=== PATIENT | female | born 1945 | race Caucasian/White ===

== ENCOUNTER 2023-11-02 15:01 | Inpatient (IN) ==
--- NOTE | 2023-11-02 15:38 | Emergency Department Note ---
ED Provider Note History of Present Illness Chief Complaint: Abdominal Pain Stated Complaint: ABD PAIN Time Seen by Provider: 11/02/23 15:36 This is a 78-year-old female accompanied by her who was referred to the emergency department by her primary care provider. Patient describes bilateral hand cramping and feet pain, lack of appetite, vomiting after eating, general fatigue, weight loss, and weakness. She also fell yesterday and hit the right side of her head. Patient states that symptoms have been ongoing for the past couple months but worsened recently to the point where she is now having a hard time even drinking fluids. She states that her time she ingests something she feels nauseous and sometimes will vomit. She is still making bowel movements and urinating about 5 times per day. She does not feel anxious. She denies any chest pain or shortness of breath. She states she recently lost 12 pounds unintentionally. She was admitted in [facility] several weeks ago and states that her potassium and magnesium was very low. She was subsequently discharged. She has an EGD and colonoscopy scheduled for November 30 with Deshawn rodriguez. She denies any fevers or leg swelling. History of hysterectomy as well as cholecystectomy. Home Medications Medication Instructions Recorded Confirmed Type acetaminophen 650 mg 650 mg PO Q8H PRN Pain 11/02/23 11/02/23 History tablet,extended release albuterol sulfate 90 mcg/actuation 2 puff inhalation Q6H PRN 11/02/23 11/02/23 History aerosol inhaler Shortness Of Breath Or Wheezing atorvastatin 80 mg tablet 80 mg PO QPM 11/02/23 11/02/23 History denosumab 60 mg/mL subcutaneous 60 mg subcut .[id number] 11/02/23 11/02/23 History syringe (Prolia) famotidine 40 mg tablet 40 mg PO QPM 11/02/23 11/02/23 History flaxseed oil 1,000 mg capsule 1,000 mg PO QPM 11/02/23 11/02/23 History montelukast 10 mg tablet 10 mg PO DAILY 11/02/23 11/02/23 History pantoprazole 20 mg tablet,delayed 20 mg PO QDD 11/02/23 11/02/23 History release ranolazine 500 mg tablet,extended 500 mg PO BID 11/02/23 11/02/23 History release,12 hr sertraline 100 mg tablet 100 mg PO QAM 11/02/23 11/02/23 History trazodone 100 mg tablet 100 mg PO HS 11/02/23 11/02/23 History Allergies Allergy/AdvReac Type Severity Reaction Status Date / Time alendronate sodium Allergy Intermediate Itching Verified 11/02/23 17:21 [From Fosamax] Past Med/Surg History Problem List Hypocalcemia Hypophosphatemia Hypertriglyceridemia Orthostatic hypotension Anxiety and depression Cramp of muscle of both upper extremities (Acute) Nausea & vomiting (Acute) Hypomagnesemia (Acute) Acute hypokalemia (Acute) Surgical History History of cholecystectomy History of hysterectomy Family History Other Colorectal cancer Heart disease Social History Smoking Status: Never smoker Second Hand Exposure: No; Tobacco Cessation Education Requested by Patient: No Hx Alcohol Use: No Hx Substance Use: No Preferred Language: Kosovan Communication Ability: Effective Processes Chemical Design Engineer Required: No Beliefs That Will Affect Care: None Current Living Situation: Spouse Feels Safe at Home: Yes Safety Concerns: Feels Safe At This Time Assistive Devices: Denture - Upper and Glasses Physical Exam Vital Signs Vital Signs - 24 hr 11/02/23 15:12 11/02/23 15:26 11/02/23 16:03 Temperature 36.8 C 36.4 C L Temperature Source Temporal Artery Scan Oral Pulse Rate 101 H 81 Pulse Rate [Right Finger] 77 Pulse Rate from SpO2 Sensor Respiratory Rate 18 23 26 H Respiratory Effort / Characteristics Non-Labored Respiratory Depth Normal Blood Pressure 116/68 Blood Pressure [Right Arm] 113/67 Blood Pressure Mean 84 Blood Pressure Mean [Right Arm] 82 Blood Pressure Position [Right Arm] Lying Pulse Oximetry 98 Oxygen Delivery Method Room Air Sepsis Recent Fever Within 48 Hours No Sepsis New/Unexplained Change in Mental Status No Sepsis Action Taken by Nursing No Action Required 11/02/23 16:26 11/02/23 16:36 11/02/23 16:55 Temperature Temperature Source Pulse Rate 78 84 Pulse Rate [Right Finger] Pulse Rate from SpO2 Sensor 65 Respiratory Rate 24 Respiratory Effort / Characteristics Respiratory Depth Blood Pressure 124/72 Blood Pressure [Right Arm] Blood Pressure Mean 95 Blood Pressure Mean [Right Arm] Blood Pressure Position [Right Arm] Pulse Oximetry 94 Oxygen Delivery Method Sepsis Recent Fever Within 48 Hours Sepsis New/Unexplained Change in Mental Status Sepsis Action Taken by Nursing 11/02/23 16:57 11/02/23 17:03 11/02/23 18:06 Temperature Temperature Source Pulse Rate 76 78 94 H Pulse Rate [Right Finger] Pulse Rate from SpO2 Sensor 110 H Respiratory Rate 21 28 H 25 H Respiratory Effort / Characteristics Respiratory Depth Blood Pressure Blood Pressure [Right Arm] Blood Pressure Mean Blood Pressure Mean [Right Arm] Blood Pressure Position [Right Arm] Pulse Oximetry 79 L 93 Oxygen Delivery Method Room Air Sepsis Recent Fever Within 48 Hours Sepsis New/Unexplained Change in Mental Status Sepsis Action Taken by Nursing CONSTITUTIONAL: Well developed, well nourished, anxious appearing, tearful at times. HEAD: Normocephalic, atraumatic. EYES: conjunctivae normal, extraocular muscles intact. No scleral icterus. ENMT: External ears normal. Nose with normal external appearance, no congestion. Oral mucous membranes dry otherwise. Oropharynx normal. NECK: Full active range of motion. No midline tenderness. LYMPHATIC: No cervical adenopathy RESPIRATORY: Minimally tachypneic. Lungs clear to auscultation bilaterally. CARDIOVASCULAR: Regular rate and rhythm. No murmurs, rubs, or gallops. PT pulses 2+ bilaterally. ABDOMEN: Normal bowel sounds. Abdomen is soft. There is significant tenderness in the epigastric region as well as mild tenderness in the left upper quadrant and diffuse lower abdomen. MUSCULOSKELETAL: Moves all extremities at all joints without pain or difficulty. No edema in bilateral lower extremities. SKIN: [place], warm, dry. NEUROLOGIC: Awake, alert, oriented. Gaze is conjugate. Face symmetric, speech normal. Moves head and all four extremities spontaneously. Sensation and strength grossly intact. PSYCHIATRIC: Anxious and tearful. Otherwise appropriate. Course Administered Medications Atorvastatin Calcium (Atorvastatin 40 Mg Tab) 80 mg PO QPM [facility] Stop: 12/02/23 21:07 Last Admin: 11/02/23 21:53 Dose: 80 mg Documented By: TIGRE Famotidine (Famotidine 40 Mg Tablet) 40 mg PO QPM [facility] Stop: 12/02/23 21:07 Last Admin: 11/02/23 21:55 Dose: 40 mg Documented By: TIGRE Heparin Sodium (Porcine) (Heparin Sod 5,000 Unit/0.5 Ml Vial) 5,000 units SQ Q12 KRISTINA Stop: 12/02/23 21:07 Last Admin: 11/02/23 21:56 Dose: 5,000 units Documented By: TIGRE Potassium Chloride/Sodium Chloride (Normal Saline W/20 Meq Kcl) 20 meq in 1,000 mls @ 100 mls/hr IV .Q10H [facility]; Protocol Stop: 11/03/23 17:07 Last Admin: 11/03/23 02:06 Dose: 100 mls/hr Documented By: TIGRE Potassium Chloride (K Joao / Wtr) 10 meq in 100 mls @ 100 mls/hr IV Q1H [facility] Stop: 11/03/23 05:44 Last Admin: 11/03/23 04:08 Dose: 100 mls/hr Documented By: Infusion: 11/03/23 04:08 Dose: Infused Documented By: Admin: 11/03/23 03:14 Dose: 100 mls/hr Documented By: Infusion: 11/03/23 03:06 Dose: Infused Documented By: Admin: 11/03/23 02:06 Dose: 100 mls/hr Documented By: TIGRE Ranolazine (Ranolazine 500 Mg Er Tab) 500 mg PO BID [facility] Stop: 12/02/23 21:07 Last Admin: 11/02/23 22:00 Dose: 500 mg Documented By: TIGRE Trazodone HCl (Trazodone Hcl 100 Mg Tab) 100 mg PO HS [facility] Stop: 12/02/23 21:07 Last Admin: 11/02/23 22:00 Dose: 100 mg Documented By: TIGRE Discontinued Medications Hydromorphone HCl (Hydromorphone Inj 0.5 Mg/0.5 Ml Syr) 0.25 mg IV NOW [facility] Stop: 11/02/23 19:16 Last Admin: 11/02/23 20:28 Dose: 0.25 mg Documented By: Magnesium Sulfate/Dextrose (Magnesium Sulfate / D5w) 1 gm in 100 mls @ 200 mls/hr IV Q30M KRISTINA Stop: 11/02/23 18:20 Last Infusion: 11/02/23 19:21 Dose: Infused Documented By: Admin: 11/02/23 18:47 Dose: 200 mls/hr Documented By: Infusion: 11/02/23 18:37 Dose: Infused Documented By: Admin: 11/02/23 18:07 Dose: 200 mls/hr Documented By: ANNA Potassium Chloride (K Joao / Wtr) 10 meq in 100 mls @ 100 mls/hr IV Q1H STA Stop: 11/02/23 18:18 Last Infusion: 11/02/23 19:14 Dose: Infused Documented By: Admin: 11/02/23 17:55 Dose: 100 mls/hr Documented By: ANNA Magnesium Sulfate/Dextrose (Magnesium Sulfate / D5w) 1 gm in 100 mls @ 200 mls/hr IV Q30M KRISTINA Stop: 11/02/23 18:22 Last Admin: 11/02/23 19:04 Dose: Not Given Documented By: Admin: 11/02/23 19:04 Dose: Not Given Documented By: ANNA Acetaminophen (Ofirmev) 1,000 mg in 100 mls @ 400 mls/hr IV NOW STA Stop: 11/02/23 18:21 Last Infusion: 11/02/23 19:13 Dose: Infused Documented By: Admin: 11/02/23 18:20 Dose: 400 mls/hr Documented By: ANNA Sodium Chloride (Nss) 500 mls @ 999 mls/hr IV .Q31M ONE Stop: 11/02/23 18:37 Last Infusion: 11/02/23 19:21 Dose: Infused Documented By: Admin: 11/02/23 18:18 Dose: 999 mls/hr Documented By: ANNA Potassium Chloride (K Joao / Wtr) 10 meq in 100 mls @ 100 mls/hr IV Q1H KRISTINA Stop: 11/02/23 22:44 Last Infusion: 11/03/23 00:48 Dose: Infused Documented By: Admin: 11/02/23 23:30 Dose: 100 mls/hr Documented By: Infusion: 11/02/23 23:21 Dose: Infused Documented By: Admin: 11/02/23 22:21 Dose: 100 mls/hr Documented By: Infusion: 11/02/23 22:19 Dose: Infused Documented By: Admin: 11/02/23 21:19 Dose: 100 mls/hr Documented By: TIGRE Magnesium Sulfate/Dextrose (Magnesium Sulfate / D5w) 1 gm in 100 mls @ 100 mls/hr IV Q1H KRISTINA Stop: 11/02/23 21:40 Last Infusion: 11/02/23 23:30 Dose: Infused Documented By: Admin: 11/02/23 22:21 Dose: 100 mls/hr Documented By: Infusion: 11/02/23 22:14 Dose: Infused Documented By: Admin: 11/02/23 21:14 Dose: 100 mls/hr Documented By: TIGRE Potassium Phosphate 15 mmol/ (Sodium Chloride) 255 mls @ 88 mls/hr IV ONE ONE Stop: 11/02/23 22:53 Last Admin: 11/02/23 23:32 Dose: Not Given Documented By: TIGRE Pantoprazole Sodium 40 mg/ (Syringe) 10 mls @ 5 mls/min IV NOW ONE Stop: 11/02/23 20:31 Last Admin: 11/02/23 20:29 Dose: 5 mls/min Documented By: Potassium Phosphate 30 mmol/ (Sodium Chloride) 510 mls @ 102 mls/hr IV ONE ONE Stop: 11/03/23 01:59 Last Infusion: 11/03/23 02:15 Dose: Infused Documented By: Admin: 11/02/23 21:09 Dose: 102 mls/hr Documented By: TIGRE Ioversol (Optiray 320 100ml) 93 ml IV ONCE ONE Stop: 11/02/23 17:45 Last Admin: 11/02/23 17:45 Dose: 93 ml Documented By: PIPO Ondansetron HCl (Ondansetron Inj 2 Mg/Ml 2 Ml Vial) 4 mg IV NOW STA Stop: 11/02/23 16:14 Last Admin: 11/02/23 16:23 Dose: 4 mg Documented By: OSIEL Potassium Chloride (Potassium Chloride Crtab 20 Meq Tabcr) 20 meq PO NOW STA Stop: 11/02/23 19:53 Last Admin: 11/02/23 20:34 Dose: 20 meq Documented By: Potassium Chloride (Potassium Chloride Pwd 20 Meq Pack) 40 meq PO NOW STA Stop: 11/03/23 01:38 Last Admin: 11/03/23 02:12 Dose: 40 meq Documented By: TIGRE Potassium Chloride (Potassium Chloride Pwd 20 Meq Pack) 40 meq PO ONE ONE Stop: 11/03/23 03:01 Last Admin: 11/03/23 04:05 Dose: 40 meq Documented By: TIGRE Medical Decision Making Differential Diagnosis Peptic ulcer disease, hiatal hernia, electrolyte imbalance, dehydration, ACS, constipation, appendicitis, hyperventilation, GATO, malignancy, anxiety, among other pathology Medical Records Attestation: I reviewed the patient's medical records. (Reviewed [facility] discharge summary from last month, hypokalemic and hypomagnesemic, felt to possibly be secondary to viral gastroenteritis) Laboratory Data 11/02/23 15:35 11/02/23 22:49 Lab Results 11/02/23 11/02/23 11/02/23 Range/Units 15:35 16:53 18:18 WBC 8.97 (4.8-10.8) K/ul RBC 4.00 L (4.20-5.40) M/uL Hgb 12.2 (12.0-16.0) g/dl Hct 33.8 L (37.0-47.0) % MCV 84.5 (80.0-100.0) fL MCH 30.5 (25.0-34.0) pg MCHC 36.1 H (32.0-36.0) g/dL RDW Std Deviation 44.1 (36.4-46.3) fL RDW Coeff of Silvia 14.4 (11.5-14.5) % Plt Count 262 (130-400) K/uL MPV 10.0 (9.4-12.4) fL Immature Gran % (Auto) 0.3 % Neut % (Auto) 41.1 % Lymph % (Auto) 42.4 % Toole % (Auto) 14.3 % Eos % (Auto) 1.3 % Baso % (Auto) 0.6 % Neut # (Auto) 3.69 (1.40-6.50) K/uL Lymph # (Auto) 3.80 H (1.20-3.40) K/uL Toole # (Auto) 1.28 H (0.11-0.59) K/uL Eos # (Auto) 0.12 (0.00-0.50) K/uL Baso # (Auto) 0.05 (0.00-0.20) K/uL Immature Gran # (Auto) 0.03 (0.01-0.20) K/uL Sodium 140 (136-145) mmol/L Potassium 2.3 L* (3.5-5.1) mmol/L Chloride 100 (98-107) mmol/L Carbon Dioxide 25 (21-32) mmol/L Anion Gap 15 H (3-11) BUN 15 (6-23) mg/dl Creatinine 1.11 (0.6-1.2) mg/dl Est Cr Clr Drug Dosing 32.5 ml/min Est GFR ( Amer) 55.9 ml/min Est GFR (Non-Af Amer) 48.2 ml/min BUN/Creatinine Ratio 13.5 (10-20) Glucose 97 (70-99(Fasting)) mg/dl Lactate 2.0 (0.4-2.0) mmol/L Calcium 7.4 L (8.6-10.3) mg/dl Phosphorus < 1.0 L* (2.5-4.9) mg/dl Magnesium 0.6 L* (1.7-2.4) mg/dl Total Bilirubin 1.0 (0.2-1.0) mg/dl AST 53 H (13-39) U/L ALT 31 (7-52) U/L Alkaline Phosphatase 47 (34-104) U/L Troponin I High Sens 14.8 H 14.8 H (0-14) pg/ml Total Protein 6.6 (6.0-8.3) gm/dl Albumin 3.9 (3.4-5.0) gm/dl Globulin 2.7 (2.5-4.0) gm/dl Albumin/Globulin Ratio 1.4 (0.9-2) Lipase 73 (11-82) U/L Vitamin B12 274 (180-914) pg/ml Folate 12.68 (>5.38) ng/ml Urine Color Dark Yellow Urine Appearance Cloudy A (Clear) Urine pH 6.0 (4.5-7.5) Ur Specific [place] 1.024 (1.000-1.030) Urine Protein 1+ H (Negative) Urine Glucose (UA) Negative (Negative) Urine Ketones 1+ H (Negative) Urine Blood Negative (Negative) Urine Nitrite Negative (Negative) Urine Bilirubin 1+ H (Negative) Urine Urobilinogen Negative (Negative) Ur Leukocyte Esterase 1+ H (Negative) Urine WBC (Auto) 0-5 (0-5) /hpf Urine RBC (Auto) 6-10 H (0-2) /hpf U Hyaline Cast (Auto) 6-10 H (0-2) /lpf U Epithel Cells (Auto) 0-2 (0-2) /hpf Urine Bacteria (Auto) None Seen (None Seen) Hyaline Casts Present A (None Presnt) /lpf Urine Mucus Present A (None Prsent) Adenovirus (PCR) (NotDetected) B. pertussis DNA (PCR) (NotDetected) B.parapertussis DNA PCR (NotDetected) C. pneumoniae DNA (PCR) (NotDetected) Coronavirus OC43 (PCR) (NotDetected) Coronavirus HKU1 (PCR) (NotDetected) Coronavirus 229E (PCR) (NotDetected) SARS-CoV-2 (PCR) (NotDetected) Coronavirus NL63 (PCR) (NotDetected) Human Metapneumovir PCR (NotDetected) Influenza Type A (PCR) (NotDetected) Influenza Type B (PCR) (NotDetected) M. pneumoniae (PCR) (NotDetected) Parainfluenza 1 (PCR) (NotDetected) Parainfluenza 2 (PCR) (NotDetected) Parainfluenza 3 (PCR) (NotDetected) Parainfluenza 4 (PCR) (NotDetected) RSV (PCR) (NotDetected) Entero/Rhino (PCR) (NotDetected) 11/02/23 Range/Units 18:56 WBC (4.8-10.8) K/ul RBC (4.20-5.40) M/uL Hgb (12.0-16.0) g/dl Hct (37.0-47.0) % MCV (80.0-100.0) fL MCH (25.0-34.0) pg MCHC (32.0-36.0) g/dL RDW Std Deviation (36.4-46.3) fL RDW Coeff of Silvia (11.5-14.5) % Plt Count (130-400) K/uL MPV (9.4-12.4) fL Immature Gran % (Auto) % Neut % (Auto) % Lymph % (Auto) % [place] % (Auto) % Eos % (Auto) % Baso % (Auto) % Neut # (Auto) (1.40-6.50) K/uL Lymph # (Auto) (1.20-3.40) K/uL [place] # (Auto) (0.11-0.59) K/uL Eos # (Auto) (0.00-0.50) K/uL Baso # (Auto) (0.00-0.20) K/uL Immature Gran # (Auto) (0.01-0.20) K/uL Sodium (136-145) mmol/L Potassium (3.5-5.1) mmol/L Chloride (98-107) mmol/L Carbon Dioxide (21-32) mmol/L Anion Gap (3-11) BUN (6-23) mg/dl Creatinine (0.6-1.2) mg/dl Est Cr Clr Drug Dosing ml/min Est GFR ( Amer) ml/min Est GFR (Non-Af Amer) ml/min BUN/Creatinine Ratio (10-20) Glucose (70-99(Fasting)) mg/dl Lactate (0.4-2.0) mmol/L Calcium (8.6-10.3) mg/dl Phosphorus (2.5-4.9) mg/dl Magnesium (1.7-2.4) mg/dl Total Bilirubin (0.2-1.0) mg/dl AST (13-39) U/L ALT (7-52) U/L Alkaline Phosphatase (34-104) U/L Troponin I High Sens (0-14) pg/ml Total Protein (6.0-8.3) gm/dl Albumin (3.4-5.0) gm/dl Globulin (2.5-4.0) gm/dl Albumin/Globulin Ratio (0.9-2) Lipase (11-82) U/L Vitamin B12 (180-914) pg/ml Folate (>5.38) ng/ml Urine Color Urine Appearance (Clear) Urine pH (4.5-7.5) Ur Specific [place] (1.000-1.030) Urine Protein (Negative) Urine Glucose (UA) (Negative) Urine Ketones (Negative) Urine Blood (Negative) Urine Nitrite (Negative) Urine Bilirubin (Negative) Urine Urobilinogen (Negative) Ur Leukocyte Esterase (Negative) Urine WBC (Auto) (0-5) /hpf Urine RBC (Auto) (0-2) /hpf U Hyaline Cast (Auto) (0-2) /lpf U Epithel Cells (Auto) (0-2) /hpf Urine Bacteria (Auto) (None Seen) Hyaline Casts (None Presnt) /lpf Urine Mucus (None Prsent) Adenovirus (PCR) Not Detected (NotDetected) B. pertussis DNA (PCR) Not Detected (NotDetected) B.parapertussis DNA PCR Not Detected (NotDetected) C. pneumoniae DNA (PCR) Not Detected (NotDetected) Coronavirus OC43 (PCR) Not Detected (NotDetected) Coronavirus HKU1 (PCR) Not Detected (NotDetected) Coronavirus 229E (PCR) Not Detected (NotDetected) SARS-CoV-2 (PCR) Not Detected (NotDetected) Coronavirus NL63 (PCR) Not Detected (NotDetected) Human Metapneumovir PCR Not Detected (NotDetected) Influenza Type A (PCR) Not Detected (NotDetected) Influenza Type B (PCR) Not Detected (NotDetected) M. pneumoniae (PCR) Not Detected (NotDetected) Parainfluenza 1 (PCR) Not Detected (NotDetected) Parainfluenza 2 (PCR) Not Detected (NotDetected) Parainfluenza 3 (PCR) Not Detected (NotDetected) Parainfluenza 4 (PCR) Not Detected (NotDetected) RSV (PCR) Not Detected (NotDetected) Entero/Rhino (PCR) Not Detected (NotDetected) Imaging Data Radiologist's Impression: Chest X-Ray 11/02/23 16:00 XR chest 1V portable CLINICAL HISTORY: postprandial fullness/vomiting COMPARISON STUDY: No previous studies for comparison. FINDINGS: There is moderate elevation of the right hemidiaphragm. Lungs are clear. There is no pneumothorax or pleural effusion. Cardiac size is normal. Mediastinal contours are normal. There is no evidence for pulmonary edema. Multiple old right-sided rib fractures are incidentally noted. IMPRESSION: No acute cardiopulmonary findings. ACT 112: Negative or not required by law. Electronically signed by: Howie Campo M.D. 11/02/2023 5:[address] 11/02/23 16:03 CT OF THE HEAD WITHOUT CONTRAST CLINICAL HISTORY: fall yesterday, right head injury COMPARISON STUDY: No previous studies for comparison. CT DOSE: 1441.5 mGy.cm TECHNIQUE: Helical axial images of the head were obtained without IV contrast. Automated exposure control was utilized for the study. A dose lowering technique was utilized adhering to the principles of ALARA. FINDINGS: No acute intracranial hemorrhage, midline shift or mass effect is present. The ventricular system is unremarkable. The basal cisterns are patent. No extra-axial collections are present. There are no findings to suggest acute dural sinus thrombosis or acute territorial infarct. No significant calvarial abnormalities are present. Visualized portions of the sinuses and mastoid air cells are clear. IMPRESSION: 1. No acute intracranial findings. 2. No calvarial fractures. ACT 112: Negative or not required by law. Electronically signed by: Howie Campo M.D. 11/02/2023 6:08 PM Abdomen/Pelvis CT 11/02/23 17:16 CT OF THE ABDOMEN AND PELVIS WITH CONTRAST CLINICAL HISTORY: Epigastric pain, vomiting after eating. COMPARISON STUDY: None. TECHNIQUE: Following IV administration of 93 mL of Optiray, axial images of the abdomen and pelvis were obtained from the lung bases to the proximal femurs. Images were reviewed in the axial, sagittal, and coronal planes. IV contrast was administered without complication. Automated exposure control was utilized for the study. A dose lowering technique was utilized adhering to the principles of ALARA. FINDINGS: There are several healing left lower rib fractures. No pneumatosis, free air or portal venous gas is present. The liver, spleen, adrenal glands, right kidney and pancreas are unremarkable. There is no biliary ductal dilatation status post cholecystectomy 2.2 cm water attenuation lobulated left lower pole renal lesion represents a cyst. There is no hydronephrosis. There are no urinary calculi. The caliber and wall thickness of small and large bowel are normal. The appendix is not visualized. There is no lymphadenopathy. Major vasculature is patent. No acute fractures within the lumbar spine, pelvis or hips are identified. IMPRESSION: 1. No acute process within the abdomen or pelvis. 2. No bowel obstruction. No bowel wall thickening. ACT 112: Negative or not required by law. Electronically signed by: Howie Campo M.D. 11/02/2023 6:15 PM MDM Narrative This is a 78-year-old female who was referred to the emergency department by her primary care provider. She has had worsening difficulty with p.o. intake, vomiting after trying to eat or drink. Was recently admitted at [facility] several weeks ago for hypokalemia and hypomagnesemia. Has EGD and colonoscopy scheduled with Deshawn rodriguez in 2 months. Patient does appear to be anxious and is intermittently tearful. Her mucous membranes are dry. She has epigastric tenderness and some mild left upper and diffuse lower abdominal tenderness. Her hands are clenched and she is slightly tachypneic. Remainder of vitals unremarkable. IV was inserted and labs were obtained. EKG: Sinus rhythm with a rate of 70. Borderline prolonged QTc at 509. Otherwise intervals within normal limits, normal axis. No acute ST elevation or evidence of ischemia. Labs: No leukocytosis. No significant anemia. No thrombocytopenia. Marked hypokalemia at 2.3 and hypomagnesemia at 0.6. Phosphorus also significantly low at less than 1.0. Mild hypocalcemia at 7.4. Lactate 2.0. Creatinine 1.11. Nonspecific elevation of AST at 53. Initial and repeat 2-hour troponin stable at 14.8. B12 and folate normal. Lipase also normal. Urinalysis with 1+ ketones and leukocyte esterase, small amount of RBCs, no evidence of infection. Upper respiratory bio fire is negative. CT of the head due to recent fall as well as CT abdomen pelvis obtained and are both negative for acute process Patient was given gentle IV fluids. Case reviewed with ED attending Dr. Miranda. We repleted her magnesium, total of 4 g ordered over 2 hours as well as 40 mEq potassium IV over 4 hours. Case discussed with [facility] hospitalist group and patient will be admitted under Dr. Yancey for electrolyte repletion as well as GI consult. Impression Acute hypokalemia, Hypomagnesemia, Nausea & vomiting, Cramp of muscle of both upper extremities Discharge Plan Visit Data Chief Complaint: Abdominal Pain Stated Complaint: ABD PAIN ED Provider: Max Miranda ED Midlevel Provider: Suraj Frod Discharge Problem: Acute hypokalemia, Hypomagnesemia, Nausea & vomiting, Cramp of muscle of both upper extremities Patient Disposition: Admitted As Inpatient Condition: Fair Discharge Instructions Interventions: ED Discharge Assessment Last Done: 11/02/23 20:50 Addendum November 03, 2023 04:49 HPI: The patient is a 78-year-old woman who presents to the emergency department, referred by her outpatient provider for evaluation of ongoing and cramping/feet pain, poor appetite with recent chronic history of nausea and vomiting with eating. The patient has been admitted to [facility] several weeks ago for similar symptoms and had low potassium and magnesium. She has an EGD and colonoscopy scheduled for November with Deshawn gastro. A/P: WBC, hemoglobin and platelets within normal limits. Chemistry without metabolic acidosis. Electrolytes are severely low with potassium 2.3, magnesium 0.6. Phosphorus also did result undetectable less than 1.0. AST mildly elevated 53, nonspecific and LFTs otherwise normal. High-sensitivity troponin 14.8, marginally above upper limit of normal and unchanged on repeat, nonspecific. Lipase is not elevated. UA with 1+ ketones consistent with dehydration. Respiratory viral panel/BioFire was negative. Chest x-ray negative for acute cardiopulmonary process. CT of the head negative for acute abnormalities. CT of the abdomen pelvis was performed and demonstrates no acute abnormalities. IV fluid hydration and electrolyte patient initiated. Patient is referred to hospital service for admission for further management. Further management per admitting team. I was consulted by the Advanced Practice Provider and was substantively involved in the patient's visit.This includes aspects of the HPI, MDM, diagnostic interpretations, and disposition/plan. I discussed the case with the VIN[facility] and agree with the findings and plan as documented in VINH Liliana''s note. Discharge Problem: Nausea & vomiting Qualifiers: Vomiting type: unspecified Qualified Code(s): R11.2 - Nausea with vomiting, unspecified
[2023-11-02] MEDS: ONDANSETRON INJ 2 MG/ML 2 ML VIAL IV STA (16:23)
[2023-11-02 16:25] LABS: Basophils # (auto) 0.05 K/uL (0.00-0.20); Basophils % (auto) 0.6 %; Eosinophils # (auto) 0.12 K/uL (0.00-0.50); Eosinophils % (auto) 1.3 %; Hematocrit (blood only) 33.8 % (37.0-47.0); Hemoglobin 12.2 g/dl (12.0-16.0); Immature Granulocytes # (auto) 0.03 K/uL (0.01-0.20); Immature Granulocytes % (auto) 0.3 %; Lymphocytes % (auto) 42.4 %; Mean Corpuscular Hemoglobin 30.5 pg (25.0-34.0); Mean Corpuscular Hgb Conc 36.1 g/dL (32.0-36.0); Mean Corpuscular Volume 84.5 fL (80.0-100.0); Monocytes # (auto) 1.28 K/uL (0.11-0.59); Monocytes % (auto) 14.3 %; Neutrophils # (auto) 3.69 K/uL (1.40-6.50); Neutrophils % (auto) 41.1 %; Platelet Count 262 K/uL (130-400); RDW Coefficient of Variation 14.4 % (11.5-14.5); RDW Standard Deviation 44.1 fL (36.4-46.3); White Blood Count 8.97 K/ul (4.8-10.8)
[2023-11-02 16:52] LABS: Troponin I High Sensitivity 14.8 pg/ml (0-14)
[2023-11-02 16:53] LABS: Albumin Globulin Ratio 1.4 (0.9-2); Albumin Level 3.9 gm/dl (3.4-5.0); BUN Creatinine Ratio 13.5 (10-20); Calcium 7.4 mg/dl (8.6-10.3); Creatinine Clr Calc Pharmacy 32.5 ml/min; Est GFR (African American) 55.9 ml/min; Est GFR (Non-African American) 48.2 ml/min; Globulin 2.7 gm/dl (2.5-4.0); Magnesium 0.6 mg/dl (1.7-2.4); Potassium 2.3 mmol/L (3.5-5.1); Total Protein 6.6 gm/dl (6.0-8.3)
[2023-11-02 17:06] LABS: Folate (Folic Acid),Ser orPlas 12.68 ng/ml (>5.38)
--- NOTE | 2023-11-02 17:29 | XRay Report ---
XR chest 1V portable CLINICAL HISTORY: postprandial fullness/vomiting COMPARISON STUDY: No previous studies for comparison. FINDINGS: There is moderate elevation of the right hemidiaphragm. Lungs are clear. There is no pneumo thorax or pleural effusion. Cardiac size is normal. Mediastinal contours are normal. There is no evid ence for pulmonary edema. Multiple old right-sided rib fractures are incidentally noted. IMPRESSION: No acute cardiopulmonary findings. ACT 112: Negative or not required by law. Electronically signed by: Howie Campo M.D. 11/02/2023 5:28 PM
[2023-11-02 17:38] LABS: Appearance Urine Cloudy (Clear); Bacteria Urine Automated None Seen (None Seen); Bilirubin Urine 1+ (Negative); Blood Urine Negative (Negative); Color Urine Dark Yellow; Epithelial Cell Urine Auto 0-2 /hpf (0-2); Glucose Urine UA Negative (Negative); Hyaline Casts Urine Present /lpf (None Presnt); Ketones Urine 1+ (Negative); Leukocyte Esterase Urine 1+ (Negative); Mucus Urine Present (None Prsent); Nitrite Urine Negative (Negative); Protein Urine 1+ (Negative); Specific Gravity Urine 1.024 (1.000-1.030); Urobilinogen Urine Negative (Negative); WBC Urine Automated 0-5 /hpf (0-5)
[2023-11-02] MEDS: OPTIRAY 320 100ml IV ONE (17:45)
[2023-11-02] MEDS: POTASSIUM CHLORIDE / WTR 10 MEQ/100 ML PLCT IV STA (17:55)
[2023-11-02] MEDS: MAGNESIUM SULFATE / D5W 1 GM/100 ML BAG IV SCH ×3 (18:07→21:14)
--- NOTE | 2023-11-02 18:10 | CT Scan Report ---
CT OF THE HEAD WITHOUT CONTRAST CLINICAL HISTORY: fall yesterday, right head injury COMPARISON STUDY: No previous studies for comparison. CT DOSE: 1441.5 mGy.cm TECHNIQUE: Helical axial images of the head were obtained without IV contrast. Automated exposure con trol was utilized for the study. A dose lowering technique was utilized adhering to the principles o f ALARA. FINDINGS: No acute intracranial hemorrhage, midline shift or mass effect is present. The ventricular system is unremarkable. The basal cisterns are patent. No extra-axial collections are present. There are no findings to suggest acute dural sinus thrombosis or acute territorial infarct. No significant calvarial abnormalities are present. Visualized portions of the sinuses and mastoid air cells are baltazar ar. IMPRESSION: 1. No acute intracranial findings. 2. No calvarial fractures. ACT 112: Negative or not required by law. Electronically signed by: Howie Campo M.D. 11/02/2023 6:08 PM
--- NOTE | 2023-11-02 18:17 | CT Scan Report ---
CT OF THE ABDOMEN AND PELVIS WITH CONTRAST CLINICAL HISTORY: Epigastric pain, vomiting after eating. COMPARISON STUDY: None. TECHNIQUE: Following IV administration of 93 mL of Optiray, axial images of the abdomen and pelvis we re obtained from the lung bases to the proximal femurs. Images were reviewed in the axial, sagittal, and coronal planes. IV contrast was administered without complication. Automated exposure control wa s utilized for the study. A dose lowering technique was utilized adhering to the principles of ALARA . FINDINGS: There are several healing left lower rib fractures. No pneumatosis, free air or portal veno us gas is present. The liver, spleen, adrenal glands, right kidney and pancreas are unremarkable. The re is no biliary ductal dilatation status post cholecystectomy 2.2 cm water attenuation lobulated lef t lower pole renal lesion represents a cyst. There is no hydronephrosis. There are no urinary calculi . The caliber and wall thickness of small and large bowel are normal. The appendix is not visualized. There is no lymphadenopathy. Major vasculature is patent. No acute fractures within the lumbar spine , pelvis or hips are identified. IMPRESSION: 1. No acute process within the abdomen or pelvis. 2. No bowel obstruction. No bowel wall thickening. ACT 112: Negative or not required by law. Electronically signed by: Howie Campo M.D. 11/02/2023 6:15 PM
[2023-11-02] MEDS: SODIUM CHLORIDE 0.9% 500 ML IV ONE (18:18)
[2023-11-02] MEDS: ACETAMINOPHEN 1,000 MG/100 ML VIAL IV STA (18:20)
--- NOTE | 2023-11-02 18:39 | History & Physical Report ---
Date of Service November 02, 2023 Assessment & Plan (1) Acute hypokalemia: (2) Hypomagnesemia: (3) Hypophosphatemia: (4) Hypocalcemia: (5) Cramp of muscle of both upper extremities: (6) Nausea & vomiting: Plan: Patient is 78-year-old female with PMH osteoporosis, GERD, hypertriglyceridemia, depression, anxiety presented to ER with complaint of extremity cramping today with intermittent, nausea, vomiting. Reports ongoing nausea, vomiting, decreased appetite, intermittent loose bowels and weight loss Vitals stable in ER. No leukocytosis, K: 2.3, Ca: 7.4, magnesium: 0.6, phosphorus <1.0 troponin: 14.8 with repeat of 14.8, lipase and LFTs WNL CT A/P: No bowel obstruction, no acute process noted in abdomen or pelvis In ER given Zofran, IV Tylenol, 500 mL NSS, 2 g magnesium sulfate, 1K rider Electrolyte abnormalities may be secondary to GI losses, decreased oral intake. Suspect muscle cramps and aches secondary to electrolyte abnormality Obtain records assistant on telemetry Continue KCl, magnesium, phosphorus replacement with repeat labs tonight CBC, CMP, magnesium, phosphorus labs in a.m. Clear liquid diet as tolerated Dose IV Protonix now Plan to continue home Pepcid and PPI GI consult (7) Orthostatic hypotension: Plan: History orthostatic hypotension Likely exacerbated by GI losses/poor oral intake Fall precautions Orthostatic vitals (8) Anxiety and depression: Plan: Continue home meds (9) Hypertriglyceridemia: Plan: Continue atorvastatin DVT Prophylaxis Heparin SQ Admit to PCU Full Code as per discussion with pt Follows with Dr Jang for routine care Pt was seen and care coordinated with Dr Yancey. See addendum I spent a total of 78 minutes reviewing notes, outpatient records, labs, medication, coordinating, documenting and providing care for this patient excluding time spent in the performance of separately billed services. History of Present Illness Chief Complaint: extremity cramping Primary Care Provider: Herminia Jang DO Patient is 78-year-old female with PMH osteoporosis, GERD, hypertriglyceridemia, depression, anxiety presented to ER with complaint of extremity cramping today with intermittent, nausea, vomiting. Reports ongoing nausea, vomiting, decreased appetite, intermittent loose bowels. States last episode of loose bowel movement was a week ago. She states has no appetite and nausea. Reports two episodes of vomiting yesterday, one after taking her medications. Reports weight loss over past several months. She also reports some intermittent diffuse abdominal pain. History hospitalization at [facility] 09/29/2023-10/01/2023 for muscle cramping and found to have hypokalemia, hypomagnesemia and per discharge summary potassium and magnesium was repleted with improvement of patient cramping symptoms and was discharged home. Patient states continues with intermittent N/V/D since hospital discharge. She reports is to have "scope" by [facility] in 12/2023. Past reports prior colonoscopies they weren't able to pass the scope fully. She denies history of colon cancer. Patient states today with cramping of bilateral arms and legs and hands were cramping and clenched. She seen at PCP's office and referred to ER. Currently patient denies abdominal pain. No vomiting or diarrhea in ER. She states nauseated. Patient reports for past year has noted dyspnea on exertion and chest pressure with climbing a hill or climbing stairs. Follows with [facility]. Also reports ongoing dizziness with standing for the past several months. She reports she will stand up and have dizziness and often will fall. Patient reports has been falling several times a week with standing. It was recommended that patient have updated echo and stress test. Patient is unsure if she had these things completed. States yesterday fell twice with standing. Denies syncope or LOC. Doesn't think she injured herself. Per chart review 06/24 stress test study WNL and 10/2019 Holter WNL reported in [facility] notes. Per outpatient notes she was referred to asthma/allergy for elevated tryptase level. Denies current SOB or CP. Denies fever/chills, diaphoresis, hematemesis, melena, hematochezia, THAKUR, vision changes, neck pain, orthopnea, palpitations, cough, sore throat, choking, otalgia, rhinorrhea, extremity edema, rashes, urinary symptoms. Allergies Allergy/AdvReac Type Severity Reaction Status Date / Time alendronate sodium Allergy Intermediate Itching Verified 11/02/23 17:21 [From Fosamax] Home Medications Medication Instructions Recorded Confirmed Type acetaminophen 650 mg 650 mg PO Q8H PRN Pain 11/02/23 11/02/23 History tablet,extended release albuterol sulfate 90 mcg/actuation 2 puff inhalation Q6H PRN 11/02/23 11/02/23 History aerosol inhaler Shortness Of Breath Or Wheezing atorvastatin 80 mg tablet 80 mg PO QPM 11/02/23 11/02/23 History denosumab 60 mg/mL subcutaneous 60 mg subcut .[id number] 11/02/23 11/02/23 History syringe (Prolia) famotidine 40 mg tablet 40 mg PO QPM 11/02/23 11/02/23 History flaxseed oil 1,000 mg capsule 1,000 mg PO QPM 11/02/23 11/02/23 History montelukast 10 mg tablet 10 mg PO DAILY 11/02/23 11/02/23 History pantoprazole 20 mg tablet,delayed 20 mg PO QDD 11/02/23 11/02/23 History release ranolazine 500 mg tablet,extended 500 mg PO BID 11/02/23 11/02/23 History release,12 hr sertraline 100 mg tablet 100 mg PO QAM 11/02/23 11/02/23 History trazodone 100 mg tablet 100 mg PO HS 11/02/23 11/02/23 History Past Med/Surg History Problem List (Updated 11/02/23 @ 20:27 by Ellie Kim PA-C) Hypocalcemia Hypophosphatemia Hypertriglyceridemia Orthostatic hypotension Anxiety and depression Cramp of muscle of both upper extremities (Acute) Nausea & vomiting (Acute) Hypomagnesemia (Acute) Acute hypokalemia (Acute) Surgical History (Updated 11/02/23 @ 20:19 by Ellie Kim PA-C) History of cholecystectomy History of hysterectomy Family History (Updated 11/02/23 @ 20:18 by Ellie Kim PA-C) Other Colorectal cancer Heart disease Social History (Updated 11/02/23 @ 20:19 by Ellie Kim PA-C) Smoking Status: Never smoker Hx Alcohol Use: No Hx Substance Use: No Preferred Language: Polish Feels Safe at Home: Yes Review of Systems Review of Systems: All systems reviewed & are unremarkable except as noted in HPI & below Physical Exam Physical Exam: General: + distress secondary to bilateral upper and lower extremity pain and cramping, WDWN Head: normocephalic, atraumatic Eyes: conjunctiva non-injected, anicteric ENT: normal inspection external ears, nose, mucous membranes moist Neck: supple, trachea midline Lungs: clear, no respiratory distress, no wheezing/rhonchi/rales CV: RRR, no murmur, no pretibial edema Abd: normal BS, soft, +diffuse tenderness to palpation without rebound or guar ding Ext: no cyanosis, no erythema, +diffuse tenderness to palpation entire upper and lower extremities. No retractions of fingers or toes Neuro: A&O x 3, no focal deficits noted, normal affect Skin: warm, dry Results & Data Results & Data Vital Signs (Past 12 Hours) Vital Signs Temp Pulse Pulse Resp BP BP Pulse Ox 11/02/23 18:06 94 H 25 H 93 11/02/23 17:03 78 28 H 79 L 11/02/23 16:57 76 21 11/02/23 16:55 124/72 11/02/23 16:36 84 24 94 11/02/23 16:26 78 11/02/23 16:03 81 26 H 11/02/23 15:26 36.4 C L 77 23 113/67 11/02/23 15:12 36.8 C 101 H 18 116/68 98 O2 Del Method 11/02/23 18:06 Room Air 11/02/23 17:03 11/02/23 16:57 11/02/23 16:55 11/02/23 16:36 11/02/23 16:26 11/02/23 16:03 11/02/23 15:26 11/02/23 15:12 Room Air Laboratory Results Short CBC 11/02/23 Range/Units 15:35 WBC 8.97 (4.8-10.8) K/ul Hgb 12.2 (12.0-16.0) g/dl Hct 33.8 L (37.0-47.0) % Plt Count 262 (130-400) K/uL BMP 11/02/23 15:35 Sodium 140 Potassium 2.3 L* Chloride 100 Carbon Dioxide 25 BUN 15 Creatinine 1.11 Glucose 97 Calcium 7.4 L Liver Function 11/02/23 Range/Units 15:35 Total Bilirubin 1.0 (0.2-1.0) mg/dl AST 53 H (13-39) U/L ALT 31 (7-52) U/L Alkaline Phosphatase 47 (34-104) U/L Albumin 3.9 (3.4-5.0) gm/dl Urine 11/02/23 Range/Units 16:53 Urine Color Dark Yellow Urine Appearance Cloudy A (Clear) Urine pH 6.0 (4.5-7.5) Ur Specific [place] 1.024 (1.000-1.030) Urine Protein 1+ H (Negative) Urine Glucose (UA) Negative (Negative) Diagnostic Findings Chest X-Ray 11/02/23 16:00 XR chest 1V portable CLINICAL HISTORY: postprandial fullness/vomiting COMPARISON STUDY: No previous studies for comparison. FINDINGS: There is moderate elevation of the right hemidiaphragm. Lungs are clear. There is no pneumothorax or pleural effusion. Cardiac size is normal. Mediastinal contours are normal. There is no evidence for pulmonary edema. Multiple old right-sided rib fractures are incidentally noted. IMPRESSION: No acute cardiopulmonary findings. ACT 112: Negative or not required by law. Electronically signed by: Howie Campo M.D. 11/02/2023 5:[address] 11/02/23 16:03 CT OF THE HEAD WITHOUT CONTRAST CLINICAL HISTORY: fall yesterday, right head injury COMPARISON STUDY: No previous studies for comparison. CT DOSE: 1441.5 mGy.cm TECHNIQUE: Helical axial images of the head were obtained without IV contrast. Automated exposure control was utilized for the study. A dose lowering technique was utilized adhering to the principles of ALARA. FINDINGS: No acute intracranial hemorrhage, midline shift or mass effect is present. The ventricular system is unremarkable. The basal cisterns are patent. No extra-axial collections are present. There are no findings to suggest acute dural sinus thrombosis or acute territorial infarct. No significant calvarial abnormalities are present. Visualized portions of the sinuses and mastoid air cells are clear. IMPRESSION: 1. No acute intracranial findings. 2. No calvarial fractures. ACT 112: Negative or not required by law. Electronically signed by: Howie Campo M.D. 11/02/2023 6:08 PM Abdomen/Pelvis CT 11/02/23 17:16 CT OF THE ABDOMEN AND PELVIS WITH CONTRAST CLINICAL HISTORY: Epigastric pain, vomiting after eating. COMPARISON STUDY: None. TECHNIQUE: Following IV administration of 93 mL of Optiray, axial images of the abdomen and pelvis were obtained from the lung bases to the proximal femurs. Images were reviewed in the axial, sagittal, and coronal planes. IV contrast was administered without complication. Automated exposure control was utilized for the study. A dose lowering technique was utilized adhering to the principles of ALARA. FINDINGS: There are several healing left lower rib fractures. No pneumatosis, free air or portal venous gas is present. The liver, spleen, adrenal glands, right kidney and pancreas are unremarkable. There is no biliary ductal dilatation status post cholecystectomy 2.2 cm water attenuation lobulated left lower pole renal lesion represents a cyst. There is no hydronephrosis. There are no urinary calculi. The caliber and wall thickness of small and large bowel are normal. The appendix is not visualized. There is no lymphadenopathy. Major vasculature is patent. No acute fractures within the lumbar spine, pelvis or hips are identified. IMPRESSION: 1. No acute process within the abdomen or pelvis. 2. No bowel obstruction. No bowel wall thickening. ACT 112: Negative or not required by law. Electronically signed by: Howie Campo M.D. 11/02/2023 6:15 PM Supervising Physician Co-Signing Physician Notes Attending addendum: The patient was seen and examined in emergency room She has been complaining of ongoing diarrhea, nausea lack of appetite weakness and pains in the legs and hands for some time She has a history of CVA of the colon and is scheduled to have EGD and colonoscopy on 30 November at [facility] for above symptoms She was noted to have very hypokalemic and hypomagnesemic On examination Complains cramp-like pain in the legs and also in the hands Remains hemodynamically stable but very anxious Chest-clear to auscultate bilaterally Heart-S1-S2, regular Abdomen-benign Extremities-negative for any edema [employer]ER-alert, awake and oriented x 3. No focal sensory or motor deficit appreciated Her labs and imaging studies reviewed Noted to have significant electrolytes abnormality with low phosphorus, low magnesium and low potassium likely secondary to ongoing diarrhea and inability eat or drink Will be supplemented and rechecked GI evaluation while in the hospital Agree with assessment and plan and take the full responsibility of it as documented above by DARI Flores Dr (6) Nausea & vomiting Vomiting type: unspecified Qualified Code(s): R11.2 - Nausea with vomiting, unspecified
[2023-11-02 18:54] LABS: Troponin I High Sensitivity 14.8 pg/ml (0-14)
[2023-11-02 19:23] LABS: Lipase 73 U/L (11-82); Phosphorus < 1.0 mg/dl (2.5-4.9)
[2023-11-02] MEDS ORDERED: POTASSIUM PHOS 3 MMOL/1 ML INFUSION IV STA (19:43)
[2023-11-02 20:10] LABS: Adenovirus PCR Not Detected (NotDetected); Bordetella parapertussis PCR Not Detected (NotDetected); Bordetella pertussis PCR Not Detected (NotDetected); Chlamydia pneumoniae PCR Not Detected (NotDetected); Coronavirus 229E PCR Not Detected (NotDetected); Coronavirus CoV-2 (COVID19)PCR Not Detected (NotDetected); Coronavirus HKU1 PCR Not Detected (NotDetected); Coronavirus NL63 PCR Not Detected (NotDetected); Coronavirus OC43PCR Not Detected (NotDetected); Human Metapneumovirus PCR Not Detected (NotDetected); Influenza A PCR Not Detected (NotDetected); Influenza B PCR Not Detected (NotDetected); Mycoplasma pneumoniae PCR Not Detected (NotDetected); Parainfluenza Virus 1 PCR Not Detected (NotDetected); Parainfluenza Virus 2 PCR Not Detected (NotDetected); Parainfluenza Virus 3 PCR Not Detected (NotDetected); Parainfluenza Virus 4 PCR Not Detected (NotDetected); Respiratory Syncytial VirusPCR Not Detected (NotDetected); Rhinovirus/Enterovirus PCR Not Detected (NotDetected)
[2023-11-02] MEDS: HYDROmorphone INJ 0.5 MG/0.5 ML SYR IV STA (20:28)
[2023-11-02] MEDS: PANTOprazole 40 MG in SYRINGE 0 ML IV ONE (20:29)
[2023-11-02] MEDS: POTASSIUM CHLORIDE CRTAB 20 MEQ TABCR PO STA (20:34)
[2023-11-02] MEDS ORDERED: POLYETHYLENE (MIRALAX) 17 GM PACK PO PRN (21:08)
[2023-11-02] MEDS ORDERED: HYDROmorphone INJ 0.5 MG/0.5 ML SYR IV PRN (21:08)
[2023-11-02] MEDS ORDERED: ONDANSETRON INJ 2 MG/ML 2 ML VIAL IV PRN (21:08)
[2023-11-02] MEDS ORDERED: ALBUTEROL HFA 8 GM INHALER INH PRN (21:08)
[2023-11-02] MEDS: POTASSIUM PHOSPHATE 30 MMOL in SODIUM CHLORIDE 0.9% 500 ML IV ONE (21:09)
[2023-11-02] MEDS: POTASSIUM CHLORIDE / WTR 10 MEQ/100 ML PLCT IV SCH (21:19)
[2023-11-02] MEDS: ATORVASTATIN 40 MG TAB PO SCH (21:53)
[2023-11-02] MEDS: FAMOTIDINE 40 MG TABLET PO SCH (21:55)
[2023-11-02] MEDS: HEPARIN SOD 5,000 UNIT/0.5 ML VIAL SQ SCH (21:56)
[2023-11-02] MEDS: RANOLAZINE 500 MG ER TAB PO SCH (22:00)
[2023-11-02] MEDS: traZODone HCL 100 MG TAB PO SCH (22:00)
[2023-11-02] MEDS: POTASSIUM PHOSPHATE 15 MMOL in SODIUM CHLORIDE 0.9% 250 ML IV ONE (23:32)
[2023-11-02 23:38] LABS: BUN Creatinine Ratio 13.7 (10-20); Calcium 6.7 mg/dl (8.6-10.3); Est GFR (African American) 67.4 ml/min; Est GFR (Non-African American) 58.2 ml/min; Magnesium 2.3 mg/dl (1.7-2.4); Phosphorus 3.6 mg/dl (2.5-4.9); Potassium 2.3 mmol/L (3.5-5.1)
[2023-11-03] MEDS: NSS + 20MEQ KCL 20 MEQ/1,000 ML BAG IV SCH (02:06)
[2023-11-03] MEDS: POTASSIUM CHLORIDE / WTR 10 MEQ/100 ML PLCT IV SCH (02:06)
[2023-11-03] MEDS: POTASSIUM CHLORIDE PWD 20 MEQ PACK PO STA (02:12)
[2023-11-03] MEDS: POTASSIUM CHLORIDE PWD 20 MEQ PACK PO ONE (04:05)
[2023-11-03 06:24] LABS: Hematocrit (blood only) 29.1 % (37.0-47.0); Hemoglobin 10.2 g/dl (12.0-16.0); Mean Corpuscular Hemoglobin 30.4 pg (25.0-34.0); Mean Corpuscular Hgb Conc 35.1 g/dL (32.0-36.0); Mean Corpuscular Volume 86.9 fL (80.0-100.0); Platelet Count 195 K/uL (130-400); RDW Coefficient of Variation 14.4 % (11.5-14.5); RDW Standard Deviation 45.5 fL (36.4-46.3); Red Blood Count 3.35 M/uL (4.20-5.40); White Blood Count 6.97 K/ul (4.8-10.8)
[2023-11-03 06:55] LABS: Albumin Globulin Ratio 1.5 (0.9-2); Albumin Level 2.8 gm/dl (3.4-5.0); BUN Creatinine Ratio 13.2 (10-20); Bilirubin,Total 0.6 mg/dl (0.2-1.0); Creatinine Clr Calc Pharmacy 47.5 ml/min; Est GFR (African American) 88.3 ml/min; Est GFR (Non-African American) 76.2 ml/min; Globulin 1.9 gm/dl (2.5-4.0); Phosphorus 4.9 mg/dl (2.5-4.9); Potassium 3.7 mmol/L (3.5-5.1); Total Protein 4.7 gm/dl (6.0-8.3)
--- NOTE | 2023-11-03 08:10 | Hospitalist Progress Note ---
Date of Service November 03, 2023 Assessment & Plan (1) Acute hypokalemia: (2) Hypomagnesemia: (3) Hypophosphatemia: (4) Hypocalcemia: (5) Cramp of muscle of both upper extremities: (6) Nausea & vomiting: Plan: Patient is 78 yo F with osteoporosis, GERD, hypertriglyceridemia, depression, anxiety presented to ER with complaint of extremity cramping with intermittent, nausea, vomiting. Reports ongoing nausea, vomiting, decreased appetite, intermittent loose bowels and weight loss Vitals stable in ER. No leukocytosis, K: 2.3, Ca: 7.4, magnesium: 0.6, phosphorus <1.0 troponin: 14.8 with repeat of 14.8, lipase and LFTs WNL CT A/P: No bowel obstruction, no acute process noted in abdomen or pelvis In ER given Zofran, IV Tylenol, 500 mL NSS, 2 g magnesium sulfate, 1K rider Electrolyte abnormalities may be secondary to GI losses, decreased oral intake. Suspect muscle cramps and aches secondary to electrolyte abnormality EKG obtained Monitor on telemetry Replete and monitor electrolytes CBC, CMP, magnesium, phosphorus labs repeat this PM and tomorrow AM Continue Protonix Plan to continue home Pepcid and PPI GI and nephrology consulted Per GI - plan fro EGD tomorrow Per nephrology - obtain pre-albumin, vit D level, repeat labs (7) Orthostatic hypotension: Plan: History orthostatic hypotension Likely exacerbated by GI losses/poor oral intake Fall precautions Orthostatic vitals (8) Anxiety and depression: Plan: Continue home meds (9) Hypertriglyceridemia: Plan: Continue atorvastatin DVT Prophylaxis Heparin SQ Admitted to PCU Full Code as per discussion with pt Follows with Dr Jang for routine care Admission and Anticipated Discharge Date Admission Date: November 02, 2023 Subjective Pt seen in follow up of electrolyte abnormalities , ongoing n/v, abd. discomfort Recently admitted in [place] for the same - is supposed to have egd/ colonoscopy done in november Currently laying in bed in [facility] Feels much better - yesterday says she had so much cramping in her arms and legs she could not even move Denies any fever, chills, chest pain, shortness of breath Review of Systems Review of Systems: All systems reviewed & are unremarkable except as noted in Subjective Physical Exam Physical Exam: General: WD/WN elderly F in NAD Head: normocephalic, atraumatic Eyes: conjunctiva non-injected, anicteric ENT: normal inspection external ears, nose Neck: supple Lungs: clear, no respiratory distress, no wheezing/rhonchi/rales CV: RRR, no murmur, no pretibial edema Abd: normal BS, soft, + minimal diffuse tenderness to palpation without rebound or guarding Ext: no LE edema, no erythema, moves extremities Neuro: A&O x 3, speech fluent, answers appropriately, no facial asymmetry, moves extremities Skin: warm, dry Results & Data Results & Data Vital Signs (Past 12 Hours) Vital Signs Temp Pulse Resp BP Pulse Ox O2 Del Method 11/03/23 07:40 36.5 C 78 16 92/48 L 97 Room Air 11/03/23 02:07 36.3 C L 74 18 130/69 95 Room Air 11/02/23 21:00 36.7 C 73 18 121/55 L 92 Room Air 11/02/23 20:50 Room Air Laboratory Results 11/03/23 11/02/23 11/02/23 Range/Units 05:34 22:49 18:56 WBC 6.97 (4.8-10.8) K/ul RBC 3.35 L (4.20-5.40) M/uL Hgb 10.2 L (12.0-16.0) g/dl Hct 29.1 L (37.0-47.0) % MCV 86.9 (80.0-100.0) fL MCH 30.4 (25.0-34.0) pg MCHC 35.1 (32.0-36.0) g/dL RDW Std Deviation 45.5 (36.4-46.3) fL RDW Coeff of Silvia 14.4 (11.5-14.5) % Plt Count 195 (130-400) K/uL MPV 10.0 (9.4-12.4) fL Immature Gran % (Auto) % Neut % (Auto) % Lymph % (Auto) % [place] % (Auto) % Eos % (Auto) % Baso % (Auto) % Neut # (Auto) (1.40-6.50) K/uL Lymph # (Auto) (1.20-3.40) K/uL [place] # (Auto) (0.11-0.59) K/uL Eos # (Auto) (0.00-0.50) K/uL Baso # (Auto) (0.00-0.20) K/uL Immature Gran # (Auto) (0.01-0.20) K/uL Sodium 142 138 (136-145) mmol/L Potassium 3.7 D 2.3 L* (3.5-5.1) mmol/L Chloride 112 H 104 (98-107) mmol/L Carbon Dioxide 23 24 (21-32) mmol/L Anion Gap 7 10 (3-11) BUN 10 13 (6-23) mg/dl Creatinine 0.76 0.95 (0.6-1.2) mg/dl Est Cr Clr Drug Dosing 47.5 38.0 ml/min Est GFR ( Amer) 88.3 67.4 ml/min Est GFR (Non-Af Amer) 76.2 58.2 ml/min BUN/Creatinine Ratio 13.2 13.7 (10-20) Glucose 94 111 H (70-99(Fasting)) mg/dl Lactate (0.4-2.0) mmol/L Calcium 6.0 L 6.7 L (8.6-10.3) mg/dl Phosphorus 4.9 D 3.6 D (2.5-4.9) mg/dl Magnesium 2.0 2.3 (1.7-2.4) mg/dl Total Bilirubin 0.6 (0.2-1.0) mg/dl AST 54 H (13-39) U/L ALT 25 (7-52) U/L Alkaline Phosphatase 42 (34-104) U/L Troponin I High Sens (0-14) pg/ml Total Protein 4.7 L D (6.0-8.3) gm/dl Albumin 2.8 L (3.4-5.0) gm/dl Globulin 1.9 L (2.5-4.0) gm/dl Albumin/Globulin Ratio 1.5 (0.9-2) Lipase (11-82) U/L Vitamin B12 (180-914) pg/ml Folate (>5.38) ng/ml PTH Intact 165.4 H (12.0-88.0) pg/ml Urine Color Urine Appearance (Clear) Urine pH (4.5-7.5) Ur Specific Summit (1.000-1.030) Urine Protein (Negative) Urine Glucose (UA) (Negative) Urine Ketones (Negative) Urine Blood (Negative) Urine Nitrite (Negative) Urine Bilirubin (Negative) Urine Urobilinogen (Negative) Ur Leukocyte Esterase (Negative) Urine WBC (Auto) (0-5) /hpf Urine RBC (Auto) (0-2) /hpf U Hyaline Cast (Auto) (0-2) /lpf U Epithel Cells (Auto) (0-2) /hpf Urine Bacteria (Auto) (None Seen) Hyaline Casts (None Presnt) /lpf Urine Mucus (None Prsent) Adenovirus (PCR) Not Detected (NotDetected) B. pertussis DNA (PCR) Not Detected (NotDetected) B.parapertussis DNA PCR Not Detected (NotDetected) C. pneumoniae DNA (PCR) Not Detected (NotDetected) Coronavirus OC43 (PCR) Not Detected (NotDetected) Coronavirus HKU1 (PCR) Not Detected (NotDetected) Coronavirus 229E (PCR) Not Detected (NotDetected) SARS-CoV-2 (PCR) Not Detected (NotDetected) Coronavirus NL63 (PCR) Not Detected (NotDetected) Human Metapneumovir PCR Not Detected (NotDetected) Influenza Type A (PCR) Not Detected (NotDetected) Influenza Type B (PCR) Not Detected (NotDetected) M. pneumoniae (PCR) Not Detected (NotDetected) Parainfluenza 1 (PCR) Not Detected (NotDetected) Parainfluenza 2 (PCR) Not Detected (NotDetected) Parainfluenza 3 (PCR) Not Detected (NotDetected) Parainfluenza 4 (PCR) Not Detected (NotDetected) RSV (PCR) Not Detected (NotDetected) Entero/Rhino (PCR) Not Detected (NotDetected) 11/02/23 11/02/23 11/02/23 Range/Units 18:18 16:53 15:35 WBC 8.97 (4.8-10.8) K/ul RBC 4.00 L (4.20-5.40) M/uL Hgb 12.2 (12.0-16.0) g/dl Hct 33.8 L (37.0-47.0) % MCV 84.5 (80.0-100.0) fL MCH 30.5 (25.0-34.0) pg MCHC 36.1 H (32.0-36.0) g/dL RDW Std Deviation 44.1 (36.4-46.3) fL RDW Coeff of Silvia 14.4 (11.5-14.5) % Plt Count 262 (130-400) K/uL MPV 10.0 (9.4-12.4) fL Immature Gran % (Auto) 0.3 % Neut % (Auto) 41.1 % Lymph % (Auto) 42.4 % Prairie % (Auto) 14.3 % Eos % (Auto) 1.3 % Baso % (Auto) 0.6 % Neut # (Auto) 3.69 (1.40-6.50) K/uL Lymph # (Auto) 3.80 H (1.20-3.40) K/uL [place] # (Auto) 1.28 H (0.11-0.59) K/uL Eos # (Auto) 0.12 (0.00-0.50) K/uL Baso # (Auto) 0.05 (0.00-0.20) K/uL Immature Gran # (Auto) 0.03 (0.01-0.20) K/uL Sodium 140 (136-145) mmol/L Potassium 2.3 L* (3.5-5.1) mmol/L Chloride 100 (98-107) mmol/L Carbon Dioxide 25 (21-32) mmol/L Anion Gap 15 H (3-11) BUN 15 (6-23) mg/dl Creatinine 1.11 (0.6-1.2) mg/dl Est Cr Clr Drug Dosing 32.5 ml/min Est GFR ( Amer) 55.9 ml/min Est GFR (Non-Af Amer) 48.2 ml/min BUN/Creatinine Ratio 13.5 (10-20) Glucose 97 (70-99(Fasting)) mg/dl Lactate 2.0 (0.4-2.0) mmol/L Calcium 7.4 L (8.6-10.3) mg/dl Phosphorus < 1.0 L* (2.5-4.9) mg/dl Magnesium 0.6 L* (1.7-2.4) mg/dl Total Bilirubin 1.0 (0.2-1.0) mg/dl AST 53 H (13-39) U/L ALT 31 (7-52) U/L Alkaline Phosphatase 47 (34-104) U/L Troponin I High Sens 14.8 H 14.8 H (0-14) pg/ml Total Protein 6.6 (6.0-8.3) gm/dl Albumin 3.9 (3.4-5.0) gm/dl Globulin 2.7 (2.5-4.0) gm/dl Albumin/Globulin Ratio 1.4 (0.9-2) Lipase 73 (11-82) U/L Vitamin B12 274 (180-914) pg/ml Folate 12.68 (>5.38) ng/ml PTH Intact (12.0-88.0) pg/ml Urine Color Dark Yellow Urine Appearance Cloudy A (Clear) Urine pH 6.0 (4.5-7.5) Ur Specific [place] 1.024 (1.000-1.030) Urine Protein 1+ H (Negative) Urine Glucose (UA) Negative (Negative) Urine Ketones 1+ H (Negative) Urine Blood Negative (Negative) Urine Nitrite Negative (Negative) Urine Bilirubin 1+ H (Negative) Urine Urobilinogen Negative (Negative) Ur Leukocyte Esterase 1+ H (Negative) Urine WBC (Auto) 0-5 (0-5) /hpf Urine RBC (Auto) 6-10 H (0-2) /hpf U Hyaline Cast (Auto) 6-10 H (0-2) /lpf U Epithel Cells (Auto) 0-2 (0-2) /hpf Urine Bacteria (Auto) None Seen (None Seen) Hyaline Casts Present A (None Presnt) /lpf Urine Mucus Present A (None Prsent) Adenovirus (PCR) (NotDetected) B. pertussis DNA (PCR) (NotDetected) B.parapertussis DNA PCR (NotDetected) C. pneumoniae DNA (PCR) (NotDetected) Coronavirus OC43 (PCR) (NotDetected) Coronavirus HKU1 (PCR) (NotDetected) Coronavirus 229E (PCR) (NotDetected) SARS-CoV-2 (PCR) (NotDetected) Coronavirus NL63 (PCR) (NotDetected) Human Metapneumovir PCR (NotDetected) Influenza Type A (PCR) (NotDetected) Influenza Type B (PCR) (NotDetected) M. pneumoniae (PCR) (NotDetected) Parainfluenza 1 (PCR) (NotDetected) Parainfluenza 2 (PCR) (NotDetected) Parainfluenza 3 (PCR) (NotDetected) Parainfluenza 4 (PCR) (NotDetected) RSV (PCR) (NotDetected) Entero/Rhino (PCR) (NotDetected) Medications Administered Current Inpatient Medications Acetaminophen (Acetaminophen 325 Mg Tab) 650 mg PO Q4H PRN PRN Reason: Pain or Fever Stop: 12/02/23 21:07 Albuterol (Albuterol Hfa 8 Gm Inhaler) 2 puffs INH Q6H PRN PRN Reason: Shortness Of Breath Or Wheezin Stop: 12/02/23 21:07 Atorvastatin Calcium (Atorvastatin 40 Mg Tab) 80 mg PO QPM KRISTINA Stop: 12/02/23 21:07 Last Admin: 11/02/23 21:53 Dose: 80 mg Famotidine (Famotidine 40 Mg Tablet) 40 mg PO QPM KRISTINA Stop: 12/02/23 21:07 Last Admin: 11/02/23 21:55 Dose: 40 mg Heparin Sodium (Porcine) (Heparin Sod 5,000 Unit/0.5 Ml Vial) 5,000 units SQ Q12 KRISTINA Stop: 12/02/23 21:07 Last Admin: 11/02/23 21:56 Dose: 5,000 units Hydromorphone HCl (Hydromorphone Inj 0.5 Mg/0.5 Ml Syr) 0.25 mg IV Q6H PRN PRN Reason: Severe Pain (Scale 7, 8, 9,10) Stop: 11/03/23 21:07 Potassium Chloride/Sodium Chloride (Normal Saline W/20 Meq Kcl) 20 meq in 1,000 mls @ 100 mls/hr IV .Q10H KRISTINA; Protocol Stop: 11/03/23 17:07 Last Admin: 11/03/23 02:06 Dose: 100 mls/hr Montelukast Sodium (Montelukast Sodium 10 Mg Tablet) 10 mg PO DAILY [facility] Stop: 12/03/23 08:59 Ondansetron HCl (Ondansetron Inj 2 Mg/Ml 2 Ml Vial) 4 mg IV Q6H PRN PRN Reason: Nausea Stop: 12/02/23 21:07 Pantoprazole Sodium (Pantoprazole 40 Mg Tab) 40 mg PO DAILY KRISTINA Stop: 12/03/23 08:59 Polyethylene Glycol (Polyethylene (Miralax) 17 Gm Pack) 17 gm PO DAILY PRN PRN Reason: Constipation Stop: 12/02/23 21:07 Ranolazine (Ranolazine 500 Mg Er Tab) 500 mg PO BID KRISTINA Stop: 12/02/23 21:07 Last Admin: 11/02/23 22:00 Dose: 500 mg Sertraline HCl (Sertraline Hcl 100 Mg Tablet) 100 mg PO QAM KRISTINA Stop: 12/03/23 08:59 Trazodone HCl (Trazodone Hcl 100 Mg Tab) 100 mg PO HS KRISTINA Stop: 12/02/23 21:07 Last Admin: 11/02/23 22:00 Dose: 100 mg (6) Nausea & vomiting Vomiting type: unspecified Qualified Code(s): R11.2 - Nausea with vomiting, unspecified
[2023-11-03] MEDS: CALCIUM GLUCONATE 1,000 MG/60 ML BAG IV ONE (08:44)
[2023-11-03] MEDS: SERTRALINE HCL 100 MG TABLET PO SCH (08:44)
[2023-11-03] MEDS: PANTOprazole 40 MG TAB PO SCH (08:44)
[2023-11-03] MEDS: MONTELUKAST SODIUM 10 MG TABLET PO SCH (08:44)
--- NOTE | 2023-11-03 09:11 | Nephrology Consultation ---
Date of Consultation November 03, 2023 Assessment & Plan (1) Electrolyte disorder: presented w/ critical low phos, low mag and severely low K as well as hypocalcemia. after aggressive repletion, lytes improved except for Ca not repleted until this am when it's dropping somewhat. ketonuria on presentation. healing rib fractures noted as is drop in albumin/total protein overnight. received yesterday/overnight: -K 10 mEq + 30 mEq + 40 mEq + 3*40 mEq = 200 mEq -IV mag 2 gm + 2 gm = 4 gm -Kphos 15 mmol + 30 mmol -1/2 L NS received this AM: -calcium gluconate 1 gm DDX: inadequate intake and refeeding syndrome or complications of PPI use or prolia or less likely diuretic/laxative abuse; D stores OK -urine electrolytes of limited utility after repletions but could consider -bmp, mag, phos, IONIZED ca q6-8 hrs >> noon labs ordered and reviewed >> pls order these same labs q 6h through tomorrow AM and have covering doc replete -strict count of bm, emesis, I/O -check D level w/ next labs (order in) > adequate at [address] Adam regarding need for f/u lab orders, lyte repletion, need for serial neuro exams > we are in agreement. (2) Malnutrition: With just under 20% weight loss of total body weight in the past 3 months per her report. With ketonuria on presentation -Ordered prealbumin -Suspect that this is due to poor p.o. intake, large GI losses of electrolytes, question malabsorption GI tract - as per primary service Follow up EGD results and stool studies (3) Frequent falls: Given her intention tremor and somewhat odd body movements (nurse reports ataxic movement of right lower extremity while getting back into bed), recommend Serial neurologic exam Careful physical therapy evaluation Check/monitor orthostatic vital signs Fall precautions - her MM cramps and generalized weakness no doubt worsen her fall risk History of Present Illness Reason for Consultation: hypocalcemia, electrolyte abnormalities Requesting Physician: Dr Adam Attending Physician: Andrey Adam MD History of Present Illness 78 y/o F whom I'm asked to see for hypocalcemia and other electrolyte abnormalities was admitted yesterday evening with significant electrolyte abnormalities (K 2.3, mag 0.6, phos <1, Ca 7.4) after presenting with LE cramping, n/v, weight loss, intermittent loose BM and diffuse abdominal pain. PMH GERD, hypertriglyceridemia, depression/anxiety. Admitted [facility] 09/29/2023-10/01/2023 for similar issues w/ potassium and magnesium repletion>improved sx; however ongoing intermittent n/v/d ever since. currently scheduled for OP GI endoscopy next month (?upper or lower). has been having frequent falls past few months, including 2 falls day prior to admission w/o injury. She tells me she was walking across the room at [place] on October 30 and abruptly fell backwards. Denies hitting her head or other injury. Her rib fractures occurred from another backwards fall out of a truck in 2019 per her report. Her last dose of Prolia was approximately 4 to 5 months ago. She specifically denies any history of thyroid or parathyroid surgery, diagnoses of intestinal malabsorption, or workup of diarrhea. Tells me she had an unremarkable colonoscopy 4 or 5 years back. ROS remarkable for wt loss 30 lb since july (about 20% of her total body wt). she has had an exceptionally poor appetite in this timeframe, often preparing food and sitting down to eat above findings she cannot tolerate the thought of food. Ongoing diarrhea in this timeframe no frequent vomiting. Since arrival to the floor this morning she has had 4 bowel movements: These are yellow and liquid. Tells me she feels markedly improved compared to yesterday because of relief from severe bilateral lower extremity cramping. Still noticing some left upper extremity discomfort and cramping base of the neck. Endorses muscle twitches and fasciculations. Tells me that her says she has been forgetting things more recently. No f/c; has had chronic exertional chest pain and dyspnea over past several mos w/ ? w/u though was referred for TTE/stress test and follows [facility] cardiology. no ernst, vision changes, palpitations, orthopnea, cough, sinus drainage, LE swelling, new or worrisome voiding c/o; no rash. She does endorse orthostatic symptoms and lightheadedness just sitting in bed. GI evaluated the patient and upper endoscopy is planned with colonoscopy deferred until electrolyte abnormalities stabilized. Allergies Allergy/AdvReac Type Severity Reaction Status Date / Time alendronate sodium Allergy Intermediate Itching Verified 11/02/23 17:21 [From Fosamax] Home Medications Medication Instructions Recorded Confirmed Type acetaminophen 650 mg 650 mg PO Q8H PRN Pain 11/02/23 11/02/23 History tablet,extended release albuterol sulfate 90 mcg/actuation 2 puff inhalation Q6H PRN 11/02/23 11/02/23 History aerosol inhaler Shortness Of Breath Or Wheezing atorvastatin 80 mg tablet 80 mg PO QPM 11/02/23 11/02/23 History denosumab 60 mg/mL subcutaneous 60 mg subcut .[id number] 11/02/23 11/02/23 History syringe (Prolia) famotidine 40 mg tablet 40 mg PO QPM 11/02/23 11/02/23 History flaxseed oil 1,000 mg capsule 1,000 mg PO QPM 11/02/23 11/02/23 History montelukast 10 mg tablet 10 mg PO DAILY 11/02/23 11/02/23 History pantoprazole 20 mg tablet,delayed 20 mg PO QDD 11/02/23 11/02/23 History release ranolazine 500 mg tablet,extended 500 mg PO BID 11/02/23 11/02/23 History release,12 hr sertraline 100 mg tablet 100 mg PO QAM 11/02/23 11/02/23 History trazodone 100 mg tablet 100 mg PO HS 11/02/23 11/02/23 History Patient History Medical History Osteoporosis Hypertriglyceridemia Anxiety and depression Surgical History History of cholecystectomy History of hysterectomy Family History Other Colorectal cancer Heart disease Social History Smoking Status: Never smoker Second Hand Exposure: No; Tobacco Cessation Education Requested by Patient: No Hx Alcohol Use: No Hx Substance Use: No Preferred Language: Russian Communication Ability: Effective Supervisor [employer] Required: No Beliefs That Will Affect Care: None Current Living Situation: Spouse Feels Safe at Home: Yes Safety Concerns: Feels Safe At This Time Assistive Devices: Denture - Upper and Glasses Review of Systems 2 Review of Systems: All systems reviewed & are unremarkable except as noted in HPI & below Physical Exam 2 Constitutional: well developed, well nourished, average body habitus, + frail appearing and cooperative; no acute distress Eyes: EOM intact bilaterally ENMT: Ears: no external ear abnormality Nose: no external nose abnormality Mouth: + dry oral mucous membranes Neck: no nuchal rigidity Respiratory: normal respiratory effort Auscultation: + diminished lung sounds Cardiovascular: RRR, no murmur, no edema Gastrointestinal (Abdomen): Inspection/Auscultation: normal bowel sounds P ercussion/Palpation: abdomen soft; abdomen nontender Musculoskeletal: Extremities: strength 5/5 throughout Skin: no rashes, warm and dry Neurologic: grissom, fluent speech; question mild intention tremor bilateral upper extremities; ? mild myoclonic jerks/involuntary mvts Psychiatric: Orientation: alert and oriented x 3 Speech: normal rate/rhythm/volume of speech Results & Data Vital Signs (Past 12 Hours) Vital Signs Temp Pulse Resp BP Pulse Ox O2 Del Method 11/03/23 07:40 36.5 C 78 16 92/48 L 97 Room Air 11/03/23 02:07 36.3 C L 74 18 130/69 95 Room Air 11/02/23 21:00 36.7 C 73 18 121/55 L 92 Room Air Laboratory Results 11/03/23 05:34 11/03/23 05:34 Ca 6.0 (corrects to 7) alb 2.8 Phos 4.9 PTH 165 UA > ketonuria, sg 1024, + bilirubin Diagnostic Findings CT w/ IV con a/p FINDINGS: There are several healing left lower rib fractures. No pneumatosis, free air or portal venous gas is present. The liver, spleen, adrenal glands, right kidney and pancreas are unremarkable. There is no biliary ductal dilatation status post cholecystectomy 2.2 cm water attenuation lobulated left lower pole renal lesion represents a cyst. There is no hydronephrosis. There are no urinary calculi. The caliber and wall thickness of small and large bowel are normal. The appendix is not visualized. There is no lymphadenopathy. Major vasculature is patent. No acute fractures within the lumbar spine, pelvis or hips are identified. IMPRESSION: 1. No acute process within the abdomen or pelvis. 2. No bowel obstruction. No bowel wall thickening.
--- NOTE | 2023-11-03 11:49 | Gastrointestinal Consultation ---
Date of Consultation November 03, 2023 Assessment & Plan (1) Nausea & vomiting: Patient with a 2-month history of nausea vomiting as well as weight loss as well as diarrhea along with some crampy abdominal discomfort she has been followed by an outpatient specialist physician and is scheduled to undergo endoscopy however her symptoms worsened and she came to the ER and she was evaluated over here on evaluation she was found to have marked electrolyte abnormalities including hypokalemia calcium and magnesium she has been seen by nephrology and she is being evaluated at the current time I would 1. Place on a PPI daily 2. Check stool studies for C. difficile ova and parasites and culture and sensitivity 3. Scheduled for an EGD in the a.m. 4. In light of her electrolyte abnormalities and the fact that she is having extreme diarrhea and her potassium was very low I would not like to prep her currently we will start with an EGD first and then decide upon colonoscopy once electrolyte abnormalities have resulted 5. Advance diet to full liquid as tolerated Thank you for allowing us to take part in the care of your patient we will continue to follow her with you further recommendations after upper endoscopy History of Present Illness Reason for Consultation: Nausea vomiting and diarrhea Requesting Physician: Preston Chris Attending Physician: Andrey Adam MD History of Present Illness A very pleasant female with a past medical history significant for osteoporosis GERD hypertriglyceridemia depression anxiety who presented to the emergency room with complaints of abdominal cramping as well as having nausea and vomiting she states that ever since Day she has not been feeling well she states that her appetite is decreased and she does not feel like eating she also complains of nausea and vomiting she also states that she has been having some diarrhea she was evaluated by the GI as an outpatient and she was scheduled to undergo a endoscopy and colonoscopy however her symptoms worsened and she came to the ER currently she also states that she has an aversion to eating and he has nausea and vomiting she states that she has lost a significant amount of weight in the last 2 months approximately her bed between 20 and 30 pounds she complains of some intermittent crampy abdominal discomfort she also complains of multiple bowel movements a day and states that at times she goes multiple times a day denies any hematic emesis melena or hematochezia she states that she has had an endoscopy in the past but she is not fully sure of when and what the results were of that endoscopy Allergies Allergy/AdvReac Type Severity Reaction Status Date / Time alendronate sodium Allergy Intermediate Itching Verified 11/02/23 17:21 [From Fosamax] Home Medications Medication Instructions Recorded Confirmed Type acetaminophen 650 mg 650 mg PO Q8H PRN Pain 11/02/23 11/02/23 History tablet,extended release albuterol sulfate 90 mcg/actuation 2 puff inhalation Q6H PRN 11/02/23 11/02/23 History aerosol inhaler Shortness Of Breath Or Wheezing atorvastatin 80 mg tablet 80 mg PO QPM 11/02/23 11/02/23 History denosumab 60 mg/mL subcutaneous 60 mg subcut .[id number] 11/02/23 11/02/23 History syringe (Prolia) famotidine 40 mg tablet 40 mg PO QPM 11/02/23 11/02/23 History flaxseed oil 1,000 mg capsule 1,000 mg PO QPM 11/02/23 11/02/23 History montelukast 10 mg tablet 10 mg PO DAILY 11/02/23 11/02/23 History pantoprazole 20 mg tablet,delayed 20 mg PO QDD 11/02/23 11/02/23 History release ranolazine 500 mg tablet,extended 500 mg PO BID 11/02/23 11/02/23 History release,12 hr sertraline 100 mg tablet 100 mg PO QAM 11/02/23 11/02/23 History trazodone 100 mg tablet 100 mg PO HS 11/02/23 11/02/23 History Patient History Medical History Osteoporosis Hypertriglyceridemia Anxiety and depression Surgical History History of cholecystectomy History of hysterectomy Family History Other Colorectal cancer Heart disease Social History Smoking Status: Never smoker Second Hand Exposure: No; Tobacco Cessation Education Requested by Patient: No Hx Alcohol Use: No Hx Substance Use: No Preferred Language: Faroese Communication Ability: Effective Information Coder Required: No Beliefs That Will Affect Care: None Current Living Situation: Spouse Feels Safe at Home: Yes Safety Concerns: Feels Safe At This Time Assistive Devices: Denture - Upper and Glasses Review of Systems Review of Systems: A 10 point review of systems was reviewed and negative. Physical Exam Physical Exam: Constitutional: WD/WN, vitals as above. Respiratory: normal respiratory effort, lungs clear to auscultation. Cardiovascular: RRR, no murmur, no edema. Gastrointestinal (Abdomen): normal bowel sounds, soft, nontender, no hepatosplenomegaly Results & Data Vital Signs (Past 12 Hours) Vital Signs Temp Pulse Pulse Resp BP Pulse Ox O2 Del Method 11/03/23 11:17 36.8 C 79 18 120/65 95 Room Air 11/03/23 10:00 70 11/03/23 10:00 Room Air 11/03/23 07:40 36.5 C 78 16 92/48 L 97 Room Air 11/03/23 02:07 36.3 C L 74 18 130/69 95 Room Air Laboratory Results Reviewed Diagnostic Findings CT abdomen did not show any abnormality PG Care Time/CCT Total # of Minutes Spent Total Time Spent with Patient: Total time spent is greater than 50% in coordination of care (as documented) at patient's floor/unit and/or counseling patient: [place] [address] IN/OBS CONSULT LVL 4,60M Patient Type New History Detailed Exam Expanded Problem Focused Medical Decision Making Moderate Complexity Diagnoses Nausea & vomiting R11.2 Vomiting type: unspecified (1) Nausea & vomiting Vomiting type: unspecified Qualified Code(s): R11.2 - Nausea with vomiting, unspecified
--- NOTE | 2023-11-03 12:30 | Electrocardiogram Report ---
Test Reason : Blood Pressure : / mmHG Vent. Rate : 078 BPM Atrial Rate : 078 BPM P-R Int : 146 ms QRS Dur : 068 ms QT Int : 494 ms P-R-T Axes : 050 017 022 degrees QTc Int : 563 ms Poor data quality, interpretation may be adversely affected Normal sinus rhythm Low voltage QRS Nonspecific T wave abnormality Abnormal ECG When compared with ECG of 02-NOV-2023 15:38, (unconfirmed) Nonspecific T wave abnormality, improved in Lateral leads Confirmed by David Tamayo ([id number]) on 11/03/2023 12:29:38 PM Referred By: REFERRED SELF Confirmed By:David Tamayo
--- NOTE | 2023-11-03 12:31 | Electrocardiogram Report ---
Test Reason : Blood Pressure : / mmHG Vent. Rate : 076 BPM Atrial Rate : 076 BPM P-R Int : 150 ms QRS Dur : 072 ms QT Int : 462 ms P-R-T Axes : 051 009 016 degrees QTc Int : 519 ms Normal sinus rhythm Nonspecific T wave abnormality Prolonged QT Abnormal ECG When compared with ECG of 03-NOV-2023 06:06, (unconfirmed) No significant change was found Confirmed by David Tamayo ([id number]) on 11/03/2023 12:31:46 PM Referred By: REFERRED SELF Confirmed By:David Tamayo
--- OUTSIDE RECORDS SUMMARY | 2023-11-03 12:43 | External Medical Summary | Summary of Care ---
Author Name Unknown Organization [facility] Address [address] [place] [address] Phone [phone] Care Team Providers Care Product Development Carpenter Name Role Phone Herminia Jang DO Primary Care Provider [phone] Reason for Visit * Reason Onset Date Comments Advice 11/02/2023 Encounter Details Date Type Department Care Team (Late st Contact Info) Description 11/02/2023 Telephone Family Practice [address], [place] [address] [place] [address] Herminia Jang DO [address] [place] [address] Advice Allergies Active Allergy Reactions Criticality Noted Date Comments Alendronate Itching 05/07/2022 documented as of this encounter (statuses as of 11/02/2023) Medications Medication Sig Dispensed Refills Start Date End Date Status Flax Seed Oil 1000 MG Oral Capsule Take 1 Capsule by mouth every evening. 04/28/2022 Active Prolia 60 MG/ML Subcutaneous Solution Prefilled Syringe (Denosumab) Inject 60 mg under the skin every 6 months. 1 mL 1 11/08/2022 Active EPINEPHrine (Anaphylaxis) 1 MG/ML Injection Solution Inject 0.3 mL into a large muscle as needed for Anaphylaxis (severe allergic reaction). 2 mL 11 11/08/2022 Active Additional Information Patient not taking.Reported on 04/22/2023 Famotidine 40 MG Oral Tablet (Pepcid) TAKE ONE TABLET BY MOUTH EVERY EVENING 100 Tablet 3 06/13/2023 06/12/2024 Active Pantoprazole Sodium 40 MG Oral Tablet Delayed Release (Protonix) TAKE ONE TABLET BY MOUTH EVERY EVENING 100 Tablet 3 06/16/2023 06/15/2024 Active Montelukast Sodium 10 MG Oral Tablet (Singulair) TAKE ONE TABLET BY MOUTH EVERY DAY 100 Tablet 3 06/16/2023 06/15/2024 Active Atorvastatin Calcium 80 MG Oral Tablet (Lipitor) TAKE ONE TABLET BY MOUTH EVERY EVENING 100 Tablet 3 06/16/2023 06/15/2024 Active Acetaminophen ER 650 MG Oral Tablet Extended Release (Tylenol 8 Hour) Take 1 Tablet by mouth every 8 hours as needed. Active Sertraline HCl 100 MG Oral Tablet (Zoloft)Indications :Suicidal ideation,Severe depression (HCC) Take 1 Tablet by mouth in the morning. 100 Tablet 3 07/22/2023 Active Ranolazine ER 500 MG Oral Tablet Extended Release 12 Hour (Ranexa) Take 1 tablet by mouth 2 times a day 180 Tablet 3 08/19/2023 Active traZODone HCl 50 MG Oral Tablet (Desyrel)Indication s:Other insomnia Take 2 Tablets by mouth at bedtime. 08/22/2023 Active traZODone HCl 100 MG Oral Tablet (Desyrel)Indication s:Insomnia, unspecified type Take 1 Tablet by mouth at bedtime. 100 Tablet 3 09/27/2023 Active Albuterol Sulfate HFA 108 (90 Base) MCG/ACT Inhalation Aerosol Solution Inhale 2 Puffs by mouth every 6 hours as needed. 09/22/2023 Active documented as of this encounter (statuses as of 11/02/2023) Active Problems Problem Noted Date Diagnosed Date Severe depression 10/06/2023 ARACELY (generalized anxiety disorder) 10/06/2023 Orthostatic hypotension 11/12/2022 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 11/12/2022 Hypertriglyceridemia 05/07/2022 documented as of this encounter (statuses as of 11/02/2023) Resolved Problems Problem Noted Date Diagnosed Date Resolved Date Localized osteoporosis witho ut current pathological fracture 11/12/2022 11/12/2022 documented as of this encounter (statuses as of 11/02/2023) Immunizations Name Administration Dates Next Due COVID-19, mRNA, LNP-s, PF, B ooster, 100mcg/0.5mg (Moderna) 03/19/2021 Covid-19 Ad26, Single Dose (Luc/J&J) 021 Pneumococcal Conjugate Vacc, 13 Valent (Prevnar) 01/18/2017 Pneumococcal Polysaccharide PPV23 (Pneumovax) RSV Vac., Bivalent, Perfusion F, Pf,0.5 Ml (Abry svo) 07/22/2023 TDAP (age 10 and older)(Boostrix) 07/17/2021, Varicella Zoster Vaccine (Adult) 02/18/2012 Zoster Vaccine Recombinant (Shingrix) 07/16/2022 ,05/07/2022 documented as of this encounter Social History Tobacco Use Types Packs/Day Years Used Date Smoking Tobacco: Never Passive Smoke Exposure: Past Smokeless Tobacco: Never Alcohol Use Standard Drinks/Week Comments Not Currently 0 (1 standard drink = 0.6 oz pur e alcohol) PHQ-2 Answer Date Recorded PHQ Adult Total Score 1 04/22/2023 Hunger Vital Sign Answer Date Recorded Within the past 12 months, y ou worried that your food would run out before you got the money to buy more. Never true 04/22/20 23 Within the past 12 months, t he food you bought just didn't last and you didn't have money to get more. Never true 04/22/2023 Sex and Gender Information Value Date Recorded Sex Assigned at Not on file Gender Identity Not on file Sexual Orientation Not on file Job Start Date Occupation Industry Not on file Not on file Not on file documented as of this encounter Miscellaneous Notes * Telephone Encounter - Kristal Cristina RN - 11/02/2023 12:58 PM EDT Pt had called in and spoke with front office java developer-states is having a spell and is holding her down-then got disconnected. Call to pt-no answer-left message on machine to call back at [phone]. Will continue to try to call. Attempted to call pt again-no answer-LMOM Call to -no answer-message left to call back at [phone] Pt and showed up/walk in at [address] to be seen. documented in this encounter Plan of Treatment Upcoming Encounters Date Type Department Care Team (Late st Contact Info) Description 11/14/2023 3:30 PM EDT Imaging Radiology [facility], [place] [address] [place] [address] 11/22/2023 4:20 PM EDT Office Visit Family Practice [address] [facility], [place] [address] [place] [id number] Herminia Jang DO [address] [place] [address] 11/28/2023 10:00 AM EDT Office Visit Rheumatology [address] [place] [address] Jordana Oneill CRNP [address] [place] [address] 12/14/2023 11:00 AM EDT Office Visit [facility] [address] [place] [address] David Soriano, [facility] [address] [place], [place] [id number] 12/23/2023 1:00 PM EDT Nurse Only Ancillary [address] [facility], [place] [address] [facility], [place] [address] College, Nurse Annual Wellness Visit 65 [facility] [address] [place] [address] Health Maintenance Due Date Last Done Comments Pneumococcal Vaccine: 65+ Years (3 of 3 - PPSV23 or PCV20) 01/18/2022 01/18/2017, 02/18/2012 COVID-19 Vaccine (3 - 2022-24 season) 2022 03/19/2021, 09/02/2020 Influenza Vaccine (FLU shot) (#1) 2024 Depression Monitoring 04/22/2024 04/22/2023 DXA Scan 06/08/2025 06/08/2023, 10/2023, 09/29/2018, Additional history exists DTaP,Tdap,and Td Vaccines (3 - Td or Tdap) 07/18/2031 07/17/2021, 07/18/2008 Cologuard Discontinued 09/16/2020 Colonoscopy Discontinued 12/01/2021 Colorectal Cancer Screening Discontinued Zoster Vaccines Completed 07/16/2022, 09/2022, 02/18/2012 VITAMIN D LEVEL ONCE IN A LIFETIME-USE SMARTSET# [id number] Completed 05/12/2023, 11/12/2022 Fecal Occult Blood Test Discontinued HPV (Gardasil) Vaccine Aged Out No lo nger eligible based on patient's age to complete this topic Hepatitis B Vaccine Aged Out No longe r eligible based on patient's age to complete this topic MENINGOCOCCAL (MENACTRA/MENVEO) Aged Out No longer eligible based on patient's age to complete this topic Sigmoidoscopy Discontinued documented as of this encounter Medical Devices Not on filedocumented as of this encounter Care Teams Product Development Carpenter Relationship Specialty Start Date End Date Herminia Jang DO [address] [place] [address] PCP - General Family Medicine 11/02/23 documented as of this encounter
--- OUTSIDE RECORDS SUMMARY | 2023-11-03 12:44 | External Medical Summary | Summary of Care ---
Author Name Unknown Organization [facility] Address [address] [place] [address] Phone [phone] Care Team Providers Care Primary Montessori Teacher Name Role Phone Herminia Jang DO Primary Care Provider Reason for Visit * Reason Onset Date Comments Information 07/20/202307/19 Encounter Details Date Type Department Care Team (Late st Contact Info) Description 07/20/2023 Telephone Family Practice [address], [place] [address] [place] [address] Herminia Jang DO [address] [place] [address] Information (07/19) Allergies Active Allergy Reactions Criticality Noted Date Comments Alendronate Itching 05/07/2022 documented as of this encounter (statuses as of 07/21/2023) Medications Medication Sig Dispensed Refills Start Date End Date Status Flax Seed Oil 1000 MG Oral Capsule Take 1 Capsule by mouth every evening. 0 04/28/2022 Active Prolia 60 MG/ML Subcutaneous Solution Prefilled Syringe (Denosumab) Inject 60 mg under the skin every 6 months. 1 mL 1 11/08/2022 Active EPINEPHrine (Anaphylaxis) 1 MG/ML Injection Solution Inject 0.3 mL into a large muscle as needed for Anaphylaxis (severe allergic reaction). 2 mL 11 11/08/2022 Active Additional Information Patient not taking.Reported on 04/22/2023 Sertraline HCl 100 MG Oral Tablet (Zoloft)Indications :Suicidal ideation,Severe depression (HCC) Take 1 Tablet by mouth in the morning. 100 Tablet 1 03/16/2023 Active Famotidine 40 MG Oral Tablet (Pepcid) TAKE ONE TABLET BY MOUTH EVERY EVENING 100 Tablet 3 06/13/2023 06/12/2024 Active Amitriptyline HCl 25 MG Oral Tablet (Elavil) TAKE ONE TABLET BY MOUTH EVERY EVENING 100 Tablet 3 06/16/2023 06/15/2024 Active Pantoprazole Sodium 40 MG Oral Tablet Delayed Release (Protonix) TAKE ONE TABLET BY MOUTH EVERY EVENING 100 Tablet 3 06/16/2023 06/15/2024 Active Montelukast Sodium 10 MG Oral Tablet (Singulair) TAKE ONE TABLET BY MOUTH EVERY DAY 100 Tablet 3 06/16/2023 06/15/2024 Active Atorvastatin Calcium 80 MG Oral Tablet (Lipitor) TAKE ONE TABLET BY MOUTH EVERY EVENING 100 Tablet 3 06/16/2023 06/15/2024 Active documented as of this encounter (statuses as of 07/21/2023) Active Problems Problem Noted Date Diagnosed Date Orthostatic hypotension 11/12/2022 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 11/12/2022 Hypertriglyceridemia 05/07/2022 documented as of this encounter (statuses as of 07/21/2023) Resolved Problems Problem Noted Date Diagnosed Date Resolved Date Localized osteoporosis witho ut current pathological fracture 11/12/2022 11/12/2022 documented as of this encounter (statuses as of 07/21/2023) Immunizations Name Administration Dates Next Due COVID-19, mRNA, LNP-s, PF, B ooster, 100mcg/0.5mg (Moderna) 03/19/2021 Covid-19 Ad26, Single Dose (Luc/J&J) 021 Pneumococcal Conjugate Vacc, 13 Valent (Prevnar) 01/18/2017 Pneumococcal Polysaccharide PPV23 (Pneumovax) TDAP (age 10 and older)(Boostrix) 07/17/2021, Varicella [...] encounter Miscellaneous Notes * Telephone Encounter - Herminia Jang DO - 07/21/2023 10:46 AM EDT Noted. * Telephone Encounter - Jenna Arauz LPN - 07/20/2023 1:22 PM EDT Call placed to patient. She reports she fell last while walking her dog. States she does not know how she fell. States initially her R hand and R wrist hurt. States on Tuesday she had some pain her her Right breast. Denied chest pain. States R hand and R wrist are no longer painful. States she able to walk without difficulty. Offered appt - pt states she is scheduled to see Dr. Jang this 07/22/23. States she feels that appt time is appropriate - does not feel she needs to be seen sooner. Instructed to contact office if symptoms worsen, she has any questions or concerns. * Telephone Encounter - Jenna Arauz LPN - 07/20/2023 1:20 PM EDT Progress Notes Herminia Jang DO (Physician) Family Medicine Please call pt to see what is going on and offer appt. Progress Notes Shira Brooks, Community Health Classification Control Clerk (Community Health Classification Control Clerk) Telemedicine visit: No Community Health Classification Control Clerk (SARAH) documentation: CHW in to see patient's . Observed patient to have facial grimacing, unsteady gait, forward leaning posture, and increased resp rate with movement. "Whimpering" sounds heard. Questioned patient if she is feeling okay. Patient reports she is having 8/10 pain on inspiration and with any movement. States she fell last week walking the dog. Pain has been worsening since. Reports she fell to the ground, landing on her right side. Reports pain in the area of the right breast.No bruising noted. Asked patient if okay to reach out to PCP to make aware. Patient gave permission for CHW to do so. Dr. Jang, please advise on above. Thank you, Shira Brooks, CHW documented in this encounter Plan of Treatment Upcoming Encounters Date Type Department Care Team (Late st Contact Info) Description 07/22/2023 11:20 AM EDT Office Visit Family Practice 65 [facility] [address] [place] [address] Herminia Jang DO [address] [place] [address] 09/02/2023 3:30 PM EDT Telemedicine Orthopaedics [facility] [address] [place] [address] Fernie Richards MD [address] [place] [address] 10/21/2023 11:00 AM EDT Nurse Only Ancillary 65 [facility] [address] [place] [address] [place], Nurse Annual Wellness Visit [address] [facility] [address] 11/28/2023 10:00 AM EDT Office Visit Rheumatology [facility] [address] [facility] [place] [address] Jordana Oneill CRNP [address] [place] [address] Health Maintenance Due Date Last Done Comments Pneumococcal Vaccine: 65+ Years (3 of 3 - PPSV23 or PCV20) 01/18/2022 01/18/2017, 02/18/2012 COVID-19 Vaccine (3 - 2022- season) 2022 03/19/2021, 09/02/2020 Influenza Vaccine (FLU shot) (#1) 2022 Depression Screening 04/22/2024 04/22/2023 DXA Scan 06/08/2025 06/08/2023, 09/01, 09/29/2018, Additional history exists DTaP,Tdap,and Td Vaccines (3 - Td or Tdap) 07/18/2031 07/17/2021, 07/18/2008 Cologuard Discontinued 09/16/2020 Colonoscopy Discontinued 12/01/2021 Colorectal Cancer Screening Discontinued Zoster Vaccines Completed 07/16/2022, 09/2022, 02/18/2012 VITAMIN D LEVEL ONCE IN A LIFETIME-USE SMARTSET# [id number] Completed 05/12/2023, 11/12/2022 Fecal Occult Blood Test Discontinued GARDASIL-HPV IMMUNIZATION SERIES Aged Out No longer eligible based on patient's age to complete this topic Hepatitis B Aged Out No longer eligi ble based on patient's age to complete this topic MENINGOCOCCAL (MENACTRA/MENVEO) Aged Out No longer eligible based on patient's age to complete this topic Sigmoidoscopy Discontinued documented as of this encounter Medical Devices Not on filedocumented as of this encounter Care Teams Primary Montessori Teacher Relationship Specialty Start Date End Date [facility] [address] [facility] [address] PCP - General Family Medicine 04/28/22 documented as of this encounter
--- OUTSIDE RECORDS SUMMARY | 2023-11-03 12:44 | External Medical Summary | Summary of Care ---
Author Name Unknown Organization [facility] Address [address] [place] [address] Phone [phone] Care Team Providers Care Supervisor Cigar Making Hand Name Role Phone Herminia Jang DO Primary Care Provider [phone] Reason for Visit * Reason Comments Hospital Follow-Up Encounter Details Date Type Department Care Team (Late st Contact Info) Description 10/06/2023 9:30 AM EDT Nurse Only Family Practice 65 [facility] [address] [place] [address] College, Nurse [facility] Prac [address] [address] Hospital Follow-Up Allergies Active Allergy Reactions Criticality Noted Date Comments Alendronate Itching 05/07/2022 documented as of this encounter (statuses as of 10/06/2023) Medications Medication Sig Dispensed Refills Start Date [...] as of this encounter (statuses as of 10/06/2023) Active Problems Problem Noted Date Diagnosed Date Severe depression 10/06/2023 ARACELY (generalized anxiety disorder) 10/06/2023 Orthostatic hypotension 11/12/2022 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 11/12/2022 Hypertriglyceridemia 05/07/2022 documented as of this encounter (statuses as of 10/06/2023) Resolved Problems Problem Noted Date Diagnosed Date Resolved Date Localized osteoporosis witho ut current pathological fracture 11/12/2022 11/12/2022 documented as of this encounter (statuses as of 10/06/2023) Immunizations Name Administration Dates Next Due COVID-19, [...] on file documented as of this encounter Nursing Notes * Jenna Arauz LPN - 10/06/2023 9:59 AM EDT Medication reconciliation completed - see other TE. documented in this encounter Plan of Treatment Upcoming Encounters Date Type Department Care Team (Late st Contact Info) Description 10/27/2023 9:20 AM EDT Office Visit Family Practice 65 [facility] [address] [place] [address] Herminia Jang DO 293 [place] [address] 11/14/2023 3:30 PM EDT Imaging Radiology [address] [place] [address] 11/28/2023 10:00 AM EDT Office Visit Rheumatology [place] [id number] [facility] [place], [place] [address] Jord[facility]ill [facility] [address] [facility] [address] 12/14/2023 11:00 AM EDT Office Visit [facility] [address] [place] [address] David Soriano, T [address] [place] [address] 12/23/2023 1:00 PM EDT Nurse Only Ancillary 65 [facility] [address] [facility] [place] [address] College, Nurse Annual Wellness Visit [address] [place] [address] Health Maintenance Due Date Last Done Comments Pneumococcal Vaccine: 65+ Years (3 of 3 - PPSV23 or PCV20) 01/18/2022 01/18/2017, 02/18/2012 COVID-19 Vaccine (3 - 2022-24 season) 2023 03/19/2021, 09/02/2020 Postponed from 12/31/2022 (Patient Declined After Education) Influenza Vaccine (FLU shot) (Season Ended) 2024 Depression Screening 04/22/2024 04/22/2023 DXA Scan 06/08/2025 06/08/2023, 09/01, 09/29/2018, Additional history exists DTaP,Tdap,and Td Vaccines (3 - Td or Tdap) 07/18/2031 07/17/2021, 07/18/2008 Cologuard Discontinued 09/16/2020 Colonoscopy Discontinued 12/01/2021 Colorectal Cancer Screening Discontinued Zoster Vaccines Completed 07/16/2022, 09/2022, 02/18/2012 VITAMIN D LEVEL ONCE IN A LIFETIME-USE SMARTSET# [id number] Completed 05/12/2023, 11/12/2022 Fecal Occult Blood Test [...] filedocumented as of this encounter Care Teams Supervisor Cigar Making Hand Relationship Specialty Start Date End Date Herminia Jang DO [address] [place], [place] [address] [address] PCP - General Family Medicine 04/28/22 documented as of this encounter
--- OUTSIDE RECORDS SUMMARY | 2023-11-03 12:44 | External Medical Summary ---
Author Name Unknown Address Unknown Organization K01:[facility] [place] [address] [place] [address] Laboratory Report Ordering Provider Test Date Status JESUS OSORIO 10/06/2023 10:32:43 Final Observation Date Value Abnormality Reference (Units ) Status BUN 10/06/2023 10:32:43 11 6-20 (mg/dL) Final Creatinine 10/06/2023 10:32:43 1.0 0.5-1.0 (mg/dL) Final Glomerular filtration rate/1.73 sq M.predicted [Volume Rate/Area] in Serum, Plasma or Blood by Creatinine-based formula (CKD-EPI) 10/06/2023 10:32:43 59 Below low normal >=60 (mL/min) Final eGFR is calculated based on the CKD-EPI 2020 equation Sodium 10/06/2023 10:32:43 142 135-146 (m mol/L) Final Potassium 10/06/2023 10:32:43 4.4 3.5-5.1 (m mol/L) Final Cl 10/06/2023 10:32:43 106 98-107 (mm ol/L) Final CO2 10/06/2023 10:32:43 25 22-32 (mmo l/L) Final Anion gap 10/06/2023 10:32:43 11 7-15 (mmol /L) Final Glucose 10/06/2023 10:32:43 93 70-120 (mg /dL) Final Calcium 10/06/2023 10:32:43 8.8 8.4-10.2 ( mg/dL) Final Performing Location [facility] [place] [address] [place] [address]
--- OUTSIDE RECORDS SUMMARY | 2023-11-03 12:44 | External Medical Summary | Summary of Care ---
Author Name Unknown Organization [facility] Address [address] [place] [address] Phone [phone] Care Team Providers Care Brewery Cellar Worker Name Role Phone Herminia Jang DO Primary Care Provider Reason for Visit * Reason Onset Date Comments Advice 08/22/2023 Sleep med Encounter Details Date Type Department Care Team (Late st Contact Info) Description 08/22/2023 Telephone Family Practice [address] [place] [address] [place] [address] Herminia Jang DO [address] [place] [address] Advice (Sleep med) Allergies Active Allergy Reactions Criticality Noted Date Comments Alendronate Itching 05/07/2022 documented as of this encounter (statuses as of 08/22/2023) Medications Medication Sig Dispensed Refills Start Date End Date Status Flax Seed Oil 1000 MG Oral Capsule Take 1 Capsule by mouth every evening. 0 2 Active Prolia 60 MG/ML Subcutaneous Solution Prefilled Syringe (Denosumab) Inject 60 mg under the skin every 6 months. 1 mL 1 3 Active EPINEPHrine (Anaphylaxis) 1 MG/ML Injection Solution Inject 0.3 mL into a large muscle as needed for Anaphylaxis (severe allergic reaction). 2 mL 11 3 Active Additional Information Patient not taking.Reported on 04/22/2023 Famotidine 40 MG Oral Tablet (Pepcid) TAKE ONE TABLET BY MOUTH EVERY EVENING 100 Tablet 3 4 06/12/19 25 Active Pantoprazole Sodium 40 MG Oral Tablet Delayed Release (Protonix) TAKE ONE TABLET BY MOUTH EVERY EVENING 100 Tablet 3 4 06/15/19 25 Active Montelukast Sodium 10 MG Oral Tablet (Singulair) TAKE ONE TABLET BY MOUTH EVERY DAY 100 Tablet 3 4 06/15/19 25 Active Atorvastatin Calcium 80 MG Oral Tablet (Lipitor) TAKE ONE TABLET BY MOUTH EVERY EVENING 100 Tablet 3 4 06/15/19 25 Active Acetaminophen ER 650 MG Oral Tablet Extended Release (Tylenol 8 Hour) Take 1 Tablet by mouth every 8 hours as needed. 0 Active Sertraline HCl 100 MG Oral Tablet (Zoloft)Indicatio ns:Suicidal ideation,Severe depression (HCC) Take 1 Tablet by mouth in the morning. 100 Tablet 3 4 Active Ranolazine ER 500 MG Oral Tablet Extended Release 12 Hour (Ranexa) Take 1 tablet by mouth 2 times a day 180 Tablet 3 4 Active traZODone HCl 50 MG Oral Tablet (Desyrel)Indicati ons:Other insomnia Take 2 Tablets by mouth at bedtime. 0 4 Active traZODone HCl 50 MG Oral Tablet (Desyrel)Indicati ons:Other insomnia Take 1 Tablet by mouth at bedtime. 100 Tablet 1 4 08/22/19 24 Discontinued Abrysvo 120 MCG/0.5ML Intramuscular Solution Reconstituted (RSV Pre-Fusion F A&B Vac Rc)Indications: Need for RSV vaccination Inject 0.5 mL into a large muscle once for 1 dose. 1 Each 0 4 08/22/19 24 Discontinued(Wi dication List Clean Up) documented as of this encounter (statuses as of 08/22/2023) Active Problems Problem Noted Date Diagnosed Date Orthostatic hypotension 11/12/2022 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 11/12/2022 Hypertriglyceridemia 05/07/2022 documented as of this encounter (statuses as of 08/22/2023) Resolved Problems Problem Noted Date Diagnosed Date Resolved Date Localized osteoporosis witho ut current pathological fracture 11/12/2022 11/12/2022 documented as of this encounter (statuses as of 08/22/2023) Immunizations Name Administration Dates Next Due COVID-19, [...] Miscellaneous Notes * Telephone Encounter - Kristal Posey LPN - 08/22/2023 12:05 PM EDT Patient is aware and will comply. Thank you * Telephone Encounter - Herminia Jang DO - 08/22/2023 11:59 AM EDT She should try to take two of the trazodone about 20-30 minutes before lying down for bed. * Telephone Encounter - Hedy Mann OSA - 08/22/2023 9:51 AM EDT Pt calling to request a new med for sleep. Pt states what she was prescribed is not working. She is asking something for a few days be sent [facility] and the rest be sent to the [facility]pharm[facility] She can be reached at [phone] documented in this encounter Plan of Treatment Upcoming Encounters Date Type Department Care Team (Late st Contact Info) Description 09/02/2023 3:30 PM EDT Telemedicine Orthopaedics [facility] [address] [address] Fernie Richards MD [address] [place] [address] 10/21/2023 11:00 AM EDT Nurse Only Ancillary 65 [facility] 293 [place] [address] [place], Nurse Annual Wellness Visit [address] [place] [address] 10/27/2023 9:20 AM EDT Office Visit Family Practice 65 [facility] 293 [facility], [place] [id number] Herminia Jang DO 293 [place] [address] 11/28/2023 10:00 AM EDT Office Visit Rheumatology [facility] [address] [facility] [place] [address] Jordana Oneill CRNP [address] [facility] [place] [address] Health Maintenance Due Date Last Done Comments Pneumococcal Vaccine: 65+ Years (3 of 3 - PPSV23 or PCV20) 01/18/2022 01/18/2017, 02/18/2012 COVID-19 Vaccine (3 - 2022-24 season) 2022 03/19/2021, 09/02/2020 Influenza Vaccine (FLU shot) (Season Ended) 2024 Depression Screening 04/22/2024 04/22/2023 DXA Scan 06/08/2025 06/08/2023, 09/01, 09/29/2018, Additional history exists DTaP,Tdap,and Td Vaccines (3 - Td or Tdap) 07/18/2031 07/17/2021, 07/18/2008 Cologuard Discontinued 09/16/2020 Colonoscopy Discontinued 12/01/2021 Colorectal Cancer Screening Discontinued Zoster Vaccines Completed 07/16/2022, 09/2022, 02/18/2012 VITAMIN D LEVEL ONCE IN A LIFETIME-USE SMARTSET# [id number] Completed 05/12/2023, 11/12/2022 Fecal Occult Blood Test [...] Not on filedocumented as of this encounter Visit Diagnoses Diagnosis Other insomnia documented in this encounter Care Teams Brewery Cellar Worker Relationship Specialty Start Date End Date Herminia Jang DO [address] [place] [address] PCP - General Family Medicine 04/28/22 documented as of this encounter
--- OUTSIDE RECORDS SUMMARY | 2023-11-03 12:44 | External Medical Summary | Summary of Care ---
Author Name Unknown Organization [facility] Address [address] [place] [address] Phone [phone] Care Team Providers Care Chassis Inspector Name Role Phone Herminia Jang DO Primary Care Provider [phone] Reason for Visit * Reason Onset Date Comments Advice 09/29/2023 Encounter Details Date Type Department Care Team (Late st Contact Info) Description 09/29/2023 Telephone Family Practice [address] [place] [address] [place] [address] Herminia Jang DO [address] [place] [address] Advice Allergies Active Allergy Reactions Criticality Noted Date Comments Alendronate Itching 05/07/2022 documented as of this encounter (statuses as of 09/29/2023) Medications Medication Sig Dispensed Refills Start Date [...] at bedtime. 100 Tablet 3 09/27/2023 Active documented as of this encounter (statuses as of 09/29/2023) Active Problems Problem Noted Date Diagnosed Date Orthostatic hypotension 11/12/2022 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 11/12/2022 Hypertriglyceridemia 05/07/2022 documented as of this encounter (statuses as of 09/29/2023) Resolved Problems Problem Noted Date Diagnosed Date Resolved Date Localized osteoporosis witho ut current pathological fracture 11/12/2022 11/12/2022 documented as of this encounter (statuses as of 09/29/2023) Immunizations Name Administration Dates Next Due COVID-19, [...] Telephone Encounter - Kristal Posey LPN - 09/29/2023 2:45 PM EDT Patient is aware and will comply. * Telephone Encounter - Keyon Santos DO - 09/29/2023 2:06 PM EDT Needs ED evaluation for possible CVA. * Telephone Encounter - Kristal Posey LPN - 09/29/2023 1:55 PM EDT Daughter calling states that her mother is having numbness. Numbness from shoulders down. Feels like her "knees aren't there". not able to smile. Is able to stand but is very wobbly, speech is "funny". [facility]os[facility] ER is [facility] or [facility]. Offered to call EMS daughter states she will do so. Thank you documented in this encounter Plan of Treatment Upcoming Encounters Date Type Department Care Team (Late st Contact Info) Description 10/27/2023 9:20 AM EDT Office Visit Family Practice [address] [place] [address] [address] [place] [address] Herminia Jang DO [address] [place] [address] 11/28/2023 10:00 AM EDT Office Visit Rheumatology [place] [address] [employer] [place] [address] Jordana Oneill CRNP [address] [place] [address] 12/14/2023 11:00 AM EDT Office Visit [facility] [address] [place] [address] David Soriano DPT [address] [place] [address] Health Maintenance Due Date Last Done Comments [...] D LEVEL ONCE IN A LIFETIME-USE SMARTSET# [id number] Completed 05/12/2023, 11/12/2022 Fecal Occult Blood Test [...] filedocumented as of this encounter Care Teams Chassis Inspector Relationship Specialty Start Date End Date Herminia Jang DO 293 [place] [address] PCP - General Family Medicine 04/28/22 documented as of this encounter
--- OUTSIDE RECORDS SUMMARY | 2023-11-03 12:44 | External Medical Summary | Summary of Care ---
Author Name Unknown Organization [facility] Address [address] [place] [facility] [place] [address] Phone [phone] Care Team Providers Care Operating Room Rn Name Role Phone Herminia Jang DO Primary Care Provider [phone] Reason for Visit * Reason Onset Date Comments Hospital Follow-Up Hospital Follow-Up 10/06/2023 Encounter Details Date Type Department Care Team (Late st Contact Info) Description 10/06/2023 10:00 AM EDT Office Visit Family Practice [address] [place] [address] [place] [phone] Herminia Jang DO [address] [place] [address] Hospital discharge follow-up*; Viral gastroenteritis; Hypokalemia; Hypomagnesemia; Severe depression (HCC); ARACELY (generalized anxiety disorder) Allergies Active Allergy Reactions Criticality Noted Date [...] Passive Smoke Exposure: Past Smokeless Tobacco: Never Tobacco Cessation:Counseling Given: Yes Alcohol Use Standard Drinks/Week Comments Not Currently [...] on file documented as of this encounter Last Filed Vital Signs Vital Sign Reading Time Taken Comments Blood Pressure 126/68 10/06/2023 9:50 AM EDT Pulse 78 10/06/2023 9:50 AM EDT Temperature 36.4 C (97.6 F) 10/06/2023 9:50 AM ED T Respiratory Rate 12 10/06/2023 9:50 AM EDT Oxygen Saturation 96% 10/06/2023 9:50 AM EDT Inhaled Oxygen Concentration - - Weight 59.6 kg (131 lb 4.8 oz) 10/06/2023 9:50 A M EDT Height 156.8 cm (5' 1.73") 10/06/2023 9:50 AM ED T Body Mass Index 24.23 10/06/2023 9:50 AM EDT documented in this encounter Progress Notes * Herimnia Jang, DO - 10/06/2023 9:53 AM EDT SUBJECTIVE: Chief Complaint Patient presents with Hospital Follow-Up HPI: Daija Griggs is a 78 year old female who presents today for hospital follow-up. Pt was [facility] on [facility]. She apparently had diarrhea. Was found to have low potassium and magnesium. These were replaced. Diarrhea noted to have resolved. She was discharged to home on 09/30. Pt states that she had been to Dr. Castillo's office for blood work and they had called her and when she got home, she could not pick things up as she was cramping so she went to the ED. She had not eaten that day because she was fasting for lab work. She had the lab work at 8AM. She notes she was really not hungry the day before. She had diarrhea for a couple of days prior to this. Diarrhea has since resolved. She does feel that her appetite is back to normal. She is drinking ok. PHM: Patient Active Problem List Diagnosis Hypertriglyceridemia Orthostatic hypotension Age-related osteoporosis without current pathological fracture Current Outpatient Medications Medication Sig Dispense Refill Flax Seed Oil 1000 MG Oral Capsule Take 1 Capsule by mouth every evening. Famotidine 40 MG Oral Tablet (Pepcid) TAKE ONE TABLET BY MOUTH EVERY EVENING 100 Tablet 3 Pantoprazole Sodium 40 MG Oral Tablet Delayed Release (Protonix) TAKE ONE TABLET BY MOUTH EVERY EVENING 100 Tablet 3 Montelukast Sodium 10 MG Oral Tablet (Singulair) TAKE ONE TABLET BY MOUTH EVERY DAY 100 Tablet 3 Atorvastatin Calcium 80 MG Oral Tablet (Lipitor) TAKE ONE TABLET BY MOUTH EVERY EVENING 100 Tablet 3 Acetaminophen ER 650 MG Oral Tablet Extended Release (Tylenol 8 Hour) Take 1 Tablet by mouth every 8 hours as needed. Sertraline HCl 100 MG Oral Tablet (Zoloft) Take 1 Tablet by mouth in the morning. 100 Tablet 3 Ranolazine ER 500 MG Oral Tablet Extended Release 12 Hour (Ranexa) Take 1 tablet by mouth 2 times aday 180 Tablet 3 traZODone HCl 100 MG Oral Tablet (Desyrel) Take 1 Tablet by mouth at bedtime. 100 Tablet 3 Albuterol Sulfate HFA 108 (90 Base) MCG/ACT Inhalation Aerosol Solution Inhale 2 Puffs by mouth every 6 hours as needed. Prolia 60 MG/ML Subcutaneous Solution Prefilled Syringe (Denosumab) Inject 60 mg under the skin every 6 months. 1 mL 1 EPINEPHrine (Anaphylaxis) 1 MG/ML Injection Solution Inject 0.3 mL into a large muscle as needed for Anaphylaxis (severe allergic reaction). (Patient not taking: Reported on 04/22/2023) 2 mL 11 traZODone HCl 50 MG Oral Tablet (Desyrel) Take 2 Tablets by mouth at bedtime. No current facility-administered medications for this visit. Past Medical History: Diagnosis Date History of kidney stones Hypertriglyceridemia Osteoporosis Past Surgical History: Procedure Laterality Date FOOT/TOE SURGERY NEC Left 08/2021 fibroma INFORMATION for nephrolithiasis INFORMATION complete hysterectomy OR CHOLECYSTECTOMY TOTAL ABD HYSTERECTOMY W/WO REMOVAL OF TUBE(S) Bilateral 1984 Review of patient's allergies indicates: Allergen Reactions Fosamax [Alendronate] Itching Family History Problem Relation Name Age of Onset Colon cancer Mother Diabetes Mother Other (lilled in motorcycle accident) Father Other (Other) Father Other (Other) Brother kidney issue Heart Disorder Brother HI Heart Disorder Brother HI Breast Cancer No significant family history Family Status Relation Status Mo Fa Bro Bro No history (Not Specified) Social History Tobacco Use Smoking status: Never Passive exposure: Past Smokeless tobacco: Never Substance Use Topics Alcohol use: Not Currently Vaping/E-Cigarette Use Vaping/E-Cigarette Use Never User Vaping/E-Cigarette Substances Vaping/E-Cigarette Devices REVIEW OF SYSTEMS: Review of Systems Constitutional: Negative for chills, fatigue, fever and unexpected weight change. Respiratory: Negative for cough, chest tightness, shortness of breath and wheezing. Cardiovascular: Negative for chest pain, palpitations and leg swelling. Gastrointestinal: Negative for abdominal pain, constipation, diarrhea, nausea and vomiting. Musculoskeletal: Negative for arthralgias, gait problem and joint swelling. Skin: Negative for color change, pallor and rash. OBJECTIVE: BP 126/68 (BP Site: Left Arm, BP Position: Sitting, BP Cuff Size: Regular) | Pulse 78 | Temp 36.4 C (97.6 F) (Tympanic) | Resp 12 | Ht 1.568 m (5' 1.73") | Wt 59.6 kg (131 lb 4.8 oz) | SpO2 96% |BMI 24.23 kg/m | BSA 1.61 m PHYSICAL EXAM: Physical Exam Constitutional: General: She is not in acute distress. Appearance: She is well-developed. Cardiovascular: Rate and Rhythm: Normal rate and regular rhythm. Heart sounds: Normal heart sounds. No murmur heard. No friction rub. No gallop. Pulmonary: Effort: Pulmonary effort is normal. No respiratory distress. Breath sounds: Normal breath sounds. No wheezing or rales. Abdominal: General: Bowel sounds are normal. There is no distension. Palpations: Abdomen is soft. Tenderness: There is no abdominal tenderness. There is no guarding. Musculoskeletal: General: No tenderness or deformity. Normal range of motion. Skin: General: Skin is warm and dry. Coloration: Skin is not pale. Findings: No erythema or rash. Neurological: Mental Status: She is alert and oriented to person, place, and time. ASSESSMENT/PLAN: (Z09) Hospital discharge follow-up (primary encounter diagnosis) (A08.4) Viral gastroenteritis E87.6) Hypokalemia (E83.42) Hypomagnesemia Plan: BASIC METABOLIC PANEL, MAGNESIUM, DISCH MED RECON CUR MED LIS Per records available, pt with low potassium and magnesium secondary to viral gastroenteritis. Recheck today. She notes she is overall feeling better. No diarrhea. No further cramping. Has had weightloss. Encouraged to eat regularly. Had previous scans of chest and abdomen with no cause for weightloss. (F32.2) Severe depression (HCC) (F41.1) ARACELY (generalized anxiety disorder) Plan: Suspect this continues to play a significant role. She is on sertraline. Has declined counseling or additional intervention in the past. Follow-up: 6 weeks Total time today including reviewing chart before the visit, pertinent labs, imaging reports, face to face time, and documentation time was 34 minutes. Herminia Jang DO documented in this encounter Nursing Notes * Jenna Arauz LPN - 10/06/2023 9:45 AM EDT Patient here for Hospital d/c follow up. Pt went to ED for feeling that couldn't use her hands/legs. States potassium was and magnesium was low. Was ordered Potassium by Dr. Castillo but was told by theED not to pick it up and take it. Pt states she is not taking Potassium. Pt reports she went to [facility] on and discharged on Tuesday. documented in this encounter Plan of Treatment Upcoming Encounters Date Type Department Care Team (Late st Contact Info) Description 11/14/2023 3:30 PM EDT Imaging Radiology [facility] 1st [facility] [address] [place] [address] 11/22/2023 4:20 PM EDT Office Visit Family Practice 65 [facility] [address] [place] [address] Herminia Jang DO [address] [place] [address] 11/28/2023 10:00 AM EDT Office Visit Rheumatology [place] [id number] [facility] [place] [address] Jordana Oneill CRNP [facility] [place], [place] [address] 12/14/2023 11:00 AM EDT Office Visit [facility] [address] [place] [address] David Soriano, T [address] [place] [address] 12/23/2023 1:00 PM EDT Nurse Only Ancillary [address] [place] 293 [place] [address] College, Nurse Annual Wellness Visit [address] [facility] [address] [place] [address] Pending Results Name Type Priority Associated Diagnoses Date /Time BASIC METABOLIC PANEL Lab Routine Hypokalemia Hypomagnesemia 10/06/2023 10:32 AM EDT MAGNESIUM Lab Routine Hypokalemia Hypomagnesemia 10/06/2023 10:32 AM EDT Scheduled Orders Name Type Priority Associated Diagnoses Orde r Schedule BASIC METABOLIC PANEL Lab Routine Hypokalemia Hypomagnesemia Expected: 10/06/2023 (Approximate), Expires: 10/05/2024 MAGNESIUM Lab Routine Hypokalemia Hypomagnesemia Expected: 10/06/2023 (Approximate), Expires: 10/05/2024 Health Maintenance Due Date Last Done Comments Pneumococcal Vaccine: 65+ Years (3 of 3 - PPSV23 or PCV20) 01/18/2022 01/18/2017, 02/18/2012 COVID-19 Vaccine (3 - 2022- season) 2023 03/19/2021, 09/02/2020 Postponed from 12/31/2022 (Patient Declined After Education) Influenza Vaccine (FLU shot) (Season Ended) 2024 DXA Scan 06/08/2025 06/08/2023, 09/01, 09/29/2018, Additional history exists DTaP,Tdap,and Td Vaccines (3 - Td or Tdap) 07/18/2031 07/17/2021, 07/18/2008 Cologuard Discontinued 09/16/2020 Colonoscopy Discontinued 12/01/2021 Colorectal Cancer Screening Discontinued Zoster Vaccines Completed 07/16/2022, 09/2022, 02/18/2012 VITAMIN D LEVEL ONCE IN A LIFETIME-USE SMARTSET# [id number] Completed 05/12/2023, 11/12/2022 Fecal Occult Blood Test [...] as of this encounter Visit Diagnoses Diagnosis Hospital discharge follow-up- Primary Other follow-up examination Viral gastroenteritis Intestinal infection due to other organism, not elsewhere classified Hypokalemia Hypopotassemia Hypomagnesemia Disorders of magnesium metabolism Severe depression (HCC) Depressive disorder, not elsewhere classified AARCELY (generalized anxiety disorder) Generalized anxiety disorder Screening mammogram for breast cancer documented in this encounter Care Teams Operating Room Rn Relationship Specialty Start Date End Date Herminia Jang DO [address] [place] [address] PCP - General Family Medicine 04/28/22 documented as of this encounter
--- OUTSIDE RECORDS SUMMARY | 2023-11-03 12:44 | External Medical Summary | Summary of Care ---
Author Name Unknown Organization [facility] Address [address] [place] [address] Phone [phone] Care Team Providers Care Translational Specialist Name Role Phone Herminia Jang DO Primary Care Provider Reason for Visit * Reason Onset Date Comments Appointment 08/18/2023 October 23 Encounter Details Date Type Department Care Team (Late st Contact Info) Description 08/18/2023 Telephone Family Practice [address], [place] [address] [place] [address] Herminia Jang DO [address] [place], [place] [phone] Appointment (October 23) Allergies Active Allergy Reactions Criticality Noted Date Comments Alendronate Itching 05/07/2022 documented as of this encounter (statuses as of 08/18/2023) Medications Medication Sig Dispensed Refills Start Date [...] the morning. 100 Tablet 3 07/22/2023 Active traZODone HCl 50 MG Oral Tablet (Desyrel)Indication s:Other insomnia Take 1 Tablet by mouth at bedtime. 100 Tablet 1 07/22/2023 Active documented as of this encounter (statuses as of 08/18/2023) Active Problems Problem Noted Date Diagnosed Date Orthostatic hypotension 11/12/2022 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 11/12/2022 Hypertriglyceridemia 05/07/2022 documented as of this encounter (statuses as of 08/18/2023) Resolved Problems Problem Noted Date Diagnosed Date Resolved Date Localized osteoporosis witho ut current pathological fracture 11/12/2022 11/12/2022 documented as of this encounter (statuses as of 08/18/2023) Immunizations Name Administration Dates Next Due COVID-19, [...] encounter Miscellaneous Notes * Telephone Encounter - Hedy Glaser OSA - 08/18/2023 9:06 AM EDT Left message on machine to reschedule 10/23 documented in this encounter Plan of Treatment Upcoming Encounters Date Type Department Care Team (Late st Contact Info) Description 09/02/2023 3:30 PM EDT Telemedicine Orthopaedics [facility] [address] [place] [address] Fernie Richards MD [address] [place] [address] 10/21/2023 11:00 AM EDT Nurse Only Ancillary [address] [place] [address] [address] [place] [address] College, Nurse Annual Wellness Visit 65 [facility] 293 [place] [address] 10/24/2023 8:20 AM EDT Office Visit Family Practice 65 [facility] [address] [place] [address] Herminia Jang, DO 293 [place] [address] 11/28/2023 10:00 AM EDT Office Visit Rheumatology [facility] [address] [place], [place] [address] Jordana Oneill CRNP [address] [facility], [place] [address] Health Maintenance Due Date Last Done Comments [...] D LEVEL ONCE IN A LIFETIME-USE SMARTSET# [id number] Completed 05/12/2023, 11/12/2022 Fecal Occult Blood Test [...] filedocumented as of this encounter Care Teams Translational Specialist Relationship Specialty Start Date End Date Herminia Jang DO [address] [place] [address] PCP - General Family Medicine 04/28/22 documented as of this encounter
--- OUTSIDE RECORDS SUMMARY | 2023-11-03 12:44 | External Medical Summary | Summary of Care ---
Author Name Unknown Organization [facility] Address [address] [place] [address] Phone [phone] Care Team Providers Care Histologic Technician Name Role Phone Herminia Jang DO Primary Care Provider Reason for Visit * Reason Onset Date Comments Advice 09/29/2023 Encounter Details Date Type Department Care Team (Late st Contact Info) Description 09/29/2023 Telephone Family Practice [address], [place] [address] [place] [address] Herminia Jang DO [address] [place] [address] Advice Allergies Active Allergy Reactions Criticality Noted Date Comments Alendronate Itching 05/07/2022 documented as of this encounter (statuses as of 10/03/2023) Medications Medication Sig Dispensed Refills Start Date [...] as of this encounter (statuses as of 10/03/2023) Active Problems Problem Noted Date Diagnosed Date Orthostatic hypotension 11/12/2022 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 11/12/2022 Hypertriglyceridemia 05/07/2022 documented as of this encounter (statuses as of 10/03/2023) Resolved Problems Problem Noted Date Diagnosed Date Resolved Date Localized osteoporosis witho ut current pathological fracture 11/12/2022 11/12/2022 documented as of this encounter (statuses as of 10/03/2023) Immunizations Name Administration Dates Next Due COVID-19, [...] encounter Miscellaneous Notes * Telephone Encounter - Rosalina Kapoor RPh - 10/03/2023 3:22 PM EDT Noted - I checked discharge and patient's medications were unchanged. No need for pharmacy visit atthis time. Please let me know if any issues arise with visit. * Telephone Encounter - Hedy Mann OSA - 10/03/2023 1:58 PM EDT Pt called to set up an ER follow up appt, however; the only date available, was a PTO day for pharmacy. Pt was scheduled for a regular nurse for the med record portion. Not sure if you wanted to reach out to do a med rec prior to that date or if the nurse visit med rec would work. Pt aware of appts. * Telephone Encounter - Kristal Posey LPN [...] wobbly, speech is "funny". Closest ER is [facility] or [facility]. Offered to call EMS daughter states she will do so. Thank you documented in this encounter Plan of Treatment Upcoming Encounters Date Type Department Care Team (Late st Contact Info) Description 10/06/2023 9:30 AM EDT Nurse Only Family Practice [address] [place] [address] College, Nurse Fam Prac [address] [place] [address] 10/06/2023 10:00 AM EDT Office Visit Family Practice [address] [place] [address] Herminia Jang, DO 293 [place] [address] 10/27/2023 9:20 AM EDT Office Visit Family Practice 65 [facility] 293 [place] [address] Herminia Jang, DO 293 [place] [address] 11/14/2023 3:30 PM EDT Imaging Radiology [facility] 1st [facility] 132 [facility] [place] [address] 11/28/2023 10:00 AM EDT Office Visit Rheumatology [place] [id number] [facility] [place] [address] Jordana Oneill CRNP [facility]0 [place] [address] 12/14/2023 11:00 AM EDT Office Visit [facility] [address] [place] [address] David Soriano, [facility] [address] [place] [address] 12/23/2023 1:00 PM EDT Nurse Only Ancillary 65 [facility] 293 [place] [address] College, Nurse Annual Wellness Visit [address] [place] [address] Health Maintenance Due Date Last Done Comments [...] D LEVEL ONCE IN A LIFETIME-USE SMARTSET# [id number] Completed 05/12/2023, 11/12/2022 Fecal Occult Blood Test [...] filedocumented as of this encounter Care Teams Histologic Technician Relationship Specialty Start Date End Date Herminia Jang DO [address] [place] [address] PCP - General Family Medicine 04/28/22 documented as of this encounter
--- OUTSIDE RECORDS SUMMARY | 2023-11-03 12:44 | External Medical Summary | Summary of Care ---
Author Name Unknown Organization [facility] Address [address] [place] [address] Phone [phone] Care Team Providers Care Stator Tester Name Role Phone Herminia Jang DO Primary Care Provider Reason for Visit * Reason Onset Date Comments Appointment 08/18/2023 October 23 Encounter Details Date Type Department Care Team (Late st Contact Info) Description 08/18/2023 Telephone Family Practice [address] [place] [address] [place] [address] Herminia Jang DO [address] [place], [place] [phone] Appointment (October 23) Allergies Active Allergy Reactions [...] Miscellaneous Notes * Telephone Encounter - Hedy Mann OSA - 08/18/2023 9:53 AM EDT Appt scheduled, pt aware. * Telephone Encounter - Hedy Glaser OSA - 08/18/2023 9:06 AM EDT Left message on machine to reschedule 10/23 documented in this encounter Plan of Treatment Upcoming Encounters Date Type Department Care Team (Late st Contact Info) Description 09/02/2023 3:30 PM EDT Telemedicine Orthopaedics [facility] [address] [place] [address] Fernie Richards MD [address] [place] [address] 10/21/2023 11:00 AM EDT Nurse Only Ancillary 65 [facility] 293 [facility] [place] [address] College, Nurse Annual Wellness Visit [address] [place] [address] 10/27/2023 9:20 AM EDT Office Visit Family Practice 65 [facility] 293 [facility] [address] Herminia Jang DO 293 [place] [address] 11/28/2023 10:00 AM EDT Office Visit Rheumatology [place] [address] [facility] [address] Jordana Oneill CRNP [address] [address] [facility] [address] Health Maintenance Due Date Last Done Comments [...] D LEVEL ONCE IN A LIFETIME-USE SMARTSET# [id number] Completed 05/12/2023, 11/12/2022 Fecal Occult Blood Test [...] filedocumented as of this encounter Care Teams Stator Tester Relationship Specialty Start Date End Date Herminia Jang DO [address] [place] [address] PCP - General Family Medicine 04/28/22 documented as of this encounter
--- OUTSIDE RECORDS SUMMARY | 2023-11-03 12:44 | External Medical Summary | Summary of Care ---
Author Name Unknown Organization [facility] Address [address] [place] [address] Phone [phone] Care Team Providers Care Store Mgr Name Role Phone Herminia Jang DO Primary Care Provider [phone] Reason for Visit * Reason Onset Date Comments Appointment 08/18/2023 October 23 Encounter Details Date Type Department Care Team (Late st Contact Info) Description 08/18/2023 Telephone Family Practice [address] [place] [address] [place] [address] Herminia Jang DO [address] [place], [place] [phone] Appointment (October 23) Allergies Active Allergy Reactions [...] Description 09/02/2023 3:30 PM EDT Telemedicine Orthopaedics [facility] [address] [place] [address] Fernie Richards MD [address] [place] [address] 10/21/2023 11:00 AM EDT Nurse Only Ancillary [address] [place] [address] [address] [place] [address] College, Nurse Annual Wellness Visit 65 [facility] 293 [place] [address] 10/24/2023 8:20 AM EDT Office Visit Family Practice 65 [facility] 293 [place] [address] Herminia Jang, DO 293 [facility] [place] [address] 11/28/2023 10:00 AM EDT Office Visit Rheumatology [facility] [address] [place], [place] [address] Jordana Oneill CRNP [address] [facility], [place] [address] Health Maintenance Due Date Last Done Comments [...] D LEVEL ONCE IN A LIFETIME-USE SMARTSET# [id number] Completed 05/12/2023, 11/12/2022 Fecal Occult Blood Test [...] filedocumented as of this encounter Care Teams Store Mgr Relationship Specialty Start Date End Date Herminia Jang DO [address] [place] [address] PCP - General Family Medicine 04/28/22 documented as of this encounter
--- OUTSIDE RECORDS SUMMARY | 2023-11-03 12:44 | External Medical Summary | Summary of Care ---
Author Name Unknown Organization [facility] Address [address] [place] [address] Phone [phone] Care Team Providers Care Anti Air Warfare Operations Officer Name Role Phone Herminia Jang DO Primary Care Provider Reason for Visit * Reason Onset Date Comments Letter Requests 09/28/2023 Jury Duty Information 09/28/202309/27 Encounter Details Date Type Department Care Team (Late st Contact Info) Description 09/28/2023 Telephone Family Practice [address] [place] [address] [place] [address] Herminia Jang DO [address] [place], [place] [phone] Letter Requests (Jury Duty); Information (... Allergies Active Allergy Reactions Criticality Noted Date Comments Alendronate Itching 05/07/2022 documented as of this encounter (statuses as of 09/28/2023) Medications Medication Sig Dispensed Refills Start Date [...] as of this encounter (statuses as of 09/28/2023) Active Problems Problem Noted Date Diagnosed Date Orthostatic hypotension 11/12/2022 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 11/12/2022 Hypertriglyceridemia 05/07/2022 documented as of this encounter (statuses as of 09/28/2023) Resolved Problems Problem Noted Date Diagnosed Date Resolved Date Localized osteoporosis witho ut current pathological fracture 11/12/2022 11/12/2022 documented as of this encounter (statuses as of 09/28/2023) Immunizations Name Administration Dates Next Due COVID-19, [...] Telephone Encounter - Herminia Jang DO - 09/28/2023 1:34 PM EDT Noted. * Telephone Encounter - Jenna Arauz LPN - 09/28/2023 11:41 AM EDT Call placed to patient for more information. States she went before and it was too noisy, she was unable to hear, and she just got "too worked up". Pt states the letter did provide a phone number to call if she had any questions. Advised pt to call the number and explain her concerns. States she will. States she will contact office if anything further is requested. * Telephone Encounter - Herminia Jang DO - 09/28/2023 9:56 AM EDT I am not sure what qualifies as a medical reason for not being able to complete jury duty. Is she able to drop anything off to us? * Telephone Encounter - Kristal Posey LPN - 09/28/2023 9:44 AM EDT Permission to write letter? * Telephone Encounter - Hedy Glaser OSA - 09/28/2023 9:39 AM EDT Received a letter for jury duty Wants a letter saying she can't do it She said she can't handle that Can you please write Please call documented in this encounter Plan of Treatment Upcoming Encounters Date Type Department Care Team (Late st Contact Info) Description 10/21/2023 11:00 AM EDT Nurse Only Ancillary 65 [facility] 293 [facility], [place] [address] College, Nurse Annual Wellness Visit 65 [facility] [address] 10/27/2023 9:20 AM EDT Office Visit Family Practice 65 [facility] 293 [place] [address] Herminia Jang DO 293 [facility] [address] 11/28/2023 10:00 AM EDT Office Visit Rheumatology [facility] [address] [facility] [place] [address] Jordana Oneill CRNP [address] [facility] [place] [address] 12/14/2023 11:00 AM EDT Office Visit [facility] [address] [place] [address] David Soriano, [facility] [address] [place], [place] [phone] Health Maintenance Due Date Last Done Comments [...] D LEVEL ONCE IN A LIFETIME-USE SMARTSET# [id number] Completed 05/12/2023, 11/12/2022 Fecal Occult Blood Test [...] filedocumented as of this encounter Care Teams Anti Air Warfare Operations Officer Relationship Specialty Start Date End Date Herminia Jang DO [address] [place] [address] PCP - General Family Medicine 04/28/22 documented as of this encounter
--- OUTSIDE RECORDS SUMMARY | 2023-11-03 12:44 | External Medical Summary | Summary of Care ---
Author Name Unknown Organization [facility] Address [address] [place] [address] Phone [phone] Care Team Providers Care Shellfish Manager Name Role Phone Herminia Jang DO Primary Care Provider [phone] Reason for Visit * Reason Comments Medication Management Encounter Details Date Type Department Care Team (Late st Contact Info) Description 07/22/2023 11:00 AM EDT Pharmacy Family Practice 65 [facility] 293 [place] [address] [place], Pharmacist [address] [address] Encounter for medication management* Allergies Active Allergy Reactions Criticality Noted Date Comments Alendronate Itching 05/07/2022 documented as of this encounter (statuses as of 07/22/2023) Medications Medication Sig Dispensed Refills Start Date [...] 100 Tablet 3 4 06/15/19 25 Active Sertraline HCl 100 MG Oral Tablet (Zoloft)Indicati ons:Suicidal ideation,Severe depression (HCC) Take 1 Tablet by mouth in the morning. 100 Tablet 1 3 07/22/19 24 Discontinued(Ref ill) Amitriptyline HCl 25 MG Oral Tablet (Elavil) TAKE ONE TABLET BY MOUTH EVERY EVENING 100 Tablet 3 4 07/22/19 24 Discontinued documented as of this encounter (statuses as of 07/22/2023) Active Problems Problem Noted Date Diagnosed Date Orthostatic hypotension 11/12/2022 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 11/12/2022 Hypertriglyceridemia 05/07/2022 documented as of this encounter (statuses as of 07/22/2023) Resolved Problems Problem Noted Date Diagnosed Date Resolved Date Localized osteoporosis witho ut current pathological fracture 11/12/2022 11/12/2022 documented as of this encounter (statuses as of 07/22/2023) Immunizations Name Administration Dates Next Due COVID-19, [...] on file documented as of this encounter Progress Notes * Maddie Bradley, [facility] - 07/22/2023 8:28 AM EDT Medication Therapy Disease Management [facility] - Medication Reconciliation Daija Griggs is an 77 year old being seen for medication reconciliation. Prescription insurance information: ALONDRA Hickman Do you have any other prescription coverage: No Preferred pharmacy: [facility] ([facility]) [x] Problem list reviewed [x] Allergies reviewed and updated if needed [x] Drug interaction check completed [x] HEDIS list addressed Immunizations: due for COVID booster, flu, PCV-20, and RSV - declined all but would like to discussRSV further with PCP. Informed PCP Medication Organization/Adherence: Has home care nurse or caregiver: no- nurse for Patient uses a pill box? Yes, refill(s) completed by self When you are at home, how often do you miss doses of medications? Never How difficult is it for you to pay for your medications? Not difficult at all How often do you experience side effects from your medications? Never After further discussion, pt mentioned she has lightheadedness/dizziness especially when she bends or goes from sitting to standing. Also feels tired throughout the day Labs/Vitals/Risk Scores: The 10-year ASCVD risk score (Mark TRUJILLO, et al., 2019) is: 15.3% Values used to calculate the score: Age: 77 years Sex: Female Is Non- : No Diabetic: No Tobacco smoker: No Systolic Blood Pressure: 128 mmHg Is BP treated: No HDL Cholesterol: 49 mg/dL Total Cholesterol: 118 mg/dL BP Readings from Last 3 Encounters: 07/22/23 128/78 04/22/23 116/74 04/14/23 136/68 No results for input(s): "HGBA1C" in the last 16735 hours. Recent Labs Units 05/12/23 0931 11/12/22 1115 02/26/22 0830 ESTIMATED GLOMERULAR FILTRATION RATE - [facility] mL/min 65 63 -- EGFR-OUTSIDE LAB mL/MIN -- -- 72 Serum creatinine: 0.9 mg/dL 05/12/23 0931 Estimated creatinine clearance: 48 mL/min Assessment & Plan: Medication discrepancies identified: none - intake done with patient Dose/frequency of medications appropriate for current renal function? yes Other medication problems identified: Insomnia: current treatment not effective for pt; may need to evaluate appropriateness of amitriptyline due increased risk of anticholinergic effects with age. In light of recent fall and orthostaticHOTN, consider trazadone as alternative for sleep onset difficulty. Patient education provided: education on vaccines provided; pt is open to RSV vaccine Referral pended for follow up management of: N/A TG: controlled; on high intensity statin Osteoporosis: following with rheum; on Prolia- cost issue in the past- states no issues with affordability; Does not take calcium or vitamin-D- rheum states to continue calcium rich foods Depression: sertraline Summary- Changes & Recommendations: Medication list reviewed with patient. Pended refill to PCP for Sertraline. Recommended trazodone replacement in place of amitriptyline for sleep onset difficulty; PCP will evaluate further Repeat med rec visit scheduled in 1 year Maddie Bradley RPh Clinical Pharmacist - [facility] 07/22/2023, 8:28 AM ADDENDUM 07/22/23 12:11pm PCP agreed with recommendation and switched pt from amitriptyline to trazadone 50 mg daily for sleep onset. RSV vaccine was also administered by nurse. Maddie Bradley, PharmD PGY1 Publishing Director 07/22/2023 12:13 PM documented in this encounter Plan of Treatment Upcoming Encounters Date Type Department Care Team (Late st Contact Info) Description 09/02/2023 3:30 PM EDT Telemedicine [facility] [place] [address] Fernie Richards MD 132 [facility] [place] [address] 10/21/2023 11:00 AM EDT Nurse Only Ancillary [address] [address] College, Nurse Annual Wellness Visit [address] [address] 11/28/2023 10:00 AM EDT Office Visit Rheumatology [place] [address] [facility] [place] [address] Jordana Oneill CRNP [address] [employer] [place] [address] Health Maintenance Due Date Last Done Comments Pneumococcal Vaccine: 65+ Years (3 of 3 - PPSV23 or PCV20) 01/18/2022 01/18/2017, 02/18/2012 Influenza Vaccine (FLU shot) (#1) 2022 COVID-19 Vaccine (3 - 2022- season) 2023 03/19/2021, 09/02/2020 Postponed from 12/31/2022 (Patient Declined After Education) Depression Screening 04/22/2024 04/22/2023 DXA Scan 06/08/2025 06/08/2023, 09/01, 09/29/2018, Additional history exists DTaP,Tdap,and Td Vaccines (3 - Td or Tdap) 07/18/2031 07/17/2021, 07/18/2008 Cologuard Discontinued 09/16/2020 Colonoscopy Discontinued 12/01/2021 Colorectal Cancer Screening Discontinued Zoster Vaccines Completed 07/16/2022, 09/2022, 02/18/2012 VITAMIN D LEVEL ONCE IN A LIFETIME-USE SMARTSET# [id number] Completed 05/12/2023, 11/12/2022 Fecal Occult Blood Test [...] as of this encounter Visit Diagnoses Diagnosis Encounter for medication management- Primary Encounter for long-term (current) use of other medications documented in this encounter Care Teams Shellfish Manager Relationship Specialty Start Date End Date Herminia Jang DO [address] [place] [address] PCP - General Family Medicine 04/28/22 documented as of this encounter
--- OUTSIDE RECORDS SUMMARY | 2023-11-03 12:44 | External Medical Summary | Summary of Care ---
Author Name Unknown Organization [facility] Address [address] [place] [address] Phone [phone] Care Team Providers Care Logistics Team Lead Name Role Phone Herminia Jang DO Primary Care Provider Reason for Visit * Reason Onset Date Comments Advice 09/29/2023 Encounter Details Date Type Department Care Team (Late st Contact Info) Description 09/29/2023 Telephone Family Practice [address] [place] [address] [place] [address] Herminia Jang DO [address] [place] [address] Advice Allergies Active Allergy Reactions [...] wobbly, speech is "funny". Closest ER is [facility] or [facility]. Offered to call EMS daughter states she will do so. Thank you documented in this encounter Plan of Treatment Upcoming Encounters Date Type Department Care Team (Late st Contact Info) Description 10/06/2023 9:30 AM EDT Nurse Only Family Practice [address] [place] [phone] College, Nurse [facility] Prac [address] [place] [address] 10/06/2023 10:00 AM EDT Office Visit Family Practice [address] [place] [phone] Herminia Jang DO 293 [place] [place] [address] 10/27/2023 9:20 AM EDT Office Visit Family Practice [address] [place] [phone] Herminia Jang, DO 293 [facility], [place] [address] 11/14/2023 3:30 PM EDT Imaging Radiology [facility] 1st [facility], [place] [address] [place] [address] 11/28/2023 10:00 AM EDT Office Visit Rheumatology [facility] [address] [facility] [place] [address] Jordana Oneill CRNP [address] [facility] [address] 12/14/2023 11:00 AM EDT Office Visit [facility] [address] [place], [place] [phone] David Soriano, [facility] [address] [place] [address] 12/23/2023 1:00 PM EDT Nurse Only Ancillary [address] [place] 293 [place] [address] College, Nurse Annual Wellness Visit 65 [facility] 293 [place] [address] Health Maintenance Due Date Last Done Comments [...] D LEVEL ONCE IN A LIFETIME-USE SMARTSET# [id number] Completed 05/12/2023, 11/12/2022 Fecal Occult Blood Test [...] filedocumented as of this encounter Care Teams Logistics Team Lead Relationship Specialty Start Date End Date Herminia Jang DO [address] [place] [address] PCP - General Family Medicine 04/28/22 documented as of this encounter
--- OUTSIDE RECORDS SUMMARY | 2023-11-03 12:44 | External Medical Summary | Summary of Care ---
Author Name Unknown Organization [facility] Address [address] [place] [address] Phone [phone] Care Team Providers Care Cost And Risk Analysis Manager Name Role Phone Herminia Jang DO Primary Care Provider Reason for Visit * Reason Comments Medication Management Encounter Details Date Type Department Care Team (Late st Contact Info) Description 07/22/2023 11:00 AM EDT Pharmacy Family Practice 65 [facility] 293 [place] [address] [place], Pharmacist [address] [address] Encounter for medication management* Allergies Active Allergy [...] this encounter Progress Notes * Maddie Bradley, [facility] - 07/22/2023 8:28 AM EDT Medication Therapy Disease Management Clinic - Medication Reconciliation Daija Griggs is an 77 year old being seen for medication reconciliation. Prescription insurance information: ALONDRA Hickman Do you have any other prescription coverage: No Preferred pharmacy: [facility] ([facility]) [x] Problem list reviewed [...] results for input(s): "HGBA1C" in the last 88247 hours. Recent Labs Units 05/12/23 0931 11/12/22 [...] difficulty. Patient education provided: education on vaccines provided Referral pended for follow up management of: [...] year Maddie Bradley RPh Clinical Pharmacist - Film Coater Medication Therapy Management [facility] 07/22/2023, 8:28 AM documented in this encounter Plan of Treatment Upcoming Encounters Date Type Department Care Team (Late st Contact Info) Description 09/02/2023 3:30 PM EDT Telemedicine Orthopaedics [facility] [address] [place] [address] Fernie Richards MD [address] [place] [address] 10/21/2023 11:00 AM EDT Nurse Only Ancillary 65 [facility] 293 [place] [address] College, Nurse Annual Wellness Visit [address] [place] [address] 11/28/2023 10:00 AM EDT Office Visit Rheumatology [address] [place] [address] Jordana Oneill CRNP [facility] [place] [address] Health Maintenance Due Date Last Done Comments Pneumococcal Vaccine: 65+ Years (3 of 3 - PPSV23 or PCV20) 01/18/2022 01/18/2017, 02/18/2012 Influenza Vaccine (FLU shot) (#1) 2022 COVID-19 Vaccine ( - 2022-24 season) 2023 03/19/2021, 09/02/2020 Postponed from 12/31/2022 (Patient Declined After Education) Depression Screening 04/22/2024 04/22/2023 DXA Scan 06/08/2025 06/08/2023, 09/01, 09/29/2018, Additional history exists DTaP,Tdap,and Td Vaccines (3 - Td or Tdap) 07/18/2031 07/17/2021, 07/18/2008 Cologuard Discontinued 09/16/2020 Colonoscopy Discontinued 12/01/2021 Colorectal Cancer Screening Discontinued Zoster Vaccines Completed 07/16/2022, 09/2022, 02/18/2012 VITAMIN D LEVEL ONCE IN A LIFETIME-USE SMARTSET# [id number] Completed 05/12/2023, 11/12/2022 Fecal Occult Blood Test [...] medications documented in this encounter Care Teams Cost And Risk Analysis Manager Relationship Specialty Start Date End Date Herminia Jang DO 293 [facility] [place] [address] PCP - General Family Medicine 04/28/22 documented as of this encounter
--- OUTSIDE RECORDS SUMMARY | 2023-11-03 12:44 | External Medical Summary ---
Author Name Unknown Address Unknown Organization K01:[facility] [address] [place] [address] Laboratory Report Ordering Provider Test Date Status JESUS OSORIO 10/06/2023 10:32:43 Final Observation Date Value Abnormality Reference (Units ) Status Magnesium 10/06/2023 10:32:43 1.8 1.5-2.6 (m g/dL) Final Performing Location [facility] [address] [place] [address]
--- OUTSIDE RECORDS SUMMARY | 2023-11-03 12:44 | External Medical Summary | Summary of Care ---
Author Name Unknown Organization [facility] Address [address] [facility] [place] [address] Phone [phone] Care Team Providers Care Insurance Processing Clerk Name Role Phone Herminia Jang DO Primary Care Provider [phone] Reason for Visit * Reason Comments Pain Encounter Details Date Type Department Care Team (Latest Contact Info) Description 09/02/2023 3:30 PM EDT Telemedicine Orthopaedics [facility] [address] [place] [address] Fernie Richards MD 132 [place] [address] Primary osteoarthritis of one knee, left* Allergies Active Allergy Reactions Criticality Noted Date Comments Alendronate Itching 05/07/2022 documented as of this encounter (statuses as of 09/02/2023) Medications Medication Sig Dispensed Refills Start Date [...] 2 Tablets by mouth at bedtime. 0 08/22/2023 Active documented as of this encounter (statuses as of 09/02/2023) Active Problems Problem Noted Date Diagnosed Date Orthostatic hypotension 11/12/2022 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 11/12/2022 Hypertriglyceridemia 05/07/2022 documented as of this encounter (statuses as of 09/02/2023) Resolved Problems Problem Noted Date Diagnosed Date Resolved Date Localized osteoporosis witho ut current pathological fracture 11/12/2022 11/12/2022 documented as of this encounter (statuses as of 09/02/2023) Immunizations Name Administration Dates Next Due COVID-19, [...] as of this encounter Progress Notes * Fernie Richards MD - 09/02/2023 3:30 PM EDT Daija Griggs [id number] Daija Griggs is a 77 year old female who presents for consultation to [facility] Orthopaedics and Sports Medicine for left knee injury/pain. Consult requested by Herminia Jang DO. I saw her originally for this on 05/11/2023, however she has been seeing since for procedure only visits Telephone visit done today rather than in office visit. Daija Griggs is here with her Quality: reviewed and agree with Nursing Notes for HPI elements History: History on 05/11/2023 - presents upon referral for L knee pain. Patient reports she feel on this knee years ago but did notseek treatment. Patient notes variable pain in the L knee dependent upon activity Since that visit: She reports improvement from the steroid injection I performed for her on 05/11/2023. ago but not resolution. She also had benefit from viscosupplementation. Viscosupplementation with Gelsyn completed on 07/06/2023. At this point she is relatively pain-free and pleased. ROS: ROS per HPI otherwise non-contributory Past Medical History: Diagnosis Date History of kidney stones Hypertriglyceridemia Osteoporosis Family History Problem Relation Age of Onset Colon cancer Mother Diabetes Mother Other (lilled in motorcycle accident) Father Other (Other) Father Other (Other) Brother kidney issue Heart Disorder Brother [place] Heart Disorder Brother [place] Breast Cancer No significant family history Social History Socioeconomic History Marital status: Spouse name: Not on file Number of children: Not on file Years of education: Not on file Highest education level: Not on file Occupational History Not on file Tobacco Use Smoking status: Never Passive exposure: Past Smokeless tobacco: Never Vaping Use Vaping Use: Never used Substance and Sexual Activity Alcohol use: Not Currently Drug use: Never Sexual activity: Not on file Other Topics Concern Not on file Social History Narrative Not on file Social Determinants of Health Financial Resource Strain: Not on file Food Insecurity: No Food Insecurity (04/22/2023) Hunger Vital Sign Worried About Running Out of Food in the Last Year: Never true Ran Out of Food in the Last Year: Never true Transportation Needs: Not on file Physical Activity: Not on file Stress: Not on file Social Connections: Not on file Intimate Partner Violence: Not on file Housing Stability: Not on file Radiology (I have personally reviewed the following films): 05/11/2023: Four view x-ray of the left knee FINDINGS No acute fracture or subluxation. Mild narrowing of the medial compartment with associated osteophytic spurring. Bone mineralization is appropriate for age. No lytic or blastic lesion. IMPRESSION IMPRESSION Mild degenerative changes Assessment and Plan: 1) left knee pain Suspect secondary to osteoarthritis as well as MCL sprain Patient reports she already has a hinged knee brace and recommend she use it Intra-articular steroid injection performed today 05/11/2023. Note she did receive injection on 03/15/2023 from her primary care physician which helped for only 2 days. Discussed we used a slightly different medicine I would like to see if she is benefit from when I perform it. She reports improvement from the steroid injection I performed for her on 05/11/2023. ago but not resolution. She also had benefit from viscosupplementation. Viscosupplementation with Gelsyn completed on 07/06/2023. At this point she is relatively pain-free and pleased. Also scheduled to start viscosupplementation series starting 6-8 weeks, will use gelsyn She is aware that steroids can be performed every 3-4 months and viscosupplementation every 6 months if needed. She will follow-up p.r.n.. After connecting to the patient via telephone, the patient was identified by name and date of . Patient was then informed that this was a telephone call only visit. The patient agreed to participate. Visit Disposition: Routine follow-up Total call duration was 3 minutes. Fernie Richards MD Primary Care Sports Medicine Orthopaedics [facility] 132 [facility] [address] documented in this encounter Plan of Treatment Upcoming Encounters Date Type Department Care Team (Late st Contact Info) Description 10/21/2023 11:00 AM EDT Nurse Only Ancillary 65 [facility] 293 [place] [address] College, Nurse Annual Wellness Visit [address] [address] 10/27/2023 9:20 AM EDT Office Visit Family Practice 65 [facility] [address] [place] [address] Herminia Jang DO 293 [place] [address] 11/28/2023 10:00 AM EDT Office Visit Rheumatology [place] [address] [facility] [place] [address] Jordana Oneill CRNP [facility] [place] [address] Health Maintenance Due Date Last Done Comments [...] D LEVEL ONCE IN A LIFETIME-USE SMARTSET# [id number] Completed 05/12/2023, 11/12/2022 Fecal Occult Blood Test [...] as of this encounter Visit Diagnoses Diagnosis Primary osteoarthritis of one knee, left- Primary documented in this encounter Care Teams Insurance Processing Clerk Relationship Specialty Start Date End Date Herminia Jang DO [address] [place] [address] PCP - General Family Medicine 04/28/22 documented as of this encounter
--- OUTSIDE RECORDS SUMMARY | 2023-11-03 12:44 | External Medical Summary | Summary of Care ---
Author Name Unknown Organization [facility] Address [address] [facility] [place] [address] Phone [phone] Care Team Providers Care Manager Transplant Name Role Phone Herminia Jang DO Primary Care Provider Reason for Visit * Precert (Within 30 days (routine)) - Authorized Specialty Diagnoses / Procedures Referred By Contac t Referred To Contact Orthopedics Diagnoses Unilateral primary osteoarthritis, left knee Procedures [place] GEL-SYN INJECTION 0.1 MG Fernie Richards MD [address] [place] [address] Fernie Richards MD [address] [place] [id number] Referral ID Status Reason Start Date Expiration Date V isits Requested Visits Authorized [id number] Authorized Precert 05/23/2023 05/22/2024 [id number] Encounter Details Date Type Department Care Team (Latest Contact Info) Description 07/06/2023 10:30 AM EST Office Visit Orthopaedics [facility] [address] [place] [address] Fernie Richards MD [address] [place] [address] Primary osteoarthritis of one knee, left* Allergies Active Allergy Reactions Criticality Noted Date Comments Alendronate Itching 05/07/2022 documented as of this encounter (statuses as of 07/06/2023) Medications Medication Sig Dispensed Refills Start Date [...] EVENING 100 Tablet 3 06/16/2023 06/15/2024 Active Hospital, Clinic, or Other Facility Administered Medication Ordered Dose Route Frequency Start Date End Date Status sodium hyaluronate (Gelsyn-3) 16.8 MG/2ML inj 16.8 mgIndications:Primary osteoarthritis of one knee, left 16.8 mg IX ONCE 07/06/2023 07/06/2023 Active documented as of this encounter (statuses as of 07/06/2023) Active Problems Problem Noted Date Diagnosed Date Orthostatic hypotension 11/12/2022 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 11/12/2022 Hypertriglyceridemia 05/07/2022 documented as of this encounter (statuses as of 07/06/2023) Resolved Problems Problem Noted Date Diagnosed Date Resolved Date Localized osteoporosis witho ut current pathological fracture 11/12/2022 11/12/2022 documented as of this encounter (statuses as of 07/06/2023) Immunizations Name Administration Dates Next Due COVID-19, [...] Answer Date Recorded PHQ Adult Total Score 2 10/18/2022 Hunger Vital Sign Answer Date Recorded Within the past 12 months, y ou worried that your food would run out before you got the money to buy more. Never true 10/19/19 23 Within the past 12 months, t he food you bought just didn't last and you didn't have money to get more. Never true 10/18/2022 Sex and Gender Information Value Date Recorded Sex Assigned at Not on file Gender Identity Not on file Sexual Orientation Not on file Job Start Date Occupation Industry Not on file Not on file Not on file documented as of this encounter Progress Notes * Fernie Richards MD - 07/06/2023 10:10 AM EST Pt Name: Daija Griggs Diagnosis: OA left knee. The patient is here for the THIRD of a series of Gelsyn injections. There is no sign of infection in the injected knee. A timeout was called immediately prior to the procedure, to confirm the correct patient, procedure,and site. The site was marked by the physician prior to the procedure. Site was identified: knee: Left Procedure: Under sterile fashion, a 2 ml vial of Gelsyn was injected intra- articularly into the knee. Patient tolerated this well. Assessment: OA LEFT knee. Recommended telephone follow-up in 6-8 weeks Fernie Richards MD 06/22/2023 10:09 AM documented in this encounter Plan of Treatment Upcoming Encounters Date Type Department Care Team (Late st Contact Info) Description 07/22/2023 11:20 AM EDT Office Visit Family Practice [address] [place] [address] 293 [place] [address] Herminia Jang DO 293 [facility] [place] [address] 09/02/2023 3:30 PM EDT Telemedicine Orthopaedics [facility] 132 [facility] [place] [address] Fernie Richards MD 132 [facility] [place] [address] 10/21/2023 11:00 AM EDT Nurse Only Ancillary [address] [place], [place] [address] [address] [place], Nurse Annual Wellness Visit [address] [place], [place] [address] [address] 11/28/2023 10:00 AM EDT Office Visit Rheumatology [place] [id number] [facility] [place] [address] Jordana Oneill CRNP [address] [place] [address] Health Maintenance Due Date Last Done Comments [...] D LEVEL ONCE IN A LIFETIME-USE SMARTSET# [id number] Completed 05/12/2023, 11/12/2022 Fecal Occult Blood Test [...] Primary documented in this encounter Care Teams Manager Transplant Relationship Specialty Start Date End Date Herminia Jang DO [address] [place] [address] PCP - General Family Medicine 04/28/22 documented as of this encounter
--- OUTSIDE RECORDS SUMMARY | 2023-11-03 12:44 | External Medical Summary | Summary of Care ---
Author Name Unknown Organization [facility] Address [address] [place] [facility] [place] [address] Phone [phone] Care Team Providers Care Trim Machine Adjuster Name Role Phone Herminia Jang DO Primary Care Provider Reason for Visit * Precert (Within 30 days (routine)) - Authorized Specialty Diagnoses / Procedures Referred By Contac t Referred To Contact Orthopedics Diagnoses Unilateral primary osteoarthritis, left knee Procedures [place] GEL-SYN INJECTION 0.1 MG Fernie Richards MD [address] [place] [address] Fernie Richards MD [address] [place] [address] Referral ID Status Reason Start Date Expiration Date V isits Requested Visits Authorized [id number] Authorized Precert 05/23/2023 05/22/2024 [id number] Encounter Details Date Type Department Care Team (Latest Contact Info) Description 07/06/2023 10:30 AM EST Office Visit Orthopaedics [facility] [address] [place] [address] Fernie Richards MD [address] [place] [address] Primary osteoarthritis of one knee, left* Allergies [...] left 16.8 mg IX ONCE 07/06/2023 07/06/2023 Ended documented as of this encounter (statuses as [...] 11:20 AM EDT Office Visit Family Practice [address] [place] [address] 293 [place] [address] Herminia Jang DO 293 [place] [address] 09/02/2023 3:30 PM EDT Telemedicine Orthopaedics [facility] 132 [facility] [place] [address] Fernie Richards MD 132 [facility] [place] [address] 10/21/2023 11:00 AM EDT Nurse Only Ancillary [address] [place], [place] [address] [address] [place], Nurse Annual Wellness Visit [address] [place], [place] [address] [address] 11/28/2023 10:00 AM EDT Office Visit Rheumatology [place] [phone] [facility] [place] [address] Jordana Oneill CRNP [address] [employer] [place] [address] Health Maintenance Due Date Last Done Comments [...] D LEVEL ONCE IN A LIFETIME-USE SMARTSET# [id number] Completed 05/12/2023, 11/12/2022 Fecal Occult Blood Test [...] knee, left- Primary documented in this encounter Administered Medications Inactive Administered Medications - up to 3 most recent administrations Medication Order MAR Action Action Date Dose Rate Site sodium hyaluronate (Gelsyn-3) 16.8 MG/2ML inj 16.8 mg 16.8 mg, Intra-Articular, ONCE, On Tue07/06/23 at 1045, For 1 dose Given 07/06/2023 3:59 PM EST 16.8 mg Knee Left documented in this encounter Care Teams Trim Machine Adjuster Relationship Specialty Start Date End Date Herminia Jang DO [address] [place] [address] PCP - General Family Medicine 04/28/22 documented as of this encounter
--- OUTSIDE RECORDS SUMMARY | 2023-11-03 12:44 | External Medical Summary | Summary of Care ---
Author Name Unknown Organization [facility] Address [address] [place] [address] Phone [phone] Care Team Providers Care Post Framer Name Role Phone Herminia Jang DO Primary Care Provider [phone] Reason for Visit * Reason Onset Date Comments Follow Up Immunization RSV Vaccine 07/22/2023 Encounter Details Date Type Department Care Team (Late st Contact Info) Description 07/22/2023 11:20 AM EDT Office Visit Family Practice [address], [place] 293 [place] [phone] Herminia Jang DO 293 [place] [address] Fall, initial encounter*; Rib pain on right side; Suicidal ideation; Severe depression (HCC); Other insomnia; Hypertriglyceridemia; Need for RSV vaccination Allergies Active Allergy Reactions Criticality Noted Date Comments Alendronate Itching 05/07/2022 documented as of this encounter (statuses as of 07/25/2023) Medications Medication Sig Dispensed Refills Start Date [...] the morning. 100 Tablet 3 4 Active traZODone HCl 50 MG Oral Tablet (Desyrel)Indicati ons:Other insomnia Take 1 Tablet by mouth at bedtime. 100 Tablet 1 4 Active Sertraline HCl 100 MG Oral Tablet (Zoloft)Indicatio ns:Suicidal ideation,Severe depression (HCC) Take 1 Tablet by mouth in the morning. 100 Tablet 1 3 07/22/19 24 Discontinued(Re fill) Amitriptyline HCl 25 MG Oral Tablet (Elavil) TAKE ONE TABLET BY MOUTH EVERY EVENING 100 Tablet 3 4 07/22/19 24 Discontinued Abrysvo 120 MCG/0.5ML Intramuscular Solution Reconstituted (RSV Pre-Fusion F A&B Vac Rcmb)Indications: Need for RSV vaccination Inject 0.5 mL into a large muscle once for 1 dose. 1 Each 0 4 07/23/19 24 documented as of this encounter (statuses as of 07/25/2023) Active Problems Problem Noted Date Diagnosed Date Orthostatic hypotension 11/12/2022 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 11/12/2022 Hypertriglyceridemia 05/07/2022 documented as of this encounter (statuses as of 07/25/2023) Resolved Problems Problem Noted Date Diagnosed Date Resolved Date Localized osteoporosis witho ut current pathological fracture 11/12/2022 11/12/2022 documented as of this encounter (statuses as of 07/25/2023) Immunizations Name Administration Dates Next Due COVID-19, [...] Sign Reading Time Taken Comments Blood Pressure 128/78 07/22/2023 11:23 AM EDT Pulse 98 07/22/2023 11:23 AM EDT Temperature 36.4 C (97.6 F) 07/22/2023 1 1:23 AM EDT Respiratory Rate 12 07/22/2023 11:2 3 AM EDT Oxygen Saturation 96% 07/22/2023 11: 23 AM EDT Inhaled Oxygen Concentration - - Weight 66.5 kg (146 lb 11.2 oz) 024 11:23 AM EDT Height 156.8 cm (5' 1.73") 07/22/2023 1 1:23 AM EDT Body Mass Index 27.07 07/22/2023 11:23 AM EDT documented in this encounter Patient Instructions * Patient Instructions* Jenna Arauz LPN - 07/22/2023 12:03 PM EDT - Stop Amitriptyline -Start trazodone for sleep Possible side effects of RSV vaccine, (Respiratory Syncytial Virus), are usually mild and can include: Soreness, swelling or redness at injection site Low grade fever Body aches or joint pain Headache Nausea or diarrhea You may use a fever/pain reducing medication for these symptoms. LET YOUR DOCTOR KNOW IMMEDIATELY IF YOU HAVE DIFFICULTY BREATHING OR SWALLOWING, EXPERIENCE ITCHINGOF FEET OR HANDS, HAVE SWELLING OF EYES, FACE OR INSIDE OF NOSE. documented in this encounter Progress Notes * Jenna Arauz LPN - 07/22/2023 12:09 PM EDT Does the patient have an illness today with a fever more than 101F? No Has the patient ever had a serious allergic reaction after receiving a vaccination? No Does the patient have Medicare Part D? No Verified patient has prescription/drug coverage. Patient has been informed that [employer] co-pays are close to $0. In most cases co-pays will be around $10. The maximum co-pay patients may get could be as high as $200 not applicable. RSV Vaccine Information Sheet has been provided. Jenna Arauz LPN 07/22/2023 12:09 PM IMMUNIZATION ADMINISTRATION DOCUMENTATION Time Out Procedure Performed: Yes Patient Identified (Ask Name/Date of ): Yes Patient allergic to latex?No VFC Stock? No Immunization(s) verified: Yes, Immunization Name: RSV, VIS Sheet(s) given: Yes Verified Side and Site: Yes Verified Shot(s) with Parent(s)/Patient: Yes RSV was administered per clinic protocol. Patient received the RSV VIS (Vaccine Information Sheet). Jenna Arauz LPN, 07/22/2023, 12:09 PM * Herminia Jang, DO - 07/22/2023 11:41 AM EDT SUBJECTIVE: Chief Complaint Patient presents with Follow Up HPI: Daija Griggs is a 77 year old female who presents today for regular return. Pt notes that shewas walking and remembers going down. She hit the grass. She states she had right hand pain initially. She has had some chest discomfort. She notes it is bothering her in her right breast area. No bruising. She landed on that side. She did not hit her head. She was able to get up on her own. She was out with the dog when this occurs. She notes she is having worsening shortness of breath. She states she has it when she walks any distance. She is established with Dr. Perez in [place]. Apparently had referral placed for pulmonary as well. It is worse in cold weather. She is scheduled with pulmonary in a few weeks. PHM: Patient Active Problem List Diagnosis Code Hypertriglyceridemia E78.1 Orthostatic hypotension I95.1 Age-related osteoporosis without current pathological fracture M81.0 Current Outpatient Medications Medication Sig Dispense Refill Flax Seed Oil 1000 MG Oral Capsule Take 1 Capsule by mouth every evening. Prolia 60 MG/ML Subcutaneous Solution Prefilled Syringe (Denosumab) Inject 60 mg under the skin every 6 months. 1 mL 1 Famotidine 40 MG Oral Tablet (Pepcid) TAKE ONE TABLET BY MOUTH EVERY EVENING 100 Tablet 3 Amitriptyline HCl 25 MG Oral Tablet (Elavil) [...] mouth in the morning. 100 Tablet 3 EPINEPHrine (Anaphylaxis) 1 MG/ML Injection Solution Inject 0.3 mL into a large muscle as needed for Anaphylaxis (severe allergic reaction). (Patient not taking: Reported on 04/22/2023) 2 mL 11 No current facility-administered medications for this visit. Past Medical History: Diagnosis Date History of kidney stones Hypertriglyceridemia Osteoporosis Past Surgical History: Procedure Laterality Date FOOT/TOE SURGERY NEC Left 08/2021 fibroma INFORMATION for nephrolithiasis INFORMATION complete hysterectomy NC CHOLECYSTECTOMY TOTAL ABD HYSTERECTOMY W/WO REMOVAL OF TUBE(S) Bilateral 1984 Review of patient's allergies indicates: Allergen Reactions Fosamax [Alendronate] Itching Family History Problem Relation Age of Onset Colon cancer Mother Diabetes Mother Other (lilled in motorcycle accident) Father Other (Other) Father Other (Other) Brother kidney issue Heart Disorder Brother NH Heart Disorder Brother NH Breast Cancer No significant family history Family [...] fatigue, fever and unexpected weight change. Respiratory: Positive for shortness of breath. Negative for cough, chest tightness and wheezing. Cardiovascular: Negative for chest pain, palpitations and leg swelling. Gastrointestinal: Negative for abdominal pain, constipation, diarrhea, nausea and vomiting. Musculoskeletal: Negative for arthralgias, gait problem and joint swelling. Skin: Negative for color change, pallor and rash. OBJECTIVE: BP 128/78 (BP Site: Left Arm, BP Position: Sitting, BP Cuff Size: Regular) | Pulse 98 | Temp 36.4 C (97.6 F) (Tympanic) | Resp 12 | Ht 1.568 m (5' 1.73") | Wt 66.5 kg (146 lb 11.2 oz) | SpO2 96% | BMI 27.07 kg/m | BSA 1.7 m PHYSICAL EXAM: Physical Exam Constitutional: General: She is not in acute distress. Appearance: She is well-developed. Cardiovascular: Rate and Rhythm: Normal rate and regular rhythm. Heart sounds: Normal heart sounds. No murmur heard. No friction rub. No gallop. Pulmonary: Effort: Pulmonary effort is normal. No respiratory distress. Breath sounds: Normal breath sounds. No wheezing or rales. Chest: Comments: Minimal tenderness with palpation Abdominal: General: Bowel sounds are normal. There [...] oriented to person, place, and time. ASSESSMENT/PLAN: (W19.XXXA) Fall, initial encounter (primary encounter diagnosis) (R07.81) Rib pain on right side Plan: Discussed imaging and she declines. She will monitor for worsening pain. (R45.851) Suicidal ideation (F32.2) Severe depression (HCC) Plan: Sertraline HCl 100 MG Oral Tablet (Zoloft) Pt will remain on sertraline. No changes for now. Has improved. (G47.09) Other insomnia Plan: traZODone HCl 50 MG Oral Tablet (Desyrel) Pt will stop amitriptyline and start trazodone. Discussed potential risks and side effects. Will sehow this works for her. (E78.1) Hypertriglyceridemia Plan: pt will remain on atorvastatin. Discussed PFT and referral to [facility] pulmonary and cardiology. She would like to hold off as she is established already. (Z29.11) Need for RSV vaccination Plan: RSV VAC, BIVALENT, PERF, PF, 0.5 ML, 60YRS AND ABOVE, Abrysvo 120 MCG/0.5ML Intramuscular Solution Reconstituted (RSV Pre-Fusion F A&B Vac Rcmb) Vaccine given. See admin record. Follow-up: 3 months Total time today including reviewing chart before the visit, pertinent labs, imaging reports, face to face time, and documentation time was 34 minutes. Herminia Jang DO documented in this encounter Nursing Notes * Jenna Arauz LPN - 07/22/2023 11:36 AM EDT Patient here for routine follow up visit. Reports she fell last and caught herself with her R hand/arm. Reports pain center of chest to right breast. Reports the pain has improved. Patient reports Dr. Castillo made referrals for her to see cardiology and pulmonology in [place] - would like todiscuss with Dr. Jang. Would like to discuss RSV vaccine with physician. documented in this encounter Plan of Treatment Upcoming Encounters Date Type Department Care Team (Late st Contact Info) Description 09/02/2023 3:30 PM EDT Telemedicine Orthopaedics [facility] [address] [place] [address] Fernie Richards MD 132 [facility] [place] [address] 10/21/2023 11:00 AM EDT Nurse Only Ancillary [facility] 293 [facility] [address] [place], Nurse Annual Wellness Visit [address] [address] 10/24/2023 8:20 AM EDT Office Visit Family Practice [facility] 293 [facility] [id number] Herminia Jang DO 293 [facility] [address] 11/28/2023 10:00 AM EDT Office Visit Rheumatology [address] [place] [address] Jordana Oneill CRNP [address] [facility] [place] [address] Health Maintenance Due Date Last Done Comments [...] D LEVEL ONCE IN A LIFETIME-USE SMARTSET# [id number] Completed 05/12/2023, 11/12/2022 Fecal Occult Blood Test [...] as of this encounter Visit Diagnoses Diagnosis Fall, initial encounter- Primary Rib pain on right side Chest pain, unspecified Suicidal ideation Severe depression (HCC) Depressive disorder, not elsewhere classified Other insomnia Hypertriglyceridemia Pure hyperglyceridemia Need for RSV vaccination Need for prophylactic vaccination and inoculation against respiratory syncytial virus documented in this encounter Care Teams Post Framer Relationship Specialty Start Date End Date Herminia Jang DO [address] [place] [address] PCP - General Family Medicine 04/28/22 documented as of this encounter
--- OUTSIDE RECORDS SUMMARY | 2023-11-03 12:44 | External Medical Summary | Summary of Care ---
Author Name Unknown Organization [facility] Address [address] [place] [address] Phone [phone] Care Team Providers Care Cruise Counselor Name Role Phone Herminia Jang DO Primary Care Provider Reason for Referral * Evaluate & Treat - Unlimited Visits (Within 30 days (routine)) - Authorized Specialty Diagnoses / Procedures Referred By Florence camilo Referred To Contact Audiology Diagnoses Recurrent falls Dizziness Herminia Jang DO [address] [place] [address] Referral ID Status Reason Start Date Expiration Date Visits Requested Visits Authorized [id number] Authorized Specialty Services Required 09/27/2023 999 999 Question Answer Referral Priority Within 30 days (routine) Where should this appointment be scheduled? Jv Reason for referral: Recurrent falls - dizziness usually prior ot falls Comments Referral to: [facility] For services that may include: 1. Audiologic and vestibular testing 2. Otolaryngology consultation 3. Vestibular Rehabilitation [Physical Therapy] evaluation and treatment Reason for Visit * Reason Comments Follow Up Encounter Details Date Type Department Care Team (Late st Contact Info) Description 09/27/2023 1:40 PM EDT Office Visit Family Practice [facility] [place] [address] [place] [phone] Herminia Jang, DO [address] [place] [address] Recurrent falls*; Dizziness; Insomnia, unspecified type Allergies Active Allergy Reactions Criticality Noted Date [...] MOUTH EVERY EVENING 100 Tablet 3 06/13/2023 06/12/19 25 Active Pantoprazole Sodium 40 MG Oral Tablet Delayed Release (Protonix) TAKE ONE TABLET BY MOUTH EVERY EVENING 100 Tablet 3 06/16/2023 06/15/19 25 Active Montelukast Sodium 10 MG Oral Tablet (Singulair) TAKE ONE TABLET BY MOUTH EVERY DAY 100 Tablet 3 06/16/2023 06/15/19 25 Active Atorvastatin Calcium 80 MG Oral Tablet (Lipitor) TAKE ONE TABLET BY MOUTH EVERY EVENING 100 Tablet 3 06/16/2023 06/15/19 25 Active Acetaminophen ER 650 MG [...] Active traZODone HCl 100 MG Oral Tablet (Desyrel)Indicati ons:Insomnia, unspecified type Take 1 Tablet by mouth at bedtime. 100 Tablet 3 09/27/2023 Active HYDROcodone-Aceta minophen 5-325 MG Oral Tablet 1 Tablet. 09/04/2023 09/27/19 24 Discontinued documented as of this encounter [...] Sign Reading Time Taken Comments Blood Pressure 118/68 09/27/2023 1:33 PM EDT Pulse 67 09/27/2023 1:33 PM EDT Temperature 36.4 C (97.6 F) 09/27/2023 1:33 PM ED T Respiratory Rate - - Oxygen Saturation 95% 09/27/2023 1:33 PM EDT Inhaled Oxygen Concentration - - Weight 61.3 kg (135 lb 1.6 oz) 09/27/2023 1:33 P M EDT Height - - Body Mass Index 24.93 09/06/2023 1:44 PM EDT documented in this encounter Progress Notes * Herminia Jang, DO - 09/27/2023 2:10 PM EDT SUBJECTIVE: Chief Complaint Patient presents with Follow Up HPI: Daija Griggs is a 78 year old female who presents today for regular return. Pt notes that shemade two batches of fudge and was sweeping the kitchen. She got dizzy and fell. She thinks that it was after she bent over. She thinks that it is with changes in position. This has not been all falls. Other days, she has just felt dizzy in general and has had to hold onto things when she stood up. Testing through cardiology, neurology and pulmonary has been negative to date. This has gone on for several years. Orthostatic hypotension was initially thought to be part of the issue but she has nothad any evidence of orthostasis here on multiple checks. 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 Had repeat stress and pulmonary testing in the last few weeks. We will try to get those results. She notes she was told everything looked good. PHM: Patient Active Problem List Diagnosis Hypertriglyceridemia [...] times aday 180 Tablet 3 traZODone HCl 50 MG Oral Tablet (Desyrel) Take 2 Tablets by mouth at bedtime. Prolia 60 MG/ML Subcutaneous Solution Prefilled Syringe [...] fibroma INFORMATION for nephrolithiasis INFORMATION complete hysterectomy [place] CHOLECYSTECTOMY TOTAL ABD HYSTERECTOMY W/WO REMOVAL OF TUBE(S) Bilateral 1984 Review of patient's allergies indicates: Allergen Reactions Fosamax [Alendronate] Itching Family History Problem Relation Name Age of Onset Colon cancer Mother Diabetes Mother Other (lilled in motorcycle accident) Father Other (Other) Father Other (Other) Brother kidney issue Heart Disorder Brother [place] Heart Disorder Brother [place] Breast Cancer No significant family history Family [...] Negative for color change, pallor and rash. Neurological: Positive for dizziness. OBJECTIVE: BP 118/68 (BP Site: Left Arm) | Pulse 67 | Temp 36.4 C (97.6 F) | Wt 61.3 kg (135 lb 1.6 oz) | SpO2 95% | BMI 24.93 kg/m | BSA 1.63 m PHYSICAL EXAM: Physical Exam Constitutional: General: [...] oriented to person, place, and time. ASSESSMENT/PLAN: (R29.6) Recurrent falls (primary encounter diagnosis) (R42) Dizziness Plan: [facility] REFERRAL OP All work-up between [facility] and [facility] has been negative thus far. Does not seem consistent with vertigo. Unclear etiology. Will have her see the [facility] for their opinion. She did question sertraline as a contributor but she was having these issues prior to starting the medication. (G47.00) Insomnia, unspecified type Plan: traZODone HCl 100 MG Oral Tablet (Desyrel) Pt will remain on trazodone. This is working well for her. Follow-up: 1 month Total time today including reviewing chart before the visit, pertinent labs, imaging reports, face to face time, and documentation time was 34 minutes. Herminia Jang DO * Linda Caraballo LPN - 09/27/2023 1:27 PM EDT Would like to discuss ongoing dizziness/vertigo. Pt has started falling because of the dizziness. Patient has been verbally educated on the need or importance of Immunizations: pneumococcal and covid vaccine and has declined topic(s). documented in this encounter Plan of Treatment Upcoming Encounters Date Type Department Care Team (Late st Contact Info) Description 10/21/2023 11:00 AM EDT Nurse Only Ancillary [address] [address] College, Nurse Annual Wellness Visit [address] [address] 10/27/2023 9:20 AM EDT Office Visit Family Practice 65 [facility] [address] [place] [address] Herminia Jang DO [address] [place] [address] 11/28/2023 10:00 AM EDT Office Visit Rheumatology [address] [address] Jordana Oneill CRNP [address] [place] [address] 12/14/2023 11:00 AM EDT Office Visit [facility] [address] [place] [address] David Soriano DPT [address] [place] [address] Scheduled Referrals Name Type Priority Associated Diagnoses Orde r Schedule [facility] REF[facility] Referral Within 30 days (routine) Recurrent falls Dizziness Ordered: 09/27/2023 Health Maintenance Due Date Last Done Comments [...] D LEVEL ONCE IN A LIFETIME-USE SMARTSET# [id number] Completed 05/12/2023, 11/12/2022 Fecal Occult Blood Test [...] as of this encounter Visit Diagnoses Diagnosis Recurrent falls- Primary Personal history of fall Dizziness Dizziness and giddiness Insomnia, unspecified type documented in this encounter Care Teams Cruise Counselor Relationship Specialty Start Date End Date Herminia Jang DO [address] [place] [address] PCP - General Family Medicine 04/28/22 documented as of this encounter"
--- OUTSIDE RECORDS SUMMARY | 2023-11-03 12:44 | External Medical Summary | Summary of Care ---
Author Name Unknown Organization [facility] Address [address] [place] [address] Phone [phone] Care Team Providers Care Dietary Internship Name Role Phone Herminia Jang DO Primary Care Provider Reason for Visit * Reason Comments Emergency Department Follow-Up Encounter Details Date Type Department Care Team (Late st Contact Info) Description 09/06/2023 1:40 PM EDT Office Visit Family Practice [address] [place] [address] [place] [address] Herminia Jang DO [address] [place] [address] Dizziness*; Severe depression (HCC); ARACELY (generalized anxiety disorder) Allergies Active Allergy Reactions Criticality Noted Date Comments Alendronate Itching 05/07/2022 documented as of this encounter (statuses as of 09/06/2023) Medications Medication Sig Dispensed Refills Start Date [...] by mouth at bedtime. 0 08/22/2023 Active HYDROcodone-Acetami nophen 5-325 MG Oral Tablet 1 Tablet. 0 09/04/2023 Active documented as of this encounter (statuses as of 09/06/2023) Active Problems Problem Noted Date Diagnosed Date Orthostatic hypotension 11/12/2022 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 11/12/2022 Hypertriglyceridemia 05/07/2022 documented as of this encounter (statuses as of 09/06/2023) Resolved Problems Problem Noted Date Diagnosed Date Resolved Date Localized osteoporosis witho ut current pathological fracture 11/12/2022 11/12/2022 documented as of this encounter (statuses as of 09/06/2023) Immunizations Name Administration Dates Next Due COVID-19, [...] Sign Reading Time Taken Comments Blood Pressure 120/62 09/06/2023 2:44 PM EDT Pulse 75 09/06/2023 2:44 PM EDT Temperature 36.6 C (97.9 F) 09/06/2023 1:44 PM ED T Respiratory Rate 14 09/06/2023 1:44 PM EDT Oxygen Saturation 99% 09/06/2023 2:44 PM EDT Inhaled Oxygen Concentration - - Weight 63.9 kg (140 lb 12.8 oz) 09/06/2023 1:44 PM EDT Height 156.8 cm (5' 1.73") 09/06/2023 1:44 PM ED T Body Mass Index 25.98 09/06/2023 1:44 PM EDT documented in this encounter Progress Notes * Herminia Jang, DO - 09/06/2023 1:36 PM EDT SUBJECTIVE: Chief Complaint Patient presents with Emergency Department Follow-Up HPI: Daija Griggs is a 77 year old female who presents today for ED follow-up. Per records available pt was seen for rib pain after a fall. CT scans were negative. She was given pain medication and discharged to home. Pt reports falls 3 days in a row last week. Pt states she "just gets dizzy". It seems to be worse if she bends over and gets back up. She is not passing out when falling. She just falls down. She hasit every day. Often she has been carrying things or cleaning her home. She appears anxious and tearful throughout the visit. states she can be getting angry with a computer game and then get up and be dizzy. Pt denies this. Pt already scheduled for a number of tests through [facility] cardiology and pulmonology in the next couple of weeks. Had previous negative stress test a year or so ago. Pt notes that she wishes her would help with things at home. She states that he just expects her to "go go go" and she cannot always do that. He is demanding of her. She states if she asks anyone else for help he will get upset as he feels she should be doing it. PHM: Patient Active Problem List Diagnosis Code [...] Take 2 Tablets by mouth at bedtime. HYDROcodone-Acetaminophen 5-325 MG Oral Tablet 1 Tablet. Prolia 60 MG/ML Subcutaneous Solution Prefilled Syringe [...] fibroma INFORMATION for nephrolithiasis INFORMATION complete hysterectomy [place] CHOLECYSTECTOMY TOTAL ABD HYSTERECTOMY W/WO REMOVAL OF TUBE(S) Bilateral 1984 Review of patient's allergies indicates: Allergen Reactions Fosamax [Alendronate] Itching Family History Problem Relation Age of Onset Colon cancer Mother Diabetes Mother Other (lilled in motorcycle accident) Father Other (Other) Father Other (Other) Brother kidney issue Heart Disorder Brother [place] Heart Disorder Brother [place] Breast Cancer No significant family history Family [...] pallor and rash. Neurological: Positive for dizziness. Psychiatric/Behavioral: As per HPI OBJECTIVE: BP 120/70 (BP Site: Left Arm, BP Position: Sitting, BP Cuff Size: Regular) | Pulse 69 | Temp 36.6 C (97.9 F) (Tympanic) | Resp 14 | Ht 1.568 m (5' 1.73") | Wt 63.9 kg (140 lb 12.8 oz) | SpO2 95% | BMI 25.98 kg/m | BSA 1.67 m PHYSICAL EXAM: Physical Exam Constitutional: General: [...] and oriented to person, place, and time. Psychiatric: Comments: Tearful throughout visit ASSESSMENT/PLAN: (R42) Dizziness (primary encounter diagnosis) Plan: EKG, EKG, 3 POSITIONAL BLOOD PRESSURE EKG ok. No orthostasis on check today. Work-up for similar issues has been negative in the past. Keep appt with cardio and pulmonary. Wear compression hose. Push fluids. Advised to use her rollater at all times. She does report she has one at home. Not to carry things through the yard as this has been the circumstances surrounding several falls. Strongly encouraged PT which she declines. (F32.2) Severe depression (HCC) (F41.1) ARACELY (generalized anxiety disorder) Plan: I feel that this is playing a significant role here. She declines counseling or psychiatry. Will continue to monitor. Long discussion with her today. Follow-up: 2-3 weeks Total time today including reviewing chart before the visit, pertinent labs, imaging reports, face to face time, and documentation time was 43 minutes. Herminia Jang DO documented in this encounter Procedure Notes * David Raymundo DO - 09/06/2023 2:35 PM EDTAssociated Order(s): EKG REASON FOR STUDY: dizziness;dizziness CONCLUSIONS: Normal sinus rhythm Normal ECG No previous ECGs available Ventricular Rate: 70 Atrial Rate: 70 DC Interval: 152 QRS Duration: 76 QT/QTc: 442/477 ms P-R-T [place]: 45 : 9 : 36 degrees documented in this encounter Nursing Notes * Jenna Arauz LPN - 09/06/2023 2:30 PM EDT ekg done as per 's order. 3 positional BP: Supine - 120/64 Sit - 122/66 Stand - 120/62 Patient reports feeling dizzy when going from Supine to sit. Denies dizziness going from sit to stand. States difficult standing still - feels like she is going to fall. * Jenna Arauz LPN - 09/06/2023 1:41 PM EDT Patient here for ED visit follow up. Reports she was seen in ED on Tuesday for left side/left side back pain. Fell last Tuesday, , Tuesday. Reports she fell while carrying things to and from car, and fell while cleaning. States she got dizzy each time she fell. States she did hit the left side of her head on one fall. was the worst fall. Patient has been verbally educated on the need or importance of Immunizations: Pneumococcal, COVID and has declined topic(s). documented in this encounter Plan of Treatment Upcoming Encounters Date Type Department Care Team (Late st Contact Info) Description 09/27/2023 1:40 PM EDT Office Visit Family Practice [address] [place] [address] Herminia Jang, DO [address] [place] [address] 10/21/2023 11:00 AM EDT Nurse Only Ancillary 65 [facility] [address] [place] [address] College, Nurse Annual Wellness Visit [address] [place] [address] 10/27/2023 9:20 AM EDT Office Visit Family Practice 65 [facility] [address] [place] [address] Herminia Jang, DO [address] [place] [address] 11/28/2023 10:00 AM EDT [facility] [address] [place] [address] Jordana Oneill CRNP [address] [place] [address] Scheduled Orders Name Type Priority Associated Diagnoses Orde r Schedule 3 POSITIONAL BLOOD PRESSURE Procedures Routine Dizziness Ordered: 09/06/2023 Health Maintenance Due Date Last Done Comments [...] D LEVEL ONCE IN A LIFETIME-USE SMARTSET# [id number] Completed 05/12/2023, 11/12/2022 Fecal Occult Blood Test [...] Not on filedocumented as of this encounter Procedures Procedure Name Priority Date/Time Associated Diagnosis Comments DC ECG ROUTINE ECG W/LEAST 12 LDS TRCG ONLY W/O I&R Routine 09/06/2023 2:35 PM EDT Dizziness documented in this encounter Results * EKG (09/06/2023 2:35 PM EDT) 09/06/2023 2:35 PM EDT Narrative Procedure Note David Raymundo DO - 09/06/2023 2:35 PM EDT REASON FOR STUDY: dizziness;dizziness CONCLUSIONS: Normal sinus rhythm Normal ECG No previous ECGs available Ventricular Rate: 70 Atrial Rate: 70 DC Interval: 152 QRS Duration: 76 QT/QTc: 442/477 ms P-R-T Paris: 45 : 9 : 36 degrees Herminia Jang DO EKG [facility] documented in this encounter Visit Diagnoses Diagnosis Dizziness- Primary Dizziness and giddiness Severe depression (HCC) Depressive disorder, not elsewhere classified ARACELY (generalized anxiety disorder) Generalized anxiety disorder documented in this encounter Care Teams Dietary Internship Relationship Specialty Start Date End Date Herminia Jang DO [address] [place] [address] PCP - General Family Medicine 04/28/22 documented as of this encounter
--- OUTSIDE RECORDS SUMMARY | 2023-11-03 12:45 | External Medical Summary | Summary of Care ---
Author Name Unknown Organization [facility] Address [address] [place] [address] Phone [phone] Care Team Providers Care Tool Repair Technician Name Role Phone Herminia Jang DO Primary Care Provider [phone] Reason for Visit * Reason Comments Follow Up 1st injection of gel syn left knee consent on file * Precert (Within 30 days (routine)) - Authorized Specialty Diagnoses / Procedures Referred By Contmauri t Referred To Contact Orthopedics Diagnoses Unilateral primary osteoarthritis, left knee Procedures [place] GEL-SYN INJECTION 0.1 MG Fernie Richards MD [address] [place] [address] Fernie Richards MD [address] [place] [address] Referral ID Status Reason Start Date Expiration Date V isits Requested Visits Authorized [id number] Authorized Precert 05/23/2023 05/22/[phone] Encounter Details Date Type Department Care Team (Latest Contact Info) Description 06/22/2023 10:30 AM EST Office Visit Orthopaedics [facility] [address] [place] [address] Fernie Richards MD [address] [place] [address] Primary osteoarthritis of one knee, left* Allergies Active Allergy Reactions Criticality Noted Date Comments Alendronate Itching 05/07/2022 documented as of this encounter (statuses as of 06/22/2023) Medications Medication Sig Dispensed Refills Start Date [...] one knee, left 16.8 mg IX ONCE 06/22/2023 06/22/2023 Ended documented as of this encounter (statuses as of 06/22/2023) Active Problems Problem Noted Date Diagnosed Date Orthostatic hypotension 11/12/2022 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 11/12/2022 Hypertriglyceridemia 05/07/2022 documented as of this encounter (statuses as of 06/22/2023) Resolved Problems Problem Noted Date Diagnosed Date Resolved Date Localized osteoporosis witho ut current pathological fracture 11/12/2022 11/12/2022 documented as of this encounter (statuses as of 06/22/2023) Immunizations Name Administration Dates Next Due COVID-19, [...] Progress Notes * Fernie Richards MD - 06/22/2023 10:09 AM EST Pt Name: Daija Griggs Diagnosis: OA left knee. The patient is here for the first of a series of Gelsyn injections. There [...] tolerated this well. Assessment: OA LEFT knee. Plan: The patient will follow up in 1 Week for reinjection. Note: She reports improvement from the steroid injection I performed for her about 6 weeks ago but not resolution. She desires to have these injections. Fernie Richards MD 06/22/2023 10:09 AM documented in this encounter Nursing Notes * Makayla Stephenson LPN - 06/22/2023 10:08 AM EST F/u 1 st injection of gelsyn left knee denies any pain today Last steroid injection was 05/11/2023 (6 weeks out ) GELSYN [facility] code(s): J7328 AUTH #: Not Required Valid auth start date: N/A Valid auth end date: N/A documented in this encounter Plan of Treatment Upcoming Encounters Date Type Department Care Team (Late st Contact Info) Description 06/29/2023 10:45 AM EST Office Visit [facility] [address] [place] [address] Fernie Richards MD [address] [place] [address] 07/06/2023 10:30 AM EST Office Visit [facility] [address] [place] [address] Fernie Richards MD [address] [place] [address] 07/15/2023 9:00 AM EDT Office Visit Family Practice 65 [facility] [address] [place] [phone] Herminia Jang, DO 293 [place] [address] 07/22/2023 11:20 AM EDT Office Visit Family Practice [address] [place] [address] [address] [place] [phone] Herminia Jang, DO 293 [place] [address] 10/21/2023 11:00 AM EDT Nurse Only Ancillary [address] [place] [address] College, Nurse Annual Wellness Visit [address] [place] [address], [place] [address] 11/28/2023 10:00 AM EDT Office Visit Rheumatology [place] [id number] [place] [address] Jordana Oneill CRNP [address] [email or web address] [address] Health Maintenance Due Date Last Done Comments [...] D LEVEL ONCE IN A LIFETIME-USE SMARTSET# [id number] Completed 05/12/2023, 11/12/2022 Fecal Occult Blood Test [...] 16.8 mg 16.8 mg, Intra-Articular, ONCE, On Tue06/22/23 at 1045, For 1 dose Given 06/22/2023 3:56 PM EST 16.8 mg K nee Left documented in this encounter Care Teams Tool Repair Technician Relationship Specialty Start Date End Date Herminia Jang DO [address] [place] [address] PCP - General Family Medicine 04/28/22 documented as of this encounter
--- OUTSIDE RECORDS SUMMARY | 2023-11-03 12:45 | External Medical Summary | Summary of Care ---
Author Name Unknown Organization [facility] Address [address] [place] [address] Phone [phone] Care Team Providers Care Supervisor Laboratory Animal Facility Name Role Phone AmberHerminia myles Primary Care Provider Reason for Visit * Reason Onset Date Comments Precert Not Needed 04/07/2023 Prolia - PF Encounter Details Date Type Department Care Team (Late st Contact Info) Description 04/07/2023 Telephone Home [facility], [address] [place] [address] Infusion, Nurse [place] [address] [facility] [address] Precert Not Needed (Prolia - PF) Allergies Active Allergy Reactions Criticality Noted Date Comments Alendronate Itching 05/07/2022 documented as of this encounter (statuses as of 05/23/2023) Medications Medication Sig Dispensed Refills Start Date End Date Status Flax Seed Oil 1000 MG Oral Capsule Take 1 Capsule by mouth every evening. 0 04/28/2022 Active Famotidine 40 MG Oral Tablet (Pepcid) TAKE ONE TABLET BY MOUTH EVERY EVENING 100 Tablet 3 05/07/2022 06/24/2023 Active Amitriptyline HCl 25 MG Oral Tablet (Elavil) TAKE ONE TABLET BY MOUTH EVERY EVENING 100 Tablet 3 05/07/2022 06/24/2023 Active Pantoprazole Sodium 40 MG Oral Tablet Delayed Release (Protonix) TAKE ONE TABLET BY MOUTH EVERY EVENING 100 Tablet 3 05/07/2022 06/24/2023 Active Montelukast Sodium 10 MG Oral Tablet (Singulair) TAKE ONE TABLET BY MOUTH EVERY DAY 100 Tablet 3 05/07/2022 06/24/2023 Active Atorvastatin Calcium 80 MG Oral Tablet (Lipitor) TAKE ONE TABLET BY MOUTH EVERY EVENING 100 Tablet 3 05/07/2022 06/24/2023 Active Prolia 60 MG/ML Subcutaneous Solution Prefilled [...] the morning. 100 Tablet 1 03/16/2023 Active documented as of this encounter (statuses as of 05/23/2023) Active Problems Problem Noted Date Diagnosed Date Orthostatic hypotension 11/12/2022 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 11/12/2022 Hypertriglyceridemia 05/07/2022 documented as of this encounter (statuses as of 05/23/2023) Resolved Problems Problem Noted Date Diagnosed Date Resolved Date Localized osteoporosis witho ut current pathological fracture 11/12/2022 11/12/2022 documented as of this encounter (statuses as of 05/23/2023) Immunizations Name Administration Dates Next Due COVID-19, mRNA, LNP-s, PF, B ooster, 100mcg/0.5mg (Moderna) 03/19/2021 Covid-19 Ad26, Single Dose (Ulc/J&J) 021 Pneumococcal Conjugate Vacc, 13 Valent (Prevnar) [...] encounter Miscellaneous Notes * Telephone Encounter - Morteza Szymanski OSA - 05/23/2023 3:05 PM EST I spoke to pt and is scheduled for Prolia. Pt stated that she had a Dexa ordered for [facility]. Pt stated the [facility] won't schedule her there due to it is not a [facility] doc ordering. Can pt just have it done at [facility]. Pt asked to please discuss w/ her when she comes for her Prolia shot this 05/26/23 * Telephone Encounter - Nikki Fitzpatrick LPN - 05/23/2023 3:00 PM EST Please call and schedule this patient for an appointment with the [facility] Nurse clinic in for Prolia, then send back to us so we can put her order in, thanks * Telephone Encounter - Nyla Lara OSA - 05/23/2023 2:47 PM EST Pt was approved for Briseida as of 05/10/2023. * Telephone Encounter - Jud Fitzpatrick LPN - 05/12/2023 8:41 AM EST Spoke to pt and she stated that she mailed that application back on 05/09/23. * Telephone Encounter - Mendel Almaguer LPN - 04/28/2023 1:08 PM EST Attempted to call pt,unable to let message, * Telephone Encounter - Jud Fitzpatrick LPN - 04/15/2023 8:23 AM EST Has pt been approved for briseida? * Telephone Encounter - Jud Fitzpatrick LPN - 04/11/2023 4:45 PM EST Applying for assistance * Telephone Encounter - Angélica Ortega OSA - 04/08/2023 9:50 AM EST SEE REFERRAL MESSAGE * Telephone Encounter - Jud Fitzpatrick LPN - 04/08/2023 9:44 AM EST Please prior auth prolia for in clinic administration at . Thank you! * Telephone Encounter - Mary Beverly RN - 04/07/2023 9:18 AM EST Patient aware under Medicare benefit, Prolia, is no longer covered at home through [facility]. Patient will need to have next adm in provider's office. Please call patient to arrange next injection. Next dose due on 05/23/23 for home infusion- this appointment was cancelled documented in this encounter Plan of Treatment Upcoming Encounters Date Type Department Care Team (Late st Contact Info) Description 05/26/2023 10:30 AM EST Nurse Only Rheumatology [place] [id number] [place] [address] Pf, Nurse Rheum [address] [place] [address], [place] [address] 06/22/2023 10:30 AM EST Office Visit Orthopaedics [facility] [address] [place] [address] Fernie Richards MD [address] [place] [address] 06/29/2023 10:45 AM EST Office Visit Orthopaedics [facility] 132 [facility] [address] Fernie Richards MD [address] [place] [place] [address] 07/06/2023 10:30 AM EST Office Visit [facility] 132 [place] [address] Fernie Richards MD [address] [place] [address] 07/15/2023 9:00 AM EDT Office Visit Family Practice [address] [place] [address] [place] [address] Herminia Jang, DO 293 [place] [address] 07/22/2023 11:20 AM EDT Office Visit Family Practice [address] [place] [address] [place] [address] Herminia Jang, DO 293 [place] [address] 10/21/2023 11:00 AM EDT Nurse Only Ancillary [address] [facility] 293 [place] [address] College, Nurse Annual Wellness Visit [address] [facility] [address] [facility] [place] [address] Health Maintenance Due Date Last Done Comments DXA Scan 09/29/2020 09/29/2018, 09/01, 01/12/2017, Additional history exists Pneumococcal Vaccine: 65+ Years (3 - PPSV23 or PCV20) 01/18/2022 01/18/2017, 02/18/2012 *BISPHONATE OR OTHER ACCEPTABLE MEDICATION NEEDED FOR OSTEOPOROSIS (REFER TO SMARTSET #1146) 11/14/2022 COVID-19 Vaccine (3 - 2022- season) 2022 03/19/2021, 09/02/2020 Influenza Vaccine (FLU shot) (#1) 2022 Depression Screening 04/22/2024 04/22/2023 DTaP,Tdap,and Td Vaccines (3 - Td or Tdap) 07/18/2031 07/17/2021, 07/18/2008 Cologuard Discontinued 09/16/2020 Colonoscopy Discontinued 12/01/2021 Colorectal Cancer Screening Discontinued Zoster Vaccines Completed 07/16/2022, 09/2022, 02/18/2012 VITAMIN D LEVEL ONCE IN A LIFETIME-USE SMARTSET# [id number] Completed 05/12/2023, 11/12/2022 Fecal Occult Blood Test [...] as of this encounter Care Teams Supervisor Laboratory Animal Facility Relationship Specialty Start Date End Date Herminia Jang DO 293 [place] [address] PCP - General Family Medicine 04/28/22 documented as of this encounter
--- OUTSIDE RECORDS SUMMARY | 2023-11-03 12:45 | External Medical Summary | Summary of Care ---
Author Name Unknown Organization [facility] Address [address] [place] [address] Phone [phone] Care Team Providers Care Corporate Job Titles Name Role Phone Herminia Lee DO Primary Care Provider Reason for Visit * Reason Comments Medication Refill Encounter Details Date Type Department Care Team (Late st Contact Info) Description 06/13/2023 Refill Family Practice [address] [place] [address] [place] [address] Herminia Lee DO [address] [place], [place] [id number] Allergies Active Allergy Reactions Criticality Noted Date Comments Alendronate Itching 05/07/2022 documented as of this encounter (statuses as of 06/13/2023) Medications Medication Sig Dispensed Refills Start Date End Date Status Flax Seed Oil 1000 MG Oral Capsule Take 1 Capsule by mouth every evening. 0 04/28/2022 Active Amitriptyline HCl 25 MG Oral Tablet (Elavil) TAKE ONE TABLET BY MOUTH EVERY EVENING 100 Tablet 3 05/07/2022 4 Active Pantoprazole Sodium 40 MG Oral Tablet Delayed Release (Protonix) TAKE ONE TABLET BY MOUTH EVERY EVENING 100 Tablet 3 05/07/2022 4 Active Montelukast Sodium 10 MG Oral Tablet (Singulair) TAKE ONE TABLET BY MOUTH EVERY DAY 100 Tablet 3 05/07/2022 4 Active Atorvastatin Calcium 80 MG Oral Tablet (Lipitor) TAKE ONE TABLET BY MOUTH EVERY EVENING 100 Tablet 3 05/07/2022 4 Active Prolia 60 MG/ML Subcutaneous Solution Prefilled Syringe (Denosumab) Inject 60 mg under the skin every 6 months. 1 mL 1 11/08/2022 Active EPINEPHrine (Anaphylaxis) 1 MG/ML Injection Solution Inject 0.3 mL into a large muscle as needed for Anaphylaxis (severe allergic reaction). 2 mL 11 11/08/2022 Active Additional Information Patient not taking.Reported on 04/22/2023 Sertraline HCl 100 MG Oral Tablet (Zoloft)Indication s:Suicidal ideation,Severe depression (HCC) Take 1 Tablet by mouth in the morning. 100 Tablet 1 03/16/2023 Active Famotidine 40 MG Oral Tablet (Pepcid) TAKE ONE TABLET BY MOUTH EVERY EVENING 100 Tablet 3 06/13/2023 5 Active Famotidine 40 MG Oral Tablet (Pepcid) TAKE ONE TABLET BY MOUTH EVERY EVENING 100 Tablet 3 05/07/2022 4 Discontinue d(Refill) documented as of this encounter (statuses as of 06/13/2023) Active Problems Problem Noted Date Diagnosed Date Orthostatic hypotension 11/12/2022 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 11/12/2022 Hypertriglyceridemia 05/07/2022 documented as of this encounter (statuses as of 06/13/2023) Resolved Problems Problem Noted Date Diagnosed Date Resolved Date Localized osteoporosis witho ut current pathological fracture 11/12/2022 11/12/2022 documented as of this encounter (statuses as of 06/13/2023) Immunizations Name Administration Dates Next Due COVID-19, [...] encounter Miscellaneous Notes * Telephone Encounter - Feliberto De Los Santos RPh - 06/13/2023 4:43 PM EST Signed Prescriptions: Disp Refills Famotidine 40 MG Oral Tablet (Pepcid) 100 Ta*3 Sig: TAKE ONE TABLET BY MOUTH EVERY EVENINGAuthorizing Provider: HERMINIA LEE User: FELIBERTO DE LOS SANTOS documented in this encounter Plan of Treatment Upcoming Encounters Date Type Department Care Team (Late st Contact Info) Description 06/22/2023 10:30 AM EST Office Visit [facility] [address] [place] [address] Fernie Richards MD [address] [place] [address] 06/29/2023 10:45 AM EST Office Visit Orthopa[facility] [place] [address] Fernie Richards MD [facility] [place] [address] 07/06/2023 10:30 AM EST Office Visit Orthopa[facility] 132 [facility] [place] [address] Fernie Richards MD [address] [place] [address] 07/15/2023 9:00 AM EDT Office Visit Family Practice 65 [facility] 293 [place] [address] Herminia Lee, DO 293 [facility] [place] [address] 07/22/2023 11:20 AM EDT Office Visit Family Practice 65 [facility] 293 [place] [address] Herminia Lee, DO 293 [facility] [place] [address] 10/21/2023 11:00 AM EDT Nurse Only Ancillary 65 [facility] 293 [place] [address] College, Nurse Annual Wellness Visit [address] [place] [address] 11/28/2023 10:00 AM EDT Office Visit Rheumatology [facility] [address] [facility] [place], [place] [address] Jordana Oneill CRNP [address] [facility] [place], [place] [address] Health Maintenance Due Date Last Done Comments Pneumococcal Vaccine: 65+ Years (3 - PPSV23 [...] D LEVEL ONCE IN A LIFETIME-USE SMARTSET# [id number] Completed 05/12/2023, 11/12/2022 Fecal Occult Blood Test [...] filedocumented as of this encounter Care Teams Corporate Job Titles Relationship Specialty Start Date End Date Herminia Lee DO [address] [place] [address] PCP - General Family Medicine 04/28/22 documented as of this encounter
--- OUTSIDE RECORDS SUMMARY | 2023-11-03 12:45 | External Medical Summary | Summary of Care ---
Author Name Unknown Organization [facility] Address [address] [facility] [place] [address] Phone [phone] Care Team Providers Care Chinchilla Machine Operator Name Role Phone Herminia Jang DO Primary Care Provider Reason for Visit * Precert (Within 30 days (routine)) - Authorized Specialty Diagnoses / Procedures Referred By Contac t Referred To Contact Orthopedics Diagnoses Unilateral primary osteoarthritis, left knee Procedures [place] GEL-SYN INJECTION 0.1 MG Fernie Richards MD [address] [place] [address] Fernie Richards MD [address] [place] [address] Referral ID Status Reason Start Date Expiration Date V isits Requested Visits Authorized [id number] Authorized Precert 05/23/2023 05/22/2024 [id number] Encounter Details Date Type Department Care Team (Latest Contact Info) Description 07/06/2023 10:30 AM EST Office Visit Orthopaedics [facility] [address] [place] [address] Fernie Richards MD [address] [place] [address] Primary osteoarthritis of one knee, left* Allergies [...] 11:20 AM EDT Office Visit Family Practice [address] [place] [address] 293 [place] [address] Herminia Jang DO 293 [place] [address] 09/02/2023 3:30 PM EDT Telemedicine Orthopaedics [facility] 132 [facility] [place] [address] Fernie Richards MD 132 [place] [address] 10/21/2023 11:00 AM EDT Nurse Only Ancillary [address] [place], [place] [address] [address] [place], Nurse Annual Wellness Visit [address] [place], [place] [address] [address] 11/28/2023 10:00 AM EDT Office Visit Rheumatology [place] [address] [facility] [place] [address] Jordana Oneill CRNP [address] [employer] [place] [address] Health Maintenance Due Date Last Done Comments [...] D LEVEL ONCE IN A LIFETIME-USE SMARTSET# [id number] Completed 05/12/2023, 11/12/2022 Fecal Occult Blood Test [...] Primary documented in this encounter Care Teams Chinchilla Machine Operator Relationship Specialty Start Date End Date Herminia Jang DO 293 [facility] [place] [address] PCP - General Family Medicine 04/28/22 documented as of this encounter
--- OUTSIDE RECORDS SUMMARY | 2023-11-03 12:45 | External Medical Summary | Summary of Care ---
Author Name Unknown Organization [facility] Address [address] [place] [address] Phone [phone] Care Team Providers Care Balancing Machine Operator Name Role Phone Herminia Jang DO Primary Care Provider Reason for Visit * Reason Comments Follow Up L knee * Precert (Within 30 days (routine)) - Authorized Specialty Diagnoses / Procedures Referred By Contac t Referred To Contact Orthopedics Diagnoses Unilateral primary osteoarthritis, left knee Procedures [place] GEL-SYN INJECTION 0.1 MG Fernie Richards MD [address] [place] [address] Fernie Richards MD [address] [place] [address] Referral ID Status Reason Start Date Expiration Date V isits Requested Visits Authorized [id number] Authorized Precert 05/23/2023 05/22/2024 [id number] Encounter Details Date Type Department Care Team (Latest Contact Info) Description 06/29/2023 10:45 AM EST Office Visit Orthopaedics [facility] [address] [place] [address] Fernie Richards MD [address] [place] [address] Primary osteoarthritis of one knee, left* Allergies Active Allergy Reactions Criticality Noted Date Comments Alendronate Itching 05/07/2022 documented as of this encounter (statuses as of 06/29/2023) Medications Medication Sig Dispensed Refills Start Date [...] one knee, left 16.8 mg IX ONCE 06/29/2023 06/29/2023 Active documented as of this encounter (statuses as of 06/29/2023) Active Problems Problem Noted Date Diagnosed Date Orthostatic hypotension 11/12/2022 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 11/12/2022 Hypertriglyceridemia 05/07/2022 documented as of this encounter (statuses as of 06/29/2023) Resolved Problems Problem Noted Date Diagnosed Date Resolved Date Localized osteoporosis witho ut current pathological fracture 11/12/2022 11/12/2022 documented as of this encounter (statuses as of 06/29/2023) Immunizations Name Administration Dates Next Due COVID-19, [...] Progress Notes * Fernie Richards MD - 06/29/2023 10:08 AM EST Pt Name: Daija Griggs Diagnosis: OA left knee. The patient is here for the SECOND of a series of Gelsyn injections. There [...] documented in this encounter Nursing Notes * Mila Bajwa ATC - 06/29/2023 10:06 AM EST Patient presents for second of 3 Gelsyn injections of the L knee. CHETNA Zaragoza documented in this encounter Plan of Treatment Upcoming Encounters Date Type Department Care Team (Late st Contact Info) Description 07/06/2023 10:30 AM EST Office Visit Orthopaedics [facility] [address] [place] [address] Fernie Richards MD [address] [place] [address] 07/15/2023 9:00 AM EDT Office Visit Family [address] 293 [place] [address] Herminia Jang DO 293 [facility] [place] [address] 07/22/2023 11:20 AM EDT Office Visit Family [address] 293 [place] [address] Herminia Jang DO 293 [facility] [place] [address] 10/21/2023 11:00 AM EDT Nurse Only Ancillary [address] [place] 293 [place] [address] College, Nurse Annual Wellness Visit [address] [facility] 293 [place] [address] 11/28/2023 10:00 AM EDT Office Visit Rheumatology [facility] [address] [place] [address] Jordana Oneill CRNP [address] [employer] [place], [place] [address] Health Maintenance Due Date Last Done Comments [...] D LEVEL ONCE IN A LIFETIME-USE SMARTSET# [id number] Completed 05/12/2023, 11/12/2022 Fecal Occult Blood Test [...] Primary documented in this encounter Care Teams Balancing Machine Operator Relationship Specialty Start Date End Date Herminia Jang DO [address] [place] [address] PCP - General Family Medicine 04/28/22 documented as of this encounter
--- OUTSIDE RECORDS SUMMARY | 2023-11-03 12:45 | External Medical Summary | Summary of Care ---
Author Name Unknown Organization [facility] Address [address] [place] [address] Phone [phone] Care Team Providers Care Senior Engineering Manager Name Role Phone Herminia Jang DO Primary Care Provider [phone] Reason for Visit * Reason Comments Follow Up 1st injection of gel syn left knee consent on file * Precert (Within 30 days (routine)) - Authorized Specialty Diagnoses / Procedures Referred By Contmauri t Referred To Contact Orthopedics Diagnoses Unilateral primary osteoarthritis, left knee Procedures [place] GEL-SYN INJECTION 0.1 MG Fernie Richards MD [address] [place] [address] Fernie Richards MD [address] [place] [address] Referral ID Status Reason Start Date Expiration Date V isits Requested Visits Authorized [id number] Authorized Precert 05/23/2023 05/22/2024 [id number] Encounter Details Date Type Department Care Team (Latest Contact Info) Description 06/22/2023 10:30 AM EST Office Visit Orthopaedics [facility] [address] [place] [address] Fernie Richards MD [address] [place] [address] Primary osteoarthritis of one knee, left* Allergies [...] left 16.8 mg IX ONCE 06/22/2023 06/22/2023 Active documented as of this encounter (statuses [...] was 05/11/2023 (6 weeks out ) GELSYN [facility] code(s): [id number] AUTH #: Not Required Valid auth start date: N/A Valid auth end date: N/A documented in this encounter Plan of Treatment Upcoming Encounters Date Type Department Care Team (Late st Contact Info) Description 06/29/2023 10:45 AM EST Office Visit [facility] [address] [place] [address] Fernie Richards MD [address] [place] [address] 07/06/2023 10:30 AM EST Office Visit [facility] [address] [place] [address] Fernie Richarsd MD [address] [place] [address] 07/15/2023 9:00 AM EDT Office Visit Family Practice 65 [facility] 293 [place] [address] Herminia Jang, DO 293 [place] [address] 07/22/2023 11:20 AM EDT Office Visit Family Practice [address] [place] [address] 293 [place] [address] Herminia Jang, DO 293 [place] [address] 10/21/2023 11:00 AM EDT Nurse Only Ancillary [address] [place] [address] College, Nurse Annual Wellness Visit [address] [place] [address], [place] [address] 11/28/2023 10:00 AM EDT Office Visit Rheumatology [place] [address] [facility] [place] [address] Jordana Oneill CRNP [address] [employer] [facility] [place] [address] Health Maintenance Due Date Last Done Comments [...] D LEVEL ONCE IN A LIFETIME-USE SMARTSET# [id number] Completed 05/12/2023, 11/12/2022 Fecal Occult Blood Test [...] Primary documented in this encounter Care Teams Senior Engineering Manager Relationship Specialty Start Date End Date Herminia Jang DO 293 [place] [address] PCP - General Family Medicine 04/28/22 documented as of this encounter
--- OUTSIDE RECORDS SUMMARY | 2023-11-03 12:45 | External Medical Summary | Summary of Care ---
Author Name Unknown Organization [facility] Address [address] [place] [address] Phone [phone] Care Team Providers Care Field Support Specialist Name Role Phone Herminia Jang DO Primary Care Provider Reason for Visit * Reason Comments Follow Up 1st injection of gel syn left knee consent on file * Precert (Within 30 days (routine)) - Authorized Specialty Diagnoses / Procedures Referred By Contmauri t Referred To Contact Orthopedics Diagnoses Unilateral primary osteoarthritis, left knee Procedures MD GEL-SYN INJECTION 0.1 MG Fernie Richards MD [address] [place] [address] Fernie Richards MD [address] [place] [address] Referral ID Status Reason Start Date Expiration Date V isits Requested Visits Authorized [id number] Authorized Precert 05/23/2023 05/22/2024 [id number] Encounter Details Date Type Department Care Team (Latest Contact Info) Description 06/22/2023 10:30 AM EST Office Visit Orthopaedics [facility] [address] [place] [address] Fernie Richards MD [address] [place] [address] Primary osteoarthritis of one knee, left* Allergies [...] was 05/11/2023 (6 weeks out ) GELSYN [facility] code(s): [id number] AUTH #: Not Required Valid auth start date: N/A Valid auth end date: N/A documented in this encounter Plan of Treatment Upcoming Encounters Date Type Department Care Team (Late st Contact Info) Description 06/29/2023 10:45 AM EST Office Visit [facility] [address] [place] [address] Fernie Richards MD [address] [place] [address] 07/06/2023 10:30 AM EST Office Visit [facility] [address] [place] [address] Fernie Richards MD [address] [place] [address] 07/15/2023 9:00 AM EDT Office Visit Family Practice 65 [facility] 293 [place] [phone] Herminia Jang, DO 293 [place] [address] 07/22/2023 11:20 AM EDT Office Visit Family Practice [address] [place] [address] 293 [place] [phone] Herminia Jang, DO 293 [place] [address] 10/21/2023 11:00 AM EDT Nurse Only Ancillary [address] [place] [address] College, Nurse Annual Wellness Visit [address] [place] [address], [place] [address] 11/28/2023 10:00 AM EDT Office Visit Rheumatology [place] [id number] [employer] [facility] [place] [address] Jordana Oneill CRNP [address] [employer] [facility] [place] [address] Health Maintenance Due Date Last Done Comments [...] D LEVEL ONCE IN A LIFETIME-USE SMARTSET# [id number] Completed 05/12/2023, 11/12/2022 Fecal Occult Blood Test [...] Primary documented in this encounter Care Teams Field Support Specialist Relationship Specialty Start Date End Date Herminia Jang DO 293 [place] [address] PCP - General Family Medicine 04/28/22 documented as of this encounter
--- OUTSIDE RECORDS SUMMARY | 2023-11-03 12:45 | External Medical Summary | Summary of Care ---
Author Name Unknown Organization [facility] Address [address] [place] [address] Phone [phone] Care Team Providers Care Nitroglycerin Distributor Name Role Phone Herminia Jang DO Primary Care Provider Reason for Visit * Reason Comments Follow Up L knee * Precert (Within 30 days (routine)) - Authorized Specialty Diagnoses / Procedures Referred By Contac t Referred To Contact Orthopedics Diagnoses Unilateral primary osteoarthritis, left knee Procedures [place] GEL-SYN INJECTION 0.1 MG Fernie Richards MD [address] [place] [address] Fernie Richards MD [address] [place] [address] Referral ID Status Reason Start Date Expiration Date V isits Requested Visits Authorized [id number] Authorized Precert 05/23/2023 05/22/2024 [id number] Encounter Details Date Type Department Care Team (Latest Contact Info) Description 06/29/2023 10:45 AM EST Office Visit Orthopaedics [facility] [address] [place] [address] Fernie Richards [...] left 16.8 mg IX ONCE 06/29/2023 06/29/2023 Ended documented as of this encounter (statuses [...] Gelsyn injections of the L knee. CHETNA Zaraogza documented in this encounter Plan of Treatment Upcoming Encounters Date Type Department Care Team (Late st Contact Info) Description 07/06/2023 10:30 AM EST Office Visit Orthopaedics [facility] [address] [place] [address] Fernie Richards MD [address] [place] [address] 07/15/2023 9:00 AM EDT Office Visit Family [address] 293 [place] [address] Herminia Jang DO 293 [place] [address] 07/22/2023 11:20 AM EDT Office Visit Family [address] 293 [place] [address] Herminia Jang DO 293 [place] [address] 10/21/2023 11:00 AM EDT Nurse Only Ancillary [address] [place] 293 [place] [address] College, Nurse Annual Wellness Visit [address] [facility] [address] 293 [place] [address] 11/28/2023 10:00 AM EDT Office Visit Rheumatology [facility] [address] [place] [address] Jordana Oneill CRNP [address] [place], [place] [address] Health Maintenance Due Date Last Done Comments [...] D LEVEL ONCE IN A LIFETIME-USE SMARTSET# [id number] Completed 05/12/2023, 11/12/2022 Fecal Occult Blood Test [...] 16.8 mg 16.8 mg, Intra-Articular, ONCE, On Tue06/29/23 at 1045, For 1 dose Given 06/29/2023 10:30 AM EST 16.8 mg Knee Left documented in this encounter Care Teams Nitroglycerin Distributor Relationship Specialty Start Date End Date Herminia Jang DO 293 [place] [address] PCP - General Family Medicine 04/28/22 documented as of this encounter
--- OUTSIDE RECORDS SUMMARY | 2023-11-03 12:45 | External Medical Summary | Summary of Care ---
Author Name Unknown Organization [facility] Address [address] [facility] [place] [address] Phone [phone] Care Team Providers Care Bouffant Curtain Machine Tender Name Role Phone Herminia Jang DO Primary Care Provider [phone] Reason for Visit * Reason Onset Date Comments Precert Not Needed 04/07/2023 Prolia - PF Encounter Details Date Type Department Care Team (Late st Contact Info) Description 04/07/2023 Telephone Home Infusion, [place] [address] [place], [place] [phone] Infusion, Nurse Home [address] [place], [place] [phone] Precert Not Needed (Prolia - PF) Allergies Active Allergy Reactions Criticality Noted Date Comments Alendronate Itching 05/07/2022 documented as of this encounter (statuses as of 05/24/2023) Medications Medication Sig Dispensed Refills Start Date [...] as of this encounter (statuses as of 05/24/2023) Active Problems Problem Noted Date Diagnosed Date Orthostatic hypotension 11/12/2022 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 11/12/2022 Hypertriglyceridemia 05/07/2022 documented as of this encounter (statuses as of 05/24/2023) Resolved Problems Problem Noted Date Diagnosed Date Resolved Date Localized osteoporosis witho ut current pathological fracture 11/12/2022 11/12/2022 documented as of this encounter (statuses as of 05/24/2023) Immunizations Name Administration Dates Next Due COVID-19, [...] as of this encounter Miscellaneous Notes * Addendum Note - Nikki Fitzpatrick LPN - 05/24/2023 10:33 AM ESTAddended by: NIKKI FITZPATRICK R on: 05/24/2023 10:33 AM Modules accepted: Orders * Telephone Encounter - Nikki Fitzpatrick LPN - 05/24/2023 10:31 AM EST Please sign Prolia order * Telephone Encounter - Morteza Szymanski OSA - 05/23/2023 3:05 PM EST I spoke to pt and is scheduled for Prolia. Pt stated that she had a Dexa ordered for [facility]. Pt stated the [facility] won't schedule her there due to it is not a [facility] doc ordering. Can pt just have it done at [facility]. Pt asked to please discuss w/ her when she comes for her Prolia shot this 05/26/23 * Telephone Encounter - Nikki Fitzpatrick LPN - 05/23/2023 3:00 PM EST Please call and schedule this patient for an appointment with the [facility] Nurse clinic in for Prolia, then send back to us so we can put her order in, thanks * Telephone Encounter - Nyla Lara OSA - 05/23/2023 2:47 PM EST Pt was approved for Epifanio as of 05/10/2023. * Telephone Encounter - [...] AM EST Has pt been approved for epifanio? * Telephone Encounter - Jud Fitzpatrick LPN [...] is no longer covered at home through [facility]. Patient will need to have next adm in provider's office. Please call patient to arrange next injection. Next dose due on 05/23/23 for home infusion- this appointment was cancelled documented in this encounter Plan of Treatment Upcoming Encounters Date Type Department Care Team (Late st Contact Info) Description 05/26/2023 10:30 AM EST Nurse Only Rheumatology [place] [id number] [facility] [place] [address] , Nurse Rheum [address] [facility] [place] [address] 06/22/2023 10:30 AM EST Office Visit [facility] [address] [place] [address] Fernie Richards MD [address] [place] [address] 06/29/2023 10:45 AM EST Office Visit Orthopaedics [facility] [address] [place] [address] Fernie Richards MD [address] [place] [address] 07/06/2023 10:30 AM EST Office Visit Orthopaedics [facility] [address] [place] [address] Fernie Richards MD [address] [place] [address] 07/15/2023 9:00 AM EDT Office Visit Family Practice 65 [facility] 293 [place] [phone] Herminia Jang, DO 293 [place] [address] 07/22/2023 11:20 AM EDT Office Visit Family Practice 65 [facility] 293 [place] [phone] Herminia Jang, DO 293 [facility] [address] 10/21/2023 11:00 AM EDT Nurse Only Ancillary 65 [facility] 293 [place] [address] College, Nurse Annual Wellness Visit [address] [place] [address] Health Maintenance Due Date Last Done Comments DXA Scan 09/29/2020 09/29/2018, 09/01, 01/12/2017, Additional history exists Pneumococcal Vaccine: 65+ Years (3 - PPSV23 or PCV20) 01/18/2022 01/18/2017, 02/18/2012 *BISPHONATE OR OTHER ACCEPTABLE MEDICATION NEEDED FOR OSTEOPOROSIS (REFER TO SMARTSET #1146) 11/14/2022 COVID-19 Vaccine (3 - 2022-24 season) 2022 03/19/2021, 09/02/2020 Influenza Vaccine (FLU shot) (#1) 2022 Depression Screening 04/22/2024 04/22/2023 DTaP,Tdap,and Td Vaccines (3 - Td or Tdap) 07/18/2031 07/17/2021, 07/18/2008 Cologuard Discontinued 09/16/2020 Colonoscopy Discontinued 12/01/2021 Colorectal Cancer Screening Discontinued Zoster Vaccines Completed 07/16/2022, 09/2022, 02/18/2012 VITAMIN D LEVEL ONCE IN A LIFETIME-USE SMARTSET# [id number] Completed 05/12/2023, 11/12/2022 Fecal Occult Blood Test [...] filedocumented as of this encounter Care Teams Bouffant Curtain Machine Tender Relationship Specialty Start Date End Date Herminia Jang DO 293 [place] [address] PCP - General Family Medicine 04/28/22 documented as of this encounter
--- OUTSIDE RECORDS SUMMARY | 2023-11-03 12:45 | External Medical Summary | Summary of Care ---
Author Name Unknown Organization [facility] Address [address] [place] [facility] [place] [address] Phone [phone] Care Team Providers Care Superintendent Measurement Name Role Phone Herminia Jang DO Primary Care Provider [phone] Reason for Visit * Reason Onset Date Comments Precert Not Needed 04/07/2023 Prolia - PF Encounter Details Date Type Department Care Team (Late st Contact Info) Description 04/07/2023 Telephone Home Infusion, [place] [address] [place], [place] [phone] Infusion, Nurse Home [address] [place], [place] [phone] Precert Not Needed (Prolia - PF) Allergies [...] the morning. 100 Tablet 1 03/16/2023 Active Hospital, Clinic, or Other Facility Administered Medication Ordered Dose Route Frequency Start Date End Date Status Denosumab (Prolia) subcut inj 60 mgIndications:Age-related osteoporosis without current pathological fracture 60 mg SC ONCE 05/26/2023 05/26/2023 Active documented as of this encounter (statuses [...] money to buy more. Never true 10/19/19 Within the past 12 months, t he [...] encounter Miscellaneous Notes * Addendum Note - Wilton Thompson MD - 05/24/2023 3:20 PM ESTAddended by: WILTON THOMPSON on: 05/24/2023 03:20 PM Modules accepted: Orders * Telephone Encounter - Wilton Thompson MD - 05/24/2023 3:20 PM EST I spoke with patient. Please arrange DEXA scan with us here in [address] * Addendum Note - Nikki Grijalva LPN - 05/24/2023 10:33 AM ESTAddended by: NIKKI GRIJALVA on: 05/24/2023 10:33 AM Modules accepted: Orders * Telephone Encounter - Nikki Grijalva LPN - 05/24/2023 10:31 AM EST Please sign Prolia order * Telephone Encounter - Morteza Szymanski OSA - 05/23/2023 3:05 PM EST I spoke to pt and is scheduled for Prolia. Pt stated that she had a Dexa ordered for [facility]. Pt stated the [facility] won't schedule her there due to it is not a [facility] doc ordering. Can pt just have it done at [facility]. Pt asked to please discuss w/ her when she comes for her Prolia shot this 05/26/23 * Telephone Encounter - Nikki Grijalva LPN - 05/23/2023 3:00 PM EST Please call and schedule this patient for an appointment with the [facility] Nurse clinic in for Prolia, then send back to us so we can put her order in, thanks * Telephone Encounter - Nyla Lara OSA - 05/23/2023 2:47 PM EST Pt was approved for Briseida as of 05/10/2023. * Telephone Encounter - Jud Grijalva LPN - 05/12/2023 8:41 AM EST Spoke to pt and she stated that she mailed that application back on 05/09/23. * Telephone Encounter - Mendel Almaguer LPN - 04/28/2023 1:08 PM EST Attempted to call pt,unable to let message, * Telephone Encounter - Jud Grijalva LPN - 04/15/2023 8:23 AM EST Has pt been approved for psychiatric? * Telephone Encounter - Jud Grijalva LPN - 04/11/2023 4:45 PM EST Applying for assistance * Telephone Encounter - Angélica Ortgea OSA - 04/08/2023 9:50 AM EST SEE REFERRAL MESSAGE * Telephone Encounter - Jud Grijalva LPN - 04/08/2023 9:44 AM EST Please prior auth prolia for in clinic administration at . Thank you! * Telephone Encounter - Mary Beverly RN - 04/07/2023 9:18 AM EST Patient aware under Medicare benefit, Prolia, is no longer covered at home through [facility]. Patient will need to have next adm in provider's office. Please call patient to arrange next injection. Next dose due on 05/23/23 for home infusion- this appointment was cancelled documented in this encounter Plan of Treatment Upcoming Encounters Date Type Department Care Team (Late st Contact Info) Description 05/26/2023 10:30 AM EST Nurse Only Rheumatology [facility] [address] [place] [address] Pf, Nurse Rheum [address] [place] [address] 06/22/2023 10:30 AM EST Office Visit Orthopaedics [facility] 132 [facility] [place] [address] Fernie Richards MD [address] [place] [address] 06/29/2023 10:45 AM EST Office Visit Orthopaedics [facility] [address] [place] [address] Fernie Richards MD [address] [place] [address] 07/06/2023 10:30 AM EST Office Visit [facility] [address] [place] [address] Fernie Richards MD [address] [place] [address] 07/15/2023 9:00 AM EDT Office Visit Family Practice [address] [place] [address] Herminia Jang, DO 293 [place] [address] 07/22/2023 11:20 AM EDT Office Visit Family Practice 65 [facility] 293 [place] [address] Herminia Jang, DO 293 [place] [address] 10/21/2023 11:00 AM EDT Nurse Only Ancillary [address], [place] [address] College, Nurse Annual Wellness Visit [address] [place] [address] Health Maintenance Due Date Last Done Comments [...] D LEVEL ONCE IN A LIFETIME-USE SMARTSET# [id number] Completed 05/12/2023, 11/12/2022 Fecal Occult Blood Test [...] as of this encounter Visit Diagnoses Diagnosis Age-related osteoporosis without current pathological fracture- Primary Senile osteoporosis documented in this encounter Care Teams Superintendent Measurement Relationship Specialty Start Date End Date Herminia Jang DO [address] [place] [address] PCP - General Family Medicine 04/28/22 documented as of this encounter
--- OUTSIDE RECORDS SUMMARY | 2023-11-03 12:45 | External Medical Summary | Summary of Care ---
Author Name Unknown Organization [facility] Address [address] [place] [address] Phone [phone] Care Team Providers Care Rvda Master Certified Rv Technician Name Role Phone AmberHerminia myles Primary Care Provider Reason for Visit * Reason Onset Date Comments Precert Not Needed 04/07/2023 Prolia - PF Encounter Details Date Type Department Care Team (Late st Contact Info) Description 04/07/2023 Telephone Home [facility] 109 [place] [address] Infusion, Nurse [place] [address] [place] [address] Precert Not Needed (Prolia - [...] encounter Miscellaneous Notes * Telephone Encounter - Nikki Fitzpatrick LPN - 05/23/2023 3:00 PM EST Please call and schedule this patient for an appointment with the [facility] Nurse clinic in for Prolia, then send back to us so we can put her order in, thanks * Telephone Encounter - Nyla Lara OSA - 05/23/2023 2:47 PM EST Pt was approved for Briseiad as of 05/10/2023. * Telephone Encounter - [...] is no longer covered at home through [facility]. Patient will need to have next adm in provider's office. Please call patient to arrange next injection. Next dose due on 05/23/23 for home infusion- this appointment was cancelled documented in this encounter Plan of Treatment Upcoming Encounters Date Type Department Care Team (Late st Contact Info) Description 06/22/2023 10:30 AM EST Office Visit Orthopaedics [facility] [address] [place] [address] Fernie Richards MD [address] [place] [address] 06/29/2023 10:45 AM EST Office Visit Orthopaedics [facility] [address] [place] [address] Fernie Richards MD [address] [place] [address] 07/06/2023 10:30 AM EST Office Visit Orthopaedics [facility] [address] [place] [address] Fernie Richards MD [address] [facility] [place] [address] 07/15/2023 9:00 AM EDT Office Visit Family Practice 65 [facility] 293 [place] [phone] Herminia Jang, DO 293 [place] [address] 07/22/2023 11:20 AM EDT Office Visit Family Practice 65 [facility] 293 [place] [address] Herminia Jang, DO 293 [place] [address] 10/21/2023 11:00 AM EDT Nurse Only Ancillary 65 [facility] 293 [place] [address] College, Nurse Annual Wellness Visit [address] [place] [address] Health Maintenance Due Date Last Done Comments [...] D LEVEL ONCE IN A LIFETIME-USE SMARTSET# [id number] Completed 05/12/2023, 11/12/2022 Fecal Occult Blood Test [...] filedocumented as of this encounter Care Teams Rvda Master Certified Rv Technician Relationship Specialty Start Date End Date Herminia Jang DO 293 [place] [address] PCP - General Family Medicine 04/28/22 documented as of this encounter
--- OUTSIDE RECORDS SUMMARY | 2023-11-03 12:45 | External Medical Summary | Summary of Care ---
Author Name Unknown Organization [facility] Address [address] [place] [address] Phone [phone] Care Team Providers Care Collections Associate Name Role Phone Herminia Jang DO Primary Care Provider [phone] Reason for Visit * Reason Onset Date Comments Precert Not Needed 04/07/2023 Prolia - PF Encounter Details Date Type Department Care Team (Late st Contact Info) Description 04/07/2023 Telephone Home Infusion, [place] [address] [place], [place] [phone] Infusion, Nurse Home [address] [place], [place] [phone] Precert Not Needed (Prolia - PF) Allergies [...] arrange DEXA scan with us here in [address] * Addendum Note - Nikki Grijalva [...] had a Dexa ordered for [facility]. Pt stated the [facility] won't schedule her there due to it is not a [facility] doc ordering. Can pt just have it done at [facility]. Pt asked to please discuss w/ her when she comes for her Prolia shot this 05/26/23 * Telephone Encounter - Nikki Grijalva LPN - 05/23/2023 3:00 PM EST Please call and schedule this patient for an appointment with the [facility] Nurse clinic in for Prolia, then [...] AM EST Has pt been approved for [facility]? * Telephone Encounter - Jud Grijalva LPN [...] is no longer covered at home through [facility]. Patient will need to have next adm in provider's office. Please call patient to arrange next injection. Next dose due on 05/23/23 for home infusion- this appointment was cancelled documented in this encounter Plan of Treatment Upcoming Encounters Date Type Department Care Team (Late st Contact Info) Description 05/26/2023 10:30 AM EST Nurse Only Rheumatology [facility] [address] [place] [address] Pf, Nurse Rheum [address] [place] [address] 06/22/2023 10:30 AM EST Office Visit Orthopaedics [facility] 132 [facility] [place] [address] Fernie Richards MD [address] [place] [address] 06/29/2023 10:45 AM EST Office Visit Orthopaedics [facility] [address] [place] [address] Fernie Richards MD [address] [place] [address] 07/06/2023 10:30 AM EST Office Visit [facility] [address] [place] [address] Fernie Richards MD [address] [place] [address] 07/15/2023 9:00 AM EDT Office Visit Family Practice [address] [place] [address] Herminia Jang, DO 293 [place] [address] 07/22/2023 11:20 AM EDT Office Visit Family Practice 65 [facility] 293 [place] [address] Herminia Jang, DO 293 [place] [address] 10/21/2023 11:00 AM EDT Nurse Only Ancillary [address], [place] [address] College, Nurse Annual Wellness Visit [address] [place] [address] Health Maintenance Due Date Last Done Comments [...] D LEVEL ONCE IN A LIFETIME-USE SMARTSET# [id number] Completed 05/12/2023, 11/12/2022 Fecal Occult Blood Test [...] osteoporosis documented in this encounter Care Teams Collections Associate Relationship Specialty Start Date End Date Herminai Jang DO [address] [place] [address] PCP - General Family Medicine 04/28/22 documented as of this encounter
--- OUTSIDE RECORDS SUMMARY | 2023-11-03 12:45 | External Medical Summary | Summary of Care ---
Author Name Unknown Organization [facility] Address [address] [place] [address] Phone [phone] Care Team Providers Care Photo Equipment Technician Name Role Phone Suhail Herminia Irene JUNIOR Primary Care Provider Reason for Visit * Reason Onset Date Comments Medication Administration 05/26/2023 Prolia * Precert (Within 10 days (routine)) - Authorized Specialty Diagnoses / Procedures Referred By Contac t Referred To Contact Diagnoses Age-related osteoporosis without current pathological fracture Procedures MD DENOSUMAB INJECTION [facility] [place] [address] Say Barros MD Formerly named [facility] [employer] [facility] [place] [address] Referral ID Status Reason Start Date Expiration Date V isits Requested Visits Authorized [id number] Authorized Precert 09/16/2022 05/01/2099 [id number] Encounter Details Date Type Department Care Team (Late st Contact Info) Description 05/26/2023 10:30 AM EST Nurse Only Rheumatology [facility] [address] [facility] [place] [address] Pf, Nurse Rheum [facility] [place] [address] Medication Administration (Prolia) Allergies Active Allergy Reactions Criticality Noted Date Comments Alendronate Itching 05/07/2022 documented as of this encounter (statuses as of 05/26/2023) Medications Medication Sig Dispensed Refills Start Date [...] fracture 60 mg SC ONCE 05/26/2023 05/26/2023 Ended documented as of this encounter (statuses as of 05/26/2023) Active Problems Problem Noted Date Diagnosed Date Orthostatic hypotension 11/12/2022 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 11/12/2022 Hypertriglyceridemia 05/07/2022 documented as of this encounter (statuses as of 05/26/2023) Resolved Problems Problem Noted Date Diagnosed Date Resolved Date Localized osteoporosis witho ut current pathological fracture 11/12/2022 11/12/2022 documented as of this encounter (statuses as of 05/26/2023) Immunizations Name Administration Dates Next Due COVID-19, [...] on file documented as of this encounter Patient Instructions * Patient Instructions* Mendel Almaguer LPN - 05/26/2023 10:23 AM EST MEDICATION GUIDE Prolia (MD-coco-a) (denosumab) Injection Read the Medication Guide that comes with Prolia before you start taking it and each time you get arefill. There may be new information. This Medication Guide does not take the place of talking withyour doctor about your medical condition or treatment. Talk to your doctor if you have any questions about Prolia. What is the most important information I should know about Prolia? Prolia can cause serious side effects includin. Low calcium levels in your blood (hypocalcemia). Prolia may lower the calcium levels in your blood. If you have low blood calcium before you start receiving Prolia, it may get worse during treatment. Your low blood calcium must be treated before you receive Prolia. Most people with low blood calcium levels do not have symptoms, but some people may have symptoms. Call your doctor right away if you have symptoms of low blood calcium such as: Spasms, twitches, or cramps in your muscles Numbness or tingling in your fingers, toes, or around your mouth Your doctor may prescribe calcium and vitamin D to help prevent low calcium levels in your blood while you take Prolia. Take calcium and vitamin D as your doctor tells you to. 2. Serious infections. Serious infections in your skin, lower stomach area (abdomen), bladder, or ear may happen if you take Prolia. Inflammation of the inner lining of the heart (endocarditis) due to an infection also mayhappen more often in people who take Prolia. You may need to go to the hospital for treatment if you develop an infection. Prolia is a medicine that may affect your immune system. People who have weakened immune system or take medicines that affect the immune system may have an increased risk for developing serious infections. Call your doctor right away if you have any of the following symptoms of infection: Fever or chills Skin that looks red or swollen and is hot or tender to touch Severe abdominal pain Frequent or urgent need to urinate or burning feeling when you urinate 3. Skin problems. Skin problems such as inflammation of your skin (dermatitis), rash, and eczema may happen if you take Prolia. Call your doctor if you have any of the following symptoms of skin problems that do not go away or get worse: Redness Itching Small bumps or patches (rash) Your skin is dry or feels like leather Blisters that ooze or become crusty Skin peeling 4. Severe jaw bone problems (osteonecrosis). Severe jaw bone problems may happen when you take Prolia. Your doctor should examine your mouth before you start Prolia. Your doctor may tell you to see your dentist before you start Prolia. It is important for you to practice good mouth care during treatment with Prolia. Call your doctor right away if you have any of these side effects. What is Prolia? Prolia is a prescription medicine used to treat osteoporosis (thinning and weakening of bone) in women after menopause (change of life) who Have an increased risk for fractures (broken bones). Cannot use another osteoporosis medicine or other osteoporosis medicines did not work well. Who should not receive Prolia? Do not take Prolia if you have been told by your doctor that your blood calcium level is too low. What should I tell my doctor before receiving Prolia? Before taking Prolia, tell your doctor if you: Have low blood calcium. Cannot take daily calcium and vitamin D. Had parathyroid or thyroid surgery (glands located in your neck). Have been told you have trouble absorbing minerals in your stomach or intestines (malabsorptionsyndrome). Have kidney problems or are on kidney dialysis. Plan to have dental surgery or teeth removed. Are or plan to become . Prolia may harm your unborn baby. Tell your doctor right away if you become while taking Prolia. Surveillance Program: Prolia is not intended for use in women. If you become while taking Prolia, talk to your doctor about enrolling with [employer] or call (b-069-28-PriceAdvice). The purpose of this program is to collect information about women who have become while taking Prolia. Are breast-feeding or plan to breast-feed. It is not known if Prolia passes into your breast milk. You and your doctor should decide if you will take Prolia or breast-feed. You should not do both. Tell your doctor about all the medicines you take, including prescription and nonprescription drugs, vitamins, and herbal supplements. Know the medicines you take. Keep a list of medicines with you to show to your doctor or pharmacistwhen you get a new medicine. How will I receive Prolia? Prolia is an injection that will be given to you by a healthcare professional. Prolia is injected under your skin (subcutaneous). You will receive Prolia 1 time every 6 months. You should take calcium and vitamin D as your doctor tells you to while you receive Prolia. If you miss a dose of Prolia, you should receive your injection as soon as you can. Take good care of your teeth and gums while you receive Prolia. Margie and floss your teeth regularly. Tell your dentist that you are receiving Prolia before you have dental work. What are the possible side effects of Prolia? Prolia may cause serious side effects. See What is the most important information I should know about Prolia? Long-term effects on bone: It is not known if the use of Prolia over a long period of time may cause slow healing of broken bones or unusual fractures. The most common side effects of Prolia are: Back pain Pain in your arms and legs High cholesterol Muscle pain Bladder infection These are not all the possible side effects of Prolia. For more information, ask your doctor or pharmacist. Call your doctor for medical advice about side effects. You may report side effects to FDA at 5-582-ZGU-8382. How should I handle Prolia if I need to pick it up from a pharmacy? Keep Prolia in a refrigerator at 36F to 46F (2C to 8C) in the original carton. Do not freeze Prolia. When you remove Prolia from the refrigerator, Prolia must be kept at room temperature [up to 77F (25C)] in the original carton and must be used within 14 days. Do not keep Prolia at temperatures above 77F (25C). Warm temperatures will affect how Prolia works. Do not shake Prolia. Keep Prolia in the original carton to protect from light. Keep Prolia and all medicines out of reach of children. General information about Prolia Do not give Prolia to other people even if they have the same symptoms that you have. It may harm them. This Medication Guide summarizes the most important information about Prolia. If you would like more information, talk with your doctor. You can ask your doctor or pharmacist for information about Prolia that is written for health professionals. For more information, go to www.[employer] or call [employer] at . What are the ingredients in Prolia? Active ingredient: denosumab Inactive ingredients: sorbitol, acetate, polysorbate 20 (prefilled syringe only), Water for Injection (JAIL), and sodium hydroxide What is osteoporosis? Osteoporosis is a disease in which the bones become thin and weak, increasing the chance of having a broken bone. Osteoporosis usually causes no symptoms until a fracture happens. The most common fractures are in the spine (backbone). They can shorten height, even without causing pain. Over time, the spine can become curved or deformed and the body bent over. Fractures from osteoporosis can also happen in almost any bone in the body, for example: the wrist, rib, or hip. Once you have had a fracture, the chance for more fractures greatly increases. The following risk factors increase your chance of getting fractures from osteoporosis: Past broken bones from osteoporosis Very low bone mineral density (BMD) Frequent falls Limited movement, such as using a wheelchair Medical conditions likely to cause bone loss, such as some kinds of arthritis Taking steroid medicines called glucocorticoids, such as prednisone Other medicines that may cause bone loss, for example: seizure medicines (such as phenytoin), blood thinners (such as heparin), high doses of vitamin A What can I do to treat osteoporosis? There are many steps you can take to treat osteoporosis. Taking Prolia, along with calcium and vitamin D, may be one option for you. [employer] a [employer]. [employer] [place], [place] [address] This Medication Guide has been approved by the [place] Food and Drug Administration. 1xxxxxx - v1 Issued: 09/2009 documented in this encounter Progress Notes * Mendel Almaguer LPN - 05/26/2023 10:22 AM EST Daija Glenn Indu presents today for administration of Prolia. She understands the benefits and risks of this treatment. An educational pamphlet was given to the patient. Prolia 60 mg was administered subcutaneously. The patient tolerated the procedure without problems. She will return in 6 months for the next injection and evaluation. Mendel Almaguer LPN documented in this encounter Plan of Treatment Upcoming Encounters Date Type Department Care Team (Late st Contact Info) Description 06/08/2023 3:30 PM EST Imaging Radiology, [address] [place] [address] 06/22/2023 10:30 AM EST Office Visit Orthopaedics [facility] [address] [facility] [place] [address] Fernie Richards MD [address] [place] [address] 06/29/2023 10:45 AM EST Office Visit Orthopaedics [facility] [address] [place] [address] Fernie Richards MD [address] [place] [address] 07/06/2023 10:30 AM EST Office Visit Orthopaedics [facility] [address] [place] [address] Fernie Richards MD [address] [place] [address] 07/15/2023 9:00 AM EDT Office Visit Family Practice [address] [facility] [address] [place] [id number] Herminia Jang, DO [address] [place] [address] 07/22/2023 11:20 AM EDT Office Visit Family Practice [address] [facility] [address] [place] [id number] Herminia Jang, DO [address] [place] [address] 10/21/2023 11:00 AM EDT Nurse Only Ancillary [address] [facility] [address] [place] [address] College, Nurse Annual Wellness Visit [address] [place] [address] 11/28/2023 10:00 AM EDT Office Visit Rheumatology [address], [place] [address] Jordana Oneill CRNP [address] [place] [address] [place] [address] Health Maintenance Due Date Last Done Comments DXA Scan 09/29/2020 09/29/2018, 09/01, 01/12/2017, Additional history exists Pneumococcal Vaccine: 65+ Years (3 - PPSV23 or PCV20) 01/18/2022 01/18/2017, 02/18/2012 *BISPHONATE OR OTHER ACCEPTABLE MEDICATION NEEDED FOR OSTEOPOROSIS (REFER TO SMARTSET #1146) 11/14/2022 COVID-19 Vaccine (3 - season) 2022 03/19/2021, 09/02/2020 Influenza Vaccine (FLU shot) (#1) 2022 Depression Screening 04/22/2024 04/22/2023 DTaP,Tdap,and Td Vaccines (3 - Td or Tdap) 07/18/2031 07/17/2021, 07/18/2008 Cologuard Discontinued 09/16/2020 Colonoscopy Discontinued 12/01/2021 Colorectal Cancer Screening Discontinued Zoster Vaccines Completed 07/16/2022, 09/2022, 02/18/2012 VITAMIN D LEVEL ONCE IN A LIFETIME-USE SMARTSET# 61284 Completed 05/12/2023, 11/12/2022 Fecal Occult Blood Test [...] as of this encounter Visit Diagnoses Diagnosis Senile osteoporosis- Primary documented in this encounter Administered Medications Inactive Administered Medications - up to 3 most recent administrations Medication Order MAR Action Action Date Dose Rate Site Denosumab (Prolia) subcut inj 60 mg 60 mg, Subcutaneous, ONCE, On Bisi 05/26/23 at 1030, For 1 dose Given 05/26/2023 10:26 AM EST 60 mg Arm Left Upper documented in this encounter Care Teams Photo Equipment Technician Relationship Specialty Start Date End Date Herminia Jang DO [address] [place] [address] PCP - General Family Medicine 04/28/22 documented as of this encounter
--- OUTSIDE RECORDS SUMMARY | 2023-11-03 12:45 | External Medical Summary | Summary of Care ---
Author Name Unknown Organization [facility] Address [address] [facility] [place] [address] Phone [phone] Care Team Providers Care Materials Inspector Name Role Phone Herminia Jang DO Primary Care Provider [phone] Reason for Visit * Reason Comments Rheum Follow Up Follow up - [facility] Encounter Details Date Type Department Care Team (Late st Contact Info) Description 05/12/2023 9:00 AM EST Office Visit Rheumatology [place] [id number] [place] [address] Wilton Thompson MD [facility] [place] [address] Age-related osteoporosis without current pathological fracture* Allergies Active Allergy Reactions Criticality Noted Date Comments Alendronate Itching 05/07/2022 documented as of this encounter (statuses as of 06/14/2023) Medications Medication Sig Dispensed Refills Start Date [...] as of this encounter (statuses as of 06/14/2023) Active Problems Problem Noted Date Diagnosed Date Orthostatic hypotension 11/12/2022 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 11/12/2022 Hypertriglyceridemia 05/07/2022 documented as of this encounter (statuses as of 06/14/2023) Resolved Problems Problem Noted Date Diagnosed Date Resolved Date Localized osteoporosis witho ut current pathological fracture 11/12/2022 11/12/2022 documented as of this encounter (statuses as of 06/14/2023) Immunizations Name Administration Dates Next Due COVID-19, [...] Past Smokeless Tobacco: Never Tobacco Cessation:Counseling Given: Not Answered Alcohol Use Standard Drinks/Week Comments Not Currently [...] Sign Reading Time Taken Comments Blood Pressure - - Pulse - - Temperature 36.5 C (97.7 F) 05/12/2023 8:43 AM ES T Respiratory Rate - - Oxygen Saturation - - Inhaled Oxygen Concentration - - Weight 64.9 kg (143 lb) 05/12/2023 8:43 AM EST Height - - Body Mass Index 26.37 04/14/2023 1:16 PM EST documented in this encounter Progress Notes * Wilton Thompson MD - 05/12/2023 9:02 AM EST [facility] ([facility]): follow up Previous Visit Plan from 08/2022 reviewed. Reason for visit: Patient seen today for further follow-up/evaluation of osteoporosis. She has beenon prolia for years and is due in a few weeks. Waiting on epifanio approval. Had 1 fall recently butno fractures. Does not take calcium or vitamin-D. Labs in the summer were normal. Bone Health Summary: Risks: Falls since last [facility] visit: yes Personal History of Fx since last [facility] Visit: no Prevention: Exercise : 3 or more times weekly: No Nutrition: eats calcium rich foods, Yes Gait: unsteady with walking, No, use of cane/walker, No, Calcium and Vitamin D supplements in adequate doses: No ROS: . Constitutional: normal . Head normal . Eyes: normal . Ears, nose, throat, mouth: normal . Cardiovascular: normal . Respiratory: normal . Gastrointestinal: normal . Musculoskeletal: normal . Genitourinary: normal Medications: Current Outpatient Medications Medication Sig Dispense Refill [...] BY MOUTH EVERY EVENING 100 Tablet 3 Prolia 60 MG/ML Subcutaneous Solution Prefilled Syringe (Denosumab) Inject 60 mg under the skin every 6 months. 1 mL 1 Sertraline HCl 100 MG Oral Tablet (Zoloft) Take 1 Tablet by mouth in the morning. 100 Tablet 1 EPINEPHrine (Anaphylaxis) 1 MG/ML Injection Solution Inject 0.3 mL into a large muscle as needed for Anaphylaxis (severe allergic reaction). (Patient not taking: Reported on 04/22/2023) 2 mL 11 No current facility-administered medications for this visit. Social History: Social History Tobacco Use Smoking status: Never Passive exposure: Past Smokeless tobacco: Never Vaping Use Vaping Use: Never used Substance Use Topics Alcohol use: Not Currently Drug use: Never Physical Exam: Temp 36.5 C (97.7 F) (Infrared ) | Wt 64.9 kg (143 lb) | BMI 26.37 kg/m | BSA 1.68 m General: alert, healthy, no distress, and well nourished HENT: normocephalic, external ears normal, no mucosal erythema, no mucosal edema, moist mucosa, no oral ulcers, edentulous on top with dentures Heart: regular rate & rhythm and no gallops Lungs: clear to auscultation , no rales, wheezes or rhonchi Abdomen: abdomen soft, non-tender, and normal bowel sounds Musculoskeletal Exam: Good muscle strength No thoracic kyphosis Assessment: M81.0 Age-related osteoporosis without current pathological fracture (primary encounter diagnosis) 77 year old female with osteoporosis who will be due for Prolia in the upcoming weeks. Awaiting epifanio coverage for the medication. Need to update DEXA and labs. Plan: The following items are ordered or are in progress: 1. Education: Osteoporosis education was provided by the [facility] team (topics included disease process, DXA, calcium/vitamin D, osteoporosis medications - including administration instructions and risks/benefits, weight bearing exercise, fall prevention/safety). 2. Prevention: . Fall Prevention/Safety Education recommended and discussed . Continue calcium rich foods (goal of 3 servings daily) 3. Osteoporosis Medications : Continue Prolia 60mg subcutaneous injection every 6 months 4. Bone Density Testing: due 2 year(s) from previous 5. Laboratory: 25-OH Vitamin D calcium creatinine 6. Followup: Follow-up pending approval for Prolia Wilton Thompson MD [facility] Team documented in this encounter Nursing Notes * Jud Fitzpatrick LPN - 05/12/2023 8:39 AM EST Chief Complaint Patient presents with Rheum Follow Up Follow up - [facility] Pt was getting prolia at home. Insurance is no longer paying for in home care. Pt will get prolia in the clinic after 05/24/23. Waiting for epifanio application to be approved. documented in this encounter Plan of Treatment Upcoming Encounters Date Type Department Care Team (Late st Contact Info) Description 06/22/2023 10:30 AM EST Office Visit [facility] [address] [place] [address] Fernie Richards MD [address] [place] [address] 06/29/2023 10:45 AM EST Office Visit [facility] [address] [place] [address] Fernie Richards MD [address] [place] [address] 07/06/2023 10:30 AM EST Office Visit [facility] [address] [place] [address] Fernie Richards MD [address] [place] [address] 07/15/2023 9:00 AM EDT Office Visit Family Practice [address] [facility] 293 [place] [address] Herminia Jang, DO 293 [facility] [place] [address] 07/22/2023 11:20 AM EDT Office Visit Family Practice [address] [facility] 293 [facility] [place] [address] Herminia Jang, DO [address] [facility] [place] [address] 10/21/2023 11:00 AM EDT Nurse Only Ancillary 65 [facility] 293 [place] [address] College, Nurse Annual Wellness Visit [address] [place] [address] 11/28/2023 10:00 AM EDT Office Visit Rheumatology [facility] [address] [place] [address] Jordana Oneill CRNP [address] [place] [address] Health Maintenance Due Date Last Done Comments [...] D LEVEL ONCE IN A LIFETIME-USE SMARTSET# [id number] Completed 05/12/2023, 11/12/2022 Fecal Occult Blood Test [...] Procedure Name Priority Date/Time Associated Diagnosis Comments DEXA SCAN/BONE MINERAL AXIAL Routine 06/08/2023 3:46 PM EST Age-related osteoporosis without current pathological fracture 25-HYDROXY VITAMIN D Routine 05/12/2023 9:31 AM EST Age-related osteoporosis without current pathological fracture documented in this encounter Results * DEXA SCAN/BONE MINERAL AXIAL (06/08/2023 3:46 PM EST) Anatomical Region Laterality Modality Dexa, Vertebra, Spine, Hip, Pelvis Nuclear Medicine Impressions 06/09/2023 7:40 AM EST S: Fracture risk is based on current National Osteoporosis Foundation (www.nof.org) Clinicians Guide and [place] Association of Clinical Endocrinology (AACE) Guidelines (www.aace.com) and the application of current WHO FRAX tool (https://www.jac.ac.uk/FRAX/) as well as the 2017 [place] [employer] of Rheumatology Glucocorticoid Induced Osteoporosis (GIOP) Guidelines (rheumatology.org/Practice-Quality/Clinical-Support/Vmrkunte-Isiypnae-Xndnn lines) using Bone mineral density derived T-scores and clinical risk factors obtained from the patient questionnaire. 1. The fracture risk is HIGH (remains HIGH) 2. The quality of the examination is GOOD. 3. No previous study for comparison. DEXA machine was recently upgraded so comparison study can not be made SUGGESTIONS: Information concerning the evaluation and treatment of osteoporosis can be found at the National Osteoporosis Foundation website (www.nof.org) and [place] Association of Clinical Endocrinology (AACE-www.aace.com). Osteoporosis prevention and treatment begins by modifying risk factors (such as smoking cessation and avoiding alcohol excess) and by participating in weight-bearing activities and exercise. Issues related to fall prevention and home safety should be addressed. Current NOF guidelines suggest 1200 to 1500 mg of calcium from diet and or supplemental sources. It is generally felt best to get calcium from one s diet. Calcium carbonate and calcium citrate are common calcium supplement choices in most local pharmacies. If the patient is taking a proton pump inhibitor, then calcium citrate should be the preferred supplement, if that is necessary. NOF guidelines for vitamin D are 800 to 1000 units of vitamin D3 daily. However, this may best be guided by measurement of 25-OH vitamin-D level, aiming for a level between 30 to 50 units (ng/ml). Additional information can be found at the FRAX website (https://www.jac.ac.uk/FRAX/), and the [place] College of Rheumatology website (https://www.rheumatology.org/Practice-Quality/Clinical-Support/Clinical-Pr actice-Guidelines). 1. The present treatment with Prolia/Denosumab may be helping to maintain bone mineral density. in this patient and should be continued. 2. A repeat study should be considered in 2 years, while on therapy WILTON THOMPSON M.D. ISCD Certified Clinical Document Management Technician Department of Rheumatology [facility] Narrative 06/09/2023 7:40 AM EST Radiology, [facility] DXA Performed: 06/08/23 DXA Resulted: 06/09/2023 Daija Griggs Reason for testing: estrogen deficient woman at clinical risk , monitoring to assess efficacy of therapy Osteoporosis treatment (per questionnaire): A. Previous treatment: NONE B. Current treatment: Prolia/Denosumab just started Major risk factors: none Using a [employer] images of the lumbar spine, left hip were obtained using DXA.. The bone mineral density and T scores [standard, young, normal, female population] are as follows: RESULTS: Lumbar spine: 0.818 gms/cm2 T-score: -2.1 Left femoral neck: 0.595 gms/cm2 T-score: -2.3 FRAX not indicated. Wilton Thompson MD [place] [place] * 25-HYDROXY VITAMIN D (05/12/2023 9:31 AM EST) [facility] 25-Hydroxy Vitamin D 33 >19 ng/mL 05/12/2023 2:48 PM EST LAB[facility] [place] Venous blood specimen / Unknown Venipuncture / Unknown 05/12/2023 9:31 AM EST 05/12/2023 9:31 AM EST Narrative [facility] - 05/12/2023 2:48 PM EST Deficient: <20 ng/mL Insufficient: 20-29 ng/mL Recommended/Optimum:30-50 ng/mL Vitamin D intoxication is rare. If suspicious of Vitamin D toxicity, evaluation of serum Calcium and PTH is recommended. Wilton Thompson MD LAB BLOOD ORDERABLE S Performing Organization Address City/[facility]/ZIP Co de Phone Number [facility] [address] [place] [address] * BASIC METABOLIC PANEL (05/12/2023 9:31 AM EST) [facility] BUN 20 6 - 20 mg/dL 05/12/2023 2:12 PM EST [facility] Creatinine 0.9 0.5 - 1.0 mg/dL 05/12/2023 2:12 PM EST [facility] Estimated Glomerular Filtration Rate 65 >=60 mL/min 05/12/2023 2:12 PM EST [facility] Comment:eGFR is calculated b ased on the CKD-EPI 2020 equation Sodium 141 135 - 146 mmol/L 05/12/2023 2:12 PM EST [facility] Potassium 4.1 3.5 - 5.1 mmol/L 05/12/2023 2:12 PM EST [facility] Chloride 103 98 - 107 mmol/L 05/12/2023 2:12 PM EST [facility] CO2 28 22 - 32 mmol/L 05/12/2023 2:12 PM EST [facility] Anion Gap 10 7 - 15 mmol/L 05/12/2023 2:12 PM EST [facility] Glucose 98 70 - 120 mg/dL 05/12/2023 2:12 PM EST [facility] Calcium 9.0 8.4 - 10.2 mg/dL 05/12/2023 2:12 PM EST [facility] Blood Venous blood specimen / Unknown Venipuncture / Unknown 05/12/2023 9:31 AM EST 05/12/2023 9:31 AM EST Wilton Thompson MD LAB BLOOD ORDERABLE S Performing Organization Address City/[facility]/ZIP Co de Phone Number [facility] [address] [place] [address] documented in this encounter Visit Diagnoses Diagnosis Age-related osteoporosis without current pathological fracture- Primary Senile osteoporosis documented in this encounter Care Teams Materials Inspector Relationship Specialty Start Date End Date Herminia Jang DO [address] [place] [address] PCP - General Family Medicine 04/28/22 documented as of this encounter"
--- OUTSIDE RECORDS SUMMARY | 2023-11-03 12:45 | External Medical Summary | Summary of Care ---
Author Name Unknown Organization [facility] Address [address] [place] [address] Phone [phone] Care Team Providers Care Easement Worker Name Role Phone Herminia Jang DO Primary Care Provider [phone] Reason for Visit * Reason Onset Date Comments Precert Not Needed 04/07/2023 Prolia - PF Encounter Details Date Type Department Care Team (Late st Contact Info) Description 04/07/2023 Telephone Home Infusion, [place] [address] [place], [place] [id number] Infusion, Nurse Home [address] [place], [place] [id number] Precert Not Needed (Prolia - PF) Allergies Active Allergy Reactions Criticality Noted Date Comments Alendronate Itching 05/07/2022 documented as of this encounter (statuses as of 05/25/2023) Medications Medication Sig Dispensed Refills Start Date [...] as of this encounter (statuses as of 05/25/2023) Active Problems Problem Noted Date Diagnosed Date Orthostatic hypotension 11/12/2022 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 11/12/2022 Hypertriglyceridemia 05/07/2022 documented as of this encounter (statuses as of 05/25/2023) Resolved Problems Problem Noted Date Diagnosed Date Resolved Date Localized osteoporosis witho ut current pathological fracture 11/12/2022 11/12/2022 documented as of this encounter (statuses as of 05/25/2023) Immunizations Name Administration Dates Next Due COVID-19, [...] Telephone Encounter - Morteza Szymanski OSA - 05/25/2023 1:37 PM EST I spoke to pt. She is scheduled and aware of appt * Addendum Note - Wilton Thompson MD - 05/24/2023 3:20 PM ESTAddended by: WILTON THOMPSON on: 05/24/2023 03:20 PM Modules accepted: Orders * Telephone Encounter - Wilton Thompson MD - 05/24/2023 3:20 PM EST I spoke with patient. Please arrange DEXA scan with us here in [address] available. * Addendum Note - Nikki Grijalva LPN [...] that she had a Dexa ordered for [facility]. Pt stated the [facility] won't schedule her there due to it is not a [facility] doc ordering. Can pt just have it done at [facility]. Pt asked to please discuss w/ her when she comes for her Prolia shot this 05/26/23 * Telephone Encounter - Nikki Grijalva LPN - 05/23/2023 3:00 PM EST Please call and schedule this patient for an appointment with the [facility] Nurse clinic in for Prolia, then [...] AM EST Has pt been [facility]? * Telephone Encounter - Jud Grijalva [...] 05/26/2023 10:30 AM EST Nurse Only Rheumatology [place] [id number] [facility] [place], [place] [id number] Pf, Nurse Rheum [address] [place] [address] [place] [address] 06/08/2023 3:30 PM EST Imaging Radiology, [address] [place], [place] [address] 06/22/2023 10:30 AM EST Office Visit [facility] [address] [place] [address] Fernie Richards MD [address] [place] [address] 06/29/2023 10:45 AM EST Office Visit [facility] [address] [place] [address] Fernie Richards MD [address] [place] [address] 07/06/2023 10:30 AM EST Office Visit [facility] [address] [place] [address] Fernie Richards MD [address] [place] [address] 07/15/2023 9:00 AM EDT Office Visit Family Practice [address] [place] [address] [address] [place] [phone] Herminia Jang, DO 293 [place] [address] 07/22/2023 11:20 AM EDT Office Visit Family Practice [address] [place] [address] [address] [place] [phone] Herminia Jang, DO 293 [place] [address] 10/21/2023 11:00 AM EDT Nurse Only Ancillary 65 [facility] [address] [place] [address] [place], Nurse Annual Wellness Visit [address] [facility] [address] [place] [address] Health Maintenance Due Date Last Done Comments DXA Scan 09/29/2020 09/29/2018, 09/01, 01/12/2017, Additional history exists Pneumococcal Vaccine: 65+ Years (3 - PPSV23 or PCV20) 01/18/2022 01/18/2017, 02/18/2012 *BISPHONATE OR OTHER ACCEPTABLE MEDICATION NEEDED FOR OSTEOPOROSIS (REFER TO SMARTSET #1146) 11/14/2022 COVID-19 Vaccine ( - season) 2022 03/19/2021, 09/02/2020 Influenza Vaccine (FLU shot) (#1) 2022 Depression Screening 04/22/2024 04/22/2023 DTaP,Tdap,and Td Vaccines (3 - Td or Tdap) 07/18/2031 07/17/2021, 07/18/2008 Cologuard Discontinued 09/16/2020 Colonoscopy Discontinued 12/01/2021 Colorectal Cancer Screening Discontinued Zoster Vaccines Completed 07/16/2022, 09/2022, 02/18/2012 VITAMIN D LEVEL ONCE IN A LIFETIME-USE SMARTSET# [id number] Completed 05/12/2023, 11/12/2022 Fecal Occult Blood Test [...] osteoporosis documented in this encounter Care Teams Easement Worker Relationship Specialty Start Date End Date Herminia Jang DO [address] [facility] [address] PCP - General Family Medicine 04/28/22 documented as of this encounter
--- OUTSIDE RECORDS SUMMARY | 2023-11-03 12:45 | External Medical Summary | Summary of Care ---
Author Name Unknown Organization [facility] Address [address] [place] [facility] [address] Phone [phone] Care Team Providers Care Train Electronic Technician Name Role Phone Herminia Jang DO Primary Care Provider [phone] Reason for Visit * Precert (Within 30 days (routine)) - Authorized Specialty Diagnoses / Procedures Referred By Contac t Referred To Contact Orthopedics Diagnoses Unilateral primary osteoarthritis, left knee Procedures ID GEL-SYN INJECTION 0.1 MG Fernie Richards MD [address] [place] [address] Fernie Richards MD [address] [place] [address] Referral ID Status Reason Start Date Expiration Date V isits Requested Visits Authorized [id number] Authorized Precert 05/23/2023 05/22/2024 [id number] Encounter Details Date Type Department Care Team (Latest Contact Info) Description 07/06/2023 10:30 AM EST Office Visit Orthopaedics [facility] [address] [place] [address] Fernie Richards MD [address] [place] [address] Primary osteoarthritis of one knee, left* Allergies [...] 11:20 AM EDT Office Visit Family Practice [address] [place] [address] 293 [facility] [place] [address] Herminia Jang DO 293 [place] [address] 09/02/2023 3:30 PM EDT Telemedicine Orthopaedics [facility] 132 [facility] [place] [address] Fernie Richards MD 132 [facility] [place] [address] 10/21/2023 11:00 AM EDT Nurse Only Ancillary [address] [place], [place] [address] [address] [place], Nurse Annual Wellness Visit [address] [place], [place] [address] [address] 11/28/2023 10:00 AM EDT Office Visit Rheumatology [place] [address] [facility] [place] [address] Jordana Oneill CRNP [address] [place] [address] Health Maintenance Due Date Last Done Comments [...] D LEVEL ONCE IN A LIFETIME-USE SMARTSET# [id number] Completed 05/12/2023, 11/12/2022 Fecal Occult Blood Test [...] Primary documented in this encounter Care Teams Train Electronic Technician Relationship Specialty Start Date End Date Herminia Jang DO [address] [facility] [place] [address] PCP - General Family Medicine 04/28/22 documented as of this encounter
--- OUTSIDE RECORDS SUMMARY | 2023-11-03 12:45 | External Medical Summary | Summary of Care ---
Author Name Unknown Organization [facility] Address [address] [facility] [address] Phone [phone] Care Team Providers Care Blow Off Worker Name Role Phone Herminia Lee DO Primary Care Provider [phone] Reason for Visit * Reason Comments Medication Refill Encounter Details Date Type Department Care Team (Late st Contact Info) Description 06/16/2023 Refill Family Practice [address] [place] [address] [place] [address] Herminia Lee DO 293 [place] [address] Allergies Active Allergy Reactions Criticality Noted Date Comments Alendronate Itching 05/07/2022 documented as of this encounter (statuses as of 06/16/2023) Medications Medication Sig Dispensed Refills Start Date [...] EVENING 100 Tablet 3 06/13/2023 5 Active Amitriptyline HCl 25 MG Oral Tablet (Elavil) TAKE ONE TABLET BY MOUTH EVERY EVENING 100 Tablet 3 06/16/2023 5 Active Pantoprazole Sodium 40 MG Oral Tablet Delayed Release (Protonix) TAKE ONE TABLET BY MOUTH EVERY EVENING 100 Tablet 3 06/16/2023 5 Active Montelukast Sodium 10 MG Oral Tablet (Singulair) TAKE ONE TABLET BY MOUTH EVERY DAY 100 Tablet 3 06/16/2023 5 Active Atorvastatin Calcium 80 MG Oral Tablet (Lipitor) TAKE ONE TABLET BY MOUTH EVERY EVENING 100 Tablet 3 06/16/2023 5 Active Amitriptyline HCl 25 MG Oral Tablet (Elavil) TAKE ONE TABLET BY MOUTH EVERY EVENING 100 Tablet 3 05/07/2022 4 Discontinue d(Refill) Pantoprazole Sodium 40 MG Oral Tablet Delayed Release (Protonix) TAKE ONE TABLET BY MOUTH EVERY EVENING 100 Tablet 3 05/07/2022 4 Discontinue d(Refill) Montelukast Sodium 10 MG Oral Tablet (Singulair) TAKE ONE TABLET BY MOUTH EVERY DAY 100 Tablet 3 05/07/2022 4 Discontinue d(Refill) Atorvastatin Calcium 80 MG Oral Tablet (Lipitor) TAKE ONE TABLET BY MOUTH EVERY EVENING 100 Tablet 3 05/07/2022 4 Discontinue d(Refill) documented as of this encounter (statuses as of 06/16/2023) Active Problems Problem Noted Date Diagnosed Date Orthostatic hypotension 11/12/2022 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 11/12/2022 Hypertriglyceridemia 05/07/2022 documented as of this encounter (statuses as of 06/16/2023) Resolved Problems Problem Noted Date Diagnosed Date Resolved Date Localized osteoporosis witho ut current pathological fracture 11/12/2022 11/12/2022 documented as of this encounter (statuses as of 06/16/2023) Immunizations Name Administration Dates Next Due COVID-19, [...] encounter Miscellaneous Notes * Telephone Encounter - Yemi Hargrove [facility] - 06/16/2023 2:12 PM EST Signed Prescriptions: Disp Refills Amitriptyline HCl 25 MG Oral Tablet (Elavi*100 Ta*3 Sig: TAKE ONE TABLET BY MOUTH EVERY EVENING Authorizing Provider: HERMINIA LEE Ordering User: YEMI HARGROVE Pantoprazole Sodium 40 MG Oral Tablet Xochitl*100 Ta*3 Sig: TAKE ONE TABLET BY MOUTH EVERY EVENING Authorizing Provider: HERMINIA LEE Ordering User: BARRETT HARGROVE Montelukast Sodium 10 MG Oral Tablet (Sing*100 Ta*3 Sig: TAKE ONE TABLET BY MOUTH EVERY DAY Authorizing Provider: HERMINIA LEE Ordering User: YEMI HARGROVE Atorvastatin Calcium 80 MG Oral Tablet (Li*100 Ta*3 Sig: TAKE ONE TABLET BY MOUTH EVERY EVENING Authorizing Provider: HERMINIA LEE Ordering User: YEMI HARGROVE * Telephone Encounter - 06/16/2023 12:12 AM ESTPending Prescriptions: Disp Refills Amitriptyline HCl 25 MG Oral Tablet (Elavi*100 Ta*3 Sig: TAKE ONE TABLET BY MOUTH EVERY EVENING Pantoprazole Sodium 40 MG Oral Tablet Xochitl*100 Ta*3 Sig: TAKE ONE TABLET BY MOUTH EVERY EVENING * Telephone Encounter - 06/16/2023 12:12 AM ESTPending Prescriptions: Disp Refills Amitriptyline HCl 25 MG Oral Tablet (Elavi*100 Ta*3 Sig: TAKE ONE TABLET BY MOUTH EVERY EVENING Pantoprazole Sodium 40 MG Oral Tablet Xochitl*100 Ta*3 Sig: TAKE ONE TABLET BY MOUTH EVERY EVENING Montelukast Sodium 10 MG Oral Tablet (Sing*100 Ta*3 Sig: TAKE ONE TABLET BY MOUTH EVERY DAY * Telephone Encounter - 06/16/2023 12:12 AM ESTPending Prescriptions: Disp Refills Amitriptyline HCl 25 MG Oral Tablet (Elavi*100 Ta*3 Sig: TAKE ONE TABLET BY MOUTH EVERY EVENING Pantoprazole Sodium 40 MG Oral Tablet Xochitl*100 Ta*3 Sig: TAKE ONE TABLET BY MOUTH EVERY EVENING Montelukast Sodium 10 MG Oral Tablet (Sing*100 Ta*3 Sig: TAKE ONE TABLET BY MOUTH EVERY DAY Atorvastatin Calcium 80 MG Oral Tablet (Li*100 Ta *3 Sig: TAKE ONE TABLET BY MOUTH EVERY EVENING documented in this encounter Plan of Treatment Upcoming Encounters Date Type Department Care Team (Late st Contact Info) Description 06/22/2023 10:30 AM EST Office Visit [facility] 132 [facility] [place] [address] Fernie Richards MD 132 [facility] [place] [address] 06/29/2023 10:45 AM EST Office Visit [facility] 132 [facility] [place] [address] Fernie Richards MD 132 [facility] [place] [address] 07/06/2023 10:30 AM EST Office Visit [facility] 132 [facility] [place] [address] Fernie Richards MD 132 [facility] [place] [address] 07/15/2023 9:00 AM EDT Office Visit Family Practice [address] [place] [address] 293 [facility] [place] [address] Herminia Lee DO 293 [facility] [place] [address] 07/22/2023 11:20 AM EDT Office Visit Family Practice 65 [facility] 293 [place] [phone] Herminia Lee DO 293 [facility] [place] [address] 10/21/2023 11:00 AM EDT Nurse Only Ancillary 65 [facility] 293 [place] [address] College, Nurse Annual Wellness Visit 65 [facility] 293 [place] [address] 11/28/2023 10:00 AM EDT Office Visit Rheumatology [facility] [address] [place] [address] Jordana Oneill CRNP [address] [place] [address] Health Maintenance Due Date Last Done Comments [...] D LEVEL ONCE IN A LIFETIME-USE SMARTSET# 18633 Completed 05/12/2023, 11/12/2022 Fecal Occult Blood Test [...] filedocumented as of this encounter Care Teams Blow Off Worker Relationship Specialty Start Date End Date Herminia Lee DO 293 [place] [address] PCP - General Family Medicine 04/28/22 documented as of this encounter
--- OUTSIDE RECORDS SUMMARY | 2023-11-03 12:45 | External Medical Summary | Summary of Care ---
Author Name Unknown Organization [facility] Address [address] [place] [facility] [place] [place] [address] Phone [phone] Care Team Providers Care Nephrologist Name Role Phone Herminia Jang DO Primary Care Provider Encounter Details Date Type Department Care Team (Late st Contact Info) Description 11/19/2022 Documentation Home [facility] [place] [address] [place] [address] Infusion, Nurse Home [address] [place] [address] Allergies Active Allergy Reactions Criticality Noted Date [...] EVENING 100 Tablet 3 05/07/2022 4 Active Amitriptyline HCl 25 MG Oral Tablet [...] allergic reaction). 2 mL 11 11/08/2022 Active Sertraline HCl 50 MG Oral Tablet (Zoloft) TAKE ONE TABLET BY MOUTH EVERY EVENING 100 Tablet 3 05/07/2022 3 Discontinue d(Medicatio n/Dose Changed) documented as of this encounter (statuses as [...] as of this encounter Progress Notes * Be Wilkerson RN - 11/19/2022 10:59 AM EDT [facility] Diagnosis Related to Therapy : osteoporosis Medication Administered: Prolia (denosumab) Dose: 60mg/ml Dosing Interval: 6 months Date of Infusion: 11/19/22 Patient Tolerated Therapy: Yes Next Scheduled Infusion Date: (05/2023) Next Labs Due: (as ordered by provider) Treatment completed as ordered: Yes documented in this encounter Plan of Treatment Upcoming Encounters Date Type Department Care Team (Late st Contact Info) Description 05/26/2023 10:30 AM EST Nurse Only Rheumatology [address] [place] [address] Pf, Nurse Rheum [facility] [place] [address] Arrived 06/08/2023 3:30 PM EST Imaging Radiology, [place] [address] [facility] [place] [address] 06/22/2023 10:30 AM EST Office Visit [facility] 132 [place] [address] Fernie Richards MD 132 [place] [address] 06/29/2023 10:45 AM EST Office Visit [facility] 132 [place] [address] Fernie Richards MD [address] [place] [address] 07/06/2023 10:30 AM EST Office Visit [facility] [address] [place] [address] Fernie Richards MD [address] [facility] [place] [address] 07/15/2023 9:00 AM EDT Office Visit Family Practice [address] [place] [address] 293 [place] [phone] Herminia Jang, DO 293 [place] [address] 07/22/2023 11:20 AM EDT Office Visit Family Practice 65 [facility] 293 [facility], [place] [phone] Herminia Jang, DO 293 [place] [address] 10/21/2023 11:00 AM EDT Nurse Only Ancillary [address], [place] [address] College, Nurse Annual Wellness Visit [address] [place] [address], [place] [address] Health Maintenance Due Date Last Done Comments DXA Scan 09/29/2020 09/29/2018, 09/01, 01/12/2017, Additional history exists Pneumococcal Vaccine: 65+ Years (3 - PPSV23 or PCV20) 01/18/2022 01/18/2017, 02/18/2012 *BISPHONATE OR OTHER ACCEPTABLE MEDICATION NEEDED FOR OSTEOPOROSIS (REFER TO SMARTSET #1146) 11/14/2022 COVID-19 Vaccine (2022-24 season) 2022 03/19/2021, 09/02/2020 Influenza Vaccine (FLU shot) (#1) 2022 Depression Screening 04/22/2024 04/22/2023 DTaP,Tdap,and Td Vaccines (3 - Td or Tdap) 07/18/2031 07/17/2021, 07/18/2008 Cologuard Discontinued 09/16/2020 Colonoscopy Discontinued 12/01/2021 Colorectal Cancer Screening Discontinued Zoster Vaccines Completed 07/16/2022, 09/2022, 02/18/2012 VITAMIN D LEVEL ONCE IN A LIFETIME-USE SMARTSET# [id number] Completed 05/12/2023, 11/12/2022 Fecal Occult Blood Test [...] filedocumented as of this encounter Care Teams Nephrologist Relationship Specialty Start Date End Date Herminia Jang DO 293 [place] [address] PCP - General Family Medicine 04/28/22 documented as of this encounter
--- OUTSIDE RECORDS SUMMARY | 2023-11-03 12:45 | External Medical Summary | Summary of Care ---
Author Name Unknown Organization [facility] Address [address] [place] [facility] [place] [address] Phone [phone] Care Team Providers Care Contact Worker Name Role Phone Herminia Jang DO Primary Care Provider Reason for Visit * Reason Onset Date Comments Precert Not Needed 04/07/2023 Prolia - PF Encounter Details Date Type Department Care Team (Late st Contact Info) Description 04/07/2023 Telephone Home Infusion, [place] [address] [place], [place] [phone] Infusion, Nurse Home [address] [place], [place] [id number] Precert Not Needed (Prolia - PF) Allergies [...] that she had a Dexa ordered for [facility] Pt stated the [facility] won't schedule her there due to it is not a [facility] doc ordering. Can pt just have it done at [facility]. Pt asked to please discuss w/ her when she comes for her Prolia shot this 05/26/23 * Telephone Encounter - Nikki Fitzpatrick LPN - 05/23/2023 3:00 PM EST Please call and schedule this patient for an appointment with the [facility] Nurse clinic in for Prolia, [...] is no longer covered at home through [facility]. Patient will need to have next adm in provider's office. Please call patient to arrange next injection. Next dose due on 05/23/23 for home infusion- this appointment was cancelled documented in this encounter Plan of Treatment Upcoming Encounters Date Type Department Care Team (Late st Contact Info) Description 05/26/2023 10:30 AM EST Nurse Only Rheumatology [place] [address] [facility] [place] [address] Pf, Nurse Rheum [address] [place] [address], [place] [address] 06/22/2023 10:30 AM EST Office [facility] 132 [facility] [place] [address] Fernie Richards MD 132 [facility] [address] 06/29/2023 10:45 AM EST Office [facility] 132 [facility] [place] [address] Fernie Richards MD [address] [place] [address] 07/06/2023 10:30 AM EST Office Visit [facility] [address] [place] [address] Fernie Richards MD [address] [facility] [place] [address] 07/15/2023 9:00 AM EDT Office Visit Family Practice 65 [facility] 293 [facility] [place] [address] Herminia Jang, DO 293 [facility] [place] [place] [address] 07/22/2023 11:20 AM EDT Office Visit Family Practice 65 [facility] 293 [facility] [place] [address] Herminia Jang, DO 293 [facility] [address] 10/21/2023 11:00 AM EDT Nurse Only Ancillary 65 [facility] 293 [facility] [address] College, Nurse Annual Wellness Visit 65 [facility] 293 [facility] [address] Health Maintenance Due Date Last Done Comments DXA Scan 09/29/2020 09/29/2018, 09/01, 01/12/2017, Additional history exists Pneumococcal Vaccine: 65+ Years (3 - PPSV23 or PCV20) 01/18/2022 01/18/2017, 02/18/2012 *BISPHONATE OR OTHER ACCEPTABLE MEDICATION NEEDED FOR OSTEOPOROSIS (REFER TO SMARTSET #1146) 11/14/2022 COVID-19 Vaccine ( - 2022-24 season) 2022 03/19/2021, 09/02/2020 Influenza Vaccine (FLU shot) (#1) 2022 Depression Screening 04/22/2024 04/22/2023 DTaP,Tdap,and Td Vaccines (3 - Td or Tdap) 07/18/2031 07/17/2021, 07/18/2008 Cologuard Discontinued 09/16/2020 Colonoscopy Discontinued 12/01/2021 Colorectal Cancer Screening Discontinued Zoster Vaccines Completed 07/16/2022, 09/2022, 02/18/2012 VITAMIN D LEVEL ONCE IN A LIFETIME-USE SMARTSET# [id number] Completed 05/12/2023, 11/12/2022 Fecal Occult Blood Test [...] filedocumented as of this encounter Care Teams Contact Worker Relationship Specialty Start Date End Date Herminia Jang DO 293 [facility] [address] PCP - General Family Medicine 04/28/22 documented as of this encounter
--- OUTSIDE RECORDS SUMMARY | 2023-11-03 12:46 | External Medical Summary | Summary of Care ---
Author Name Unknown Organization [facility] Address [address] [facility] [place] [address] Phone [phone] Care Team Providers Care Marketing Director Name Role Phone Herminia Jang Primary Care Provider Reason for Visit * Reason Onset Date Comments Dexa Scan 05/17/2023 Can we forward t he Dexa Scan order for pt Daija Conley # [id number], she gets her Dexa Scan done at [facility] and the order is in her chart for us to schedule. she needs to get it to [facility] so she can get it scheduled there. Encounter Details Date Type Department Care Team (Late st Contact Info) Description 05/17/2023 Telephone Rheumatology [facility] [address] [place], [place] [address] Say Barros MD [address] [facility], [place] [address] Dexa Scan (Can we forward the Dexa Scan or... Allergies Active Allergy Reactions Criticality Noted Date Comments Alendronate Itching 05/07/2022 documented as of this encounter (statuses as of 05/20/2023) Medications Medication Sig Dispensed Refills Start Date [...] as of this encounter (statuses as of 05/20/2023) Active Problems Problem Noted Date Diagnosed Date Orthostatic hypotension 11/12/2022 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 11/12/2022 Hypertriglyceridemia 05/07/2022 documented as of this encounter (statuses as of 05/20/2023) Resolved Problems Problem Noted Date Diagnosed Date Resolved Date Localized osteoporosis witho ut current pathological fracture 11/12/2022 11/12/2022 documented as of this encounter (statuses as of 05/20/2023) Immunizations Name Administration Dates Next Due COVID-19, [...] encounter Miscellaneous Notes * Telephone Encounter - Pedrito Francois OSA - 05/20/2023 1:29 PM EST [place] - Patient Related Communication Reason for Call: Patient is requesting order to be faxed again to [facility] at fax number [phone]. Thank you CARLA Stewart * Telephone Encounter - Jud Fitzpatrick LPN - 05/17/2023 2:45 PM EST DEXA order faxed to [facility] [phone] Pt notified. * Telephone Encounter - Evelin Trent OSA - 05/17/2023 2:22 PM EST Can we forward the Dexa Scan order for pt Daija Yael # [id number], she gets her Dexa Scan done at [facility] and the order is in her chart for us to schedule. she needs to get it to [facility] so she can get it scheduled there. Please let pt know when this has been sent over to [facility]. Pt can be reached at [phone] Thank-you! Evelin documented in this encounter Plan of Treatment Upcoming Encounters Date Type Department Care Team (Late st Contact Info) Description 06/22/2023 10:30 AM EST Office Visit [facility] [address] [place] [address] Fernie Richards MD [address] [place] [address] 06/29/2023 10:45 AM EST Office Visit [facility] [address] [place] [address] Fernie Richards MD [address] [place] [address] 07/06/2023 10:30 AM EST Office Visit [facility] [address] [place] [address] Fernie Richards MD [address] [place] [address] 07/15/2023 9:00 AM EDT Office Visit Family Practice [address] [place] [phone] Herminia Jang, DO 293 [place] [address] 07/22/2023 11:20 AM EDT Office Visit Family Practice 65 [facility] 293 [place] [address] Herminia Jang, DO 293 [place] [address] 10/21/2023 11:00 AM EDT Nurse Only Ancillary [address] [place] [address] College, Nurse Annual Wellness Visit 65 [facility] 293 [place] [address] Health Maintenance Due Date Last Done Comments [...] D LEVEL ONCE IN A LIFETIME-USE SMARTSET# [id number] Completed 05/12/2023, 11/12/2022 Fecal Occult Blood Test [...] filedocumented as of this encounter Care Teams Marketing Director Relationship Specialty Start Date End Date Herminia Jang DO 293 [facility] [address] PCP - General Family Medicine 04/28/22 documented as of this encounter
--- OUTSIDE RECORDS SUMMARY | 2023-11-03 12:46 | External Medical Summary | Summary of Care ---
Author Name Unknown Organization [facility] Address [address] [place] [address] Phone [phone] Care Team Providers Care Agile Java Developer Name Role Phone AmberHerminia myles Primary Care Provider Reason for Visit * Reason Onset Date Comments Precert Not Needed 04/07/2023 Prolia - wait ing for oop Encounter Details Date Type Department Care Team (Late st Contact Info) Description 04/07/2023 Telephone Home [facility] [place] [address] [place] [address] Infusion, Nurse Home [address] [place] [address] Precert Not Needed (Prolia - waiting for oop) Allergies Active Allergy Reactions Criticality Noted Date Comments Alendronate Itching 05/07/2022 documented as of this encounter (statuses as of 05/12/2023) Medications Medication Sig Dispensed Refills Start Date [...] as of this encounter (statuses as of 05/12/2023) Active Problems Problem Noted Date Diagnosed Date Orthostatic hypotension 11/12/2022 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 11/12/2022 Hypertriglyceridemia 05/07/2022 documented as of this encounter (statuses as of 05/12/2023) Resolved Problems Problem Noted Date Diagnosed Date Resolved Date Localized osteoporosis witho ut current pathological fracture 11/12/2022 11/12/2022 documented as of this encounter (statuses as of 05/12/2023) Immunizations Name Administration Dates Next Due COVID-19, [...] encounter Miscellaneous Notes * Telephone Encounter - Jud Fitzpatrick LPN [...] Thank you! * Telephone Encounter - Mary Beverly, RN - 04/07/2023 9:18 AM EST Patient [...] 05/12/2023 9:00 AM EST Office Visit Rheumatology [address] [place] [address] Say Barros MD [address] [place] [address] [place] [address] Arrived 06/22/2023 10:30 AM EST Office Visit [facility]opa[facility] [address] [facility] [address] Fernie Richards MD [address] [facility] [address] 06/29/2023 10:45 AM EST Office Visit [facility] [address] [place] [address] Fernie Richards MD [address] [place] [address] 07/06/2023 10:30 AM EST Office Visit [facility] [address] [place] [address] Fernie Richards MD [address] [place] [address] 07/15/2023 9:00 AM EDT Office Visit Family Practice 65 [facility] 293 [facility] [place] [place] [phone] Herminia Jang, DO 293 [facility] [address] 07/22/2023 11:20 AM EDT Office Visit Family Practice 65 [facility] 293 [facility] [place] [place] [phone] Herminia Jang, DO 293 [facility] [place] [address] 10/21/2023 11:00 AM EDT Nurse Only Ancillary [address] [place] [address] College, Nurse Annual Wellness Visit [address] [place] [address] Health Maintenance Due Date Last Done Comments [...] D LEVEL ONCE IN A LIFETIME-USE SMARTSET# [id number] Completed 11/12/2022 Fecal Occult Blood Test Discontinued GARDASIL-HPV [...] filedocumented as of this encounter Care Teams Agile Java Developer Relationship Specialty Start Date End Date Herminia Jang DO 293 [place] [address] PCP - General Family Medicine 04/28/22 documented as of this encounter
--- OUTSIDE RECORDS SUMMARY | 2023-11-03 12:46 | External Medical Summary | Summary of Care ---
Author Name Unknown Organization [facility] Address [address] [place] [address] Phone [phone] Care Team Providers Care Revenue Analyst Name Role Phone AmberHerminia myles Primary Care Provider Reason for Visit * Reason Onset Date Comments Precert Not Needed 04/07/2023 Prolia - wait ing for oop Encounter Details Date Type Department Care Team (Late st Contact Info) Description 04/07/2023 Telephone Home [facility] [place] [address] [place] [address] Infusion, Nurse Home [address] [place] [address] Precert Not Needed (Prolia - [...] Description 06/22/2023 10:30 AM EST Office Visit [facility] [address] [place] [address] Fernie Richards MD [address] [place] [address] 06/29/2023 10:45 AM EST Office Visit [facility] 132 [facility] [place] [address] Fernie Richards MD [address] [place] [address] 07/06/2023 10:30 AM EST Office Visit [facility] [address] [place] [address] Fernie Richards MD [address] [place] [address] 07/15/2023 9:00 AM EDT Office Visit Family [address] 293 [place] [address] Herminia Jang, DO 293 [place] [address] 07/22/2023 11:20 AM EDT Office Visit Family Practice 65 [facility] 293 [place] [address] Herminia Jang, DO 293 [place] [address] 10/21/2023 11:00 AM EDT Nurse Only Ancillary 65 [facility] 293 [place] [address] College, Nurse Annual Wellness Visit [address] [place] [address] Health Maintenance Due Date Last Done Comments DXA Scan 09/29/2020 09/29/2018, 09/01, 01/12/2017, Additional history exists Pneumococcal Vaccine: 65+ Years (3 - PPSV23 or PCV20) 01/18/2022 01/18/2017, 02/18/2012 *BISPHONATE OR OTHER ACCEPTABLE MEDICATION NEEDED FOR OSTEOPOROSIS (REFER TO SMARTSET #1146) 11/14/2022 COVID-19 Vaccine ( - 2022- season) 2022 03/19/2021, 09/02/2020 Influenza Vaccine (FLU shot) (#1) 2022 Depression Screening 04/22/2024 04/22/2023 DTaP,Tdap,and Td Vaccines (3 - Td or Tdap) 07/18/2031 07/17/2021, 07/18/2008 Cologuard Discontinued 09/16/2020 Colonoscopy Discontinued 12/01/2021 Colorectal Cancer Screening Discontinued Zoster Vaccines Completed 07/16/2022, 09/2022, 02/18/2012 VITAMIN D LEVEL ONCE IN A LIFETIME-USE SMARTSET# 49050 Completed 05/12/2023, 11/12/2022 Fecal Occult Blood Test [...] filedocumented as of this encounter Care Teams Revenue Analyst Relationship Specialty Start Date End Date Herminia Jang DO [address] [place] [address] PCP - General Family Medicine 04/28/22 documented as of this encounter
--- OUTSIDE RECORDS SUMMARY | 2023-11-03 12:46 | External Medical Summary | Summary of Care ---
Author Name Unknown Organization [facility] Address [address] [facility] [place] [address] Phone [phone] Care Team Providers Care Head Of Sales Promotion Name Role Phone Herminia Jang Primary Care Provider [phone] Reason for Visit * Reason Onset Date Comments Dexa Scan 05/17/2023 Can we forward t he Dexa Scan order for pt Daija Conley # [id number], she gets her Dexa Scan done at [facility] and the order is in her chart for us to schedule. she needs to get it to [facility] so she can get it scheduled there. Encounter Details Date Type Department Care Team (Late st Contact Info) Description 05/17/2023 Telephone Rheumatology [facility] [address], [place] [address] Say Barros MD [address] [facility], [place] [address] Dexa Scan (Can we forward the Dexa Scan or... Allergies Active Allergy Reactions Criticality Noted Date Comments Alendronate Itching 05/07/2022 documented as of this encounter (statuses as of 05/17/2023) Medications Medication Sig Dispensed Refills Start Date [...] as of this encounter (statuses as of 05/17/2023) Active Problems Problem Noted Date Diagnosed Date Orthostatic hypotension 11/12/2022 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 11/12/2022 Hypertriglyceridemia 05/07/2022 documented as of this encounter (statuses as of 05/17/2023) Resolved Problems Problem Noted Date Diagnosed Date Resolved Date Localized osteoporosis witho ut current pathological fracture 11/12/2022 11/12/2022 documented as of this encounter (statuses as of 05/17/2023) Immunizations Name Administration Dates Next Due COVID-19, [...] 2:45 PM EST DEXA order faxed to [facility] [phone] Pt notified. * Telephone Encounter - Evelin Trent OSA - 05/17/2023 2:22 PM EST Can we forward the Dexa Scan order for pt Daija Conley # [id number], she gets her Dexa Scan done at [facility] and the order is in her chart for us to schedule. she needs to get it to [facility] so she can get it scheduled there. Please let pt know when this has been sent over to [facility]. Pt can be reached at [phone] Thank-you! Evelin documented in this encounter Plan of Treatment Upcoming Encounters Date Type Department Care Team (Late st Contact Info) Description 06/22/2023 10:30 AM EST Office Visit Orthopaedics [facility] 132 [facility] [place] [address] Fernie Richards MD [address] [place] [address] 06/29/2023 10:45 AM EST Office Visit Orthopaedics [facility] [address] [place] [address] Fernie Richards MD [address] [place] [address] 07/06/2023 10:30 AM EST [facility] [address] [place] [address] Fernie Richards MD [address] [place] [address] 07/15/2023 9:00 AM EDT Office Visit Family Practice 65 [facility] 293 [place] [address] Herminia Jang, DO 293 [place] [address] 07/22/2023 11:20 AM EDT Office Visit Family Practice 65 [facility] 293 [place] [address] Herminia Jang, DO 293 [place] [address] 10/21/2023 11:00 AM EDT Nurse Only Ancillary 65 [facility] 293 [place] [address] College, Nurse Annual Wellness Visit [address] [place] [address] Health Maintenance Due Date Last Done Comments [...] D LEVEL ONCE IN A LIFETIME-USE SMARTSET# [id number] Completed 05/12/2023, 11/12/2022 Fecal Occult Blood Test [...] filedocumented as of this encounter Care Teams Head Of Sales Promotion Relationship Specialty Start Date End Date Herminia Jang DO [address] [place] [address] PCP - General Family Medicine 04/28/22 documented as of this encounter
--- OUTSIDE RECORDS SUMMARY | 2023-11-03 12:46 | External Medical Summary | Summary of Care ---
Author Name Unknown Organization [facility] Address [address] [facility] [place] [address] Phone [phone] Care Team Providers Care Chair Car Attendant Name Role Phone AmberHerminia myles Primary Care Provider Encounter Details Date Type Department Care Team (Late st Contact Info) Description 05/08/2023 Patient Reported Data Patient Survey Ortho OBERD Allergies Active Allergy Reactions Criticality Noted Date Comments Alendronate Itching 05/07/2022 documented as of this encounter (statuses as of 05/08/2023) Medications Medication Sig Dispensed Refills Start Date [...] as of this encounter (statuses as of 05/08/2023) Active Problems Problem Noted Date Diagnosed Date Orthostatic hypotension 11/12/2022 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 11/12/2022 Hypertriglyceridemia 05/07/2022 documented as of this encounter (statuses as of 05/08/2023) Resolved Problems Problem Noted Date Diagnosed Date Resolved Date Localized osteoporosis witho ut current pathological fracture 11/12/2022 11/12/2022 documented as of this encounter (statuses as of 05/08/2023) Immunizations Name Administration Dates Next Due COVID-19, [...] on file documented as of this encounter Plan of Treatment Upcoming Encounters Date Type Department Care Team (Late st Contact Info) Description 05/11/2023 11:00 AM EST Office Visit Orthopaedics [facility] [address] [place] [address] Fernie Richards MD 132 [place] [address] 05/12/2023 9:00 AM EST Office Visit Rheumatology [place] [address] [place] [address] Say Barros MD [facility] [facility] [address] 07/15/2023 9:00 AM EDT Office Visit Family Practice 65 [facility] 293 [place] [address] Herminia Jang DO 293 [place] [address] 07/22/2023 11:20 AM EDT Office Visit Family Practice 65 [facility] 293 [place] [address] Herminia Jang DO 293 [place] [address] 10/21/2023 11:00 AM EDT Nurse Only Ancillary 65 [facility] 293 [place] [address] College, Nurse Annual Wellness Visit [address] [place] [address] Health Maintenance Due Date Last Done Comments [...] D LEVEL ONCE IN A LIFETIME-USE SMARTSET# [id number] Completed 11/12/2022 Fecal Occult Blood Test Discontinued [...] filedocumented as of this encounter Care Teams Chair Car Attendant Relationship Specialty Start Date End Date Herminia Jang DO [address] [place] [address] PCP - General Family Medicine 04/28/22 documented as of this encounter
--- OUTSIDE RECORDS SUMMARY | 2023-11-03 12:46 | External Medical Summary | Summary of Care ---
Author Name Unknown Organization [facility] Address [address] [facility] [place] [address] Phone [phone] Care Team Providers Care Bookmaker'S Clerk Name Role Phone Herminia Jang Primary Care Provider Encounter Details Date Type Department Care Team (Late st Contact Info) Description 05/12/2023 Patient Reported Data Patient Survey Ortho OBERD [...] 05/12/2023 9:00 AM EST Office Visit Rheumatology [address] [place] [address] Say Barros MD [address] [place] [address] [place] [address] 06/22/2023 10:30 AM EST Office Visit Orthopaedics [facility] [place] [address] Fernie Richards MD [address] [place] [place] [address] 06/29/2023 10:45 AM EST Office Visit Orthopaedics [facility] [place] [address] Fernie Richards MD [address] [place] [address] 07/06/2023 10:30 AM EST Office Visit Orthopaedics [facility] 132 [facility] [place] [address] Fernie Richards MD [address] [place] [address] 07/15/2023 9:00 AM EDT Office Visit Family Practice [address] [place] [address] 293 [facility] [address] Herminia Jang DO 293 [facility] [place] [address] 07/22/2023 11:20 AM EDT Office Visit Family Practice 65 [facility] 293 [place] [address] Herminia Jang DO 293 [place] [address] 10/21/2023 11:00 AM EDT Nurse Only Ancillary 65 [facility] 293 [place] [address] College, Nurse Annual Wellness Visit [facility] 293 [place] [address] Health Maintenance Due Date Last Done Comments [...] D LEVEL ONCE IN A LIFETIME-USE SMARTSET# [id number] Completed 11/12/2022 Fecal Occult Blood Test Discontinued [...] filedocumented as of this encounter Care Teams Bookmaker'S Clerk Relationship Specialty Start Date End Date Herminia Jang DO 293 [place] [address] PCP - General Family Medicine 04/28/22 documented as of this encounter
--- OUTSIDE RECORDS SUMMARY | 2023-11-03 12:46 | External Medical Summary | Summary of Care ---
Author Name Unknown Organization [facility] Address [address] [place] [address] Phone [phone] Care Team Providers Care Head Animal Trainer Name Role Phone Suhail Herminia Irene JUNIOR Primary Care Provider [phone] Encounter Details Date Type Department Care Team (Late st Contact Info) Description 05/12/2023 9:25 AM EST Laboratory Lab 65 [facility] 293 [place] [address] [place], Lab [address] [address] Age-related osteoporosis without current pathological fracture Allergies Active Allergy Reactions Criticality Noted Date [...] as of this encounter Progress Notes * Kristal Cristina RN - 05/12/2023 9:31 AM EST LAB DRAWN AND SENT TO [facility]. documented in this encounter Plan of Treatment Upcoming Encounters Date Type Department Care Team (Late st Contact Info) Description 06/22/2023 10:30 AM EST Office Visit Orthopaedics [facility] [address] [place] [address] Fernie Richards MD [address] [place] [address] 06/29/2023 10:45 AM EST Office Visit [facility] [address] [facility] [place] [address] Fernie Richards MD [address] [place] [address] 07/06/2023 10:30 AM EST Office Visit [facility] [address] [facility] [place] [address] Fernie Richards MD [address] [place] [address] 07/15/2023 9:00 AM EDT Office Visit Family [address] 293 [facility] [place] [address] Herminia Jang DO 293 [facility] [place] [address] 07/22/2023 11:20 AM EDT Office Visit Family Practice 65 [facility] 293 [facility] [place] [address] Herminia Jang, DO 293 [facility] [place] [address] 10/21/2023 11:00 AM EDT Nurse Only Ancillary 65 [facility] 293 [place] [address] College, Nurse Annual Wellness Visit [address] [place] [address] Pending Results Name Type Priority Associated Diagnoses Date /Time BASIC METABOLIC PANEL Lab Routine Age-related osteoporosis without current pathological fracture 05/12/2023 9:31 AM EST Health Maintenance Due Date Last Done Comments DXA Scan 09/29/2020 09/29/2018, 09/01, 01/12/2017, Additional history exists Pneumococcal Vaccine: 65+ Years (3 - PPSV23 or PCV20) 01/18/2022 01/18/2017, 02/18/2012 *BISPHONATE OR OTHER ACCEPTABLE MEDICATION NEEDED FOR OSTEOPOROSIS (REFER TO SMARTSET #1146) 11/14/2022 COVID-19 Vaccine (24 season) 2022 03/19/2021, 09/02/2020 Influenza Vaccine (FLU shot) (#1) 2022 Depression Screening 04/22/2024 04/22/2023 DTaP,Tdap,and Td Vaccines (3 - Td or Tdap) 07/18/2031 07/17/2021, 07/18/2008 Cologuard Discontinued 09/16/2020 Colonoscopy Discontinued 12/01/2021 Colorectal Cancer Screening Discontinued Zoster Vaccines Completed 07/16/2022, 09/2022, 02/18/2012 VITAMIN D LEVEL ONCE IN A LIFETIME-USE SMARTSET# [id number] Completed 11/12/2022 Fecal Occult Blood Test Discontinued [...] Diagnoses Diagnosis Age-related osteoporosis without current pathological fracture Senile osteoporosis documented in this encounter Care Teams Head Animal Trainer Relationship Specialty Start Date End Date Herminia Jang DO 293 [place] [address] PCP - General Family Medicine 04/28/22 documented as of this encounter
--- OUTSIDE RECORDS SUMMARY | 2023-11-03 12:46 | External Medical Summary | Summary of Care ---
Author Name Unknown Organization [facility] Address [address] [facility] [place] [address] Phone [phone] Care Team Providers Care Continuous Improvement Consultant Name Role Phone AmberHerminia myles Primary Care [...] 05/11/2023 11:00 AM EST Office Visit Orthopaedics [facility] [address] [place] [address] Fernie Richards MD 132 [place] [address] 05/12/2023 9:00 AM EST Office Visit Rheumatology [place] 7[address] [employer] [place] [address] Say Barros MD [facility] [address] 07/15/2023 9:00 AM EDT Office Visit Family Practice 65 [facility] 293 [facility] [place] [address] Herminia Jang DO 293 [place] [address] 07/22/2023 11:20 AM EDT Office Visit Family Practice 65 [facility] 293 [facility] [place] [address] Herminia Jang DO 293 [place] [address] 10/21/2023 11:00 AM EDT Nurse Only Ancillary 65 [facility] 293 [facility] [place] [address] College, Nurse Annual Wellness Visit [address] [place] [address] Health Maintenance Due Date Last Done Comments [...] D LEVEL ONCE IN A LIFETIME-USE SMARTSET# [id number] Completed 11/12/2022 Fecal Occult Blood Test Discontinued [...] filedocumented as of this encounter Care Teams Continuous Improvement Consultant Relationship Specialty Start Date End Date Herminia Jang DO [address] [place] [address] PCP - General Family Medicine 04/28/22 documented as of this encounter
--- OUTSIDE RECORDS SUMMARY | 2023-11-03 12:46 | External Medical Summary | Summary of Care ---
Author Name Unknown Organization [facility] Address [address] [facility] [place] [address] Phone [phone] Care Team Providers Care Sales Support Technician Name Role Phone AmberHerminia myles Primary [...] 05/11/2023 11:00 AM EST Office Visit Orthopaedics [facility] [address] [place] [address] Fernie Richards MD 132 [place] [address] 05/12/2023 9:00 AM EST Office Visit Rheumatology [place] [address]25[address] [place] [address] Say Barros MD [facility] [address] 07/15/2023 9:00 AM EDT Office Visit Family Practice 65 [facility] 293 [place] [address] Herminia Jang DO 293 [place] [address] 07/22/2023 11:20 AM EDT Office Visit Family Practice 65 [facility] 293 [place] [address] Herminia Jang DO 293 [place] [address] 10/21/2023 11:00 AM EDT Nurse Only Ancillary 65 [facility] 293 [place] [address] College, Nurse Annual Wellness Visit [address] [place] [address] Health Maintenance Due Date Last Done Comments [...] D LEVEL ONCE IN A LIFETIME-USE SMARTSET# [id number] Completed 11/12/2022 Fecal Occult Blood Test Discontinued [...] filedocumented as of this encounter Care Teams Sales Support Technician Relationship Specialty Start Date End Date Herminia Jang DO [address] [place] [address] PCP - General Family Medicine 04/28/22 documented as of this encounter
--- OUTSIDE RECORDS SUMMARY | 2023-11-03 12:46 | External Medical Summary | Summary of Care ---
Author Name Unknown Organization [facility] Address [address] [facility] [place] [address] Phone [phone] Care Team Providers Care Ham Smoker Name Role Phone Herminia Jang Primary Care Provider Reason for Visit * Reason Comments Rheum Follow Up Follow up - [facility] Encounter Details Date Type Department Care Team (Late st Contact Info) Description 05/12/2023 9:00 AM EST Office Visit Rheumatology [place] [address] [place] [address] Say Barros MD [facility] [place] [employer] [place] [address] Age-related osteoporosis without current pathological fracture* Allergies [...] documented in this encounter Progress Notes * Say Barros MD - 05/12/2023 9:02 AM EST High [...] 6. Followup: Follow-up pending approval for Prolia Say Barros MD [facility] Team documented in this encounter [...] 06/22/2023 10:30 AM EST Office Visit Orthopaedics [address] [place] [address] Fernie Richards MD [address] [place] [address] 06/29/2023 10:45 AM EST Office Visit [facility] [address] [place] [address] Fernie Richards MD [address] [place] [address] 07/06/2023 10:30 AM EST Office Visit [facility] [address] [place] [address] Fernie Richards MD [address] [place] [address] 07/15/2023 9:00 AM EDT Office Visit Family Practice 65 [facility] 293 [facility] [place] [address] Herminia Jang, DO 293 [place] [address] 07/22/2023 11:20 AM EDT Office Visit Family Practice 65 [facility] 293 [facility] [place] [address] Herminia Jang, DO 293 [place] [address] 10/21/2023 11:00 AM EDT Nurse Only Ancillary 65 [facility] 293 [facility] [place] [address] College, Nurse Annual Wellness Visit [address] [place] [address] Pending Results Name Type Priority Associated Diagnoses Date /Time BASIC METABOLIC PANEL Lab Routine Age-related osteoporosis without current pathological fracture 05/12/2023 9:31 AM EST 25-HYDROXY VITAMIN D Lab Routine Age-related osteoporosis without current pathological fracture 05/12/2023 9:31 AM EST Scheduled Orders Name Type Priority Associated Diagnoses Orde r Schedule DEXA SCAN/BONE MINERAL AXIAL Medical Imaging Routine Age-related osteoporosis without current pathological fracture Ordered: 05/12/2023 BASIC METABOLIC PANEL Lab Routine Age-related osteoporosis without current pathological fracture Expected: 05/12/2023 (Approximate), Expires: 08/12/2023 Health Maintenance Due Date Last Done Comments [...] D LEVEL ONCE IN A LIFETIME-USE SMARTSET# [id number] Completed 11/12/2022 Fecal Occult Blood Test Discontinued [...] osteoporosis documented in this encounter Care Teams Ham Smoker Relationship Specialty Start Date End Date Herminia Jang DO [address] [place] [address] PCP - General Family Medicine 04/28/22 documented as of this encounter"
--- OUTSIDE RECORDS SUMMARY | 2023-11-03 12:46 | External Medical Summary | Summary of Care ---
Author Name Unknown Organization [facility] Address [address] [facility] [place] [address] Phone [phone] Care Team Providers Care Instrument Maker And Repairer Name Role Phone AmberHerminia myles Primary Care [...] 05/11/2023 11:00 AM EST Office Visit Orthopaedics [facility] [address] [place] [address] Fernie Richards MD 132 [place] [address] 05/12/2023 9:00 AM EST Office Visit Rheumatology [place] 730740 [place] [address] Say Barros MD [facility] [facility] [address] 07/15/2023 9:00 AM EDT Office Visit Family Practice 65 [facility] 293 [place] [address] Herminia Jang DO [address] [place] [address] 07/22/2023 11:20 AM EDT Office Visit Family Practice 65 [facility] 293 [facility] [place] [address] Herminia Jang DO [address] [place] [address] 10/21/2023 11:00 AM EDT Nurse Only Ancillary 65 [facility] 293 [facility] [place] [address] College, Nurse Annual Wellness Visit [address] [place] [address] Health Maintenance Due Date Last Done Comments [...] D LEVEL ONCE IN A LIFETIME-USE SMARTSET# 34501 Completed 11/12/2022 Fecal Occult Blood Test Discontinued [...] filedocumented as of this encounter Care Teams Instrument Maker And Repairer Relationship Specialty Start Date End Date Herminia Jang DO [address] [place] [address] PCP - General Family Medicine 04/28/22 documented as of this encounter
--- OUTSIDE RECORDS SUMMARY | 2023-11-03 12:46 | External Medical Summary ---
Author Name Unknown Address Unknown Organization K01:LABORATORY [facility] - [address] [place] [address] Laboratory Report Ordering Provider Test Date Status DONNA NÚÑEZ 05/12/2023 09:31:39 Final Deficient: <20 ng/mL
Ins ufficient: 20-29 ng/mL
Recommended/Optimum:30-50 ng/mL

Vitamin D intoxication is rare. If suspicious of Vitamin D toxicity, evaluation of serum Calcium and PTH is recommended. Observation Date Value Abnormality Reference (Units ) Status 25-OH Vitamin D total 05/12/2023 09:31:39 33 >19 (ng/mL) Final Performing Location LABORATORY C - [address] [place] [address]
--- OUTSIDE RECORDS SUMMARY | 2023-11-03 12:46 | External Medical Summary | Summary of Care ---
Author Name Unknown Organization [facility] Address [address] [facility] [place] [address] Phone [phone] Care Team Providers Care Tube Wrapper Name Role Phone AmberHerminia myles Primary Care [...] 05/11/2023 11:00 AM EST Office Visit Orthopaedics [facility] [address] [place] [address] Fernie Richards MD [address] [place] [address] 05/12/2023 9:00 AM EST Office Visit Rheumatology [place] [address] [facility] [place] [address] Say Barros MD [facility] [address] 07/15/2023 9:00 AM EDT Office Visit Family Practice 65 [facility] 293 [place] [address] Herminia Jang DO 293 [place] [address] 07/22/2023 11:20 AM EDT Office Visit Family Practice 65 [facility] 293 [place] [address] Herminia Jang DO 293 [place] [address] 10/21/2023 11:00 AM EDT Nurse Only Ancillary 65 [facility] 293 [place] [address] College, Nurse Annual Wellness Visit [address] [place] [address] Health Maintenance Due Date Last Done Comments [...] D LEVEL ONCE IN A LIFETIME-USE SMARTSET# [id number] Completed 11/12/2022 Fecal Occult Blood Test Discontinued [...] filedocumented as of this encounter Care Teams Tube Wrapper Relationship Specialty Start Date End Date Herminia Jang DO [address] [place] [address] PCP - General Family Medicine 04/28/22 documented as of this encounter
--- OUTSIDE RECORDS SUMMARY | 2023-11-03 12:46 | External Medical Summary | Summary of Care ---
Author Name Unknown Organization [facility] Address [address] [facility] [place] [address] Phone [phone] Care Team Providers Care Oil Filters Inspector Name Role Phone Herminia Jang Primary Care Provider Reason for Visit * Reason Onset Date Comments Dexa Scan 05/17/2023 Can we forward t he Dexa Scan order for pt Daija Conley # [id number], she gets her Dexa Scan done at [facility] and the order is in her chart for us to schedule. she needs to get it to [facility] so she can get it scheduled there. Encounter Details Date Type Department Care Team (Late st Contact Info) Description 05/17/2023 Telephone Rheumatology [facility] [address] [place], [place] [address] Say Barros MD [address] [facility], [place] [address] Dexa Scan (Can we [...] encounter Miscellaneous Notes * Telephone Encounter - Mendel Almaguer LPN - 05/20/2023 1:59 PM EST Faxed to [phone] * Telephone Encounter - Pedrito Francois OSA - 05/20/2023 1:29 PM EST Light Industrial Supervisor - Patient Related Communication Reason for Call: Patient is requesting order to be faxed again to [facility] at fax number [phone]. Thank you CARLA Stewart * Telephone Encounter - Jud Fitzpatrick LPN - 05/17/2023 2:45 PM EST DEXA order faxed to [facility] [phone] Pt notified. * Telephone Encounter - Evelin Trent OSA - 05/17/2023 2:22 PM EST Can we forward the Dexa Scan order for pt Daija Conley # [id number], she gets her Dexa Scan done at [facility] and the order is in her chart for us to schedule. she needs to get it to [facility] so she can get it scheduled there. Please let pt know when this has been sent over to [facility]. Pt can be reached at [phone] Thank-you! Evelin documented in this encounter Plan of Treatment Upcoming Encounters Date Type Department Care Team (Late st Contact Info) Description 06/22/2023 10:30 AM EST Office Visit Orthopaedics [facility] [address] [place] [address] Fernie Richards MD [address] [place] [address] 06/29/2023 10:45 AM EST Office Visit Orthopaedics [facility] [address] [place] [address] Fernie Richards MD [address] [place] [address] 07/06/2023 10:30 AM EST Office Visit Orthopaedics [facility] [address] [place] [address] Fernie Richards MD [address] [place] [address] 07/15/2023 9:00 AM EDT Office Visit Family Practice 65 [facility] 293 [place] [address] Herminia Jang DO 293 [facility] [place] [address] 07/22/2023 11:20 AM EDT Office Visit Family Practice 65 [facility] 293 [place] [address] Herminia Jang DO 293 [facility] [place] [address] 10/21/2023 11:00 AM EDT Nurse Only Ancillary [address] [place] 293 [place] [address] College, Nurse Annual Wellness Visit [address] [facility] 293 [place] [address] Health Maintenance Due Date Last Done Comments DXA Scan 09/29/2020 09/29/2018, 09/01, 01/12/2017, Additional history exists Pneumococcal Vaccine: 65+ Years (3 - PPSV23 or PCV20) 01/18/2022 01/18/2017, 02/18/2012 *BISPHONATE OR OTHER ACCEPTABLE MEDICATION NEEDED FOR OSTEOPOROSIS (REFER TO SMARTSET #1146) 11/14/2022 COVID-19 Vaccine (2022- season) 2022 03/19/2021, 09/02/2020 Influenza Vaccine (FLU shot) (#1) 2022 Depression Screening 04/22/2024 04/22/2023 DTaP,Tdap,and Td Vaccines (3 - Td or Tdap) 07/18/2031 07/17/2021, 07/18/2008 Cologuard Discontinued 09/16/2020 Colonoscopy Discontinued 12/01/2021 Colorectal Cancer Screening Discontinued Zoster Vaccines Completed 07/16/2022, 09/2022, 02/18/2012 VITAMIN D LEVEL ONCE IN A LIFETIME-USE SMARTSET# [id number] Completed 05/12/2023, 11/12/2022 Fecal Occult Blood Test [...] filedocumented as of this encounter Care Teams Oil Filters Inspector Relationship Specialty Start Date End Date Herminia Jang DO 293 [facility] [place] [address] PCP - General Family Medicine 04/28/22 documented as of this encounter
--- OUTSIDE RECORDS SUMMARY | 2023-11-03 12:46 | External Medical Summary | Summary of Care ---
Author Name Unknown Organization [facility] Address [address] [place] [address] Phone [phone] Care Team Providers Care Soil Biology Teacher Name Role Phone Herminia Jang DO Primary Care Provider Reason for Visit * Reason Comments NEW PATIENT L knee * Evaluate & Treat - Unlimited Visits (Within 10 days (routine)) - Authorized Specialty Diagnoses / Procedures Referred By Contac t Referred To Contact Orthopaedic Surgery / Orthopedics Diagnoses Primary osteoarthritis of one knee, left Herminia Jang DO [address] [place] [address] Referral ID Status Reason Start Date Expiration Date Visits Requested Visits Authorized [id number] Authorized Specialty Services Required 3 [phone] Encounter Details Date Type Department Care Team (Latest Contact Info) Description 05/11/2023 11:00 AM EST Office Visit Orthopaedics [facility] 132 [facility] [place] [address] Fernie Richards MD 132 [facility] [place] [address] Chronic pain of left knee*; Primary osteoarthritis of one knee, left Allergies Active Allergy Reactions Criticality Noted Date Comments Alendronate Itching 05/07/2022 documented as of this encounter (statuses as of 05/11/2023) Medications Medication Sig Dispensed Refills Start Date [...] Route Frequency Start Date End Date Status lidocaine 1% 1 mL - triamcinolone acetonide 40 mg/mL 1 mL inj 2 mLIndications:Primary osteoarthritis of one knee, left 2 mL IJ ONCE 05/11/2023 05/11/2023 Ended documented as of this encounter (statuses as of 05/11/2023) Active Problems Problem Noted Date Diagnosed Date Orthostatic hypotension 11/12/2022 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 11/12/2022 Hypertriglyceridemia 05/07/2022 documented as of this encounter (statuses as of 05/11/2023) Resolved Problems Problem Noted Date Diagnosed Date Resolved Date Localized osteoporosis witho ut current pathological fracture 11/12/2022 11/12/2022 documented as of this encounter (statuses as of 05/11/2023) Immunizations Name Administration Dates Next Due COVID-19, [...] Progress Notes * Fernie Richards MD - 05/11/2023 11:12 AM EST Daija Griggs [id number] Daija Griggs is a 77 year old female who presents for consultation to [facility] for left knee injury/pain. Consult requested by Herminia Jang DO. Daija Griggs is here with her Quality: reviewed and agree with Nursing Notes for HPI elements History: History - presents upon referral for L knee pain. Patient reports she feel on this knee years ago but did notseek treatment. Patient notes variable pain in the L knee dependent upon activity ROS: ROS per HPI otherwise non-contributory Past Medical History: Diagnosis Date History of kidney stones Hypertriglyceridemia Osteoporosis Family History Problem Relation Age of Onset Colon cancer Mother Diabetes Mother Other (lilled in motorcycle accident) Father Other (Other) Father Other (Other) Brother kidney issue Heart Disorder Brother [place] Heart Disorder Brother [place] Breast Cancer No significant family history Social [...] on file Housing Stability: Not on file Physical Exam Constitutional: Generally well-nourished and in no acute distress Psychiatric: Mood and Affect normal Eyes: EOMI Respiratory: Normal respiratory effort with regular rate and rhythm Knee Exam, Bilateral Inspection: Unremarkable Alignment: Normal Bilateral Effusion: Negative Bilateral Palpation: Tender palpate greatest along the medial joint ROM: Flexion/Neutral/Extension: L - 120/0/0, R - 120/0/0 Pain with full flexion Strength: SLR: Extension: L - 5/5, R - 5/5 Flexion: L - 5/5, R - 5/5 Hip exam, bilateral: passive internal and external rotation reproduces no pain. Full ROM B/L Radiology (I have personally reviewed the following films): 05/11/2023: Four view x-ray of the left knee Tricompartmental degenerative changes, mild in severity throughout medial left knee pain, except have some concern for narrowing of the medial compartment which would indicate moderate degenerative changes in that location - per my interpretation. Awaiting formal radiology interpretation. Assessment and Plan: 1) left knee pain [...] is benefit from when I perform it. Also scheduled to start viscosupplementation series starting 6-8 weeks, will use gelsyn Procedure note (knee injection), left : Time out: Prior to injection, a time out was called to confirm the administration of appropriate medicine, patient name, procedure and confirm to the best of our ability and knowledge the presence of any necessary risks and benefits. Patient verbalizes understanding. Sterile techinique applied. Skin sterilized with alcohol swab. Knee injected using 1.5 inch, 22 gauge needle. Injected with 3 ml Ropivacaine 0.5%, 1 ml depomedrol 40mg/ml. Patient tolerated procedurewith no significant bleeding or adverse reaction. Patient instructed to call or return to clinic for fever or warmth and redness at injection site for potential infection. Patient also advised as to potential for steroid flare reaction including increased pain and redness at injection site which should be treated with ice and resolve within 24 hours. Fernie Richards MD Primary Care Sports Medicine Orthopaedics [address] [address] documented in this encounter Nursing Notes * Mila Bajwa ATC - 05/11/2023 11:10 AM EST Patient presents upon referral for L knee pain. Patient reports she feel on this knee years ago butdid not seek treatment. Patient notes variable pain in the L knee dependent upon activity. CHETNA Zaragoza documented in this encounter Plan of Treatment Upcoming Encounters Date Type Department Care Team (Late st Contact Info) Description 05/12/2023 9:00 AM EST Office Visit Rheumatology [place] [address] [facility] [address] Say Barros MD [address] [facility] [place] [address] 06/22/2023 10:30 AM EST Office Visit [facility] 132 [facility] [place] [address] Fernie Richards MD [address] [place] [address] 06/29/2023 10:45 AM EST Office Visit [facility] 132 [facility] [place] [address] Fernie Richards MD [address] [place] [address] 07/06/2023 10:30 AM EST Office Visit [facility] 132 [facility] [place] [address] Fernie Richards MD [address] [place] [address] 07/15/2023 9:00 AM EDT Office Visit Family Practice 65 [facility] 293 [place] [address] Herminia Jang, DO 293 [facility] [place] [address] 07/22/2023 11:20 AM EDT Office Visit Family Practice 65 [facility] 293 [place] [address] Herminia Jang, DO 293 [facility] [place] [address] 10/21/2023 11:00 AM EDT Nurse Only Ancillary 65 [facility] 293 [place] [address] College, Nurse Annual Wellness Visit [address] [place] [address] Pending Results Name Type Priority Associated Diagnoses Date /Time XR KNEE 4 OR MORE VIEWS Medical Imaging Routine Chronic pain of left knee 05/11/2023 11:25 AM EST Health Maintenance Due Date Last [...] D LEVEL ONCE IN A LIFETIME-USE SMARTSET# [id number] Completed 11/12/2022 Fecal Occult Blood Test Discontinued [...] as of this encounter Visit Diagnoses Diagnosis Chronic pain of left knee- Primary Pain in joint, lower leg Primary osteoarthritis of one knee, left documented in this encounter Administered Medications Inactive Administered Medications - up to 3 most recent administrations Medication Order MAR Action Action Date Dose Rate Site lidocaine 1% 1 mL - triamcinolone acetonide 40 mg/mL 1 mL inj 2 mL 2 mL, Injection, ONCE, On Tue05/11/23 at 1230, For 1 dose, Lidocaine 1% 1mL Triamcinolone Acetonide 40 mg/mL 1 mL (Final concentration = 20 mg/mL) REFRIGERATE and SHAKE WELL Given 05/11/2023 1:09 PM EST 2 mL Knee Left documented in this encounter Care Teams Soil Biology Teacher Relationship Specialty Start Date End Date Herminia Jang DO 293 [place] [address] PCP - General Family Medicine 04/28/22 documented as of this encounter
--- OUTSIDE RECORDS SUMMARY | 2023-11-03 12:46 | External Medical Summary ---
Author Name Unknown Address Unknown Organization K01:[facility] [address] [facility] [address] [place] [address] Laboratory Report Ordering Provider Test Date Status DONNA NÚÑEZ 05/12/2023 09:31:39 Final Observation Date Value Abnormality Reference (Units ) Status BUN 05/12/2023 09:31:39 20 6-20 (mg/dL) Final Creatinine 05/12/2023 09:31:39 0.9 0.5-1.0 (mg/dL) Final Glomerular filtration rate/1.73 sq M.predicted [Volume Rate/Area] in Serum, Plasma or Blood by Creatinine-based formula (CKD-EPI) 05/12/2023 09:31:39 65 >=60 (mL/min) Final eGFR is calculated based on the CKD-EPI 2020 equation SODIUM 05/12/2023 09:31:39 141 135-146 (m mol/L) Final Potassium 05/12/2023 09:31:39 4.1 3.5-5.1 (m mol/L) Final Cl 05/12/2023 09:31:39 103 98-107 (mm ol/L) Final CO2 05/12/2023 09:31:39 28 22-32 (mmo l/L) Final Anion gap 05/12/2023 09:31:39 10 7-15 (mmol /L) Final Glucose 05/12/2023 09:31:39 98 70-120 (mg /dL) Final Calcium 05/12/2023 09:31:39 9.0 8.4-10.2 ( mg/dL) Final Performing Location [facility] [address] [facility] [address] [place] [address]
--- OUTSIDE RECORDS SUMMARY | 2023-11-03 12:46 | External Medical Summary | Summary of Care ---
Author Name Unknown Organization [facility] Address [address] [place] [address] Phone [phone] Care Team Providers Care Contract Serviceman Name Role Phone AmberHerminia myles Primary Care Provider Reason for Visit * Reason Onset Date Comments Precert Not Needed 04/07/2023 Prolia - wait ing for oop Encounter Details Date Type Department Care Team (Late st Contact Info) Description 04/07/2023 Telephone Home [facility] [place] [address] [place] [address] Infusion, Nurse Home [address] [place] [address] Precert Not Needed (Prolia - [...] encounter Miscellaneous Notes * Telephone Encounter - Nyla Lara OSA [...] Description 06/22/2023 10:30 AM EST Office Visit [facility] [address] [place] [address] Fernie Richards MD [address] [place] [address] 06/29/2023 10:45 AM EST Office Visit Orthopaedics [facility] [address] [place] [address] Fernie Richards MD [address] [place] [address] 07/06/2023 10:30 AM EST Office Visit Orthopaedics [facility] [address] [place] [address] Fernie Richards MD [address] [place] [address] 07/15/2023 9:00 AM EDT Office Visit Family Practice 65 [facility] 293 [place] [address] Herminia Jang, DO 293 [place] [place] [address] 07/22/2023 11:20 AM EDT Office Visit Family Practice 65 [facility] 293 [place] [address] Herminia Jang, DO 293 [place] [address] 10/21/2023 11:00 AM EDT Nurse Only Ancillary [address] [place] [address] College, Nurse Annual Wellness Visit [address] [place] [address] Health Maintenance Due Date Last Done Comments [...] D LEVEL ONCE IN A LIFETIME-USE SMARTSET# [id number] Completed 05/12/2023, 11/12/2022 Fecal Occult Blood Test [...] filedocumented as of this encounter Care Teams Contract Serviceman Relationship Specialty Start Date End Date Herminia Jang DO 293 [place] [address] PCP - General Family Medicine 04/28/22 documented as of this encounter
--- OUTSIDE RECORDS SUMMARY | 2023-11-03 12:46 | External Medical Summary | Summary of Care ---
Author Name Unknown Organization [facility] Address [address] [facility] [place] [address] Phone [phone] Care Team Providers Care Taxi Dancer Name Role Phone AmberHerminia myles Primary Care Provider [phone] Encounter Details Date Type Department Care Team [...] 05/11/2023 11:00 AM EST Office Visit Orthopaedics [facility] [address] [place] [address] Fernie Richards MD [address] [place] [address] 05/12/2023 9:00 AM EST Office Visit Rheumatology [place] [address] [place] [address] Say Barros MD [facility] [place] [address] 07/15/2023 9:00 AM EDT Office Visit Family Practice 65 [facility] 293 [facility] [place] [address] Herminia Jang DO 293 [place] [address] 07/22/2023 11:20 AM EDT Office Visit Family Practice 65 [facility] 293 [place] [address] Herminia Jang DO 293 [place] [address] 10/21/2023 11:00 AM EDT Nurse Only Ancillary 65 [facility] 293 [place] [address] College, Nurse Annual Wellness Visit [address] [place] [address] Health Maintenance Due Date Last Done Comments [...] D LEVEL ONCE IN A LIFETIME-USE SMARTSET# [id number] Completed 11/12/2022 Fecal Occult Blood Test Discontinued [...] filedocumented as of this encounter Care Teams Taxi Dancer Relationship Specialty Start Date End Date Herminia Jang DO [address] [place] [address] PCP - General Family Medicine 04/28/22 documented as of this encounter
--- OUTSIDE RECORDS SUMMARY | 2023-11-03 12:46 | External Medical Summary | Summary of Care ---
Author Name Unknown Organization [facility] Address [address] [place] [address] Phone [phone] Care Team Providers Care Piper Installer Name Role Phone Herminia Jang DO Primary Care Provider Reason for Visit * Reason Comments NEW PATIENT L knee * Evaluate & Treat - Unlimited Visits (Within 10 days (routine)) - Authorized Specialty Diagnoses / Procedures Referred By Contac t Referred To Contact Orthopaedic Surgery / Orthopedics Diagnoses Primary osteoarthritis of one knee, left Herminia Jang DO [address] [place] [address] Referral ID Status Reason Start Date Expiration Date Visits Requested Visits Authorized [id number] Authorized Specialty Services Required [phone] Encounter Details Date Type Department Care Team (Latest Contact Info) Description 05/11/2023 11:00 AM EST Office Visit Orthopaedics [facility] 132 [facility] [place] [address] Fernie Richards MD 132 [facility] [place] [address] Chronic pain of left knee*; Primary osteoarthritis [...] knee, left 2 mL IJ ONCE 05/11/2023 05/12/2023 Active documented as of this encounter (statuses [...] - 05/11/2023 11:12 AM EST Daija Griggs [id number] Daija Griggs is a 77 year old female who presents for consultation to [facility] Medicine for left knee [...] (Other) Brother kidney issue Heart Disorder Brother [place] Heart Disorder Brother [place] Breast Cancer No significant family history Social [...] Richards MD Primary Care Sports Medicine Orthopaedics [address] [address] documented in this encounter Nursing Notes * [...] 05/12/2023 9:00 AM EST Office Visit Rheumatology [place] [address] [facility] [place] [address] Say Barros MD [address] [place] [address] 06/22/2023 10:30 AM EST Office Visit [facility] 132 [place] [address] Fernie Richards MD [address] [place] [address] 06/29/2023 10:45 AM EST Office Visit [facility] 132 [facility] [place] [address] Fernie Richards MD [address] [facility] [address] 07/06/2023 10:30 AM EST Office Visit [facility] 132 [place] [address] Fernie Richards MD [address] [place] [address] 07/15/2023 9:00 AM EDT Office Visit Family Practice 65 [facility] 293 [place] [address] Herminia Jang, DO 293 [place] [address] 07/22/2023 11:20 AM EDT Office Visit Family Practice 65 [facility] 293 [place] [address] Herminia Jang, DO 293 [place] [address] 10/21/2023 11:00 AM EDT Nurse Only Ancillary 65 [facility] 293 [place] [address] College, Nurse Annual Wellness Visit [address] [place] [address] Pending Results Name Type Priority Associated Diagnoses [...] D LEVEL ONCE IN A LIFETIME-USE SMARTSET# [id number] Completed 11/12/2022 Fecal Occult Blood Test Discontinued [...] one knee, left documented in this encounter Care Teams Piper Installer Relationship Specialty Start Date End Date Herminia Jang DO [address] [place] [address] PCP - General Family Medicine 04/28/22 documented as of this encounter
[2023-11-03 12:52] LABS: BUN Creatinine Ratio 11.4 (10-20); Calcium 6.8 mg/dl (8.6-10.3); Creatinine Clr Calc Pharmacy 51.6 ml/min; Est GFR (African American) 97.5 ml/min; Est GFR (Non-African American) 84.2 ml/min; Magnesium 1.6 mg/dl (1.7-2.4); Phosphorus 3.4 mg/dl (2.5-4.9); Potassium 3.3 mmol/L (3.5-5.1)
[2023-11-03] MEDS: POTASSIUM CHLORIDE CRTAB 20 MEQ TABCR PO SCH (13:39)
[2023-11-03] MEDS: CALCIUM GLUCONATE 1,000 MG/60 ML BAG IV SCH (13:39)
[2023-11-03] MEDS: MAGNESIUM CHLORIDE W/CALCIUM 64MG DELAYED REL TAB PO SCH (13:39)
[2023-11-03 15:42] LABS: Adenovirus F 40/41 PCR Not Detected (NotDetected); Astrovirus PCR Not Detected (NotDetected); Campylobacter PCR Not Detected (NotDetected); Cryptosporidium PCR Not Detected (NotDetected); Cyclospora cayetanensis PCR Not Detected (NotDetected); Entamoeba histolytica PCR Not Detected (NotDetected); Enteroaggregative E.coli(EAEC) Not Detected (NotDetected); Enteropathogenic E.coli (EPEC) Not Detected (NotDetected); Enterotoxigenic E.coli (ETEC) Not Detected (NotDetected); Giardia lamblia PCR Not Detected (NotDetected); Norovirus GI/GII PCR Not Detected (NotDetected); Plesiomonas shigelloides PCR Not Detected (NotDetected); Rotavirus A PCR Not Detected (NotDetected); Salmonella PCR Not Detected (NotDetected); Sapovirus PCR Not Detected (NotDetected); Shiga-like Toxin E.coli (STEC) Not Detected (NotDetected); Shigella/Enteroinvasive E.coli Not Detected (NotDetected); Vibrio cholerae PCR Not Detected (NotDetected); Vibrio species PCR Not Detected (NotDetected); Yersinia enterocolitica PCR Not Detected (NotDetected)
[2023-11-03 18:18] LABS: Calcium 6.9 mg/dl (8.6-10.3); Creatinine Clr Calc Pharmacy 60.2 ml/min; Est GFR (African American) 102.6 ml/min; Est GFR (Non-African American) 88.5 ml/min; Magnesium 1.4 mg/dl (1.7-2.4); Phosphorus 3.6 mg/dl (2.5-4.9); Potassium 3.2 mmol/L (3.5-5.1)
[2023-11-04 05:43] LABS: Hematocrit (blood only) 31.2 % (37.0-47.0); Hemoglobin 10.6 g/dl (12.0-16.0); Mean Corpuscular Hemoglobin 30.3 pg (25.0-34.0); Mean Corpuscular Volume 89.1 fL (80.0-100.0); Mean Platelet Volume 9.6 fL (9.4-12.4); Platelet Count 194 K/uL (130-400); RDW Coefficient of Variation 15.1 % (11.5-14.5); RDW Standard Deviation 49.9 fL (36.4-46.3); White Blood Count 7.09 K/ul (4.8-10.8)
[2023-11-04 05:59] LABS: BUN Creatinine Ratio 6.8 (10-20); Calcium 6.8 mg/dl (8.6-10.3); Creatinine Clr Calc Pharmacy 61.2 ml/min; Est GFR (African American) 103.2 ml/min; Magnesium 1.3 mg/dl (1.7-2.4); Phosphorus 2.9 mg/dl (2.5-4.9); Potassium 3.6 mmol/L (3.5-5.1)
--- NOTE | 2023-11-04 07:29 | Hospitalist Progress Note ---
Date of Service November 04, 2023 Assessment & Plan (1) Acute hypokalemia: (2) Hypomagnesemia: (3) Hypophosphatemia: (4) Hypocalcemia: (5) Cramp of muscle of both upper extremities: (6) Nausea & vomiting: Plan: Patient is 78 yo F with osteoporosis, GERD, hypertriglyceridemia, depression, anxiety presented to ER with complaint of extremity cramping with intermittent, nausea, vomiting. Reports ongoing nausea, vomiting, decreased appetite, intermittent loose bowels and weight loss Vitals stable in ER. No leukocytosis, K: 2.3, Ca: 7.4, magnesium: 0.6, phosphorus <1.0 troponin: 14.8 with repeat of 14.8, lipase and LFTs WNL CT A/P: No bowel obstruction, no acute process noted in abdomen or pelvis In ER given Zofran, IV Tylenol, 500 mL NSS, 2 g magnesium sulfate, 1K rider Electrolyte abnormalities may be secondary to GI losses, decreased oral intake. Suspect muscle cramps and aches secondary to electrolyte abnormality EKG obtained Monitor on telemetry Replete and monitor electrolytes CBC, CMP, magnesium, phosphorus labs monitored closely Continue Protonix Plan to continue home Pepcid and PPI GI and nephrology consulted Per GI - plan fro EGD today (11/04/2023) Per nephrology - obtained pre-albumin, vit D level, repeat labs - monitor and replete as needed (7) Orthostatic hypotension: Plan: History orthostatic hypotension Likely exacerbated by GI losses/poor oral intake Fall precautions Orthostatic vitals (8) Anxiety and depression: Plan: Continue home meds (9) Hypertriglyceridemia: Plan: Continue atorvastatin DVT Prophylaxis Heparin SQ Admitted to PCU Full Code as per discussion with pt Follows with Dr Jang for routine care Admission and Anticipated Discharge Date Admission Date: November 02, 2023 Subjective Pt seen in follow up of electrolyte abnormalities , ongoing n/v, abd. discomfort Recently admitted in [place] for the same - supposed to have egd/ colonoscopy done in november Currently laying in bed in NAD Feels much better - cramping in her arms and legs improved Denies any fever, chills, chest pain, shortness of breath GI and nephrology consulted Plan for EGD today per GI Electrolytes monitored and replaced as needed Review of Systems Review of Systems: All systems reviewed & are unremarkable except as noted in Subjective Physical Exam Physical Exam: General: WD/WN elderly F in NAD Head: normocephalic, atraumatic Eyes: conjunctiva non-injected, anicteric ENT: normal inspection external ears, nose Neck: supple Lungs: clear, no respiratory distress, no wheezing/rhonchi/rales CV: RRR, no murmur, no pretibial edema Abd: normal BS, soft, + minimal diffuse tenderness to palpation without rebound or guarding Ext: no LE edema, no erythema, moves extremities Neuro: A&O x 3, speech fluent, answers appropriately, no facial asymmetry, moves extremities Skin: warm, dry Results & Data Results & Data Vital Signs (Past 12 Hours) Vital Signs Temp Pulse Resp BP Pulse Ox O2 Del Method 11/04/23 02:42 36.7 C 88 18 111/57 L 96 Room Air 11/03/23 22:37 36.5 C 80 18 105/58 L 93 Room Air 11/03/23 19:44 36.8 C 76 18 123/64 96 Room Air Laboratory Results 11/04/23 11/03/23 11/03/23 Range/Units 05:20 17:36 14:04 WBC 7.09 (4.8-10.8) K/ul RBC 3.50 L (4.20-5.40) M/uL Hgb 10.6 L (12.0-16.0) g/dl Hct 31.2 L (37.0-47.0) % MCV 89.1 (80.0-100.0) fL MCH 30.3 (25.0-34.0) pg MCHC 34.0 (32.0-36.0) g/dL RDW Std Deviation 49.9 H (36.4-46.3) fL RDW Coeff of Silvia 15.1 H (11.5-14.5) % Plt Count 194 (130-400) K/uL MPV 9.6 (9.4-12.4) fL Sodium 142 144 (136-145) mmol/L Potassium 3.6 3.2 L (3.5-5.1) mmol/L Chloride 114 H 113 H (98-107) mmol/L Carbon Dioxide 23 22 (21-32) mmol/L Anion Gap 5 9 (3-11) BUN 4 L 6 (6-23) mg/dl Creatinine 0.59 L 0.60 (0.6-1.2) mg/dl Est Cr Clr Drug Dosing 61.2 60.2 ml/min Est GFR ( Amer) 103.2 102.6 ml/min Est GFR (Non-Af Amer) 89.0 88.5 ml/min BUN/Creatinine Ratio 6.8 L 10.0 (10-20) Glucose 88 136 H (70-99(Fasting)) mg/dl Calcium 6.8 L 6.9 L (8.6-10.3) mg/dl Ionized Calcium 0.96 L 0.99 L (1.12-1.32) mmol/L Phosphorus 2.9 3.6 (2.5-4.9) mg/dl Magnesium 1.3 L 1.4 L (1.7-2.4) mg/dl Prealbumin (20-40) mg/dl 25-OH Vitamin D Total (30-100) ng/ml Stl C. cayetanensis PCR Not Detected (NotDetected) Stool Rotavirus A PCR Not Detected (NotDetected) Stl Adenov F 40/41 PCR Not Detected (NotDetected) Stool Astrovirus (PCR) Not Detected (NotDetected) Stool Campylobacter PCR Not Detected (NotDetected) Stl C. diff Tox B Gene Negative Cdiff Gene (Neg) Stool Cryptosporidium PCR Not Detected (NotDetected) Stl E.coli Shiga Tox PCR Not Detected (NotDetected) Stl Enterotoxigenic E PCR Not Detected (NotDetected) Stool EPEC (PCR) Not Detected (NotDetected) Stool EAEC (PCR) Not Detected (NotDetected) Stl E. histolytica PCR Not Detected (NotDetected) Stool Giardia Lamblia PCR Not Detected (NotDetected) Stool Salmonella PCR Not Detected (NotDetected) Stool Sapovirus (PCR) Not Detected (NotDetected) Stl P. shigelloides PCR Not Detected (NotDetected) Stl Shigella/EIEC PCR Not Detected (NotDetected) St Y.enterocolitica PCR Not Detected (NotDetected) Stool Vibrio (PCR) Not Detected (NotDetected) Stl Vibrio cholerae PCR Not Detected (NotDetected) Stl Norovirus GI/GII PCR Not Detected (NotDetected) Stool Comments Pending 11/03/23 11/02/23 Range/Units 12:06 15:35 WBC (4.8-10.8) K/ul RBC (4.20-5.40) M/uL Hgb (12.0-16.0) g/dl Hct (37.0-47.0) % MCV (80.0-100.0) fL MCH (25.0-34.0) pg MCHC (32.0-36.0) g/dL RDW Std Deviation (36.4-46.3) fL RDW Coeff of Silvia (11.5-14.5) % Plt Count (130-400) K/uL MPV (9.4-12.4) fL Sodium 143 (136-145) mmol/L Potassium 3.3 L (3.5-5.1) mmol/L Chloride 112 H (98-107) mmol/L Carbon Dioxide 24 (21-32) mmol/L Anion Gap 7 (3-11) BUN 8 (6-23) mg/dl Creatinine 0.70 (0.6-1.2) mg/dl Est Cr Clr Drug Dosing 51.6 ml/min Est GFR ( Amer) 97.5 ml/min Est GFR (Non-Af Amer) 84.2 ml/min BUN/Creatinine Ratio 11.4 (10-20) Glucose 92 (70-99(Fasting)) mg/dl Calcium 6.8 L (8.6-10.3) mg/dl Ionized Calcium 0.91 L (1.12-1.32) mmol/L Phosphorus 3.4 D (2.5-4.9) mg/dl Magnesium 1.6 L (1.7-2.4) mg/dl Prealbumin 16.4 L (20-40) mg/dl 25-OH Vitamin D Total 40.5 (30-100) ng/ml Stl C. cayetanensis PCR (NotDetected) Stool Rotavirus A PCR (NotDetected) Stl Adenov F 40/41 PCR (NotDetected) Stool Astrovirus (PCR) (NotDetected) Stool Campylobacter PCR (NotDetected) Stl C. diff Tox B Gene (Neg) Stool Cryptosporidium PCR (NotDetected) Stl E.coli Shiga Tox PCR (NotDetected) Stl Enterotoxigenic E PCR (NotDetected) Stool EPEC (PCR) (NotDetected) Stool EAEC (PCR) (NotDetected) Stl E. histolytica PCR (NotDetected) Stool Giardia Lamblia PCR (NotDetected) Stool Salmonella PCR (NotDetected) Stool Sapovirus (PCR) (NotDetected) Stl P. shigelloides PCR (NotDetected) Stl Shigella/EIEC PCR (NotDetected) St Y.enterocolitica PCR (NotDetected) Stool Vibrio (PCR) (NotDetected) Stl Vibrio cholerae PCR (NotDetected) Stl Norovirus GI/GII PCR (NotDetected) Stool Comments Medications Administered Current Inpatient Medications Acetaminophen (Acetaminophen 325 Mg Tab) 650 mg PO Q4H PRN PRN Reason: Pain or Fever Stop: 12/02/23 21:07 Albuterol (Albuterol Hfa 8 Gm Inhaler) 2 puffs INH Q6H PRN PRN Reason: Shortness Of Breath Or Wheezin Stop: 12/02/23 21:07 Atorvastatin Calcium (Atorvastatin 40 Mg Tab) 80 mg PO QPM KRISTINA Stop: 12/02/23 21:07 Last Admin: 11/03/23 20:31 Dose: 80 mg Famotidine (Famotidine 40 Mg Tablet) 40 mg PO QPM KRISTINA Stop: 12/02/23 21:07 Last Admin: 11/03/23 20:30 Dose: 40 mg Heparin Sodium (Porcine) (Heparin Sod 5,000 Unit/0.5 Ml Vial) 5,000 units SQ Q12 KRISTINA Stop: 12/02/23 21:07 Last Admin: 11/03/23 21:13 Dose: 5,000 units Magnesium Sulfate/Dextrose (Magnesium Sulfate / D5w) 1 gm in 100 mls @ 50 mls/hr IV ONE ONE Stop: 11/04/23 09:24 Calcium Gluconate () 1,000 mg in 60 mls @ 240 mls/hr IV NOW STA Stop: 11/04/23 07:40 Magnesium Chloride (Magnesium Chloride W/Calcium 64mg Delayed Rel Tab) 64 mg PO BID KRISTINA Stop: 12/03/23 13:04 Last Admin: 11/03/23 20:29 Dose: 64 mg Montelukast Sodium (Montelukast Sodium 10 Mg Tablet) 10 mg PO DAILY KRISTINA Stop: 12/03/23 08:59 Last Admin: 11/03/23 08:44 Dose: 10 mg Ondansetron HCl (Ondansetron Inj 2 Mg/Ml 2 Ml Vial) 4 mg IV Q6H PRN PRN Reason: Nausea Stop: 12/02/23 21:07 Pantoprazole Sodium (Pantoprazole 40 Mg Tab) 40 mg PO DAILY KRISTINA Stop: 12/03/23 08:59 Last Admin: 11/03/23 08:44 Dose: 40 mg Polyethylene Glycol (Polyethylene (Miralax) 17 Gm Pack) 17 gm PO DAILY PRN PRN Reason: Constipation Stop: 12/02/23 21:07 Potassium Chloride (Potassium Chloride Crtab 20 Meq Tabcr) 40 meq PO TID [facility] Stop: 12/03/23 13:59 Last Admin: 11/03/23 20:34 Dose: 40 meq Ranolazine (Ranolazine 500 Mg Er Tab) 500 mg PO BID KRISTINA Stop: 12/02/23 21:07 Last Admin: 11/03/23 20:30 Dose: 500 mg Sertraline HCl (Sertraline Hcl 100 Mg Tablet) 100 mg PO QAM [facility] Stop: 12/03/23 08:59 Last Admin: 11/03/23 08:44 Dose: 100 mg Trazodone HCl (Trazodone Hcl 100 Mg Tab) 100 mg PO HS KRISTINA Stop: 12/02/23 21:07 Last Admin: 11/03/23 20:30 Dose: 100 mg Vitamin B Complex (Vitamin B Complex Tab) 1 tab PO QAM KRISTINA Stop: 12/04/23 08:59 (6) Nausea & vomiting Vomiting type: unspecified Qualified Code(s): R11.2 - Nausea with vomiting, unspecified
[2023-11-04] MEDS: CALCIUM GLUCONATE 1,000 MG/60 ML BAG IV ONE (08:10)
[2023-11-04] MEDS: MAGNESIUM SULFATE / D5W 1 GM/100 ML BAG IV ONE (08:10)
--- NOTE | 2023-11-04 09:04 | Gastroenterology Progress Note ---
Date of Service November 04, 2023 Assessment & Plan (1) Nausea & vomiting: Plan: 78 year old female with history of osteoporosis, GERD, hypertriglyceridemia, depression, anxiety planned for EGD this AM for evaluation of nausea/vomiting and weight loss Maintain NPO status for EGD this AM Continue present medications We appreciate assistance in the management of any serological abnormality and corrections to include: hemoglobin >7, INR <2, platelets >50,000, potassium levels >3.5 but <5.3, and sodium levels within 5 points of the reference range prior to endoscopic evaluation. Thank you for allowing us to participate in the care of this patient. Please call with any acute changes, questions or concerns. Please see addendum below with additional recommendation from my supervising physician. Admission and Anticipated Discharge Date Admission Date: November 02, 2023 Subjective Pt was seen and evaluated, chart reviewed. No further episodes of nausea/vomiting. Is NPO for EGD evaluation today. She does not recall having EGD or colonoscopy completed in the past. None in [facility] records. CTAP 2023: No acute process within the abdomen or pelvis. No bowel obstruction. No bowel wall thickening. Review of Systems Review of Systems: All other findings negative except as noted in HPI. Physical Exam Constitutional: WD/WN, vitals as above Respiratory: normal respiratory effort, lungs clear to auscultation Cardiovascular: Rate/Rhythm: regular rate and regular rhythm Gastrointestinal (Abdomen): normal bowel sounds, soft, nontender, no hepatosplenomegaly Skin: no rashes, warm and dry Results & Data Results & Data Vital Signs (Past 12 Hours) Vital Signs Temp Pulse Resp BP Pulse Ox O2 Del Method 11/04/23 07:54 36.7 C 73 18 123/72 95 Room Air 11/04/23 02:42 36.7 C 88 18 111/57 L 96 Room Air 11/03/23 22:37 36.5 C 80 18 105/58 L 93 Room Air Laboratory Results 11/04/23 11/03/23 11/03/23 Range/Units 05:20 17:36 14:04 WBC 7.09 (4.8-10.8) K/ul RBC 3.50 L (4.20-5.40) M/uL Hgb 10.6 L (12.0-16.0) g/dl Hct 31.2 L (37.0-47.0) % MCV 89.1 (80.0-100.0) fL MCH 30.3 (25.0-34.0) pg MCHC 34.0 (32.0-36.0) g/dL RDW Std Deviation 49.9 H (36.4-46.3) fL RDW Coeff of Silvia 15.1 H (11.5-14.5) % Plt Count 194 (130-400) K/uL MPV 9.6 (9.4-12.4) fL Sodium 142 144 (136-145) mmol/L Potassium 3.6 3.2 L (3.5-5.1) mmol/L Chloride 114 H 113 H (98-107) mmol/L Carbon Dioxide 23 22 (21-32) mmol/L Anion Gap 5 9 (3-11) BUN 4 L 6 (6-23) mg/dl Creatinine 0.59 L 0.60 (0.6-1.2) mg/dl Est Cr Clr Drug Dosing 61.2 60.2 ml/min Est GFR ( Amer) 103.2 102.6 ml/min Est GFR (Non-Af Amer) 89.0 88.5 ml/min BUN/Creatinine Ratio 6.8 L 10.0 (10-20) Glucose 88 136 H (70-99(Fasting)) mg/dl Calcium 6.8 L 6.9 L (8.6-10.3) mg/dl Ionized Calcium 0.96 L 0.99 L (1.12-1.32) mmol/L Phosphorus 2.9 3.6 (2.5-4.9) mg/dl Magnesium 1.3 L 1.4 L (1.7-2.4) mg/dl Prealbumin (20-40) mg/dl 25-OH Vitamin D Total (30-100) ng/ml Stl C. cayetanensis PCR Not Detected (NotDetected) Stool Rotavirus A PCR Not Detected (NotDetected) Stl Adenov F 40/41 PCR Not Detected (NotDetected) Stool Astrovirus (PCR) Not Detected (NotDetected) Stool Campylobacter PCR Not Detected (NotDetected) Stl C. diff Tox B Gene Negative Cdiff Gene (Neg) Stool Cryptosporidium PCR Not Detected (NotDetected) Stl E.coli Shiga Tox PCR Not Detected (NotDetected) Stl Enterotoxigenic E PCR Not Detected (NotDetected) Stool EPEC (PCR) Not Detected (NotDetected) Stool EAEC (PCR) Not Detected (NotDetected) Stl E. histolytica PCR Not Detected (NotDetected) Stool Giardia Lamblia PCR Not Detected (NotDetected) Stool Salmonella PCR Not Detected (NotDetected) Stool Sapovirus (PCR) Not Detected (NotDetected) Stl P. shigelloides PCR Not Detected (NotDetected) Stl Shigella/EIEC PCR Not Detected (NotDetected) St Y.enterocolitica PCR Not Detected (NotDetected) Stool Vibrio (PCR) Not Detected (NotDetected) Stl Vibrio cholerae PCR Not Detected (NotDetected) Stl Norovirus GI/GII PCR Not Detected (NotDetected) Stool Comments Pending 11/03/23 11/02/23 Range/Units 12:06 15:35 WBC (4.8-10.8) K/ul RBC (4.20-5.40) M/uL Hgb (12.0-16.0) g/dl Hct (37.0-47.0) % MCV (80.0-100.0) fL MCH (25.0-34.0) pg MCHC (32.0-36.0) g/dL RDW Std Deviation (36.4-46.3) fL RDW Coeff of Silvia (11.5-14.5) % Plt Count (130-400) K/uL MPV (9.4-12.4) fL Sodium 143 (136-145) mmol/L Potassium 3.3 L (3.5-5.1) mmol/L Chloride 112 H (98-107) mmol/L Carbon Dioxide 24 (21-32) mmol/L Anion Gap 7 (3-11) BUN 8 (6-23) mg/dl Creatinine 0.70 (0.6-1.2) mg/dl Est Cr Clr Drug Dosing 51.6 ml/min Est GFR ( Amer) 97.5 ml/min Est GFR (Non-Af Amer) 84.2 ml/min BUN/Creatinine Ratio 11.4 (10-20) Glucose 92 (70-99(Fasting)) mg/dl Calcium 6.8 L (8.6-10.3) mg/dl Ionized Calcium 0.91 L (1.12-1.32) mmol/L Phosphorus 3.4 D (2.5-4.9) mg/dl Magnesium 1.6 L (1.7-2.4) mg/dl Prealbumin 16.4 L (20-40) mg/dl 25-OH Vitamin D Total 40.5 (30-100) ng/ml Stl C. cayetanensis PCR (NotDetected) Stool Rotavirus A PCR (NotDetected) Stl Adenov F 40/41 PCR (NotDetected) Stool Astrovirus (PCR) (NotDetected) Stool Campylobacter PCR (NotDetected) Stl C. diff Tox B Gene (Neg) Stool Cryptosporidium PCR (NotDetected) Stl E.coli Shiga Tox PCR (NotDetected) Stl Enterotoxigenic E PCR (NotDetected) Stool EPEC (PCR) (NotDetected) Stool EAEC (PCR) (NotDetected) Stl E. histolytica PCR (NotDetected) Stool Giardia Lamblia PCR (NotDetected) Stool Salmonella PCR (NotDetected) Stool Sapovirus (PCR) (NotDetected) Stl P. shigelloides PCR (NotDetected) Stl Shigella/EIEC PCR (NotDetected) St Y.enterocolitica PCR (NotDetected) Stool Vibrio (PCR) (NotDetected) Stl Vibrio cholerae PCR (NotDetected) Stl Norovirus GI/GII PCR (NotDetected) Stool Comments PG Care Time/CCT Total # of Minutes Spent Total Time Spent with Patient: Total time spent is greater than 50% in coordination of care (as documented) at patient's floor/unit and/or counseling patient: Coding Level of Care Code None Diagnoses Nausea & vomiting R11.2 Vomiting type: unspecified (1) Nausea & vomiting Vomiting type: unspecified Qualified Code(s): R11.2 - Nausea with vomiting, unspecified
--- NOTE | 2023-11-04 10:32 | Anesthesiology Consultation ---
Date of Service November 04, 2023 Assessment & Plan Chart Review Chart Review: Acceptable Risk for Surgery and Patient NOT seen in Pre Admission Testing Consults Requested none Proposed Anesthesia Risk / Benefits Reviewed With: PT / POA / Parent / Guardian, Accepts Plan and Informed Consent Obtained History Surgery Operation Date: 11/04/23 16:45 Proposed Procedures p Esophagogastroduodenoscopy Aries Chris MD Height/Weight Height: 5 ft 1 in Weight: 55.5 kg Allergies Allergy/AdvReac Type Severity Reaction Status Date / Time alendronate sodium Allergy Intermediate Itching Verified 11/04/23 10:24 [From Fosamax] Medications Home Medications Medication Instructions Recorded Confirmed Last Taken acetaminophen 650 mg 650 mg PO Q8H PRN Pain 11/02/23 11/02/23 Unknown tablet,extended release albuterol sulfate 90 mcg/actuation 2 puff inhalation Q6H PRN 11/02/23 11/02/23 Unknown aerosol inhaler Shortness Of Breath Or Wheezing atorvastatin 80 mg tablet 80 mg PO QPM 11/02/23 11/02/23 10/31/23 denosumab 60 mg/mL subcutaneous 60 mg subcut .[id number] 11/02/23 11/02/23 Unknown syringe (Prolia) famotidine 40 mg tablet 40 mg PO QPM 11/02/23 11/02/23 10/31/23 flaxseed oil 1,000 mg capsule 1,000 mg PO QPM 11/02/23 11/02/23 10/31/23 montelukast 10 mg tablet 10 mg PO DAILY 11/02/23 11/02/23 11/01/23 pantoprazole 20 mg tablet,delayed 20 mg PO QDD 11/02/23 11/02/23 10/31/23 release ranolazine 500 mg tablet,extended 500 mg PO BID 11/02/23 11/02/23 11/01/23 08:00 release,12 hr sertraline 100 mg tablet 100 mg PO QAM 11/02/23 11/02/23 11/01/23 trazodone 100 mg tablet 100 mg PO HS 11/02/23 11/02/23 10/31/23 Active Medications Generic Name Dose Route Start Last Admin Trade Name Freq PRN Reason Stop Dose Admin Atorvastatin Calcium 80 mg 11/02/23 21:08 11/03/23 20:31 Atorvastatin 40 Mg Tab PO 12/02/23 21:07 80 mg QPM KRISTINA Administration Famotidine 40 mg 11/02/23 21:08 11/03/23 20:30 Famotidine 40 Mg Tablet PO 12/02/23 21:07 40 mg QPM KRISTINA Administration Heparin Sodium (Porcine) 5,000 units 11/02/23 21:08 11/03/23 21:13 Heparin Sod 5,000 Unit/0.5 Ml Vial SQ 12/02/23 21:07 5,000 units Q12 KRISTNIA Administration Magnesium Chloride 64 mg 11/03/23 13:05 11/03/23 20:29 Magnesium Chloride W/Calcium 64mg Delayed Rel Tab PO 12/03/23 13:04 64 mg BID KRISTINA Administration Montelukast Sodium 10 mg 11/03/23 09:00 11/03/23 08:44 Montelukast Sodium 10 Mg Tablet PO 12/03/23 08:59 10 mg DAILY KRISTINA Administration Pantoprazole Sodium 40 mg 11/03/23 09:00 11/03/23 08:44 Pantoprazole 40 Mg Tab PO 12/03/23 08:59 40 mg DAILY KRISTINA Administration Potassium Chloride 40 meq 11/03/23 14:00 11/03/23 20:34 Potassium Chloride Crtab 20 Meq Tabcr PO 12/03/23 13:59 40 meq TID KRISTINA Administration Ranolazine 500 mg 11/02/23 21:08 11/03/23 20:30 Ranolazine 500 Mg Er Tab PO 12/02/23 21:07 500 mg BID KRISTINA Administration Sertraline HCl 100 mg 11/03/23 09:00 11/03/23 08:44 Sertraline Hcl 100 Mg Tablet PO 12/03/23 08:59 100 mg QAM KRISTINA Administration Trazodone HCl 100 mg 11/02/23 21:08 11/03/23 20:30 Trazodone Hcl 100 Mg Tab PO 12/02/23 21:07 100 mg HS KRISTINA Administration Past Medical History Medical History Osteoporosis Hypertriglyceridemia Anxiety and depression Exercise / Class Metabolic Activity II 4-5 Yardwork/Stairs/Walk up hill Past Family History Family History Other Colorectal cancer Heart disease Past Surgical History Surgical History History of cholecystectomy History of hysterectomy Past Anesthesia History No Hx of Anesthesia Complications and No Family Hx of Anesthesia Complications History of PONV No Hx of PONV and No Hx of Motion Sickness Social History Smoking Status: Never smoker Hx Alcohol Use: No Hx Substance Use: No Physical Exam Vital Signs Last Vital Signs Temp 36.7 C 11/04/23 07:54 Pulse 73 11/04/23 07:54 Resp 18 11/04/23 07:54 BP 123/72 11/04/23 07:54 Pulse Ox 95 11/04/23 07:54 O2 Del Method Room Air 11/04/23 07:54 ENMT Mouth: + dentures (full upper. multiple missing lower teeth) Thyromental Distance: > or= 3.5 Finger Breadths Mallampati Class: II Neck normal visual inspection Respiratory normal respiratory effort Auscultation: lungs clear to auscultation bilaterally Cardiovascular Rate/Rhythm: regular rate and regular rhythm Psychiatric Orientation: alert Testing Laboratory Results 11/04/23 05:20 11/04/23 05:20 Urine Color Dark Yellow 11/02/23 16:53 Urine Appearance Cloudy (Clear) A 11/02/23 16:53 Urine pH 6.0 (4.5-7.5) 11/02/23 16:53 Ur Specific Woodson 1.024 (1.000-1.030) 11/02/23 16:53 Urine Protein 1+ (Negative) H 11/02/23 16:53 Urine Glucose (UA) Negative (Negative) 11/02/23 16:53 Urine Ketones 1+ (Negative) H 11/02/23 16:53 Urine Nitrite Negative (Negative) 11/02/23 16:53 Ur Leukocyte Esterase 1+ (Negative) H 11/02/23 16:53 Urine WBC (Auto) 0-5 /hpf (0-5) 11/02/23 16:53 Urine RBC (Auto) 6-10 /hpf (0-2) H 11/02/23 16:53 U Hyaline Cast (Auto) 6-10 /lpf (0-2) H 11/02/23 16:53 U Epithel Cells (Auto) 0-2 /hpf (0-2) 11/02/23 16:53 Urine Bacteria (Auto) None Seen (None Seen) 11/02/23 16:53
--- NOTE | 2023-11-04 11:26 | History & Physical Bridge Note ---
Date of Service November 04, 2023 History & Physical Bridge Note I have examined the patient, reviewed the History & Physical and in the interval since the performance of the History & Physical I have noted the following changes of clinical significance: no changes noted
--- NOTE | 2023-11-04 11:47 | GI REPORT ---
[facility] Patient: TATYANA JAMES : 1945 Sex at : Female Age: 78 Years Procedure: Upper GI endoscopy Date: 11/04/2023 Attending Physician: Preston Chris MD Referring MD: Andrey Adam Md Indications: - Dysphagia - Weight loss Medications: - Monitored Anesthesia Care Complications: - No immediate complications. Estimated Blood Loss: - Estimated blood loss: none. Procedure: - Prior to the procedure, a History and Physical was performed, and patient medications and allergies were reviewed. The patient's tolerance of previous anesthesia was also reviewed. The risks and benefits of the procedure and the sedation options and risks were discussed with the patient. All questions were answered, and informed consent was obtained. After reviewing the risks and benefits, the patient was deemed in satisfactory condition to undergo the procedure. - The egd scope was introduced through the mouth and advanced to the second part of the duodenum. - The upper GI endoscopy was accomplished without difficulty. - The patient tolerated the procedure well. Findings: - Multiple fundic polyps the largest of which was biopsied Biopsies done for EOE Impression: - Multiple fundic polyps the largest of which was biopsied - Biopsies done for EOE Recommendation: - Resume previous diet. - Continue present medications. - Await pathology results. - Obtain gastric emptying studies. - Can plan for coloscopy as inpatient Tuesday or as OP with her primary GI as planned Procedure Code(s): - 83184, Esophagogastroduodenoscopy, flexible, transoral; diagnostic, including collection of specimen(s) by brushing or washing, when performed (separate procedure) Diagnosis Code(s): - R13.10, Dysphagia, unspecified CPT(R) - 2022 copyright [employer]. All Rights Reserved. The CPT codes, CCI edits and ICD codes generated are intended as suggestions and were generated based on input data. These codes are preliminary and upon braille coder review may be revised to meet current compliance and payer requirements. The provider is responsible for the final determination of appropriate codes, and modifiers. Preston Chris This document has been electronically signed. Note Initiated:11/04/2023 Note Completed:11/04/2023 11:46 AM \\[email or web address]\Central\InterfaceData\Data\Provation\Results\LIVE\[id number]
--- NOTE | 2023-11-04 11:57 | Anesthesiology Progress Note ---
Date of Service November 04, 2023 Anesthesia Post Procedure Vital Signs Vital Signs: Temp Pulse Pulse Resp BP Pulse Ox O2 Del Method 11/04/23 11:44 36.0 C L 72 14 92/38 L 95 Room Air 11/04/23 10:28 36.8 C 74 16 125/48 L 95 Room Air 11/04/23 08:00 73 11/04/23 07:54 36.7 C 73 18 123/72 95 Room Air 11/04/23 02:42 36.7 C 88 18 111/57 L 96 Room Air 11/03/23 22:37 36.5 C 80 18 105/58 L 93 Room Air 11/03/23 19:44 36.8 C 76 18 123/64 96 Room Air 11/03/23 15:18 36.6 C 72 16 138/78 97 Room Air Pain Intensity Bilateral Leg: Pain Intensity: 0 Bilateral Arm: Pain Intensity: 0 Transfer of Care Handoff Completed per policy Notes Mental Status: alert / awake / arousable Patient Amnestic to Procedure: Yes Nausea / Vomiting: adequately controlled Pain: adequately controlled Airway Patency, RR, SpO2: stable & adequate BP & HR: stable & adequate Hydration State: stable & adequate Anesthetic Complications: no major complications apparent
[2023-11-04] MEDS: VITAMIN B COMPLEX TAB PO SCH (13:44)
[2023-11-04] MEDS: LIDOCAINE 2% 2 ML VIAL/AMP(20MG/ML) INFIL ONE (14:08)
[2023-11-04] MEDS: PROPOFOL IV EMULSION 10 MG/ML 20 ML VIAL IV ONE (14:09)
[2023-11-04 18:34] LABS: BUN Creatinine Ratio 6.2 (10-20); Calcium 7.2 mg/dl (8.6-10.3); Creatinine Clr Calc Pharmacy 55.6 ml/min; Est GFR (Non-African American) 86.2 ml/min; Magnesium 1.3 mg/dl (1.7-2.4); Phosphorus 1.7 mg/dl (2.5-4.9); Potassium 3.7 mmol/L (3.5-5.1)
--- NOTE | 2023-11-04 21:30 | Nephrology Progress Note ---
Date of Service November 04, 2023 Assessment & Plan (1) Electrolyte disorder: Plan: presented w/ critical low phos, low mag and severely low K as well as hypocalcemia. after aggressive repletion, lytes improved but still needing aggressive repletion. ketonuria on presentation. healing rib fractures noted as is drop in albumin/total protein overnight. Has apprropriate PTH elevation 165 and D stores adequate at 41. EGD 11/03 w/ multiple fundic polyps , bx'd. received on day of admission/overnight: -K 10 mEq + 30 mEq + 40 mEq + 3*40 mEq = 200 mEq -IV mag 2 gm + 2 gm = 4 gm -Kphos 15 mmol + 30 mmol -1/2 L NS DDX: inadequate intake and refeeding syndrome is likeliest cause and/or complications of PPI use; doubt role for prolia or diuretic/laxative abuse; D stores OK -urine electrolytes of limited utility after repletions but could consider -bmp, mag, phos, IONIZED ca q6-8 hrs to continue >> noon labs ordered and reviewed >> pls order these same labs q 6-8h through tomorrow AM and have covering doc replete -strict count of bm, emesis, I/O -this evening increased mag dose to 2 tabs bid, continue high dose K, started on calcium supplements po as well as giving mag IV 3 gm -f/u pending EGD bxs (what is EOE?) -defer to primary service for gastric emptying studies and/or colo prep (2) Malnutrition: Plan: With just under 20% weight loss of total body weight in the past 3 months per her report. With ketonuria on presentation -Ordered prealbumin -Suspect that this is due to poor p.o. intake, large GI losses of electrolytes, question malabsorption GI tract - as per primary service Follow up EGD results and stool studies (3) Frequent falls: Plan: Given her intention tremor and somewhat odd body movements (nurse reports ataxic movement of right lower extremity while getting back into bed), recommend Serial neurologic exam Careful physical therapy evaluation Check/monitor orthostatic vital signs Fall precautions - her MM cramps and generalized weakness no doubt worsen her fall risk Admission and Anticipated Discharge Date Admission Date: November 02, 2023 Subjective seen on evenign rounds. had EGD today. still w/ frequent diarrhea; still poor po. for colonoscopy early next week or as OP depending on course; no sob, feels a bit stronger Review of Systems 2 Review of Systems: All systems reviewed & are unremarkable except as noted in Subjective Physical Exam 2 Constitutional: well developed, well nourished, average body habitus, + frail appearing and cooperative; no acute distress Eyes: EOM intact bilaterally ENMT: Ears: no external ear abnormality Nose: no external nose abnormality Mouth: + dry oral mucous membranes Neck: no nuchal rigidity Respiratory: normal respiratory effort Auscultation: + diminished lung sounds Cardiovascular: RRR, no murmur, no edema Gastrointestinal (Abdomen): Inspection/Auscultation: normal bowel sounds P ercussion/Palpation: abdomen soft; abdomen nontender Musculoskeletal: Extremities: strength 5/5 throughout Skin: no rashes, warm and dry Psychiatric: Orientation: alert and oriented x 3 Speech: normal rate/rhythm/volume of speech Results & Data Vital Signs (Past 12 Hours) Vital Signs Temp Pulse Resp BP Pulse Ox O2 Del Method 11/04/23 19:20 36.7 C 80 17 122/61 96 Room Air 11/04/23 15:33 36.7 C 82 18 119/68 97 Room Air 11/04/23 12:59 36.4 C L 67 18 134/70 97 Room Air 11/04/23 12:14 68 16 133/62 98 Room Air 11/04/23 11:59 72 16 118/56 L 96 Room Air 11/04/23 11:44 36.0 C L 72 14 92/38 L 95 Room Air 11/04/23 10:28 36.8 C 74 16 125/48 L 95 Room Air Laboratory Results 11/04/23 05:20 11/04/23 17:55 Ca 7.2, iCa 1.02 phos 1.7 mag 1.3
[2023-11-04] MEDS: MAGNESIUM SULFATE / D5W 1 GM/100 ML BAG IV SCH (21:54)
--- NOTE | 2023-11-04 21:59 | Electrocardiogram Report ---
Test Reason : Blood Pressure : / mmHG Vent. Rate : 070 BPM Atrial Rate : 070 BPM P-R Int : 144 ms QRS Dur : 074 ms QT Int : 472 ms P-R-T Axes : 031 027 047 degrees QTc Int : 509 ms Poor data quality, interpretation may be adversely affected Normal sinus rhythm Nonspecific ST and T wave abnormality Prolonged QT Abnormal ECG No previous ECGs available Confirmed by Alber Moore ([id number]) on 11/04/2023 9:58:58 PM Referred By: REFERRED SELF Confirmed By:Alber Moore
[2023-11-04] MEDS: CALCIUM 600MG + VIT D 400 IU TAB PO SCH (22:00)
[2023-11-05 05:59] LABS: Hematocrit (blood only) 32.4 % (37.0-47.0); Mean Corpuscular Hemoglobin 30.8 pg (25.0-34.0); Mean Corpuscular Volume 90.8 fL (80.0-100.0); Mean Platelet Volume 9.7 fL (9.4-12.4); Platelet Count 214 K/uL (130-400); RDW Coefficient of Variation 14.1 % (11.5-14.5); RDW Standard Deviation 47.1 fL (36.4-46.3); Red Blood Count 3.57 M/uL (4.20-5.40); White Blood Count 7.22 K/ul (4.8-10.8)
[2023-11-05 06:01] LABS: BUN Creatinine Ratio 4.8 (10-20); Calcium 6.9 mg/dl (8.6-10.3); Creatinine Clr Calc Pharmacy 57.3 ml/min; Est GFR (Non-African American) 87.1 ml/min; Potassium 4.4 mmol/L (3.5-5.1)
[2023-11-05 06:37] LABS: Magnesium 2.3 mg/dl (1.7-2.4); Phosphorus 1.4 mg/dl (2.5-4.9)
[2023-11-05] MEDS ORDERED: SODIUM PHOSPHATE 3 MMOL/1 ML INFUSION IV STA (06:43)
--- NOTE | 2023-11-05 07:14 | Hospitalist Progress Note ---
Date of Service November 05, 2023 Assessment & Plan (1) Acute hypokalemia: (2) Hypomagnesemia: (3) Hypophosphatemia: (4) Hypocalcemia: (5) Cramp of muscle of both upper extremities: (6) Nausea & vomiting: Plan: Patient is 78 yo F with osteoporosis, GERD, hypertriglyceridemia, depression, anxiety presented to ER with complaint of extremity cramping with intermittent, nausea, vomiting. Reports ongoing nausea, vomiting, decreased appetite, intermittent loose bowels and weight loss Vitals stable in ER. No leukocytosis, K: 2.3, Ca: 7.4, magnesium: 0.6, phosphorus <1.0 troponin: 14.8 with repeat of 14.8, lipase and LFTs WNL CT A/P: No bowel obstruction, no acute process noted in abdomen or pelvis In ER given Zofran, IV Tylenol, 500 mL NSS, 2 g magnesium sulfate, 1K rider Electrolyte abnormalities may be secondary to GI losses, decreased oral intake. Suspect muscle cramps and aches secondary to electrolyte abnormality EKG obtained Monitor on telemetry Replete and monitor electrolytes CBC, CMP, magnesium, phosphorus labs monitored closely Continue Protonix Plan to continue home Pepcid and PPI GI and nephrology consulted Per nephrology - obtained pre-albumin, vit D level, repeat labs - monitor and replete as needed Per GI - underwent EGD on (11/04/2023) Findings: - Multiple fundic polyps the largest of which was biopsied Biopsies done for EOE Impression: - Multiple fundic polyps the largest of which was biopsied - Biopsies done for EOE Recommendation: - Resume previous diet. - Continue present medications. - Await pathology results. - Obtain gastric emptying studies. - Can plan for coloscopy as inpatient Tuesday or as OP with her primary GI as planned Given her electrolyte abnormalities - plan for colonoscopy while inpt (7) Orthostatic hypotension: Plan: History orthostatic hypotension Likely exacerbated by GI losses/poor oral intake Fall precautions Orthostatic vitals (8) Anxiety and depression: Plan: Continue home meds (9) Hypertriglyceridemia: Plan: Continue atorvastatin DVT Prophylaxis Heparin SQ Admitted to PCU Full Code as per discussion with pt Follows with Dr Jang for routine care Admission and Anticipated Discharge Date Admission Date: November 02, 2023 Subjective Pt seen in follow up of electrolyte abnormalities , ongoing n/v, abd. discomfort Recently admitted in [place] for the same - supposed to have egd/ colonoscopy done in november Currently sitting up in chair in [place] Feels much better - cramping in her arms and legs resolved Denies any fever, chills, chest pain, shortness of breath GI and nephrology consulted Underwent EGD yesterday per GI -> plan for colonoscopy likely on Tuesday Electrolytes monitored and replaced as needed Review of Systems Review of Systems: All systems reviewed & are unremarkable except as noted in Subjective Physical Exam Physical Exam: General: WD/WN elderly F in [place] Head: normocephalic, atraumatic Eyes: conjunctiva non-injected, anicteric ENT: normal inspection external ears, nose Neck: supple Lungs: clear, no respiratory distress, no wheezing/rhonchi/rales CV: RRR, no murmur, no pretibial edema Abd: normal BS, soft, + minimal diffuse tenderness to palpation without rebound or guarding Ext: no LE edema, no erythema, moves extremities Neuro: A&O x 3, speech fluent, answers appropriately, no facial asymmetry, moves extremities Skin: warm, dry Results & Data Results & Data Vital Signs (Past 12 Hours) Vital Signs Temp Pulse Pulse Resp BP Pulse Ox O2 Del Method 11/05/23 02:59 36.6 C 73 18 105/56 L 97 Room Air 11/05/23 00:28 80 11/04/23 23:03 36.6 C 83 18 99/60 L 93 Room Air 11/04/23 21:00 11/04/23 19:20 36.7 C 80 17 122/61 96 Room Air O2 Del Method 11/05/23 02:59 11/05/23 00:28 11/04/23 23:03 11/04/23 21:00 Room Air 11/04/23 19:20 Laboratory Results 11/05/23 11/04/23 Range/Units 05:26 17:55 WBC 7.22 (4.8-10.8) K/ul RBC 3.57 L (4.20-5.40) M/uL Hgb 11.0 L (12.0-16.0) g/dl Hct 32.4 L (37.0-47.0) % MCV 90.8 (80.0-100.0) fL MCH 30.8 (25.0-34.0) pg MCHC 34.0 (32.0-36.0) g/dL RDW Std Deviation 47.1 H (36.4-46.3) fL RDW Coeff of Silvia 14.1 (11.5-14.5) % Plt Count 214 (130-400) K/uL MPV 9.7 (9.4-12.4) fL Sodium 138 139 (136-145) mmol/L Potassium 4.4 3.7 (3.5-5.1) mmol/L Chloride 111 H 110 H (98-107) mmol/L Carbon Dioxide 23 23 (21-32) mmol/L Anion Gap 4 6 (3-11) BUN 3 L 4 L (6-23) mg/dl Creatinine 0.63 0.65 (0.6-1.2) mg/dl Est Cr Clr Drug Dosing 57.3 55.6 ml/min Est GFR ( Amer) 101.0 100.0 ml/min Est GFR (Non-Af Amer) 87.1 86.2 ml/min BUN/Creatinine Ratio 4.8 L 6.2 L (10-20) Glucose 94 92 (70-99(Fasting)) mg/dl Calcium 6.9 L 7.2 L (8.6-10.3) mg/dl Ionized Calcium 1.02 L 1.02 L (1.12-1.32) mmol/L Phosphorus 1.4 L* 1.7 L D (2.5-4.9) mg/dl Magnesium 2.3 1.3 L (1.7-2.4) mg/dl Medications Administered Current Inpatient Medications Acetaminophen (Acetaminophen 325 Mg Tab) 650 mg PO Q4H PRN PRN Reason: Pain or Fever Stop: 12/02/23 21:07 Albuterol (Albuterol Hfa 8 Gm Inhaler) 2 puffs INH Q6H PRN PRN Reason: Shortness Of Breath Or Wheezin Stop: 12/02/23 21:07 Atorvastatin Calcium (Atorvastatin 40 Mg Tab) 80 mg PO QPM [facility] Stop: 12/02/23 21:07 Last Admin: 11/04/23 20:35 Dose: 80 mg Calcium/Vitamin D (Calcium 600mg + Vit D 400 Iu Tab) 2 tab PO BID [facility] Stop: 12/04/23 21:44 Last Admin: 11/04/23 22:00 Dose: 2 tab Famotidine (Famotidine 40 Mg Tablet) 40 mg PO QPM [facility] Stop: 12/02/23 21:07 Last Admin: 11/04/23 20:35 Dose: 40 mg Heparin Sodium (Porcine) (Heparin Sod 5,000 Unit/0.5 Ml Vial) 5,000 units SQ Q12 [facility] Stop: 12/02/23 21:07 Last Admin: 11/04/23 20:35 Dose: 5,000 units Sodium Phosphate 24 mmol/ (Sodium Chloride) 508 mls @ 125 mls/hr IV ONE ONE Stop: 11/05/23 11:03 Magnesium Chloride (Magnesium Chloride W/Calcium 64mg Delayed Rel Tab) 128 mg PO BID [facility] Stop: 12/05/23 08:59 Montelukast Sodium (Montelukast Sodium 10 Mg Tablet) 10 mg PO DAILY [facility] Stop: 12/03/23 08:59 Last Admin: 11/04/23 13:44 Dose: 10 mg Ondansetron HCl (Ondansetron Inj 2 Mg/Ml 2 Ml Vial) 4 mg IV Q6H PRN PRN Reason: Nausea Stop: 12/02/23 21:07 Pantoprazole Sodium (Pantoprazole 40 Mg Tab) 40 mg PO DAILY [facility] Stop: 12/03/23 08:59 Last Admin: 11/04/23 13:44 Dose: 40 mg Polyethylene Glycol (Polyethylene (Miralax) 17 Gm Pack) 17 gm PO DAILY PRN PRN Reason: Constipation Stop: 12/02/23 21:07 Potassium Chloride (Potassium Chloride Crtab 20 Meq Tabcr) 40 meq PO TID [facility] Stop: 12/03/23 13:59 Last Admin: 11/04/23 20:37 Dose: 40 meq Ranolazine (Ranolazine 500 Mg Er Tab) 500 mg PO BID [facility] Stop: 12/02/23 21:07 Last Admin: 11/04/23 20:35 Dose: 500 mg Sertraline HCl (Sertraline Hcl 100 Mg Tablet) 100 mg PO QAM [facility] Stop: 12/03/23 08:59 Last Admin: 11/04/23 13:44 Dose: 100 mg Trazodone HCl (Trazodone Hcl 100 Mg Tab) 100 mg PO HS [facility] Stop: 12/02/23 21:07 Last Admin: 11/04/23 20:36 Dose: 100 mg Vitamin B Complex (Vitamin B Complex Tab) 1 tab PO QAM [facility] Stop: 12/04/23 08:59 Last Admin: 11/04/23 13:44 Dose: 1 tab (6) Nausea & vomiting Vomiting type: unspecified Qualified Code(s): R11.2 - Nausea with vomiting, unspecified
[2023-11-05] MEDS: CALCIUM GLUCONATE 1,000 MG/60 ML BAG IV STA (07:45)
[2023-11-05] MEDS: SODIUM PHOSPHATE 24 MMOL in SODIUM CHLORIDE 0.9% 500 ML IV ONE (08:59)
[2023-11-05] MEDS: MAGNESIUM CHLORIDE W/CALCIUM 64MG DELAYED REL TAB PO SCH (09:21)
--- NOTE | 2023-11-05 14:56 | Nephrology Progress Note ---
Date of Service November 05, 2023 Assessment & Plan (1) Electrolyte disorder: Plan: presented w/ critical low phos, low mag and severely low K as well as hypocalcemia. after aggressive repletion, lytes improved but still needing aggressive repletion. ketonuria on presentation. healing rib fractures noted. Has apprropriate PTH elevation 165 and D stores adequate at 41. EGD 11/03 w/ multiple fundic polyps , bx'd. received on day of admission/overnight: -K 10 mEq + 30 mEq + 40 mEq + 3*40 mEq = 200 mEq -IV mag 2 gm + 2 gm = 4 gm -Kphos 15 mmol + 30 mmol -1/2 L NS DDX: inadequate intake and refeeding syndrome is likeliest cause and/or complications of PPI use (PPI can cause gastric polyps); doubt role for prolia or diuretic/laxative abuse; D stores OK -urine electrolytes of limited utility after repletions but could consider -bmp, mag, phos, IONIZED ca q12 hrs to continue >> pls have covering doc replete -strict count of bm, emesis, I/O -currently on high dose mag, K, calcium po > continue same -f/u pending EGD bxs (what is EOE?) -defer to primary service for gastric emptying studies and/or colo prep (2) Malnutrition: Plan: With just under 20% weight loss of total body weight in the past 3 months per her report. With ketonuria on presentation. prealbumin low at 16.4 (20-40) -Suspect that this is due to poor p.o. intake, large GI losses of electrolytes, question malabsorption GI tract - as per primary service Follow up EGD results and stool studies (3) Frequent falls: Plan: Given her intention tremor and somewhat odd body movements (nurse reports ataxic movement of right lower extremity while getting back into bed), recommend Serial neurologic exam Careful physical therapy evaluation Check/monitor orthostatic vital signs Fall precautions - her MM cramps and generalized weakness no doubt worsen her fall risk -these are likely worsened by electrolyte issues Admission and Anticipated Discharge Date Admission Date: November 02, 2023 Physical Exam 2 Constitutional: well developed, well nourished, average body habitus, + frail appearing and cooperative; no acute distress Eyes: EOM intact bilaterally ENMT: Ears: no external ear abnormality Nose: no external nose abnormality Mouth: + dry oral mucous membranes Neck: no nuchal rigidity Respiratory: normal respiratory effort Auscultation: + diminished lung sounds Cardiovascular: RRR, no murmur, no edema Gastrointestinal (Abdomen): Inspection/Auscultation: normal bowel sounds P ercussion/Palpation: abdomen soft; abdomen nontender Musculoskeletal: Extremities: strength 5/5 throughout Skin: no rashes, warm and dry Psychiatric: Orientation: alert and oriented x 3 Speech: normal rate/rhythm/volume of speech Results & Data Vital Signs (Past 12 Hours) Vital Signs Temp Pulse Pulse Resp BP Pulse Ox O2 Del Method 11/05/23 11:18 36.4 C L 85 18 118/57 L 99 Room Air 11/05/23 11:00 77 11/05/23 07:24 36.9 C 77 18 127/65 96 Room Air 11/05/23 02:59 36.6 C 73 18 105/56 L 97 Room Air Laboratory Results 11/05/23 05:26 11/05/23 05:26
[2023-11-05] MEDS: ACETAMINOPHEN 325 MG TAB PO PRN (17:19)
[2023-11-05 19:11] LABS: BUN Creatinine Ratio 4.8 (10-20); Creatinine Clr Calc Pharmacy 57.3 ml/min; Est GFR (Non-African American) 87.1 ml/min; Magnesium 1.4 mg/dl (1.7-2.4); Phosphorus 2.1 mg/dl (2.5-4.9)
[2023-11-06 06:35] LABS: Hematocrit (blood only) 33.8 % (37.0-47.0); Hemoglobin 11.3 g/dl (12.0-16.0); Mean Corpuscular Hemoglobin 30.8 pg (25.0-34.0); Mean Corpuscular Hgb Conc 33.4 g/dL (32.0-36.0); Mean Corpuscular Volume 92.1 fL (80.0-100.0); Mean Platelet Volume 9.9 fL (9.4-12.4); Platelet Count 219 K/uL (130-400); RDW Coefficient of Variation 14.6 % (11.5-14.5); RDW Standard Deviation 49.6 fL (36.4-46.3); Red Blood Count 3.67 M/uL (4.20-5.40); White Blood Count 6.19 K/ul (4.8-10.8)
[2023-11-06 07:18] LABS: BUN Creatinine Ratio 4.6 (10-20); Calcium 7.5 mg/dl (8.6-10.3); Creatinine Clr Calc Pharmacy 55.6 ml/min; Est GFR (Non-African American) 86.2 ml/min; Magnesium 1.5 mg/dl (1.7-2.4); Phosphorus 1.9 mg/dl (2.5-4.9)
--- NOTE | 2023-11-06 07:22 | Hospitalist Progress Note ---
Date of Service November 06, 2023 Assessment & Plan (1) Acute hypokalemia: (2) Hypomagnesemia: (3) Hypophosphatemia: (4) Hypocalcemia: (5) Cramp of muscle of both upper extremities: (6) Nausea & vomiting: Plan: Patient is 78 yo F with osteoporosis, GERD, hypertriglyceridemia, depression, anxiety presented to ER with complaint of extremity cramping with intermittent, nausea, vomiting. Reports ongoing nausea, vomiting, decreased appetite, intermittent loose bowels and weight loss Vitals stable in ER. No leukocytosis, K: 2.3, Ca: 7.4, magnesium: 0.6, phosphorus <1.0 troponin: 14.8 with repeat of 14.8, lipase and LFTs WNL CT A/P: No bowel obstruction, no acute process noted in abdomen or pelvis In ER given Zofran, IV Tylenol, 500 mL NSS, 2 g magnesium sulfate, 1K rider Electrolyte abnormalities may be secondary to GI losses, decreased oral intake. Suspect muscle cramps and aches secondary to electrolyte abnormality EKG obtained Monitor on telemetry Replete and monitor electrolytes CBC, CMP, magnesium, phosphorus labs monitored closely Continue Protonix Plan to continue home Pepcid and PPI GI and nephrology consulted Per nephrology - obtained pre-albumin, vit D level, repeat labs - monitor and replete as needed. Started vit. D + calcium supplement. Per GI - underwent EGD on (11/04/2023) Findings: - Multiple fundic polyps the largest of which was biopsied Biopsies done for EOE Impression: - Multiple fundic polyps the largest of which was biopsied - Biopsies done for EOE Recommendation: - Resume previous diet. - Continue present medications. - Await pathology results. - Obtain gastric emptying studies. - Can plan for coloscopy as inpatient Tuesday or as OP with her primary GI as planned Given her electrolyte abnormalities - plan for colonoscopy while inpt (7) Orthostatic hypotension: Plan: History orthostatic hypotension Likely exacerbated by GI losses/poor oral intake Fall precautions Orthostatic vitals (8) Anxiety and depression: Plan: Continue home meds (9) Hypertriglyceridemia: Plan: Continue atorvastatin DVT Prophylaxis Heparin SQ Admitted to PCU Full Code as per discussion with pt Follows with Dr Jang for routine care Admission and Anticipated Discharge Date Admission Date: November 02, 2023 Subjective Pt seen in follow up of electrolyte abnormalities , ongoing n/v, abd. discomfort Recently admitted in [place] for the same - supposed to have egd/ colonoscopy done in november Currently sitting up in chair in [facility] Feels much better - cramping in her arms and legs resolved Denies any fever, chills, chest pain, shortness of breath GI and nephrology consulted Underwent EGD per GI -> plan for colonoscopy on Tuesday Electrolytes monitored and replaced as needed Pt's present at the bedside and updated Review of Systems Review of Systems: All systems reviewed & are unremarkable except as noted in Subjective Physical Exam Physical Exam: General: WD/WN elderly F in [facility] Head: normocephalic, atraumatic Eyes: conjunctiva non-injected, anicteric ENT: normal inspection external ears, nose Neck: supple Lungs: clear, no respiratory distress, no wheezing/rhonchi/rales CV: RRR, no murmur, no pretibial edema Abd: normal BS, soft, + minimal diffuse tenderness to palpation without rebound or guarding Ext: no LE edema, no erythema, moves extremities Neuro: A&O x 3, speech fluent, answers appropriately, no facial asymmetry, moves extremities Skin: warm, dry Results & Data Results & Data Vital Signs (Past 12 Hours) Vital Signs Temp Pulse Pulse Resp BP Pulse Ox O2 Del Method 11/06/23 07:13 36.3 C L 76 18 133/70 98 Room Air 11/06/23 02:40 36.6 C 76 18 111/63 96 Room Air 11/05/23 22:52 80 11/05/23 22:41 36.7 C 73 18 119/65 95 Room Air 11/05/23 21:00 11/05/23 19:39 36.7 C 73 17 146/72 H 98 Room Air O2 Del Method 11/06/23 07:13 11/06/23 02:40 11/05/23 22:52 11/05/23 22:41 11/05/23 21:00 Room Air 11/05/23 19:39 Laboratory Results 11/06/23 11/05/23 Range/Units 05:54 18:34 WBC 6.19 (4.8-10.8) K/ul RBC 3.67 L (4.20-5.40) M/uL Hgb 11.3 L (12.0-16.0) g/dl Hct 33.8 L (37.0-47.0) % MCV 92.1 (80.0-100.0) fL MCH 30.8 (25.0-34.0) pg MCHC 33.4 (32.0-36.0) g/dL RDW Std Deviation 49.6 H (36.4-46.3) fL RDW Coeff of Silvia 14.6 H (11.5-14.5) % Plt Count 219 (130-400) K/uL MPV 9.9 (9.4-12.4) fL Sodium 140 137 (136-145) mmol/L Potassium 6.0 H 5.0 (3.5-5.1) mmol/L Chloride 113 H 108 H (98-107) mmol/L Carbon Dioxide 26 23 (21-32) mmol/L Anion Gap 1 L 6 (3-11) BUN 3 L 3 L (6-23) mg/dl Creatinine 0.65 0.63 (0.6-1.2) mg/dl Est Cr Clr Drug Dosing 55.6 57.3 ml/min Est GFR ( Amer) 100.0 101.0 ml/min Est GFR (Non-Af Amer) 86.2 87.1 ml/min BUN/Creatinine Ratio 4.6 L 4.8 L (10-20) Glucose 88 101 H (70-99(Fasting)) mg/dl Calcium 7.5 L 8.0 L (8.6-10.3) mg/dl Ionized Calcium 1.12 1.06 L (1.12-1.32) mmol/L Phosphorus 1.9 L 2.1 L (2.5-4.9) mg/dl Magnesium 1.5 L 1.4 L (1.7-2.4) mg/dl Medications Administered Current Inpatient Medications Acetaminophen (Acetaminophen 325 Mg Tab) 650 mg PO Q4H PRN PRN Reason: Pain or Fever Stop: 12/02/23 21:07 Last Admin: 11/05/23 17:19 Dose: 650 mg Albuterol (Albuterol Hfa 8 Gm Inhaler) 2 puffs INH Q6H PRN PRN Reason: Shortness Of Breath Or Wheezin Stop: 12/02/23 21:07 Atorvastatin Calcium (Atorvastatin 40 Mg Tab) 80 mg PO QPM [facility] Stop: 12/02/23 21:07 Last Admin: 11/05/23 20:47 Dose: 80 mg Calcium/Vitamin D (Calcium 600mg + Vit D 400 Iu Tab) 2 tab PO BID [facility] Stop: 12/04/23 21:44 Last Admin: 11/05/23 20:46 Dose: 2 tab Famotidine (Famotidine 40 Mg Tablet) 40 mg PO QPM [facility] Stop: 12/02/23 21:07 Last Admin: 11/05/23 20:48 Dose: 40 mg Heparin Sodium (Porcine) (Heparin Sod 5,000 Unit/0.5 Ml Vial) 5,000 units SQ Q12 [facility] Stop: 12/02/23 21:07 Last Admin: 11/05/23 20:45 Dose: 5,000 units Calcium Gluconate () 1,000 mg in 60 mls @ 240 mls/hr IV NOW STA Stop: 11/06/23 07:36 Magnesium Chloride (Magnesium Chloride W/Calcium 64mg Delayed Rel Tab) 128 mg PO BID [facility] Stop: 12/05/23 08:59 Last Admin: 11/05/23 20:47 Dose: 128 mg Montelukast Sodium (Montelukast Sodium 10 Mg Tablet) 10 mg PO DAILY [facility] Stop: 12/03/23 08:59 Last Admin: 11/05/23 09:14 Dose: 10 mg Ondansetron HCl (Ondansetron Inj 2 Mg/Ml 2 Ml Vial) 4 mg IV Q6H PRN PRN Reason: Nausea Stop: 12/02/23 21:07 Pantoprazole Sodium (Pantoprazole 40 Mg Tab) 40 mg PO DAILY [facility] Stop: 12/03/23 08:59 Last Admin: 11/05/23 09:14 Dose: 40 mg Polyethylene Glycol (Polyethylene (Miralax) 17 Gm Pack) 17 gm PO DAILY PRN PRN Reason: Constipation Stop: 12/02/23 21:07 Potassium Chloride (Potassium Chloride Crtab 20 Meq Tabcr) 40 meq PO TID [facility] Stop: 12/03/23 13:59 Last Admin: 11/05/23 20:48 Dose: 40 meq Ranolazine (Ranolazine 500 Mg Er Tab) 500 mg PO BID [facility] Stop: 12/02/23 21:07 Last Admin: 11/05/23 20:46 Dose: 500 mg Sertraline HCl (Sertraline Hcl 100 Mg Tablet) 100 mg PO QAM [facility] Stop: 12/03/23 08:59 Last Admin: 11/05/23 09:14 Dose: 100 mg Trazodone HCl (Trazodone Hcl 100 Mg Tab) 100 mg PO [facility] Stop: 12/02/23 21:07 Last Admin: 11/05/23 20:46 Dose: 100 mg Vitamin B Complex (Vitamin B Complex Tab) [facility] [place] Stop: 12/04/23 08:59 Last Admin: 11/05/23 09:14 Dose: 1 tab (6) Nausea & vomiting Vomiting type: unspecified Qualified Code(s): R11.2 - Nausea with vomiting, unspecified
[2023-11-06] MEDS: CALCIUM GLUCONATE 1,000 MG/60 ML BAG IV STA (08:10)
[2023-11-06] MEDS: FUROSEMIDE INJ 20 MG/2 ML VIAL IV ONE (12:15)
[2023-11-06] MEDS ORDERED: LAVAGE SOLUTION 4000ML PO SCH (13:15)
[2023-11-06] MEDS: MAGNESIUM SULFATE / D5W 1 GM/100 ML BAG IV ONE ×2 (13:18→15:35)
--- NOTE | 2023-11-06 15:41 | Nephrology Progress Note ---
Date of Service November 06, 2023 Assessment & Plan (1) Electrolyte disorder: Plan: presented w/ critical low phos, low mag and severely low K as well as hypocalcemia. after aggressive repletion, lytes improved but still needing aggressive repletion. ketonuria on presentation. healing rib fractures noted as is drop in albumin/total protein overnight. Has apprropriate PTH elevation 165 and D stores adequate at 41. EGD 11/03 w/ multiple fundic polyps , bx'd. received on day of admission/overnight: -K 10 mEq + 30 mEq + 40 mEq + 3*40 mEq = 200 mEq -IV mag 2 gm + 2 gm = 4 gm -Kphos 15 mmol + 30 mmol -1/2 L NS DDX: inadequate intake and refeeding syndrome is likeliest cause and/or complications of PPI use; doubt role for prolia or diuretic/laxative abuse; D stores OK -urine electrolytes of limited utility after repletions but could consider -bmp, mag, phos, IONIZED ca q8-12hrs to continue -strict count of bm, emesis, I/O >> continue aggressive mag and calcium supplements >>w/ elevated K this AM, K on hold; resume supplements at bid not tid when appropriate; gave lasix 10 mg IV x 1 today; agree w/ repeat lab at 2100 -cont PPI for now which is obligate -f/u pending EGD bxs (what is EOE?) -defer to primary service for gastric emptying studies and/or colo prep will sign off; -replete lytes as needed in house, preferably po -no OP neph f/u needed -[place] so far seems to improve her po intake but GI w/u in process to evaluate for other causes such as malabsorption -monitor orthstatic VS -will need PCP or f/u provider to monitor BMP, mag, phos q 1 wk x 3 as OP and possibly more often Care coordinated w/ Dr Adam (2) Malnutrition: Plan: With just under 20% weight loss of total body weight in the past 3 months per her report. With ketonuria on presentation. albumin and prealbumin low -Suspect that this is due to poor p.o. intake, large GI losses of electrolytes, question malabsorption GI tract - as per primary service Follow up EGD path and stool studies; for colonoscopy in AM (3) Frequent falls: Plan: Given her intention tremor and somewhat odd body movements (nurse reports ataxic movement of right lower extremity while getting back into bed), recommend Serial neurologic exam Careful physical therapy evaluation Check/monitor orthostatic vital signs > she was borderline orthostatic at admission Fall precautions - her MM cramps and generalized weakness no doubt worsen her fall risk Admission and Anticipated Discharge Date Admission Date: November 02, 2023 Subjective no interval events except high K this am and k on hold; for colonoscopy in AM hasn't started prep yet. no sob, n/v. ongoing minimal appetite/ borderline po though she says she's eating better. Review of Systems 2 Review of Systems: All systems reviewed & are unremarkable except as noted in Subjective Physical Exam 2 Physical Exam: Constitutional: well developed, we ll nourished, aver age body habitus, + frail appearing and cooperative; n o acute distress; sitting up in karla r on RA wrapped in blankets Eyes: EOM intact bilater ally ENMT: Ears: no external ear abnormality N ose: no external n ose abnormality M outh: + dry oral m ucous membranes Neck: no nuchal rigidity Respiratory: normal respiratory effort Auscultat ion: + diminished lung sounds Cardiovascular: RRR, no murmur, no edema Gastrointestinal ( Abdomen): Inspection/Auscult ation: normal aaliyah l sounds Percussi on/Palpation: abdo men soft; abdomen nontender Musculoskeletal: Extremities: stren gth 5/5 throughout Skin: no rashes, warm an d dry Psychiatric: Orientation: alert and oriented x 3 Speech: normal ra te/rhythm/volume o f speech Results & Data Vital Signs (Past 12 Hours) Vital Signs Temp Pulse Pulse Resp BP Pulse Ox O2 Del Method 11/06/23 15:27 36.6 C 84 18 132/72 99 Room Air 11/06/23 11:09 36.5 C 79 18 126/66 100 Room Air 11/06/23 07:25 78 11/06/23 07:13 36.3 C L 76 18 133/70 98 Room Air Laboratory Results 11/06/23 05:54 11/06/23 05:54 Calcium 7.5 Ionized calcium 1.12 Phosphorus 1.9 Magnesium 1.5
[2023-11-06] MEDS: LAVAGE SOLUTION 4000ML PO SCH (16:16)
[2023-11-06 21:33] LABS: BUN Creatinine Ratio 5.4 (10-20); Creatinine Clr Calc Pharmacy 48.8 ml/min; Est GFR (African American) 91.2 ml/min; Est GFR (Non-African American) 78.7 ml/min; Potassium 4.6 mmol/L (3.5-5.1)
[2023-11-07 06:22] LABS: Hematocrit (blood only) 37.7 % (37.0-47.0); Hemoglobin 12.6 g/dl (12.0-16.0); Mean Corpuscular Hemoglobin 30.7 pg (25.0-34.0); Mean Corpuscular Hgb Conc 33.4 g/dL (32.0-36.0); Mean Corpuscular Volume 91.7 fL (80.0-100.0); Mean Platelet Volume 9.9 fL (9.4-12.4); Platelet Count 251 K/uL (130-400); RDW Coefficient of Variation 14.4 % (11.5-14.5); RDW Standard Deviation 48.5 fL (36.4-46.3); Red Blood Count 4.11 M/uL (4.20-5.40); White Blood Count 6.52 K/ul (4.8-10.8)
[2023-11-07 06:51] LABS: BUN Creatinine Ratio 6.5 (10-20); Calcium 8.3 mg/dl (8.6-10.3); Creatinine Clr Calc Pharmacy 46.9 ml/min; Est GFR (African American) 86.9 ml/min; Magnesium 1.9 mg/dl (1.7-2.4); Phosphorus 2.7 mg/dl (2.5-4.9); Potassium 4.6 mmol/L (3.5-5.1)
--- NOTE | 2023-11-07 07:31 | Hospitalist Progress Note ---
Date of Service November 07, 2023 Assessment & Plan (1) Acute hypokalemia: (2) Hypomagnesemia: (3) Hypophosphatemia: (4) Hypocalcemia: (5) Cramp of muscle of both upper extremities: (6) Nausea & vomiting: Plan: Patient is 78 yo F with osteoporosis, GERD, hypertriglyceridemia, depression, anxiety presented to ER with complaint of extremity cramping with intermittent, nausea, vomiting. Reports ongoing nausea, vomiting, decreased appetite, intermittent loose bowels and weight loss Vitals stable in ER. No leukocytosis, K: 2.3, Ca: 7.4, magnesium: 0.6, phosphorus <1.0 troponin: 14.8 with repeat of 14.8, lipase and LFTs WNL CT A/P: No bowel obstruction, no acute process noted in abdomen or pelvis In ER given Zofran, IV Tylenol, 500 mL NSS, 2 g magnesium sulfate, 1K rider Electrolyte abnormalities may be secondary to GI losses, decreased oral intake. Suspect muscle cramps and aches secondary to electrolyte abnormality EKG obtained Monitor on telemetry Replete and monitor electrolytes CBC, CMP, magnesium, phosphorus labs monitored closely Continue Protonix Plan to continue home Pepcid and PPI GI and nephrology consulted Per nephrology - obtained pre-albumin, vit D level, repeat labs - monitor and replete as needed. Started vit. D + calcium supplement. Appreciate the discharge recommendations. Per GI - underwent EGD on (11/04/2023) Findings: - Multiple fundic polyps the largest of which was biopsied Biopsies done for EOE Impression: - Multiple fundic polyps the largest of which was biopsied - Biopsies done for EOE Recommendation: - Resume previous diet. - Continue present medications. - Await pathology results. - Obtain gastric emptying studies. - Can plan for coloscopy as inpatient Tuesday or as OP with her primary GI as planned Given her electrolyte abnormalities - plan for colonoscopy while inpt. Pt underwent colonoscopy prep yesterday/ overnight. Electrolytes this AM acceptable. Contacted GI service this AM- plan for colonoscopy later today. (7) Orthostatic hypotension: Plan: History orthostatic hypotension Likely exacerbated by GI losses/poor oral intake Fall precautions Orthostatic vitals (8) Anxiety and depression: Plan: Continue home meds (9) Hypertriglyceridemia: Plan: Continue atorvastatin DVT Prophylaxis Heparin SQ Admitted to PCU Full Code as per discussion with pt Follows with Dr Jang for routine care Admission and Anticipated Discharge Date Admission Date: November 02, 2023 Subjective Pt seen in follow up of electrolyte abnormalities , ongoing n/v, abd. discomfort Recently admitted in [place] for the same - supposed to have egd/ colonoscopy done in november Currently laying in bed in [facility] Feels much better - cramping in her arms and legs resolved Denies any fever, chills, chest pain, shortness of breath GI and nephrology consulted Underwent EGD per GI -> plan for colonoscopy today Electrolytes monitored and replaced as needed Pt's present at the bedside yesterday and updated Review of Systems Review of Systems: All systems reviewed & are unremarkable except as noted in Subjective Physical Exam Physical Exam: General: WD/WN elderly F in NAD Head: normocephalic, atraumatic Eyes: conjunctiva non-injected, anicteric ENT: normal inspection external ears, nose Neck: supple Lungs: clear, no respiratory distress, no wheezing/rhonchi/rales CV: RRR, no murmur, no pretibial edema Abd: normal BS, soft, + minimal diffuse tenderness to palpation without rebound or guarding Ext: no LE edema, no erythema, moves extremities Neuro: A&O x 3, speech fluent, answers appropriately, no facial asymmetry, moves extremities Skin: warm, dry Results & Data Results & Data Vital Signs (Past 12 Hours) Vital Signs Temp Pulse Resp BP Pulse Ox O2 Del Method 11/07/23 03:13 36.7 C 78 17 100/54 L 96 Room Air 11/06/23 23:18 36.6 C 79 17 110/60 95 Room Air 11/06/23 19:49 36.6 C 82 17 143/78 H 99 Room Air Laboratory Results 11/07/23 11/06/23 Range/Units 05:35 20:46 WBC 6.52 (4.8-10.8) K/ul RBC 4.11 L (4.20-5.40) M/uL Hgb 12.6 (12.0-16.0) g/dl Hct 37.7 (37.0-47.0) % MCV 91.7 (80.0-100.0) fL MCH 30.7 (25.0-34.0) pg MCHC 33.4 (32.0-36.0) g/dL RDW Std Deviation 48.5 H (36.4-46.3) fL RDW Coeff of Silvia 14.4 (11.5-14.5) % Plt Count 251 (130-400) K/uL MPV 9.9 (9.4-12.4) fL Sodium 139 137 (136-145) mmol/L Potassium 4.6 4.6 D (3.5-5.1) mmol/L Chloride 107 106 (98-107) mmol/L Carbon Dioxide 27 24 (21-32) mmol/L Anion Gap 5 7 (3-11) BUN 5 L 4 L (6-23) mg/dl Creatinine 0.77 0.74 (0.6-1.2) mg/dl Est Cr Clr Drug Dosing 46.9 48.8 ml/min Est GFR ( Amer) 86.9 91.2 ml/min Est GFR (Non-Af Amer) 75.0 78.7 ml/min BUN/Creatinine Ratio 6.5 L 5.4 L (10-20) Glucose 88 93 (70-99(Fasting)) mg/dl Calcium 8.3 L 9.0 (8.6-10.3) mg/dl Phosphorus 2.7 3.0 D (2.5-4.9) mg/dl Magnesium 1.9 2.0 (1.7-2.4) mg/dl Medications Administered Current Inpatient Medications Acetaminophen (Acetaminophen 325 Mg Tab) 650 mg PO Q4H PRN PRN Reason: Pain or Fever Stop: 12/02/23 21:07 Last Admin: 11/05/23 17:19 Dose: 650 mg Albuterol (Albuterol Hfa 8 Gm Inhaler) 2 puffs INH Q6H PRN PRN Reason: Shortness Of Breath Or Wheezin Stop: 12/02/23 21:07 Atorvastatin Calcium (Atorvastatin 40 Mg Tab) 80 mg PO QPM KRISTINA Stop: 12/02/23 21:07 Last Admin: 11/06/23 19:41 Dose: 80 mg Calcium/Vitamin D (Calcium 600mg + Vit D 400 Iu Tab) 2 tab PO BID KRISTINA Stop: 12/04/23 21:44 Last Admin: 11/06/23 19:42 Dose: 2 tab Famotidine (Famotidine 40 Mg Tablet) 40 mg PO QPM KRISTINA Stop: 12/02/23 21:07 Last Admin: 11/06/23 19:46 Dose: 40 mg Heparin Sodium (Porcine) (Heparin Sod 5,000 Unit/0.5 Ml Vial) 5,000 units SQ Q12 KRISTINA Stop: 12/02/23 21:07 Last Admin: 11/06/23 19:43 Dose: 5,000 units Magnesium Chloride (Magnesium Chloride W/Calcium 64mg Delayed Rel Tab) 128 mg PO BID KRISTINA Stop: 12/05/23 08:59 Last Admin: 11/06/23 19:44 Dose: 128 mg Montelukast Sodium (Montelukast Sodium 10 Mg Tablet) 10 mg PO DAILY KRISTINA Stop: 12/03/23 08:59 Last Admin: 11/06/23 09:22 Dose: 10 mg Ondansetron HCl (Ondansetron Inj 2 Mg/Ml 2 Ml Vial) 4 mg IV Q6H PRN PRN Reason: Nausea Stop: 12/02/23 21:07 Pantoprazole Sodium (Pantoprazole 40 Mg Tab) 40 mg PO DAILY KRISTINA Stop: 12/03/23 08:59 Last Admin: 11/06/23 09:22 Dose: 40 mg Polyethylene Glycol (Polyethylene (Miralax) 17 Gm Pack) 17 gm PO DAILY PRN PRN Reason: Constipation Stop: 12/02/23 21:07 Potassium Chloride (Potassium Chloride Crtab 20 Meq Tabcr) 40 meq PO TID KRISTINA Stop: 12/03/23 13:59 Last Admin: 11/05/23 20:48 Dose: 40 meq Ranolazine (Ranolazine 500 Mg Er Tab) 500 mg PO BID KRISTINA Stop: 12/02/23 21:07 Last Admin: 11/06/23 19:43 Dose: 500 mg Sertraline HCl (Sertraline Hcl 100 Mg Tablet) 100 mg PO QAM KRISTINA Stop: 12/03/23 08:59 Last Admin: 11/06/23 09:22 Dose: 100 mg Trazodone HCl (Trazodone Hcl 100 Mg Tab) 100 mg PO HS [facility] Stop: 12/02/23 21:07 Last Admin: 11/06/23 19:45 Dose: 100 mg Vitamin B Complex (Vitamin B Complex Tab) 1 tab PO QAM KRISTINA Stop: 12/04/23 08:59 Last Admin: 11/06/23 09:22 Dose: 1 tab (6) Nausea & vomiting Vomiting type: unspecified Qualified Code(s): R11.2 - Nausea with vomiting, unspecified
--- NOTE | 2023-11-07 11:47 | History & Physical Bridge Note ---
<Statement entered by Elizabeth Tate MD - 11/07/23 14:12> I have examined the patient, reviewed the History & Physical and in the interval since the performance of the History & Physical I have noted the following changes of clinical significance: no changes noted. Mrs Griggs tells me she has had several prior unsuccessful attempts at colonoscopy. Date of Service November 07, 2023 History & Physical Bridge Note I have examined the patient, reviewed the History & Physical and in the interval since the performance of the History & Physical I have noted the following changes of clinical significance: no changes noted. patient with history of nausea, vomiting, abdominal pain. patient tells me that this has improved. she was prepped yesterday for a colonoscopy today. prep clear. will proceed with colonoscopy to further evaluate.
--- NOTE | 2023-11-07 13:17 | Anesthesiology Consultation ---
Date of Service November 07, 2023 Assessment & Plan Chart Review Chart Review: Acceptable Risk for Surgery and Patient NOT seen in Pre Admission Testing Consults Requested none History Surgery Operation Date: 11/04/23 16:45 Proposed Procedures p Esophagogastroduodenoscopy Aries Chris MD Operation Date: 11/07/23 16:45 Proposed Procedures p Colonoscopy [place] - Elizabeth Tate MD Height/Weight Height: 5 ft 1 in Weight: 55.6 kg Allergies Allergy/AdvReac Type Severity Reaction Status Date / Time alendronate sodium Allergy Intermediate Itching Verified 11/04/23 10:24 [From Fosamax] Medications Home Medications Medication Instructions Recorded Confirmed Last Taken acetaminophen 650 mg 650 mg PO Q8H PRN Pain 11/02/23 11/02/23 Unknown tablet,extended release albuterol sulfate 90 mcg/actuation 2 puff inhalation Q6H PRN 11/02/23 11/02/23 Unknown aerosol inhaler Shortness Of Breath Or Wheezing atorvastatin 80 mg tablet 80 mg PO QPM 11/02/23 11/02/23 10/31/23 denosumab 60 mg/mL subcutaneous 60 mg subcut .[id number] 11/02/23 11/02/23 Unknown syringe (Prolia) famotidine 40 mg tablet 40 mg PO QPM 11/02/23 11/02/23 10/31/23 flaxseed oil 1,000 mg capsule 1,000 mg PO QPM 11/02/23 11/02/23 10/31/23 montelukast 10 mg tablet 10 mg PO DAILY 11/02/23 11/02/23 11/01/23 pantoprazole 20 mg tablet,delayed 20 mg PO QDD 11/02/23 11/02/23 10/31/23 release ranolazine 500 mg tablet,extended 500 mg PO BID 11/02/23 11/02/23 11/01/23 08:00 release,12 hr sertraline 100 mg tablet 100 mg PO QAM 11/02/23 11/02/23 11/01/23 trazodone 100 mg tablet 100 mg PO HS 11/02/23 11/02/23 10/31/23 Active Medications Generic Name Dose Route Start Last Admin Trade Name Freq PRN Reason Stop Dose Admin Acetaminophen 650 mg 11/02/23 21:08 11/05/23 17:19 Acetaminophen 325 Mg Tab PO 12/02/23 21:07 650 mg Q4H PRN Administration Pain or Fever Atorvastatin Calcium 80 mg 11/02/23 21:08 11/06/23 19:41 Atorvastatin 40 Mg Tab PO 12/02/23 21:07 80 mg QPM KRISTINA Administration Calcium/Vitamin D 2 tab 11/04/23 21:45 11/07/23 08:23 Calcium 600mg + Vit D 400 Iu Tab PO 12/04/23 21:44 2 tab BID KRISTINA Administration Famotidine 40 mg 11/02/23 21:08 11/06/23 19:46 Famotidine 40 Mg Tablet PO 12/02/23 21:07 40 mg QPM KRISTINA Administration Heparin Sodium (Porcine) 5,000 units 11/02/23 21:08 11/07/23 08:45 Heparin Sod 5,000 Unit/0.5 Ml Vial SQ 12/02/23 21:07 Not Given Q12 KRISTINA Magnesium Chloride 128 mg 11/05/23 09:00 11/07/23 08:23 Magnesium Chloride W/Calcium 64mg Delayed Rel Tab PO 12/05/23 08:59 128 mg BID KRISTINA Administration Montelukast Sodium 10 mg 11/03/23 09:00 11/07/23 08:23 Montelukast Sodium 10 Mg Tablet PO 12/03/23 08:59 10 mg DAILY KRISTINA Administration Pantoprazole Sodium 40 mg 11/03/23 09:00 11/07/23 08:23 Pantoprazole 40 Mg Tab PO 12/03/23 08:59 40 mg DAILY KRISTINA Administration Potassium Chloride 40 meq 11/03/23 14:00 11/05/23 20:48 Potassium Chloride Crtab 20 Meq Tabcr PO 12/03/23 13:59 40 meq TID KRISTINA Administration Ranolazine 500 mg 11/02/23 21:08 11/07/23 08:23 Ranolazine 500 Mg Er Tab PO 12/02/23 21:07 500 mg BID KRISTINA Administration Sertraline HCl 100 mg 11/03/23 09:00 11/07/23 08:23 Sertraline Hcl 100 Mg Tablet PO 12/03/23 08:59 100 mg QAM KRISTINA Administration Trazodone HCl 100 mg 11/02/23 21:08 11/06/23 19:45 Trazodone Hcl 100 Mg Tab PO 12/02/23 21:07 100 mg HS KRISTINA Administration Vitamin B Complex 1 tab 11/04/23 09:00 11/07/23 08:23 Vitamin B Complex Tab PO 12/04/23 08:59 1 tab QAM KRISTINA Administration NPO Date Last Intake of Fluids: 11/03/23 Time Last Intake of Fluids: 22:00 Date Last Intake of Solids: 11/03/23 Time Last Intake of Solids: 17:00 Past Medical History Medical History Osteoporosis Hypertriglyceridemia Anxiety and depression Past Family History Family History Other Colorectal cancer Heart disease Past Surgical History Surgical History History of cholecystectomy History of hysterectomy Social History Smoking Status: Never smoker Hx Alcohol Use: No Hx Substance Use: No Physical Exam Vital Signs Last Vital Signs Temp 36.8 C 11/07/23 11:56 Pulse 84 11/07/23 11:56 Resp 16 11/07/23 11:56 BP 134/68 11/07/23 11:56 Pulse Ox 95 11/07/23 11:56 O2 Del Method Room Air 11/07/23 11:56 Testing Laboratory Results 11/07/23 05:35 11/07/23 05:35 Urine Color Dark Yellow 11/02/23 16:53 Urine Appearance Cloudy (Clear) A 11/02/23 16:53 Urine pH 6.0 (4.5-7.5) 11/02/23 16:53 Ur Specific [place] 1.024 (1.000-1.030) 11/02/23 16:53 Urine Protein 1+ (Negative) H 11/02/23 16:53 Urine Glucose (UA) Negative (Negative) 11/02/23 16:53 Urine Ketones 1+ (Negative) H 11/02/23 16:53 Urine Nitrite Negative (Negative) 11/02/23 16:53 Ur Leukocyte Esterase 1+ (Negative) H 11/02/23 16:53 Urine WBC (Auto) 0-5 /hpf (0-5) 11/02/23 16:53 Urine RBC (Auto) 6-10 /hpf (0-2) H 11/02/23 16:53 U Hyaline Cast (Auto) 6-10 /lpf (0-2) H 11/02/23 16:53 U Epithel Cells (Auto) 0-2 /hpf (0-2) 11/02/23 16:53 Urine Bacteria (Auto) None Seen (None Seen) 11/02/23 16:53 Electrocardiogram Date: 11/03/23 Normal sinus rhythm Nonspecific T wave abnormality Prolonged QT Abnormal ECG When compared with ECG of 03-NOV-2023 06:06, (unconfirmed) No significant change was found Confirmed by David Tamayo ([id number]) on 11/03/2023 12:31:46 PM
--- NOTE | 2023-11-07 16:15 | Anesthesiology Progress Note ---
Date of Service November 07, 2023 Anesthesia Post Procedure Vital Signs Vital Signs: Temp Pulse Pulse Resp BP BP Pulse Ox 11/07/23 14:02 36.6 C 81 18 147/75 H 97 11/07/23 13:00 81 11/07/23 11:56 36.8 C 84 16 134/68 95 11/07/23 08:01 36.6 C 67 16 135/70 97 11/07/23 07:00 75 11/07/23 03:13 36.7 C 78 17 100/54 L 96 11/06/23 23:18 36.6 C 79 17 110/60 95 11/06/23 19:49 36.6 C 82 17 143/78 H 99 O2 Del Method 11/07/23 14:02 Room Air 11/07/23 13:00 11/07/23 11:56 Room Air 11/07/23 08:01 Room Air 11/07/23 07:00 11/07/23 03:13 Room Air 11/06/23 23:18 Room Air 11/06/23 19:49 Room Air Pain Intensity Bilateral Leg: Pain Intensity: 0 Bilateral Arm: Pain Intensity: 0 Transfer of Care Handoff Completed per policy Notes Mental Status: alert / awake / arousable and participated in evaluation Patient Amnestic to Procedure: Yes Nausea / Vomiting: adequately controlled Pain: adequately controlled Airway Patency, RR, SpO2: stable & adequate BP & HR: stable & adequate Hydration State: stable & adequate Anesthetic Complications: no major complications apparent and Pt Satisfied with anesthetic care
--- NOTE | 2023-11-07 16:19 | GI REPORT ---
[facility] Patient: TATYANA JAMES : 1945 Sex at : Female Age: 78 Years Procedure: Colonoscopy Date: 11/07/2023 Attending Physician: Elizabeth Tate MD Referring MD: Andrey Adam Md Indications: - Lower abdominal pain Medications: - Monitored Anesthesia Care Complications: - No immediate complications. Estimated Blood Loss: - Estimated blood loss: none. Procedure: - Prior to the procedure, a History and Physical was performed, and patient medications and allergies were reviewed. The patient's tolerance of previous anesthesia was also reviewed. The risks and benefits of the procedure and the sedation options and risks were discussed with the patient. All questions were answered, and informed consent was obtained. Prior Anticoagulants: The patient has taken no anticoagulant or antiplatelet agents. ASA Grade Assessment: III - A patient with severe systemic disease. After reviewing the risks and benefits, the patient was deemed in satisfactory condition to undergo the procedure. - The pediatric colonoscope was introduced through the anus with the intention of advancing to the cecum. The scope was advanced to the descending colon before the procedure was aborted. Medications were given. - The colonoscopy was performed without difficulty. - The patient tolerated the procedure well. - The quality of the bowel preparation was adequate. - No anatomical structures were photographed. - The colonoscopy was unusually difficult due to post-surgical anatomy, restricted mobility of the colon and a tortuous colon despite withdrawing and reinserting the scope, changing endoscopes and using manual pressure. The procedure was aborted in the distal descending colon - The patient tolerated the procedure well. Findings: - Hemorrhoids were found on perianal exam. Impression: - Hemorrhoids found on perianal exam. - No specimens collected. Recommendation: - Resume previous diet and resume regular diet today. Procedure Code(s): - C8108-52, Colorectal cancer screening; colonoscopy on individual not meeting criteria for high risk Diagnosis Code(s): - Z12.11, Encounter for screening for malignant neoplasm of colon - R10.30, Lower abdominal pain, unspecified - K64.9, Unspecified hemorrhoids CPT(R) - 2022 copyright [employer]. All Rights Reserved. The CPT codes, CCI edits and ICD codes generated are intended as suggestions and were generated based on input data. These codes are preliminary and upon quickbooks bookkeeper review may be revised to meet current compliance and payer requirements. The provider is responsible for the final determination of appropriate codes, and modifiers. Elizabeth Tate This document has been electronically signed. Note Initiated:11/07/2023 Note Completed:11/07/2023 4:18 PM \\[email or web address]\Data\Provation\Results\LIVE\[id number]
[2023-11-07] MEDS: LIDOCAINE 2% 2 ML VIAL/AMP(20MG/ML) INFIL ONE (17:14)
[2023-11-07] MEDS: PROPOFOL IV EMULSION 10 MG/ML 20 ML VIAL IV ONE (17:15)
[2023-11-07 20:21] LABS: BUN Creatinine Ratio 6.8 (10-20); Creatinine Clr Calc Pharmacy 49.5 ml/min; Est GFR (African American) 92.7 ml/min; Magnesium 1.5 mg/dl (1.7-2.4); Phosphorus 2.4 mg/dl (2.5-4.9); Potassium 4.3 mmol/L (3.5-5.1)
[2023-11-07] MEDS ORDERED: SODIUM PHOSPHATE 3 MMOL/1 ML INFUSION IV STA (21:06)
[2023-11-07] MEDS: MAGNESIUM SULFATE / D5W 1 GM/100 ML BAG IV SCH (21:29)
[2023-11-07] MEDS: SODIUM PHOSPHATE 9 MMOL in SODIUM CHLORIDE 0.9% 250 ML IV ONE (21:29)
[2023-11-08 06:51] LABS: BUN Creatinine Ratio 5.7 (10-20); Calcium 7.4 mg/dl (8.6-10.3); Creatinine Clr Calc Pharmacy 51.6 ml/min; Est GFR (African American) 97.5 ml/min; Est GFR (Non-African American) 84.2 ml/min; Magnesium 2.3 mg/dl (1.7-2.4); Phosphorus 4.2 mg/dl (2.5-4.9); Potassium 4.1 mmol/L (3.5-5.1)
--- NOTE | 2023-11-08 08:12 | Discharge Summary ---
Discharge Summary Date of Service November 08, 2023 Principal Dx & Hospital Course #1 = Principal Diagnosis (1) Acute hypokalemia: (2) Hypomagnesemia: (3) Hypophosphatemia: (4) Hypocalcemia: (5) Cramp of muscle of both upper extremities: (6) Nausea & vomiting: (7) Orthostatic hypotension: (8) Anxiety and depression: (9) Hypertriglyceridemia: Plan Patient is 78 yo F with PMHx significant for osteoporosis, GERD, hypertriglycer idemia, depression, anxiety who presented to the ER with complaint of extremity cramping with intermittent, nausea, vomiting. Reports ongoing nausea, vomiting, decreased appetite, intermittent loose bowels and weight loss. Intractable N/V Severe Malnutrition Electrolyte Disorder Vitals stable in ER on admission No leukocytosis, K: 2.3, Ca: 7.4, magnesium: 0.6, phosphorus <1.0 troponin: 14.8 with repeat of 14.8, lipase and LFTs WNL CT A/P: No bowel obstruction, no acute process noted in abdomen or pelvis In ER given Zofran, IV Tylenol, 500 mL NSS, 2 g magnesium sulfate, 1K rider Electrolyte abnormalities may be secondary to GI losses, decreased oral intake. Suspect muscle cramps and aches secondary to electrolyte abnormalities EKG obtained- NSR with prolonged qt Monitored on telemetry Repleted electrolytes Continue Protonix GI and nephrology consulted Per nephrology, recommended/stated the following: -DDX: inadequate intake and refeeding syndrome is likeliest cause and/or complications of PPI use; doubt role for prolia or diuretic/laxative abuse; D stores OK -continue aggressive mag and calcium supplements -w/ elevated K...K on hold; resume supplements at bid not tid when appropriate (Potassium was 4.1 on discharge after being >4 for the last 4 days while supplements on hold). Pt was not discharged with potassium supplements. PCP to resume as needed while monitoring -cont PPI for now which is obligate -no OP neph f/u needed -[facility] so far seems to improve her po intake but GI w/u in process to evaluate for other causes such as malabsorption -monitor orthstatic VS -will need PCP or f/u provider to monitor BMP, mag, phos q 1 wk x 3 as OP and possibly more often Discharged with Vitamin B complex, Slow Mag 128mg BID, Calcium/Vit D (Caltrate Plus) 2 tabs BID Close PCP followup after discharge for continued electrolyte monitoring and supplementation as recommended by Nephrology Per GI - underwent EGD on (11/04/2023) Findings: - Multiple fundic polyps the largest of which was biopsied Biopsies done for EOE Impression: - Multiple fundic polyps the largest of which was biopsied - Biopsies done for EOE Recommendation: - Resume previous diet. - Continue present medications. - Await pathology results. - Obtain gastric emptying studies. Colonoscopy on 11/07/2023 - The colonoscopy was unusually difficult due to post-surgical anatomy, restricted mobility of the colon and a tortuous colon despite withdrawing and reinserting the scope, changing endoscopes and using manual pressure. The procedure was aborted in the distal descending colon - The patient tolerated the procedure well. Findings: - Hemorrhoids were found on perianal exam. Impression: - Hemorrhoids found on perianal exam. - No specimens collected. Recommendation: - Resume previous diet and resume regular diet today. Per GI, recommended/stated the following on day of discharge: Patient tells me she feels well from a GI standpoint. no nausea, vomiting, abdominal pain. she does not have any GI complaints today. colonoscopy was done yesterday but it was incomplete. she tells me she has never been able to complete one in the past secondary to adhesions. we discussed barium enema to further evaluate but she declines at this time. would recommend follow up in our office as outpatient. Close PCP followup after discharge for continued electrolyte monitoring and supplementation as recommended by Nephrology Close GI follow up after discharge. Orthostatic hypotension History orthostatic hypotension Likely exacerbated by GI losses/poor oral intake Fall precautions Orthostatic vitals positive IV fluids Improved on discharge Continued other home meds as ordered. Notes For Next Care Provider Please ensure followup with GI for possible barium swallow and gastric emptying study Nephrology recommended the following after discharge: -"will need PCP or f/u provider to monitor BMP, mag, phos q 1 wk x 3 as OP and possibly more often" Medication Changes From Visit Vitamin B complex Slow Mag 128mg BID Calcium/Vit D (Caltrate Plus) 2 tabs BID Admission HPI Per Admitting Provider Patient is 78-year-old female with PMH osteoporosis, GERD, hypertriglyceridemia, depression, anxiety presented to ER with complaint of extremity cramping today with intermittent, nausea, vomiting. Reports ongoing nausea, vomiting, decreased appetite, intermittent loose bowels. States last episode of loose bowel movement was a week ago. She states has no appetite and nausea. Reports two episodes of vomiting yesterday, one after taking her medications. Reports weight loss over past several months. She also reports some intermittent diffuse abdominal pain. History hospitalization at [facility] 09/29/2023-10/01/2023 for muscle cramping and found to have hypokalemia, hypomagnesemia and per discharge summary po tassium and magnesium was repleted with improvement of patient cramping symptoms and was discharged home. Patient states continues with intermittent N/V/D since hospital discharge. She reports is to have "scope" by [facility] in 12/2023. Past reports prior colonoscopies they weren't able to pass the scope fully. She denies history of colon cancer. Patient states today with cramping of bilateral arms and legs and hands were cramping and clenched. She seen at PCP's office and referred to ER. Currently patient denies abdominal pain. No vomiting or diarrhea in ER. She states nauseated. Patient reports for past year has noted dyspnea on exertion and chest pressure with climbing a hill or climbing stairs. Follows with [place] [facility]. Also reports ongoing dizziness with standing for the past several months. She reports she will stand up and have dizziness and often will fall. Patient reports has been falling several times a week with standing. It was recommended that patient have updated echo and stress test. Patient is unsure if she had these things completed. States yesterday fell twice with standing. Denies syncope or LOC. Doesn't think she injured herself. Per chart review 06/24 stress test study WNL and 10/2019 Holter WNL reported in [facility] notes. Per outpatient notes she was referred to asthma/allergy for elevated tryptase level. Denies current SOB or CP. Denies fever/chills, diaphoresis, hematemesis, melena, hematochezia, THAKUR, vision changes, neck pain, orthopnea, palpitations, cough, sore throat, choking, otalgia, rhinorrhea, extremity edema, rashes, urinary symptoms. Admission Exam Per Admitting Provider General: + distress secondary to bilateral upper and lower extremity pain and cramping, WDWN Head: normocephalic, atraumatic Eyes: conjunctiva non-injected, anicteric ENT: normal inspection external ears, nose, mucous membranes moist Neck: supple, trachea midline Lungs: clear, no respiratory distress, no wheezing/rhonchi/rales CV: RRR, no murmur, no pretibial edema Abd: normal BS, soft, +diffuse tenderness to palpation without rebound or guarding Ext: no cyanosis, no erythema, +diffuse tenderness to palpation entire upper and lower extremities. No retractions of fingers or toes Neuro: A&O x 3, no focal deficits noted, normal affect Skin: warm, dry Discharge Exam General: Alert, oriented. No acute distress Skin: No noted rashes or bruises Psych: Appropriate mood and affect HEENT: NC/AT Chest: Nontender to palpation. CV: RRR Resp: Breath sounds clear bilaterally, no increased effort of breathing Abdomen: Soft, nontender, nondistended Extremities: No edema in lower extremities bilaterally Updated Medication List Medication Instructions Recorded Confirmed Type acetaminophen 650 mg 650 mg PO Q8H PRN Pain 11/02/23 11/02/23 History tablet,extended release albuterol sulfate 90 mcg/actuation 2 puff inhalation Q6H PRN 11/02/23 11/02/23 History aerosol inhaler Shortness Of Breath Or Wheezing atorvastatin 80 mg tablet 80 mg PO QPM 11/02/23 11/02/23 History denosumab 60 mg/mL subcutaneous 60 mg subcut .[id number] 11/02/23 11/02/23 History syringe (Prolia) famotidine 40 mg tablet 40 mg PO QPM 11/02/23 11/02/23 History flaxseed oil 1,000 mg capsule 1,000 mg PO QPM 11/02/23 11/02/23 History montelukast 10 mg tablet 10 mg PO DAILY 11/02/23 11/02/23 History pantoprazole 20 mg tablet,delayed 20 mg PO QDD 11/02/23 11/02/23 History release ranolazine 500 mg tablet,extended 500 mg PO BID 11/02/23 11/02/23 History release,12 hr sertraline 100 mg tablet 100 mg PO QAM 11/02/23 11/02/23 History trazodone 100 mg tablet 100 mg PO HS 11/02/23 11/02/23 History calcium 600 mg-D3 800 unit-mag11 2 tab PO BID #120 tabs 11/08/23 Rx 50 ry-feyd-bpzmax-julieth-s.borat tablet (Caltrate 600-D Plus Minerals) magnesium chloride 64 mg 128 mg (2 x 64 mg) PO BID #120 tabs 11/08/23 Rx (magnesium chloride) tablet,delayed release (Mag 64) vitamin B complex (Vitamins B 1 cap PO QAM #30 caps 11/08/23 Rx Complex capsule) Hospital Stay Data Consultations 11/02/23 18:44 ED Decision to Admit Stat 11/02/23 21:08 Consult Gastroenterology Routine 11/03/23 08:12 Consult Nephrology Routine Procedures Performed Operation Date: 11/07/23 16:45 Actual Procedures p Colonoscopy - Elizabeth Tate MD Diagnostic Imagining Performed 11/02/23 16:03 CT head/brain wo con Stat 11/02/23 17:16 CT Abd and Pelvis [CT abd pelvis IV con only] Stat Chest X-Ray 11/02/23 16:00 XR chest 1V portable CLINICAL HISTORY: postprandial fullness/vomiting COMPARISON STUDY: No previous studies for comparison. FINDINGS: There is moderate elevation of the right hemidiaphragm. Lungs are clear. There is no pneumothorax or pleural effusion. Cardiac size is normal. Mediastinal contours are normal. There is no evidence for pulmonary edema. Multiple old right-sided rib fractures are incidentally noted. IMPRESSION: No acute cardiopulmonary findings. ACT 112: Negative or not required by law. Electronically signed by: Howie Campo M.D. 11/02/2023 5:[address] 11/02/23 16:03 CT OF THE HEAD WITHOUT CONTRAST CLINICAL HISTORY: fall yesterday, right head injury COMPARISON STUDY: No previous studies for comparison. CT DOSE: 1441.5 mGy.cm TECHNIQUE: Helical axial images of the head were obtained without IV contrast. Automated exposure control was utilized for the study. A dose lowering technique was utilized adhering to the principles of ALARA. FINDINGS: No acute intracranial hemorrhage, midline shift or mass effect is present. The ventricular system is unremarkable. The basal cisterns are patent. No extra-axial collections are present. There are no findings to suggest acute dural sinus thrombosis or acute territorial infarct. No significant calvarial abnormalities are present. Visualized portions of the sinuses and mastoid air cells are clear. IMPRESSION: 1. No acute intracranial findings. 2. No calvarial fractures. ACT 112: Negative or not required by law. Electronically signed by: Howie Campo M.D. 11/02/2023 6:08 PM Abdomen/Pelvis CT 11/02/23 17:16 CT OF THE ABDOMEN AND PELVIS WITH CONTRAST CLINICAL HISTORY: Epigastric pain, vomiting after eating. COMPARISON STUDY: None. TECHNIQUE: Following IV administration of 93 mL of Optiray, axial images of the abdomen and pelvis were obtained from the lung bases to the proximal femurs. Images were reviewed in the axial, sagittal, and coronal planes. IV contrast was administered without complication. Automated exposure control was utilized for the study. A dose lowering technique was utilized adhering to the principles of ALARA. FINDINGS: There are several healing left lower rib fractures. No pneumatosis, free air or portal venous gas is present. The liver, spleen, adrenal glands, right kidney and pancreas are unremarkable. There is no biliary ductal dilatation status post cholecystectomy 2.2 cm water attenuation lobulated left lower pole renal lesion represents a cyst. There is no hydronephrosis. There are no urinary calculi. The caliber and wall thickness of small and large bowel are normal. The appendix is not visualized. There is no lymphadenopathy. Major vasculature is patent. No acute fractures within the lumbar spine, pelvis or hips are identified. IMPRESSION: 1. No acute process within the abdomen or pelvis. 2. No bowel obstruction. No bowel wall thickening. ACT 112: Negative or not required by law. Electronically signed by: Howie Campo M.D. 11/02/2023 6:15 PM Discharge Instructions Given to Patient (Per Discharging Provider) Daija, You were seen by the clinical nursing professor and the jewelry polisher. The jewelry polisher is recommending further work up of your symptoms as an outpatient. The clinical nursing professor recommends that you continue with your supplements and closely follow up with your primary care provider after discharge. Please keep close follow up with your primary care provider after discharge. Please do not hesitate to come back to the emergency room if your symptoms worsen or return. It was a pleasure taking care of you while you were here. Total Time Total Time Spent Total Time Spent (In Minutes): 65
--- NOTE | 2023-11-08 10:50 | Communication Note ---
<Statement entered by Elizabeth Tate MD - 11/08/23 15:38> I have reviewed the History & Physical, assessment and plan. I agree with the documentation provided by MARCO Prasad with no additional comments.The patient was discharged before I could see her today. Date of Service: November 08, 2023 Patient tells me she feels well from a GI standpoint. no nausea, vomiting, abdominal pain. she does not have any GI complaints today. colonoscopy was done yesterday but it was incomplete. she tells me she has never been able to complete one in the past secondary to adhesions. we discussed barium enema to further evaluate but she declines at this time. would recommend follow up in our office as outpatient.
[2023-11-08 11:40] VITALS: PULSE 86; RESP 19; TEMP 98.2; O2SAT 97
[2023-11-08 14:37] VITALS: BP 134/68
== END 2023-11-08 15:01 | disposition home or self-care (01) | DRG 640 ==
LOC: ED 15:01 → 4W 19:11 → SUATTDRO 19:11 → 4W 20:50